=== PATIENT | male | born 1970 | race Native Hawaiian/Other Pacific Islander ===

== ENCOUNTER 2017-03-11 13:20 | Inpatient (IN) | payer OTHER ==
[2017-03-11 13:20] VITALS: BMI 26.6
--- NOTE | 2017-03-11 14:13 | C.PDOC ---
History Of Present Illness 46 y/o male presents to the ED with complaints of productive cough x3 weeks with associated subjective fever and chills. Pt denies dyspnea on exertion, chest pain or any other complaints. Denies antibiotic use. History of crohn's disease and rheumatoid arthritis. PROD COUGH X 3 WEEKS. +SUBJ FEVER, CHILLS. NO STEVENS/CP. NO ABX HO CHRONS, RA EXAM MILD DIST NONTOXIC HEENT NEG LUNGS CTA B/L NO W/R/R Time Seen by Provider: 03/11/17 13:32 Chief Complaint (Nursing): Cough, Cold, Congestion History Per: Patient History/Exam Limitations: no limitations Onset/Duration Of Symptoms: Days Current Symptoms Are (Timing): Still Present Sick Contacts (Context): None Associated Symptoms: Fever, Chills, Cough, Sputum. denies: Vomiting Severity: Mild Recent travel outside of the [place]: No Past Medical History Reviewed: Historical Data, Nursing Documentation, Vital Signs Vital Signs: Last Vital Signs Temp 99.1 F 03/11/17 15:24 Pulse 106 H 03/11/17 15:24 Resp 20 03/11/17 15:24 BP 137/73 03/11/17 15:24 Pulse Ox 97 03/11/17 15:24 - Medical History PMH: Anemia, Arthritis, Crohn's Disease, Diabetes, Fractures (LEFT ELBOW-CASTED ONLY), Gastritis, Pneumonia (NOVEMBER 2015), Rheumatoid Arthritis Surgical History: Cholecystectomy, Endoscopy - [facility] Procedures CLOSED ENDOSCOPIC BIOPSY OF LARGE INTESTINE (03/31/13) DRAINAGE OF AMPULLA OF VATER, ENDO (09/20/15) DRAINAGE OF RIGHT LOWER LOBE BRONCHUS, ENDO, DIAGN (11/12/15) EXCISION OF RIGHT LOWER LUNG LOBE, ENDO, DIAGN (11/12/15) EXTRACTION OF ILIAC BONE MARROW, PERC APPROACH, DIAGN (11/12/15) PACKED CELL TRANSFUSION (03/31/13) Family History: States: Unknown Family Hx - Social History Hx Alcohol Use: Yes Hx Substance Use: (DENIED) - Immunization History Hx Tetanus Toxoid Vaccination: No Hx Influenza Vaccination: No Hx Pneumococcal Vaccination: No Review Of Systems Except As Marked, All Systems Reviewed And Found Negative. Constitutional: Positive for: Fever, Chills Cardiovascular: Negative for: Chest Pain Respiratory: Positive for: Cough. Negative for: Shortness of Breath, SOB with Excertion Gastrointestinal: Negative for: Vomiting Physical Exam - Physical Exam Appears: Non-toxic, In Acute Distress (mild) Skin: Warm, Dry, No Rash Head: Atraumatic, Normacephalic Ear(s): Bilateral: Normal Nose: Normal Oral Mucosa: Moist Throat: Normal, No Erythema Neck: Normal, Normal ROM, Supple Chest: Symmetrical Cardiovascular: Rhythm Regular, No Murmur Respiratory: Normal Breath Sounds (clear to auscultation bilaterally), No Rales , No Rhonchi, No Wheezing Gastrointestinal/Abdominal: Normal Exam, Soft, No Tenderness Extremity: Bilateral: Atraumatic Neurological/Psych: Oriented x3, Normal Speech ED Course And Treatment - Laboratory Results Result Diagrams: 03/11/17 14:34 03/11/17 14:34 ECG: Interpreted By Me, Viewed By Me ECG Rhythm: Sinus Tachycardia Rate From EC (BPM) O2 Sat by Pulse Oximetry: 98 (room air) Pulse Ox Interpretation: Normal - Radiology CXR: Interpreted by Me CXR Interpretation: Yes: Infiltrates (RLL) Progress - Re-Evaluation Re-evaluation Note: 03/11/17 15:07 APPEARS WEAK. D/W DR BANKS WILL ADMIT - Medications Administered Intravenous: NSAID - Data Reviewed Data Reviewed: Lab, Diagnostic imaging, EKG, Old records Medical Decision Making Medical Decision Making: Plan: * EKG * labs * CXR * UA * IV fluids * toradol Disposition Counseled Patient/Family Regarding: Studies Performed, Diagnosis - Disposition Disposition: HOSPITALIZED Disposition Time: 15:10 Condition: STABLE - POA Present On Arrival: Poor Glycemic Control - Clinical Impression Clinical Impression: Pneumonia, Hyponatremia, Acute renal insufficiency - Scribe Statement The provider has reviewed the documentation as recorded by the Tuan Sigala Provider Attestation: All medical record entries made by the Tuan were at my direction and personally dictated by me. I have reviewed the chart and agree that the record accurately reflects my personal performance of the history, physical exam, medical decision making, and the department course for this patient. I have also personally directed, reviewed, and agree with the discharge instructions and disposition. Decision To Admit - Pt Status Changed To: Hospital Disposition Of: Inpatient - Admit Certification Admit to Inpatient:: After my assessment, the patient will require hospitalization for at least two midnights. This is because of the severity of symptoms shown, intensity of services needed, and/or the medical risk in this patient being treated as an outpatient. - InPatient: Physician Admission Certification: I certify that this patient requires 2 or more midnights of care for the following reason:: SEE NOTE - . Bed Request Type: Regular Admitting Physician: Alessandra Banks Patient Diagnosis: Pneumonia, Hyponatremia, Acute renal insufficiency
[2017-03-11 14:38] LABS: BASO # 0.3 K/uL (0.0-0.2); BASO % 0.9 % (0.0-2.0); EOS % 0.2 % (0.0-4.0); LYMPH # 0.7 K/uL (1.0-4.3); LYMPH % 2.6 % (20.0-40.0); MEAN CELL VOLUME 83.1 fL (80.0-94.0); MEAN CORPUSCULAR HEMOGLOBIN 27.8 pg (27.0-31.0); MEAN CORPUSCULAR HGB CONC 33.5 g/dL (33.0-37.0); MEAN PLATELET VOLUME 8.5 fL (7.2-11.7); MONO # 0.7 K/uL (0.0-0.8); MONO % 2.6 % (0.0-10.0); PLATELET COUNT 272 K/uL (130-400); RED CELL DISTRIBUTION WIDTH 13.3 % (11.5-14.5)
[2017-03-11 14:44] LABS: VENOUS BLOOD GAS BASE EXCESS -5.4 mmol/L (0.0-2.0); VENOUS BLOOD GAS PCO2 26 mmHg (40-60); VENOUS BLOOD PH 7.43 (7.32-7.43)
[2017-03-11 14:50] LABS: ALB/GLOB RATIO 0.8 (1.0-2.1); BILIRUBIN,TOTAL 0.7 mg/dL (0.2-1.3); TOTAL PROTEIN 6.8 g/dL (6.3-8.3)
[2017-03-11] MEDS ORDERED: Sodium Chloride 0.9% 1,000 ML ONE (14:50)
[2017-03-11 14:51] LABS: CALCIUM 8.3 mg/dl (8.6-10.4)
[2017-03-11 14:54] LABS: WHITE BLOOD COUNT 27.5 K/uL (4.8-10.8)
[2017-03-11] MEDS ORDERED: Azithromycin 500 MG in Sodium Chloride 0.9% 250 ML IV STA (14:55)
[2017-03-11] MEDS ORDERED: cefTRIAXone IV 1 gm in Dextros 50 ML IV STA (14:55)
[2017-03-11] MEDS ORDERED: Azithromycin 500mg/250ML NS 500 MG/250 ML BAG IVPB ONE (15:02)
[2017-03-11] MEDS ORDERED: cefTRIAXone IV 1 gm in Dextros 50 ML IVPB ONE (15:02)
[2017-03-11 15:35] LABS: RBC URINE 6 /hpf (0-3); URINE BILIRUBIN NEGATIVE (NEGATIVE); URINE BLOOD 1+ (NEGATIVE); URINE COLOR Yellow (YELLOW); URINE GLUCOSE (UA) 3+ mg/dL (Normal); URINE KETONE NEGATIVE (NEGATIVE); URINE LEUKOCYTE ESTERASE NEG Leu/uL (Negative); URINE PROTEIN 3+ mg/dL (NEGATIVE); URINE UROBILINOGEN NORMAL mg/dL (0.2-1.0); WBC URINE 3 /hpf (0-5)
[2017-03-11 15:38] LABS: NEUTROPHIL 88 % (50-75); TOTAL CELLS COUNTED 100
--- NOTE | 2017-03-11 16:10 | RAD ---
HISTORY: cough COMPARISON: 11/17/2015 FINDINGS: LUNGS: Patchy increased markings in both lung bases ; right greater than left concerning for infiltrate and or atelectasis. This is most prominent in the right infrahilar region. Scattered nodularity in the right midlung zone laterally which may represent prominent vessels on end however pulmonary nodules can't be excluded. Upper lobe granulomatous changes. PLEURA: As above. CARDIOVASCULAR: Normal. OSSEOUS STRUCTURES: No significant abnormalities. VISUALIZED UPPER ABDOMEN: Normal. OTHER FINDINGS: None. IMPRESSION: Patchy increased markings at both lung bases; right greater than left concerning for infiltrate and or atelectasis. This is most prominent in the right infrahilar region. Scattered nodularity in the right midlung zone laterally which may represent prominent vessels on end however pulmonary nodules can't be excluded. Upper lobe granulomatous changes.
[2017-03-11] MEDS ORDERED: Sodium Chloride 0.9% 1,000 ML IV SCH (20:45)
--- NOTE | 2017-03-11 20:48 | CP.PCM.HP ---
History of Present Illness - History of Present Illness History of Present Illness: Patient came to the emergency room with increasing symptoms of weakness, cough, and fever. History: 47-year-old male with history of Crohn's disease, rheumatoid arthritis, diabetes , hypertension, GI bleed, urinalysis, status post cataract surgery. Patient was recently almost to 2-3 weeks having increasing symptoms of cough. Shortness of breath. Also recurrent fever. And his blood sugar is increasingly elevated. Is currently not taking any other medications, except his pain medicines. Is not eating well, appetite is very poor, sweating noted, chills present. Review of systems: Headache noted, nausea noted, but no vomiting. Complaining of constipation. Blood sugar is stable. On examination: HEENT PERRLA, neck supple, right upper eyelid drooping noted, pulses present No thyromegaly was noted and no cervical adenopathy noted Bilateral wheezing in the lungs noted CVS regular heart sound, no murmur Abdomen soft and no organomegaly Extremities no pedal edema, no leg swelling, pedal pulses are good. 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 labs noted. Elevated WBC noted. Chest x-ray showing evidence of worsening bilateral pneumonia. Assessment/recommendation: 45-year-old male with history of Crohn's disease, rheumatoid arthritis, diabetes , history of GI bleed, and duodenal ulcer, recently had a status post cataract surgery. Patient is currently admitted with acute pneumonia. To start the patient antibiotic. Glucose control. Gastrointestinal evaluation on the possible infectious disease evaluation. DVT. GI prophylaxis. Will follow the patient Present on Admission - Present on Admission Any Indicators Present on Admission: No History of DVT/PE: No History of Uncontrolled Diabetes: No Urinary Catheter: No Decubitus Ulcer Present: No Past Patient History - Infectious Disease Hx of Infectious Diseases: None - Past Medical History & Family History Past Medical History?: Yes - Past Social History Smoking Status: Light Smoker < 10 Cigarettes Daily - PULMONARY Hx Pneumonia: Yes (NOVEMBER 2015) - HEENT Hx HEENT Problems: Yes Hx Cataracts: Yes (RIGHT EYE) - ENDOCRINE/METABOLIC Hx Endocrine Disorders: Yes Hx Diabetes Mellitus Type 1: Yes - HEMATOLOGICAL/ONCOLOGICAL Hx Anemia: Yes - INTEGUMENTARY Hx Dermatological Problems: Yes Hx Cellulitis: Yes - MUSCULOSKELETAL/RHEUMATOLOGICAL Hx Arthritis: Yes Hx Falls: No Hx Fractures: Yes (LEFT ELBOW-CASTED ONLY) Hx Rheumatoid Arthritis: Yes - GASTROINTESTINAL Hx Crohn's Disease: Yes Hx Gastritis: Yes - PSYCHIATRIC Hx Substance Use: No - SURGICAL HISTORY Hx Cholecystectomy: Yes - ANESTHESIA Hx Anesthesia: Yes Hx Anesthesia Reactions: No Hx Malignant Hyperthermia: No Meds Home Medications: Home Medication List Medication Instructions Recorded Confirmed Type Insulin Glargine, Recombina 50 unit SC HS unit 03/29/17 Rx [Lantus] Insulin Human Regular [Novolin R] 0 unit SC ACHS unit 03/29/17 Rx Metoprolol Tartrate [Lopressor] 25 mg PO Q6 tab 03/29/17 Rx Promethazine [Phenergan Syrup] 6.25 mg PO Q6H 03/29/17 Rx traMADol [Ultram] 50 mg PO TID tab 03/29/17 Rx Allergies/Adverse Reactions: Allergies Allergy/AdvReac Type Severity Reaction Status Date / Time No Known Allergies Allergy Verified 03/29/17 18:13 Results - Vital Signs Recent Vital Signs: Last Vital Signs Temp 99.1 F 03/11/17 16:49 Pulse 90 03/11/17 16:49 Resp 20 03/11/17 16:49 BP 119/67 03/11/17 16:49 Pulse Ox 97 03/11/17 16:49 - Labs Result Diagrams: 03/29/17 11:49 03/29/17 11:49 Labs: Laboratory Results - last 24 hr 03/11/17 03/11/17 15:23 17:05 POC Glucose (mg/dL) 261 H Urine Color Yellow Urine Clarity Hazy Urine pH 5.0 Ur Specific [place] 1.024 Urine Protein 3+ H Urine Glucose (UA) 3+ H Urine Ketones Negative Urine Blood 1+ H Urine Nitrate Negative Urine Bilirubin Negative Urine Urobilinogen Normal Ur Leukocyte Esterase Neg Urine WBC (Auto) 3 Urine RBC (Auto) 6 H Ur Squamous Epith Cells 2
[2017-03-11] MEDS ORDERED: Potassium Chloride 20 mEq ER Tab PO STA (20:55)
[2017-03-11] MEDS ORDERED: Potassium Chloride 20 mEq ER Tab PO ONE (21:00)
[2017-03-11] MEDS ORDERED: Piperacill/Tazo 2.25gm in Dex 2.25 GM/50 ML BAG IVPB SCH (21:00)
[2017-03-11] MEDS: (Novolin R) Insulin Human Regular 100 units/ml vial SC SCH (21:19)
[2017-03-12] MEDS: Piperacill/Tazo 2.25gm in Dex 2.25 GM/50 ML BAG IVPB SCH ×3 (00:19→14:21)
[2017-03-12] MEDS: Oxycodone/Acetaminophen 5/325 mg Tab PO PRN ×2 (00:20→07:54)
[2017-03-12] MEDS: guaiFENesin 100 mg/5 ml Syrup UD PO PRN ×4 (00:42→21:31)
[2017-03-12] MEDS: Albuterol-Ipratrop 3 mg / 0.5 (3 ml) UD INH SCH ×4 (04:04→20:10)
[2017-03-12] MEDS: (Novolin R) Insulin Human Regular 100 units/ml vial SC SCH ×3 (08:09→21:36)
[2017-03-12] MEDS ORDERED: Potassium Chloride 20 mEq ER Tab PO SCH (10:00)
[2017-03-12] MEDS: Multiple Vitamins Tab PO SCH (10:26)
--- NOTE | 2017-03-12 12:05 | CT ---
PROCEDURE: CT Chest without contrast HISTORY: Pneumonia COMPARISON: Chest radiograph from the same day. TECHNIQUE: Contiguous axial images were obtained through the chest without intravenous contrast enhancement. Sagittal and coronal reconstructions were performed. Radiation dose (DLP): 372.30 MGy-cm. This CT exam was performed using one or more of the following dose reduction techniques: Automated exposure control, adjustment of the mA and/or kV according to patient size, and/or use of iterative reconstruction technique. FINDINGS: LUNGS: There are multiple nodules with for the margins in the right upper lobe, middle lobe and lower lobe. There are also several nodules scattered in the left lung. There is confluent airspace disease in the both lower lobes and lingula. MEDIASTINUM: The aorta is normal in caliber. Few subcentimeter mediastinal lymph nodes are likely reactive in etiology. The heart is normal in size. No pericardial effusion. PLEURA: Small pleural effusions. No pneumothorax. BONES: No fracture. No destructive lesion. Mild multilevel degenerative disc disease in the thoracic spine. UPPER ABDOMEN: Grossly unremarkable. OTHER FINDINGS: None. IMPRESSION: Multiple nodules in both lungs, numerous in the right lung with confluent airspace disease in both lower lobes consistent with multifocal pneumonia. Follow-up after medical management is recommended to ensure complete resolution.
[2017-03-12 14:19] LABS: BASO # 0.2 K/uL (0.0-0.2); BASO % 0.6 % (0.0-2.0); HEMATOCRIT 36.6 % (35.0-51.0); LYMPH # 1.1 K/uL (1.0-4.3); LYMPH % 4.1 % (20.0-40.0); MEAN CORPUSCULAR HEMOGLOBIN 28.2 pg (27.0-31.0); MEAN PLATELET VOLUME 8.8 fL (7.2-11.7); MONO # 1.6 K/uL (0.0-0.8); MONO % 5.9 % (0.0-10.0); PLATELET COUNT 244 K/uL (130-400); RED CELL DISTRIBUTION WIDTH 13.9 % (11.5-14.5); WHITE BLOOD COUNT 27.4 K/uL (4.8-10.8)
[2017-03-12 14:22] LABS: MEAN CELL VOLUME 85.5 fL (80.0-94.0)
[2017-03-12 14:34] LABS: POTASSIUM 5.1 mmol/L (3.6-5.2)
[2017-03-12 14:37] LABS: ALB/GLOB RATIO 0.8 (1.0-2.1); BILIRUBIN,TOTAL 0.7 mg/dL (0.2-1.3); TOTAL PROTEIN 6.3 g/dL (6.3-8.3)
[2017-03-12 14:38] LABS: CALCIUM 7.7 mg/dl (8.6-10.4)
[2017-03-12] MEDS: Fluconazole IV 100mg/50 ml NS 50 ML IVPB SCH (21:31)
[2017-03-12] MEDS ORDERED: (Lantus) Insulin Glargine, Recombinant SC SCH (22:00)
[2017-03-12] MEDS: Vancomycin 1 gm/NS 200 ml 1 GM/200 ML BAG IVPB SCH (22:09)
[2017-03-12 23:59] LABS: NEUTROPHIL 91 % (50-75); TOTAL CELLS COUNTED 100
[2017-03-13] MEDS: Piperacill/Tazo 2.25gm in Dex 2.25 GM/50 ML BAG IVPB SCH ×6 (00:05→23:59)
[2017-03-13] MEDS: Albuterol-Ipratrop 3 mg / 0.5 (3 ml) UD INH SCH ×4 (01:35→20:18)
[2017-03-13 07:28] LABS: BASO # 0.1 K/uL (0.0-0.2); BASO % 0.2 % (0.0-2.0); EOS % 0.1 % (0.0-4.0); HEMATOCRIT 34.1 % (35.0-51.0); LYMPH # 1.3 K/uL (1.0-4.3); LYMPH % 4.9 % (20.0-40.0); MEAN CELL VOLUME 85.6 fL (80.0-94.0); MEAN CORPUSCULAR HGB CONC 32.8 g/dL (33.0-37.0); MEAN PLATELET VOLUME 9.6 fL (7.2-11.7); MONO # 1.5 K/uL (0.0-0.8); MONO % 5.6 % (0.0-10.0); PLATELET COUNT 235 K/uL (130-400); RED CELL DISTRIBUTION WIDTH 13.7 % (11.5-14.5)
[2017-03-13 07:45] LABS: ALB/GLOB RATIO 0.8 (1.0-2.1); CALCIUM 7.8 mg/dl (8.6-10.4); TOTAL PROTEIN 6.3 g/dL (6.3-8.3)
[2017-03-13] MEDS: guaiFENesin 100 mg/5 ml Syrup UD PO PRN ×2 (07:55→12:00)
[2017-03-13] MEDS: Oxycodone/Acetaminophen 5/325 mg Tab PO PRN ×4 (07:55→23:27)
[2017-03-13 07:57] LABS: POTASSIUM 4.9 mmol/L (3.6-5.2)
[2017-03-13] MEDS: (Novolin R) Insulin Human Regular 100 units/ml vial SC SCH ×4 (07:57→22:36)
[2017-03-13 09:12] LABS: NEUTROPHIL 87 % (50-75); TOTAL CELLS COUNTED 100
[2017-03-13] MEDS ORDERED: Pneumococcal 23-Valent Vaccine IM ONE (10:00)
[2017-03-13] MEDS: Multiple Vitamins Tab PO SCH (10:43)
[2017-03-13] MEDS: Vancomycin 1 gm/NS 200 ml 1 GM/200 ML BAG IVPB SCH ×2 (10:45→21:11)
--- NOTE | 2017-03-13 12:00 | CP.PCM.CON ---
Past Patient History - Infectious Disease Hx of Infectious Diseases: None - Past Medical History & Family History Past Medical History?: Yes - Past Social History Smoking Status: Light Smoker < 10 Cigarettes Daily - PULMONARY Hx Pneumonia: Yes (NOVEMBER 2015) - HEENT Hx HEENT Problems: Yes Hx Cataracts: Yes (RIGHT EYE) - ENDOCRINE/METABOLIC Hx Endocrine Disorders: Yes Hx Diabetes Mellitus Type 1: Yes - HEMATOLOGICAL/ONCOLOGICAL Hx Anemia: Yes - INTEGUMENTARY Hx Dermatological Problems: Yes Hx Cellulitis: Yes - MUSCULOSKELETAL/RHEUMATOLOGICAL Hx Arthritis: Yes Hx Falls: No Hx Fractures: Yes (LEFT ELBOW-CASTED ONLY) Hx Rheumatoid Arthritis: Yes - GASTROINTESTINAL Hx Crohn's Disease: Yes Hx Gastritis: Yes - PSYCHIATRIC Hx Substance Use: No - SURGICAL HISTORY Hx Cholecystectomy: Yes - ANESTHESIA Hx Anesthesia: Yes Hx Anesthesia Reactions: No Hx Malignant Hyperthermia: No Meds Allergies/Adverse Reactions: Allergies Allergy/AdvReac Type Severity Reaction Status Date / Time No Known Allergies Allergy Verified 06/18/16 18:39 - Medications Medications: Current Medications Acetaminophen (Tylenol 325mg Tab) 650 mg PO Q6 PRN PRN Reason: Fever >100.4 F Albuterol/Ipratropium (Duoneb 3 Mg/0.5 Mg (3 Ml) Ud) 3 ml INH RQ6 [facility] Last Admin: 03/13/17 07:30 Dose: 3 ml Azathioprine (Imuran) 50 mg PO DAILY [facility] Last Admin: 03/13/17 10:43 Dose: 50 mg Guaifenesin (Robitussin) 100 mg PO Q4H PRN PRN Reason: Cough Last Admin: 03/13/17 07:55 Dose: 100 mg Heparin Sodium (Porcine) (Heparin) 5,000 units SC Q12 [facility] Last Admin: 03/13/17 10:43 Dose: 5,000 units Potassium Chloride 40 meq/ (Sodium Chloride) 1,020 mls @ 100 mls/hr IV .[id number] [facility] Last Admin: 03/13/17 06:34 Dose: Not Given Piperacillin Sod/Tazobactam Sod (Zosyn 2.25 Gm Iv Premix) 2.25 gm in 50 mls @ 100 mls/hr IVPB Q6H [facility] Last Admin: 03/13/17 05:16 Dose: 100 mls/hr Vancomycin/Sodium Chloride (Vancocin) 1 gm in 200 mls @ 133.333 mls/hr IVPB Q12H [facility] Last Admin: 03/13/17 10:45 Dose: 133.333 mls/hr Fluconazole (Diflucan Iv 100 Mg/50 Ml Ns) 50 mls @ 50 mls/hr IVPB Q24H [facility] Last Admin: 03/12/17 21:31 Dose: 50 mls/hr Insulin Glargine (Lantus) 30 unit SC HS [facility] Insulin Human Regular (Novolin R) 0 unit SC ACHS [facility] PRN Reason: Protocol Last Admin: 03/13/17 11:56 Dose: 4 unit Multivitamins (Hexavitamin) 1 tab PO DAILY [facility] Last Admin: 03/13/17 10:43 Dose: 1 tab Oxycodone/Acetaminophen (Percocet 5/325 Mg Tab) 2 tab PO Q4H PRN PRN Reason: Pain, moderate (4-7) Stop: 03/14/17 20:45 Last Admin: 03/13/17 07:55 Dose: 2 tab Pregabalin (Lyrica) 75 mg PO BID [facility] Last Admin: 03/13/17 10:43 Dose: 75 mg Results - Vital Signs Recent Vital Signs: Last Vital Signs Temp 100.0 F H 03/13/17 08:41 Pulse 119 H 03/13/17 08:41 Resp 20 03/13/17 08:41 BP 176/91 H 03/13/17 08:41 Pulse Ox 97 03/13/17 08:41 - Labs Result Diagrams: 03/13/17 07:17 03/13/17 07:17 Labs: Laboratory Results - last 24 hr 03/12/17 03/12/17 03/12/17 11:47 14:16 14:16 WBC 27.4 H RBC 4.28 L Hgb 12.1 Hct 36.6 MCV 85.5 D MCH 28.2 MCHC 33.0 RDW 13.9 Plt Count 244 MPV 8.8 Neut % (Auto) 89.4 H Lymph % (Auto) 4.1 L Ritchie % (Auto) 5.9 Eos % (Auto) 0.0 Baso % (Auto) 0.6 Neut # 24.4 H Lymph # 1.1 Ritchie # 1.6 H Eos # 0.0 Baso # 0.2 Neutrophils % (Manual) 91 H Band Neutrophils % 2 Lymphocytes % (Manual) 1 L Monocytes % (Manual) 6 Platelet Estimate Normal RBC Morphology Sodium 127 L Potassium 5.1 Chloride 99 Carbon Dioxide 20 L Anion Gap 13 BUN 24 H Creatinine 1.9 H Est GFR ( Amer) 47 Est GFR (Non-Af Amer) 39 POC Glucose (mg/dL) 475 H* Random Glucose 479 H* D Calcium 7.7 L Total Bilirubin 0.7 AST 33 ALT 46 Alkaline Phosphatase 729 H Lactate Dehydrogenase Total Protein 6.3 Albumin 2.8 L Globulin 3.5 Albumin/Globulin Ratio 0.8 L 03/12/17 03/12/17 03/13/17 17:17 21:02 07:11 WBC RBC Hgb Hct MCV MCH MCHC RDW Plt Count MPV Neut % (Auto) Lymph % (Auto) Ritchie % (Auto) Eos % (Auto) Baso % (Auto) Neut # Lymph # Ritchie # Eos # Baso # Neutrophils % (Manual) Band Neutrophils % Lymphocytes % (Manual) Monocytes % (Manual) Platelet Estimate RBC Morphology Sodium Potassium Chloride Carbon Dioxide Anion Gap BUN Creatinine Est GFR ( Amer) Est GFR (Non-Af Amer) POC Glucose (mg/dL) 290 H 272 H 300 H Random Glucose Calcium Total Bilirubin AST ALT Alkaline Phosphatase Lactate Dehydrogenase Total Protein Albumin Globulin Albumin/Globulin Ratio 03/13/17 03/13/17 03/13/17 07:17 07:17 11:19 WBC 26.0 H RBC 3.99 L Hgb 11.2 L Hct 34.1 L MCV 85.6 MCH 28.0 MCHC 32.8 L RDW 13.7 Plt Count 235 MPV 9.6 Neut % (Auto) 89.2 H Lymph % (Auto) 4.9 L Ritchie % (Auto) 5.6 Eos % (Auto) 0.1 Baso % (Auto) 0.2 Neut # 23.2 H Lymph # 1.3 Ritchie # 1.5 H Eos # 0.0 Baso # 0.1 Neutrophils % (Manual) 87 H Band Neutrophils % Lymphocytes % (Manual) 8 L Monocytes % (Manual) 5 Platelet Estimate Normal RBC Morphology Normal Sodium 130 L Potassium 4.9 Chloride 104 Carbon Dioxide 16 L Anion Gap 15 BUN 21 H Creatinine 1.8 H Est GFR ( Amer) 50 Est GFR (Non-Af Amer) 41 POC Glucose (mg/dL) 232 H Random Glucose 271 H Calcium 7.8 L Total Bilirubin 1.0 AST 35 ALT 35 Alkaline Phosphatase 649 H Lactate Dehydrogenase 553 Total Protein 6.3 Albumin 2.7 L Globulin 3.5 Albumin/Globulin Ratio 0.8 L
[2017-03-13] MEDS: Promethazine/Cod 6.25mg-10mg/5ml Syr UD PO PRN ×2 (13:40→18:42)
[2017-03-13] MEDS: Sucralfate 1 gm/10 ml Oral Susp UD PO SCH ×2 (14:31→20:58)
--- NOTE | 2017-03-13 15:17 | CP.PCM.CON ---
History of Present Illness - History of Present Illness History of Present Illness: 46 y/o male presents to the ED with complaints of productive cough x3 weeks with associated subjective fever and chills. Pt denies dyspnea on exertion, chest pain or any other complaints. Denies antibiotic use. History of crohn's disease and rheumatoid arthritis. 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 +SUBJ FEVER, CHILLS. NO STEVENS/CP. NO ABX HO CHRONS, RA - Medical History PMH: Anemia, Arthritis, Crohn's Disease, Diabetes, Fractures (LEFT ELBOW-CASTED ONLY), Gastritis, Pneumonia (NOVEMBER 2015), Rheumatoid Arthritis Surgical History: Cholecystectomy, Endoscopy - [facility] Procedures CLOSED ENDOSCOPIC BIOPSY OF LARGE INTESTINE (03/31/13) DRAINAGE OF AMPULLA OF VATER, ENDO (09/20/15) DRAINAGE OF RIGHT LOWER LOBE BRONCHUS, ENDO, DIAGN (11/12/15) EXCISION OF RIGHT LOWER LUNG LOBE, ENDO, DIAGN (11/12/15) EXTRACTION OF ILIAC BONE MARROW, PERC APPROACH, DIAGN (11/12/15) PACKED CELL TRANSFUSION (03/31/13) Review of Systems - Constitutional Constitutional: As Per HPI, Anorexia, Fever, Malaise - EENT Eyes: absent: As Per HPI, Blind Spots, Blurred Vision, Change in Vision, Decreased Night Vision, Diplopia, Discharge, Dry Eye, Exophthalmos, Floaters, Irritation, Itchy Eyes, Loss of Peripheral Vision, Pain, Photophobia, Requires Corrective Lenses, Sees Flashes, Spots in Vision, Tunnel Vision, Other Visual Disturbances, Loss of Vision, Other Ears: absent: As Per HPI, Decreased Hearing, Ear Discharge, Ear Pain, Tinnitus, Abnormal Hearing, Disequilibrium, Dizziness, Other Nose/Mouth/Throat: absent: As Per HPI, Epistaxis, Nasal Congestion, Nasal Discharge, Nasal Obstruction, Nasal Trauma, Nose Pain, Post Nasal Drip, Sinus Pain, Sinus Pressure, Bleeding Gums, Change in Voice, Dental Pain, Dry Mouth, Dysphagia, Halitosis, Hoarsness, Lip Swelling, Mouth Lesions, Mouth Pain, Odynophagia, Sore Throat, Throat Swelling, Tongue Swelling, Facial Pain, Neck Pain, Neck Mass, Other - Cardiovascular Cardiovascular: absent: As Per HPI, Acrocyanosis, Chest Pain, Chest Pain at Rest , Chest Pain with Activity, Claudication, Diaphoresis, Dyspnea, Dyspnea on Exertion, Edema, Irregular Heart Rhythm, Pain Radiating to Arm/Neck/Jaw, Leg Edema, Leg Ulcers, Lightheadedness, Orthopnea, Palpitations, Paroxysmal Nocturnal Dyspnea, Pedal Edema, Radiating Pain, Rapid Heart Rate, Slow Heart Rate, Syncope, Other - Respiratory Respiratory: As Per HPI, Cough, Dyspnea, Dyspnea on Exertion. absent: Hemoptysis - Gastrointestinal Gastrointestinal: absent: As Per HPI, Abdominal Pain, Belching, Bloating, Change in Bowel Habits, Change in Stool Character, Coffee Ground Emesis, Constipation, Cramping, Diarrhea, Dyspepsia, Dysphagia, Early Satiety, Excessive Flatus, Fecal Incontinence, Heartburn, Hematemesis, Hematochezia, Loose Stools, Melena, Nausea, Odynophagia, Temesmus, Vomiting, Other - Genitourinary Genitourinary: absent: As Per HPI, Change in Urinary Stream, Difficulty Urinating, Dysuria, Flank Pain, Hematuria, Pyuria, Nocturia, Urinary Incontinence, Urinary Frequency, Urinary Hesitance, Urinary Urgency, Voiding Freq/Small Amts, Freq UTI, Hx Renal/Bladder Calculi, Hx /Renal Surgery, Bladder Distension, Other - Musculoskeletal Musculoskeletal: As Per HPI - Integumentary Integumentary: As Per HPI. absent: Acne, Alopecia, Bleeding Lesions, Change in Hair, Change in Nails, Change in Pigmentation, Changing Lesions, Dry Skin, Erythema, Furuncle, Hirsutism, Lesions, New Lesions, Non-Healing Lesions, Photosensitivity, Pruritus, Rash, Skin Pain, Skin Ulcer, Sores, Striae, Swelling , Unusual Bruising, Wounds, Jaundice, Other - Neurological Neurological: absent: As Per HPI, Abnormal Gait, Abnormal Hearing, Abnormal Movements, Abnormal Speech, Behavioral Changes, Burning Sensations, Confusion, Convulsions, Disequilibrium, Dizziness, Numbness, Focal Weakness, Frequent Falls , Headaches, Lack of Coordination, Loss of Vision, Memory Loss, Paresthesias, Radicular Pain, Restless Legs, Sensory Deficit, Syncope, Tingling, Tremor, Vertigo, Weakness, Other Visual Disturbances, Other - Psychiatric Psychiatric: absent: As Per HPI, Abnormal Sleep Pattern, Anhedonia, Anxiety, Auditory Hallucinations, Behavioral Changes, Change in Appetite, Change in Libido, Confusion, Depression, Difficulty Concentrating, Hallucinations, Homicidal Ideation, Hopelessness, Irritability, Memory Loss, Mood Swings, Panic Attacks, Paranoia, Suicidal Ideation, Visual Hallucinations, Tactile Hallucinations, Other - Endocrine Endocrine: absent: As Per HPI, Change in Body Appearance, Change in Libido, Cold Intolorance, Deepening of Voice, Excessive Sweating, Fatigue, Flushing, Heat Intolorance, Increase in Ring/Shoe/Hat Size, Palpitations, Polydipsia, Polyphagia, Polyuria, Other - Hematologic/Lymphatic Hematologic: absent: As Per HPI, Easy Bleeding, Easy Bruising, Lymphadenopathy, Other Past Patient History - Infectious Disease Hx of Infectious Diseases: None - Past Medical History & Family History Past Medical History?: Yes - Past Social History Smoking Status: Light Smoker < 10 Cigarettes Daily - PULMONARY Hx Pneumonia: Yes (NOVEMBER 2015) - HEENT Hx HEENT Problems: Yes Hx Cataracts: Yes (RIGHT EYE) - ENDOCRINE/METABOLIC Hx Endocrine Disorders: Yes Hx Diabetes Mellitus Type 1: Yes - HEMATOLOGICAL/ONCOLOGICAL Hx Anemia: Yes - INTEGUMENTARY Hx Dermatological Problems: Yes Hx Cellulitis: Yes - MUSCULOSKELETAL/RHEUMATOLOGICAL Hx Arthritis: Yes Hx Falls: No Hx Fractures: Yes (LEFT ELBOW-CASTED ONLY) Hx Rheumatoid Arthritis: Yes - GASTROINTESTINAL Hx Crohn's Disease: Yes Hx Gastritis: Yes - PSYCHIATRIC Hx Substance Use: No - SURGICAL HISTORY Hx Cholecystectomy: Yes - ANESTHESIA Hx Anesthesia: Yes Hx Anesthesia Reactions: No Hx Malignant Hyperthermia: No Meds Allergies/Adverse Reactions: Allergies Allergy/AdvReac Type Severity Reaction Status Date / Time No Known Allergies Allergy Verified 06/18/16 18:39 - Medications Medications: Current Medications Acetaminophen (Tylenol 325mg Tab) 650 mg PO Q6 PRN PRN Reason: Fever >100.4 F Albuterol/Ipratropium (Duoneb 3 Mg/0.5 Mg (3 Ml) Ud) 3 ml INH RQ6 [facility] Last Admin: 03/13/17 13:20 Dose: 3 ml Heparin Sodium (Porcine) (Heparin) 5,000 units SC Q12 [facility] Last Admin: 03/13/17 10:43 Dose: 5,000 units Potassium Chloride 40 meq/ (Sodium Chloride) 1,020 mls @ 100 mls/hr IV .[id number] [facility] Last Admin: 03/13/17 13:46 Dose: 100 mls/hr Piperacillin Sod/Tazobactam Sod (Zosyn 2.25 Gm Iv Premix) 2.25 gm in 50 mls @ 100 mls/hr IVPB Q6H [facility] Last Admin: 03/13/17 12:00 Dose: 100 mls/hr Vancomycin/Sodium Chloride (Vancocin) 1 gm in 200 mls @ 133.333 mls/hr IVPB Q12H [facility] Last Admin: 03/13/17 10:45 Dose: 133.333 mls/hr Fluconazole (Diflucan Iv 100 Mg/50 Ml Ns) 50 mls @ 50 mls/hr IVPB Q24H [facility] Last Admin: 03/12/17 21:31 Dose: 50 mls/hr Insulin Glargine (Lantus) 30 unit SC HS [facility] Insulin Human Regular (Novolin R) 0 unit SC ACHS [facility] PRN Reason: Protocol Last Admin: 03/13/17 11:56 Dose: 4 unit Multivitamins (Hexavitamin) 1 tab PO DAILY [facility] Last Admin: 03/13/17 10:43 Dose: 1 tab Oxycodone/Acetaminophen (Percocet 5/325 Mg Tab) 2 tab PO Q4H PRN PRN Reason: Pain, moderate (4-7) Stop: 03/14/17 20:45 Last Admin: 03/13/17 13:41 Dose: 2 tab Pantoprazole Sodium (Protonix Inj) 40 mg IVP DAILY [facility] Pregabalin (Lyrica) 75 mg PO BID [facility] Last Admin: 03/13/17 10:43 Dose: 75 mg Promethazine HCl/Codeine (Phenergan/Codeine Oral Syrup) 5 ml PO Q4 PRN PRN Reason: Cough Last Admin: 03/13/17 13:40 Dose: 5 ml Sucralfate (Carafate Oral Susp) 1 gm PO BID [facility] Last Admin: 03/13/17 14:31 Dose: 1 gm Physical Exam - Constitutional Appears: Non-toxic, Chronically Ill - Head Exam Head Exam: ATRAUMATIC, NORMAL INSPECTION, NORMOCEPHALIC - Eye Exam Eye Exam: PERRL. absent: Scleral icterus - ENT Exam ENT Exam: Mucous Membranes Dry, Normal External Ear Exam - Neck Exam Neck exam: Negative for: Lymphadenopathy, Thyromegaly - Respiratory Exam Respiratory Exam: Decreased Breath Sounds, Prolonged Expiratory Phase, Rales, Rhonchi - Cardiovascular Exam Cardiovascular Exam: REGULAR RHYTHM, +S1, +S2. absent: Systolic Murmur - GI/Abdominal Exam GI & Abdominal Exam: Diminished Bowel Sounds, Distended, Soft. absent: Guarding , Rebound, Rigid, Tenderness - Rectal Exam Rectal Exam: Deferred - Exam Exam: NORMAL INSPECTION - Extremities Exam Extremities exam: Positive for: pedal pulses present. Negative for: calf tenderness, pedal edema, tenderness - Back Exam Back exam: absent: CVA tenderness (L), CVA tenderness (R), paraspinal tenderness - Neurological Exam Neurological exam: Alert, CN II-XII Intact, Oriented x3, Reflexes Normal - Psychiatric Exam Psychiatric exam: Normal Mood - Skin Skin Exam: Dry, Intact Results - Vital Signs Recent Vital Signs: Last Vital Signs Temp 100.0 F H 03/13/17 08:41 Pulse 119 H 03/13/17 08:41 Resp 20 03/13/17 08:41 BP 176/91 H 03/13/17 08:41 Pulse Ox 97 03/13/17 08:41 - Labs Result Diagrams: 03/13/17 07:17 03/13/17 07:17 Labs: Laboratory Results - last 24 hr 03/12/17 03/12/17 03/12/17 14:16 14:16 17:17 WBC RBC Hgb Hct MCV MCH MCHC RDW Plt Count MPV Neut % (Auto) Lymph % (Auto) Marshall % (Auto) Eos % (Auto) Baso % (Auto) Neut # Lymph # Marshall # Eos # Baso # Neutrophils % (Manual) 91 H Band Neutrophils % 2 Lymphocytes % (Manual) 1 L Monocytes % (Manual) 6 Platelet Estimate Normal RBC Morphology Sodium 127 L Potassium 5.1 Chloride 99 Carbon Dioxide 20 L Anion Gap 13 BUN 24 H Creatinine 1.9 H Est GFR ( Amer) 47 Est GFR (Non-Af Amer) 39 POC Glucose (mg/dL) 290 H Random Glucose 479 H* D Calcium 7.7 L Total Bilirubin 0.7 AST 33 ALT 46 Alkaline Phosphatase 729 H Lactate Dehydrogenase Total Protein 6.3 Albumin 2.8 L Globulin 3.5 Albumin/Globulin Ratio 0.8 L 03/12/17 03/13/17 03/13/17 21:02 07:11 07:17 WBC 26.0 H RBC 3.99 L Hgb 11.2 L Hct 34.1 L MCV 85.6 MCH 28.0 MCHC 32.8 L RDW 13.7 Plt Count 235 MPV 9.6 Neut % (Auto) 89.2 H Lymph % (Auto) 4.9 L Marshall % (Auto) 5.6 Eos % (Auto) 0.1 Baso % (Auto) 0.2 Neut # 23.2 H Lymph # 1.3 Marshall # 1.5 H Eos # 0.0 Baso # 0.1 Neutrophils % (Manual) 87 H Band Neutrophils % Lymphocytes % (Manual) 8 L Monocytes % (Manual) 5 Platelet Estimate Normal RBC Morphology Normal Sodium Potassium Chloride Carbon Dioxide Anion Gap BUN Creatinine Est GFR ( Amer) Est GFR (Non-Af Amer) POC Glucose (mg/dL) 272 H 300 H Random Glucose Calcium Total Bilirubin AST ALT Alkaline Phosphatase Lactate Dehydrogenase Total Protein Albumin Globulin Albumin/Globulin Ratio 03/13/17 03/13/17 07:17 11:19 WBC RBC Hgb Hct MCV MCH MCHC RDW Plt Count MPV Neut % (Auto) Lymph % (Auto) Marshall % (Auto) Eos % (Auto) Baso % (Auto) Neut # Lymph # Marshall # Eos # Baso # Neutrophils % (Manual) Band Neutrophils % Lymphocytes % (Manual) Monocytes % (Manual) Platelet Estimate RBC Morphology Sodium 130 L Potassium 4.9 Chloride 104 Carbon Dioxide 16 L Anion Gap 15 BUN 21 H Creatinine 1.8 H Est GFR ( Amer) 50 Est GFR (Non-Af Amer) 41 POC Glucose (mg/dL) 232 H Random Glucose 271 H Calcium 7.8 L Total Bilirubin 1.0 AST 35 ALT 35 Alkaline Phosphatase 649 H Lactate Dehydrogenase 553 Total Protein 6.3 Albumin 2.7 L Globulin 3.5 Albumin/Globulin Ratio 0.8 L Assessment & Plan (1) Acute renal insufficiency Status: Acute (2) Hyponatremia Status: Acute (3) Pneumonia Status: Acute (4) Diabetes mellitus Status: Acute (5) Fever Status: Acute (6) Pneumonia Status: Acute (7) Crohn's disease of colon Status: Suspected - Assessment and Plan (Free Text) Assessment: r/o rheumatoid lung vs infectious process await cultures, serologies will isolate pt may need FOB/BAL check AFB, fungus, bacterial, nocardia cultures
[2017-03-13] MEDS ORDERED: Azithromycin 500mg/250ML NS 500 MG/250 ML BAG IVPB SCH (16:00)
[2017-03-13] MEDS: Fluconazole IV 100mg/50 ml NS 50 ML IVPB SCH (22:30)
[2017-03-13] MEDS: (Lantus) Insulin Glargine, Recombinant SC SCH (22:32)
[2017-03-13] MEDS ORDERED: Vancomycin 1 gm/NS 200 ml 1 GM/200 ML BAG IVPB SCH (23:00)
--- NOTE | 2017-03-13 23:25 | CP.PCM.PN ---
Subjective - Date & Time of Evaluation Date of Evaluation: 03/13/17 Time of Evaluation: 23:25 - Subjective Subjective: Patient is having increasing symptoms of recurrent fever, chills present noted, also complaining of nausea, vomiting. Chills and shaking present. Labs reviewed. Elevated WBC noted. Will get a GI evaluation, and also infectious disease evaluation. Objective - Vital Signs/Intake and Output Vital Signs (last 24 hours): Temp Pulse Resp BP Pulse Ox 102.2 F H 117 H 20 127/70 95 03/13/17 19:48 03/13/17 15:00 03/13/17 15:00 03/13/17 15:00 03/13/17 15:00 Intake and Output: 03/13/17 03/14/17 18:59 06:59 Intake Total 1200 Balance 1200 - Medications Medications: Current Medications Acetaminophen (Tylenol 325mg Tab) 650 mg PO Q6 PRN PRN Reason: Fever >100.4 F Albuterol/Ipratropium (Duoneb 3 Mg/0.5 Mg (3 Ml) Ud) 3 ml INH RQ6 [facility] Last Admin: 03/13/17 20:18 Dose: 3 ml Heparin Sodium (Porcine) (Heparin) 5,000 units SC Q12 [facility] Last Admin: 03/13/17 22:31 Dose: 5,000 units Potassium Chloride 40 meq/ (Sodium Chloride) 1,020 mls @ 100 mls/hr IV .[id number] [facility] Last Admin: 03/13/17 13:46 Dose: 100 mls/hr Piperacillin Sod/Tazobactam Sod (Zosyn 2.25 Gm Iv Premix) 2.25 gm in 50 mls @ 100 mls/hr IVPB Q6H [facility] Last Admin: 03/13/17 18:45 Dose: 100 mls/hr Fluconazole (Diflucan Iv 100 Mg/50 Ml Ns) 50 mls @ 50 mls/hr IVPB Q24H [facility] Last Admin: 03/13/17 22:30 Dose: 50 mls/hr Azithromycin (Zithromax 500mg In Ns Addvantage) 500 mg in 250 mls @ 167 mls/hr IVPB Q24H [facility] Last Admin: 03/13/17 16:55 Dose: 167 mls/hr Vancomycin/Sodium Chloride (Vancocin) 1 gm in 200 mls @ 166.7 mls/hr IVPB Q12H [facility] Stop: 03/18/17 23:01 Insulin Glargine (Lantus) 30 unit SC HS [facility] Last Admin: 03/13/17 22:32 Dose: 30 units Insulin Human Regular (Novolin R) 0 unit SC ACHS [facility] PRN Reason: Protocol Last Admin: 03/13/17 22:36 Dose: 3 unit Multivitamins (Hexavitamin) 1 tab PO DAILY [facility] Last Admin: 03/13/17 10:43 Dose: 1 tab Oxycodone/Acetaminophen (Percocet 5/325 Mg Tab) 2 tab PO Q4H PRN PRN Reason: Pain, moderate (4-7) Stop: 03/14/17 20:45 Last Admin: 03/13/17 18:43 Dose: 2 tab Pantoprazole Sodium (Protonix Inj) 40 mg IVP DAILY [facility] Pregabalin (Lyrica) 75 mg PO BID [facility] Last Admin: 03/13/17 17:33 Dose: 75 mg Promethazine HCl/Codeine (Phenergan/Codeine Oral Syrup) 5 ml PO Q4 PRN PRN Reason: Cough Last Admin: 03/13/17 18:42 Dose: 5 ml Sucralfate (Carafate Oral Susp) 1 gm PO BID [facility] Last Admin: 03/13/17 20:58 Dose: Not Given - Labs Labs: 03/13/17 07:17 03/13/17 07:17
--- NOTE | 2017-03-13 23:25 | CP.PCM.PN ---
Subjective - Date & Time of Evaluation Date of Evaluation: 03/11/17 Time of Evaluation: 23:24 - Subjective Subjective: Patient is having increasing symptoms of recurrent fever, chills present noted, also complaining of nausea, vomiting. Chills and shaking present. Labs reviewed. Elevated WBC noted. Will get a GI evaluation, and also infectious disease evaluation. Objective - Vital Signs/Intake and Output Vital Signs (last 24 hours): Temp Pulse Resp BP Pulse Ox 102.2 F H 117 H 20 127/70 95 03/13/17 19:48 03/13/17 15:00 03/13/17 15:00 03/13/17 15:00 03/13/17 15:00 Intake and Output: 03/13/17 03/14/17 18:59 06:59 Intake Total 1200 Balance 1200 - Medications Medications: Current Medications Acetaminophen (Tylenol 325mg Tab) 650 mg PO Q6 PRN PRN Reason: Fever >100.4 F Albuterol/Ipratropium (Duoneb 3 Mg/0.5 Mg (3 Ml) Ud) 3 ml INH RQ6 [facility] Last Admin: 03/13/17 20:18 Dose: 3 ml Heparin Sodium (Porcine) (Heparin) 5,000 units SC Q12 [facility] Last Admin: 03/13/17 22:31 Dose: 5,000 units Potassium Chloride 40 meq/ (Sodium Chloride) 1,020 mls @ 100 mls/hr IV .[id number] [facility] Last Admin: 03/13/17 13:46 Dose: 100 mls/hr Piperacillin Sod/Tazobactam Sod (Zosyn 2.25 Gm Iv Premix) 2.25 gm in 50 mls @ 100 mls/hr IVPB Q6H [facility] Last Admin: 03/13/17 18:45 Dose: 100 mls/hr Fluconazole (Diflucan Iv 100 Mg/50 Ml Ns) 50 mls @ 50 mls/hr IVPB Q24H [facility] Last Admin: 03/13/17 22:30 Dose: 50 mls/hr Azithromycin (Zithromax 500mg In Ns Addvantage) 500 mg in 250 mls @ 167 mls/hr IVPB Q24H [facility] Last Admin: 03/13/17 16:55 Dose: 167 mls/hr Vancomycin/Sodium Chloride (Vancocin) 1 gm in 200 mls @ 166.7 mls/hr IVPB Q12H [facility] Stop: 03/18/17 23:01 Insulin Glargine (Lantus) 30 unit SC HS [facility] Last Admin: 03/13/17 22:32 Dose: 30 units Insulin Human Regular (Novolin R) 0 unit SC ACHS [facility] PRN Reason: Protocol Last Admin: 03/13/17 22:36 Dose: 3 unit Multivitamins (Hexavitamin) 1 tab PO DAILY [facility] Last Admin: 03/13/17 10:43 Dose: 1 tab Oxycodone/Acetaminophen (Percocet 5/325 Mg Tab) 2 tab PO Q4H PRN PRN Reason: Pain, moderate (4-7) Stop: 03/14/17 20:45 Last Admin: 03/13/17 18:43 Dose: 2 tab Pantoprazole Sodium (Protonix Inj) 40 mg IVP DAILY [facility] Pregabalin (Lyrica) 75 mg PO BID [facility] Last Admin: 03/13/17 17:33 Dose: 75 mg Promethazine HCl/Codeine (Phenergan/Codeine Oral Syrup) 5 ml PO Q4 PRN PRN Reason: Cough Last Admin: 03/13/17 18:42 Dose: 5 ml Sucralfate (Carafate Oral Susp) 1 gm PO BID [facility] Last Admin: 03/13/17 20:58 Dose: Not Given - Labs Labs: 03/13/17 07:17 03/13/17 07:17
[2017-03-14] MEDS: Albuterol-Ipratrop 3 mg / 0.5 (3 ml) UD INH SCH ×4 (01:29→19:16)
[2017-03-14] MEDS: Piperacill/Tazo 2.25gm in Dex 2.25 GM/50 ML BAG IVPB SCH ×3 (05:35→17:41)
[2017-03-14 07:35] LABS: MEAN CELL VOLUME 85.9 fL (80.0-94.0); MEAN CORPUSCULAR HGB CONC 32.6 g/dL (33.0-37.0); MEAN PLATELET VOLUME 9.3 fL (7.2-11.7); RED CELL DISTRIBUTION WIDTH 13.5 % (11.5-14.5); WHITE BLOOD COUNT 22.7 K/uL (4.8-10.8)
[2017-03-14 07:56] LABS: POTASSIUM 4.7 mmol/L (3.6-5.2)
[2017-03-14 07:59] LABS: ALB/GLOB RATIO 0.7 (1.0-2.1); BILIRUBIN,TOTAL 1.1 mg/dL (0.2-1.3)
[2017-03-14] MEDS: (Novolin R) Insulin Human Regular 100 units/ml vial SC SCH ×5 (08:30→21:43)
[2017-03-14] MEDS: Sucralfate 1 gm/10 ml Oral Susp UD PO SCH ×2 (09:23→17:37)
[2017-03-14] MEDS: Multiple Vitamins Tab PO SCH (09:23)
[2017-03-14] MEDS: Promethazine/Cod 6.25mg-10mg/5ml Syr UD PO PRN ×2 (09:27→17:37)
--- NOTE | 2017-03-14 10:09 | CP.PCM.CON ---
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 Patient was diagnosed with Crohn's disease of the colon in 2008, and was initially treated with prednisone and sulfasalazine. Elevated liver enzymes were noted, and he was evaluated for sclerosing cholangitis with MRCP, which was interpreted as normal. The last colonoscopy was in 2012 and showed active ulceration in the sigmoid colon, descending colon, transverse colon, ascending colon and cecum. The rectum was spared. He has been maintained on azathioprine 50 mg since then. He had ERCP on 09/19/15 which showed papillary stenosis, and a small sphincterotomy was performed. He was hospitalized for pancreatitis after the procedure, and recovered uneventfully. A gastric emptying scan 11/19/2015 showed normal gastric emptying. A CT scan 2015 showed mild intrahepatic biliary ductal dilatation, S/P cholecystectomy, prominent CBD, mild wall thickening involving the left colon and rectum. He presented to the ER 03/11/2017 with a three week history of cough, fever and chills, and Chest CT showed nodules in the RUL, RML and RLL, as well as confluent airspace disease in both lowe lobes and the lingula. He was initially afebrile, but the WBC count was 27,500. GI was consulted for help in management of Crohn's disease and sclerosing cholangitis. Patient has lower abdominal aching pain only on coughing. He reports feeling nauseated and vomiting after taking pain medication twice yesterday. He denies having heartburn or difficulty swallowing. His appetite has been good, and his weight has been stable. The bowel movements have been regular, soft, once or twice a day. He denies having diarrhea, constipation or rectal bleeding. Review of Systems - Review of Systems All systems: reviewed and no additional remarkable complaints except - Constitutional Constitutional: Chills, Fever - Cardiovascular Cardiovascular: absent: Chest Pain - Respiratory Respiratory: Cough. absent: Dyspnea - Gastrointestinal Gastrointestinal: Abdominal Pain, Nausea, Vomiting. absent: Constipation, Diarrhea, Dysphagia, Heartburn, Hematochezia, Melena Past Patient History - Infectious Disease Hx of Infectious Diseases: None - Past Medical History & Family History Past Medical History?: Yes - Past Social History Smoking Status: Light Smoker < 10 Cigarettes Daily - PULMONARY Hx Pneumonia: Yes (NOVEMBER 2015) - HEENT Hx HEENT Problems: Yes Hx Cataracts: Yes (RIGHT EYE) - ENDOCRINE/METABOLIC Hx Endocrine Disorders: Yes Hx Diabetes Mellitus Type 1: Yes - HEMATOLOGICAL/ONCOLOGICAL Hx Anemia: Yes - INTEGUMENTARY Hx Dermatological Problems: Yes Hx Cellulitis: Yes - MUSCULOSKELETAL/RHEUMATOLOGICAL Hx Arthritis: Yes Hx Falls: No Hx Fractures: Yes (LEFT ELBOW-CASTED ONLY) Hx Rheumatoid Arthritis: Yes - GASTROINTESTINAL Hx Crohn's Disease: Yes Hx Gastritis: Yes - PSYCHIATRIC Hx Substance Use: No - SURGICAL HISTORY Hx Cholecystectomy: Yes - ANESTHESIA Hx Anesthesia: Yes Hx Anesthesia Reactions: No Hx Malignant Hyperthermia: No Meds Allergies/Adverse Reactions: Allergies Allergy/AdvReac Type Severity Reaction Status Date / Time No Known Allergies Allergy Verified 06/18/16 18:39 - Medications Medications: Current Medications Acetaminophen (Tylenol 325mg Tab) 650 mg PO Q6 PRN PRN Reason: Fever >100.4 F Last Admin: 03/14/17 09:23 Dose: 650 mg Albuterol/Ipratropium (Duoneb 3 Mg/0.5 Mg (3 Ml) Ud) 3 ml INH RQ6 [facility] Last Admin: 03/14/17 07:30 Dose: 3 ml Heparin Sodium (Porcine) (Heparin) 5,000 units SC Q12 [facility] Last Admin: 03/14/17 09:23 Dose: 5,000 units Piperacillin Sod/Tazobactam Sod (Zosyn 2.25 Gm Iv Premix) 2.25 gm in 50 mls @ 100 mls/hr IVPB Q6H [facility] Last Admin: 03/14/17 05:35 Dose: 100 mls/hr Fluconazole (Diflucan Iv 100 Mg/50 Ml Ns) 50 mls @ 50 mls/hr IVPB Q24H [facility] Last Admin: 03/13/17 22:30 Dose: 50 mls/hr Azithromycin (Zithromax 500mg In Ns Addvantage) 500 mg in 250 mls @ 167 mls/hr IVPB Q24H [facility] Last Admin: 03/13/17 16:55 Dose: 167 mls/hr Potassium Chloride 40 meq/ (Sodium Chloride) 1,020 mls @ 40 mls/hr IV .Q24H [facility] Last Admin: 03/14/17 08:06 Dose: 40 mls/hr Vancomycin/Sodium Chloride (Vancocin) 1 gm in 200 mls @ 166.7 mls/hr IVPB DAILY [facility] Stop: 03/19/17 10:01 Insulin Glargine (Lantus) 30 unit SC HS [facility] Last Admin: 03/13/17 22:32 Dose: 30 units Insulin Human Regular (Novolin R) 0 unit SC ACHS [facility] PRN Reason: Protocol Last Admin: 03/14/17 09:28 Dose: 1 unit Multivitamins (Hexavitamin) 1 tab PO DAILY [facility] Last Admin: 03/14/17 09:23 Dose: 1 tab Pantoprazole Sodium (Protonix Inj) 40 mg IVP DAILY [facility] Pregabalin (Lyrica) 75 mg PO BID [facility] Last Admin: 03/14/17 09:23 Dose: 75 mg Promethazine HCl/Codeine (Phenergan/Codeine Oral Syrup) 5 ml PO Q4 PRN PRN Reason: Cough Last Admin: 03/14/17 09:27 Dose: 5 ml Sucralfate (Carafate Oral Susp) 1 gm PO BID [facility] Last Admin: 03/14/17 09:23 Dose: 1 gm Physical Exam - Constitutional Appears: No Acute Distress - Head Exam Head Exam: ATRAUMATIC, NORMOCEPHALIC - Neck Exam Neck exam: Negative for: Lymphadenopathy, Thyromegaly - Respiratory Exam Respiratory Exam: NORMAL BREATHING PATTERN. absent: Rales, Rhonchi, Wheezes - Cardiovascular Exam Cardiovascular Exam: REGULAR RHYTHM, +S1, +S2. absent: Gallop, Rubs, Systolic Murmur - GI/Abdominal Exam GI & Abdominal Exam: Distended, Normal Bowel Sounds, Soft. absent: Mass, Organomegaly, Tenderness - Rectal Exam Rectal Exam: Deferred - Extremities Exam Extremities exam: Negative for: calf tenderness, pedal edema Results - Vital Signs Recent Vital Signs: Last Vital Signs Temp 100 F H 03/14/17 09:23 Pulse 102 H 03/14/17 07:30 Resp 20 03/14/17 07:30 BP 138/84 03/14/17 07:30 Pulse Ox 96 03/14/17 07:30 - Labs Result Diagrams: 03/14/17 07:22 03/14/17 07:19 Labs: Laboratory Results - last 24 hr 03/13/17 03/13/17 03/13/17 11:19 16:22 17:27 WBC RBC Hgb Hct MCV MCH MCHC RDW Plt Count MPV Sodium Potassium Chloride Carbon Dioxide Anion Gap BUN Creatinine Est GFR ( Amer) Est GFR (Non-Af Amer) POC Glucose (mg/dL) 232 H 327 H Random Glucose Calcium Total Bilirubin AST ALT Alkaline Phosphatase Lactate Dehydrogenase Total Protein Albumin Globulin Albumin/Globulin Ratio Vancomycin Trough 21.0 H 03/13/17 03/13/17 03/14/17 17:27 21:28 00:51 WBC RBC Hgb Hct MCV MCH MCHC RDW Plt Count MPV Sodium Potassium Chloride Carbon Dioxide Anion Gap BUN Creatinine Est GFR ( Amer) Est GFR (Non-Af Amer) POC Glucose (mg/dL) 364 H 293 H Random Glucose Calcium Total Bilirubin AST ALT Alkaline Phosphatase Lactate Dehydrogenase 504 Total Protein Albumin Globulin Albumin/Globulin Ratio Vancomycin Trough 03/14/17 03/14/17 03/14/17 07:06 07:19 07:22 WBC 22.7 H RBC 4.19 L Hgb 11.8 L Hct 36.0 MCV 85.9 MCH 28.0 MCHC 32.6 L RDW 13.5 Plt Count 265 MPV 9.3 Sodium 132 Potassium 4.7 Chloride 106 Carbon Dioxide 18 L Anion Gap 13 BUN 18 Creatinine 2.1 H Est GFR ( Amer) 42 Est GFR (Non-Af Amer) 34 POC Glucose (mg/dL) 238 H Random Glucose 232 H Calcium 8.0 L Total Bilirubin 1.1 AST 37 ALT 32 Alkaline Phosphatase 722 H Lactate Dehydrogenase Total Protein 7.0 Albumin 2.9 L Globulin 4.1 H Albumin/Globulin Ratio 0.7 L Vancomycin Trough Assessment & Plan (1) Crohn's disease of colon Assessment and Plan: Patient has regular bowel movements without bleeding. the last colonoscopy was in 2012, and a repeat colonoscopy can be scheduled as an outpatient. Status: Suspected (2) Sclerosing cholangitis Assessment and Plan: Alkaline phosphatase remains elevated. Imaging of the biliary system should be performed ideally with MRCP, but he is refusing at present. Status: Suspected
--- NOTE | 2017-03-14 10:37 | RAD ---
HISTORY: pneumonia COMPARISON: 03/11/2017 FINDINGS: LUNGS: Opacity medial right lung base suspicious for pneumonia. Minimal left basilar subsegmental atelectasis. Patchy opacity mid right and left lung. Follow-up advised to exclude developing pneumonia. PLEURA: No significant pleural effusion identified, no pneumothorax apparent. CARDIOVASCULAR: Normal. OSSEOUS STRUCTURES: No significant abnormalities. VISUALIZED UPPER ABDOMEN: Normal. OTHER FINDINGS: None. IMPRESSION: Opacity medial right lung base. Patchy opacity mid right and left lung. Followup advised. Possible developing pneumonia.
[2017-03-14] MEDS: Vancomycin 1 gm/NS 200 ml 1 GM/200 ML BAG IVPB SCH ×2 (11:00→11:20)
--- NOTE | 2017-03-14 14:07 | CARD ---
APPROVED REPORT EKG Measurement Heart [id number] <Conclusion> Sinus tachycardia Nonspecific T wave abnormality Abnormal ECG
--- NOTE | 2017-03-14 15:06 | CP.PCM.PN ---
Subjective - Date & Time of Evaluation Date of Evaluation: 03/14/17 Time of Evaluation: 10:00 - Subjective Subjective: still febrile less cough all cultures neg seen by gi has sclerosing cholangitis on immunosuppresivre rx rx in progress prognosis guarded Objective - Vital Signs/Intake and Output Vital Signs (last 24 hours): Temp Pulse Resp BP Pulse Ox 98.8 F 102 H 20 138/84 96 03/14/17 10:23 03/14/17 07:30 03/14/17 07:30 03/14/17 07:30 03/14/17 07:30 Intake and Output: 03/14/17 03/14/17 06:59 18:59 Intake Total 1800 Output Total 0 Balance 1800 - Medications Medications: Current Medications Acetaminophen (Tylenol 325mg Tab) 650 mg PO Q6 PRN PRN Reason: Fever >100.4 F Last Admin: 03/14/17 09:23 Dose: 650 mg Albuterol/Ipratropium (Duoneb 3 Mg/0.5 Mg (3 Ml) Ud) 3 ml INH RQ6 [facility] Last Admin: 03/14/17 13:46 Dose: 3 ml Famotidine (Pepcid) 20 mg PO DAILY [facility] Last Admin: 03/14/17 12:21 Dose: 20 mg Heparin Sodium (Porcine) (Heparin) 5,000 units SC Q12 [facility] Last Admin: 03/14/17 09:23 Dose: 5,000 units Piperacillin Sod/Tazobactam Sod (Zosyn 2.25 Gm Iv Premix) 2.25 gm in 50 mls @ 100 mls/hr IVPB Q6H [facility] Last Admin: 03/14/17 12:20 Dose: 100 mls/hr Fluconazole (Diflucan Iv 100 Mg/50 Ml Ns) 50 mls @ 50 mls/hr IVPB Q24H [facility] Last Admin: 03/13/17 22:30 Dose: 50 mls/hr Potassium Chloride 40 meq/ (Sodium Chloride) 1,020 mls @ 40 mls/hr IV .Q24H [facility] Last Admin: 03/14/17 08:06 Dose: 40 mls/hr Vancomycin/Sodium Chloride (Vancocin) 1 gm in 200 mls @ 166.7 mls/hr IVPB DAILY [facility] Stop: 03/19/17 10:01 Last Admin: 03/14/17 11:00 Dose: 166.7 mls/hr Azithromycin 500 mg/ Sodium (Chloride) 250 mls @ 167 mls/hr IVPB Q24H [facility] Insulin Glargine (Lantus) 30 unit SC HS [facility] Last Admin: 03/13/17 22:32 Dose: 30 units Insulin Human Regular (Novolin R) 0 unit SC ACHS [facility] PRN Reason: Protocol Last Admin: 03/14/17 12:20 Dose: 6 unit Multivitamins (Hexavitamin) 1 tab PO DAILY [facility] Last Admin: 03/14/17 09:23 Dose: 1 tab Pregabalin (Lyrica) 75 mg PO BID [facility] Last Admin: 03/14/17 09:23 Dose: 75 mg Promethazine HCl/Codeine (Phenergan/Codeine Oral Syrup) 5 ml PO Q4 PRN PRN Reason: Cough Last Admin: 03/14/17 09:27 Dose: 5 ml Sucralfate (Carafate Oral Susp) 1 gm PO BID [facility] Last Admin: 03/14/17 09:23 Dose: 1 gm - Labs Labs: 03/14/17 07:22 03/14/17 07:19 - Constitutional Appears: Non-toxic, Chronically Ill - Head Exam Head Exam: NORMOCEPHALIC - Eye Exam Eye Exam: PERRL. absent: Scleral icterus - ENT Exam ENT Exam: Mucous Membranes Dry - Neck Exam Neck Exam: absent: Lymphadenopathy - Respiratory Exam Respiratory Exam: Decreased Breath Sounds, Rhonchi - Cardiovascular Exam Cardiovascular Exam: REGULAR RHYTHM, +S1, +S2 - GI/Abdominal Exam GI & Abdominal Exam: Distended, Soft - Rectal Exam Rectal Exam: Deferred - Exam Exam: NORMAL INSPECTION - Extremities Exam Extremities Exam: absent: Pedal Edema - Back Exam Back Exam: absent: CVA tenderness (L), CVA tenderness (R) - Neurological Exam Neurological Exam: Alert, Awake, Oriented x3 - Psychiatric Exam Psychiatric exam: Normal Mood - Skin Skin Exam: Dry Assessment and Plan (1) Acute renal insufficiency Status: Acute (2) Hyponatremia Status: Acute (3) Pneumonia Status: Acute (4) Diabetes mellitus Status: Acute (5) Fever Status: Acute (6) Pneumonia Status: Acute (7) Crohn's disease of colon Status: Suspected - Assessment and Plan (Free Text) Assessment: diagnosed with Crohn's disease of the colon in 2008, and was initially treated with prednisone and sulfasalazine. Elevated liver enzymes were noted, and he was evaluated for sclerosing cholangitis with MRCP, which was interpreted as normal. The last colonoscopy was in 2012 and showed active ulceration in the sigmoid colon, descending colon, transverse colon, ascending colon and cecum. The rectum was spared. He has been maintained on azathioprine 50 mg since then. He had ERCP on 09/19/15 which showed papillary stenosis, and a small sphincterotomy was performed. He was hospitalized for pancreatitis after the procedure, and recovered uneventfully. A gastric emptying scan 11/19/2015 showed normal gastric emptying. A CT scan 2015 showed mild intrahepatic biliary ductal dilatation, S/P cholecystectomy, prominent CBD, mild wall thickening involving the left colon and rectum. He presented to the ER 03/11/2017 with a three week history of cough, fever and chills, and Chest CT showed nodules in the RUL, RML and RLL, as well as confluent airspace disease in both lowe lobes and the lingula. He was initially afebrile, but the WBC count was 27,500. GI was consulted for help in management of Crohn's disease and sclerosing cholangitis. cont rx pneumonia
--- NOTE | 2017-03-14 15:57 | CT ---
PROCEDURE: CT HEAD WITHOUT CONTRAST. HISTORY: left leg numbness COMPARISON: 06/18/2016 TECHNIQUE: Axial computed tomography images were obtained through the head/brain without intravenous contrast. Radiation dose: Total exam DLP = 850.64 mGy-cm. This CT exam was performed using one or more of the following dose reduction techniques: Automated exposure control, adjustment of the mA and/or kV according to patient size, and/or use of iterative reconstruction technique. FINDINGS: HEMORRHAGE: No intracranial hemorrhage. BRAIN: No mass effect or edema. No atrophy or chronic microvascular ischemic changes. VENTRICLES: Unremarkable. No hydrocephalus. CALVARIUM: Unremarkable. PARANASAL SINUSES: Unremarkable as visualized. No significant inflammatory changes. MASTOID AIR CELLS: Unremarkable as visualized. No inflammatory changes. OTHER FINDINGS: None. IMPRESSION: No intracranial mass, hemorrhage or evidence of acute infarct. No significant change from prior examination of 06/18/2016.
[2017-03-14] MEDS: Azithromycin 500 MG in Sodium Chloride 0.9% 250 ML IVPB SCH (16:00)
--- NOTE | 2017-03-14 18:22 | CP.PCM.CON ---
History of Present Illness - History of Present Illness History of Present Illness: NEW RIGHT LEG HEAVY AND NUMBNESS DENIES ARM WEAKNESS OR SPEECH IMPAIRMENT Hx HEADACHE, DISORIENTATIN AND HALLUCINATION YESTERDAY Past Patient History - Infectious Disease Hx of Infectious Diseases: None - Past Medical History & Family History Past Medical History?: Yes - Past Social History Smoking Status: Light Smoker < 10 Cigarettes Daily - PULMONARY Hx Bronchitis: Yes (PULMONARY LESION ) Hx Chronic Obstructive Pulmonary Disease (COPD): No Hx Pneumonia: Yes (NOVEMBER 2015) - HEENT Hx HEENT Problems: Yes Hx Cataracts: Yes (RIGHT EYE) - ENDOCRINE/METABOLIC Hx Endocrine Disorders: Yes Hx Diabetes Mellitus Type 1: Yes - HEMATOLOGICAL/ONCOLOGICAL Hx Anemia: Yes - INTEGUMENTARY Hx Dermatological Problems: Yes Hx Cellulitis: Yes - MUSCULOSKELETAL/RHEUMATOLOGICAL Hx Arthritis: Yes Hx Falls: No Hx Fractures: Yes (LEFT ELBOW-CASTED ONLY) Hx Rheumatoid Arthritis: Yes - GASTROINTESTINAL Hx Crohn's Disease: Yes Hx Gastritis: Yes - PSYCHIATRIC Hx Substance Use: No - SURGICAL HISTORY Hx Cholecystectomy: Yes - ANESTHESIA Hx Anesthesia: Yes Hx Anesthesia Reactions: No Hx Malignant Hyperthermia: No Meds Allergies/Adverse Reactions: Allergies Allergy/AdvReac Type Severity Reaction Status Date / Time No Known Allergies Allergy Verified 06/18/16 18:39 - Medications Medications: Current Medications Acetaminophen (Tylenol 325mg Tab) 650 mg PO Q6 PRN PRN Reason: Fever >100.4 F Last Admin: 03/14/17 09:23 Dose: 650 mg Albuterol/Ipratropium (Duoneb 3 Mg/0.5 Mg (3 Ml) Ud) 3 ml INH RQ6 [facility] Last Admin: 03/14/17 13:46 Dose: 3 ml Famotidine (Pepcid) 20 mg PO DAILY [facility] Last Admin: 03/14/17 12:21 Dose: 20 mg Heparin Sodium (Porcine) (Heparin) 5,000 units SC Q12 [facility] Last Admin: 03/14/17 09:23 Dose: 5,000 units Piperacillin Sod/Tazobactam Sod (Zosyn 2.25 Gm Iv Premix) 2.25 gm in 50 mls @ 100 mls/hr IVPB Q6H [facility] Last Admin: 03/14/17 17:41 Dose: 100 mls/hr Fluconazole (Diflucan Iv 100 Mg/50 Ml Ns) 50 mls @ 50 mls/hr IVPB Q24H [facility] Last Admin: 03/13/17 22:30 Dose: 50 mls/hr Potassium Chloride 40 meq/ (Sodium Chloride) 1,020 mls @ 40 mls/hr IV .Q24H [facility] Last Admin: 03/14/17 08:06 Dose: 40 mls/hr Vancomycin/Sodium Chloride (Vancocin) 1 gm in 200 mls @ 166.7 mls/hr IVPB DAILY [facility] Stop: 03/19/17 10:01 Last Admin: 03/14/17 11:00 Dose: 166.7 mls/hr Azithromycin 500 mg/ Sodium (Chloride) 250 mls @ 167 mls/hr IVPB Q24H [facility] Last Admin: 03/14/17 16:00 Dose: 167 mls/hr Insulin Glargine (Lantus) 30 unit SC HS [facility] Last Admin: 03/13/17 22:32 Dose: 30 units Insulin Human Regular (Novolin R) 0 unit SC ACHS [facility] PRN Reason: Protocol Last Admin: 03/14/17 17:38 Dose: 8 unit Multivitamins (Hexavitamin) 1 tab PO DAILY [facility] Last Admin: 03/14/17 09:23 Dose: 1 tab Pregabalin (Lyrica) 75 mg PO BID [facility] Last Admin: 03/14/17 17:37 Dose: 75 mg Promethazine HCl/Codeine (Phenergan/Codeine Oral Syrup) 5 ml PO Q4 PRN PRN Reason: Cough Last Admin: 03/14/17 17:37 Dose: 5 ml Sucralfate (Carafate Oral Susp) 1 gm PO BID [facility] Last Admin: 03/14/17 17:37 Dose: 1 gm Physical Exam - Constitutional Appears: Toxic - Head Exam Head Exam: ATRAUMATIC - Neck Exam Neck exam: Positive for: Full Rom - Respiratory Exam Respiratory Exam: Decreased Breath Sounds, Rhonchi, Respiratory Distress - Cardiovascular Exam Cardiovascular Exam: Tachycardia - Neurological Exam Neurological exam: Altered, Motor Sensory Deficit - Expanded Neurological Exam Expanded Patient oriented to: person, place, time Cranial nerves: EOM's Intact: Abnormal Left, Abnormal Right, Facial Palsey w/ Forehead Movement: Abnormal Right, Facial Sensation: Normal, Gag Reflex: Normal , Nystagmus: Normal, Tongue Deviation: Normal Ataxia: Yes (BROAD BASED ) Cerebellar Function: Finger to Nose: Normal, Romberg: Normal Upper motor neuron: Babinski Sign: Abnormal Left, Patricio Neglect: Normal, Pronator Drift: Normal, Sensory Extinction: Normal Sensory exam: Lower Extremity Light Touch: Abnormal Left, Abnormal Right, Lower Extremity Pin Prick: Abnormal Left, Abnormal Right, Lower Extremity Temperature : Abnormal Left (NEUROPATHY ) Neuro motor strength exam: Left Upper Extremity: 4, Right Upper Extremity: 4, Left Lower Extremity: 4, Right Lower Extremity: 4 DTR: Achilles Tendon Left: 0, Achilles Tendon Right: 0, Bicep Left: 0, Bicep Right: 0, Brachioradialis Left: 0, Brachioradialis Right: 0, Patellar Left: 0, Patellar Right: 0, Tricep Left: 0, Tricep Right: 0 - Psychiatric Exam Psychiatric exam: Agitated Results - Vital Signs Recent Vital Signs: Last Vital Signs Temp 98.1 F 03/14/17 15:10 Pulse 97 H 03/14/17 15:10 Resp 20 03/14/17 15:10 BP 148/90 03/14/17 15:10 Pulse Ox 96 03/14/17 15:10 - Labs Result Diagrams: 03/14/17 07:22 03/14/17 07:19 Labs: Laboratory Results - last 24 hr 03/13/17 03/13/17 03/14/17 06:00 21:28 00:51 WBC RBC Hgb Hct MCV MCH MCHC RDW Plt Count MPV Sodium Potassium Chloride Carbon Dioxide Anion Gap BUN Creatinine Est GFR ( Amer) Est GFR (Non-Af Amer) POC Glucose (mg/dL) 364 H 293 H Random Glucose Calcium Total Bilirubin AST ALT Alkaline Phosphatase Total Protein Albumin Globulin Albumin/Globulin Ratio Vancomycin Peak Vancomycin Trough Ur L.pneumophila Ag Negative 03/14/17 03/14/17 03/14/17 07:06 07:19 07:22 WBC 22.7 H RBC 4.19 L Hgb 11.8 L Hct 36.0 MCV 85.9 MCH 28.0 MCHC 32.6 L RDW 13.5 Plt Count 265 MPV 9.3 Sodium 132 Potassium 4.7 Chloride 106 Carbon Dioxide 18 L Anion Gap 13 BUN 18 Creatinine 2.1 H Est GFR ( Amer) 42 Est GFR (Non-Af Amer) 34 POC Glucose (mg/dL) 238 H Random Glucose 232 H Calcium 8.0 L Total Bilirubin 1.1 AST 37 ALT 32 Alkaline Phosphatase 722 H Total Protein 7.0 Albumin 2.9 L Globulin 4.1 H Albumin/Globulin Ratio 0.7 L Vancomycin Peak Vancomycin Trough Ur L.pneumophila Ag 03/14/17 03/14/17 03/14/17 11:14 11:53 14:18 WBC RBC Hgb Hct MCV MCH MCHC RDW Plt Count MPV Sodium Potassium Chloride Carbon Dioxide Anion Gap BUN Creatinine Est GFR ( Amer) Est GFR (Non-Af Amer) POC Glucose (mg/dL) 287 H Random Glucose Calcium Total Bilirubin AST ALT Alkaline Phosphatase Total Protein Albumin Globulin Albumin/Globulin Ratio Vancomycin Peak 43.5 H Vancomycin Trough 14.5 H Ur L.pneumophila Ag 03/14/17 16:39 WBC RBC Hgb Hct MCV MCH MCHC RDW Plt Count MPV Sodium Potassium Chloride Carbon Dioxide Anion Gap BUN Creatinine Est GFR ( Amer) Est GFR (Non-Af Amer) POC Glucose (mg/dL) 310 H Random Glucose Calcium Total Bilirubin AST ALT Alkaline Phosphatase Total Protein Albumin Globulin Albumin/Globulin Ratio Vancomycin Peak Vancomycin Trough Ur L.pneumophila Ag - Imaging and Cardiology CT scan - head Status: Image reviewed by me (NO ACUTE PATHOLOGY) Assessment & Plan (1) Transient cerebral ischemic attack Status: Acute Priority: High - Assessment and Plan (Free Text) Assessment: NEW LEFT TAMANNA TERITARY DYSFUNCTION - ISCHMEIA Vs MASS OLD RIGHT SUB CORTICAL DYSFUNCTION NEUROPATHY ?? PARTIAL COMPLEX SEIZURE Rx PLAVIX TELEMETRY CARDIO CONSULT ECHO/MR/ CAROTID/EEG/ BLOOD WORK UP PER ORDER BED REST - Date & Time Date: 03/14/17 Time: 18:28
[2017-03-14 20:31] LABS: FREE T4 1.89 ng/dL (0.78-2.19)
[2017-03-14 20:44] LABS: THYROID STIMULATING HORMONE 0.41 mIU/L (0.46-4.68)
[2017-03-14] MEDS: Fluconazole IV 100mg/50 ml NS 50 ML IVPB SCH (21:39)
[2017-03-14] MEDS: (Lantus) Insulin Glargine, Recombinant SC SCH (21:44)
[2017-03-14] MEDS: Promethazine 6.25 MG/5 ML CUP PO SCH (22:17)
[2017-03-14] MEDS: Meropenem 500 MG in Sodium Chloride 0.9% 100 ML IVPB SCH (22:23)
--- NOTE | 2017-03-14 22:53 | CP.PCM.PN ---
Subjective - Date & Time of Evaluation Date of Evaluation: 03/14/17 Time of Evaluation: 22:50 - Subjective Subjective: Patient with Crohn's disease. Admitted with acute pneumonia, bilateral, with the nodular opacities. Patient started on IV antibiotic including Zosyn, Zithromax, vancomycin, and a empirical antifungal treatment. Patient was taking Imuran for Crohn's disease. Patient also has a history of skin disease including erythema nodosum. Cholestasis and cholestatic jaundice. Admitted now with acute pneumonia, progressive worsening cough. Also complaining of some shortness of breath. Recurrent fever noted. In spite of the current antibiotic the patient is not showing any improvement yet. Today patient was also complaining of some right leg numbness, tingling. Also his not able to walk properly because of the lack of sensation the right leg. Immediately neurology avulsion was called. CT scan of the head was done, showing evidence of no acute pathology. Today patient again had a fever. Patient was transferred to telemetry. Currently on IV antibiotic. Bronchodilators advised. Patient has no nausea vomiting. Appetite is good. No diarrhea noted. Most likely the cause for the lung lesions, atypical pneumonia, if patient does not respond to the current treatment, patient will need a bronchoscopy. Possibility of the Crohn's disease causing the nodular lung lesions, in that case patient may need a high-dose immunosuppressive treatment, will discuss with a GI. Continue the current treatment and will follow the patient. The limited monitoring, labs ordered today and tomorrow. Objective - Vital Signs/Intake and Output Vital Signs (last 24 hours): Temp Pulse Resp BP Pulse Ox 102.4 F H 97 H 20 148/90 96 03/14/17 19:45 03/14/17 15:10 03/14/17 15:10 03/14/17 15:10 03/14/17 15:10 - Medications Medications: Current Medications Acetaminophen (Tylenol 325mg Tab) 650 mg PO Q6 PRN PRN Reason: Fever >100.4 F Last Admin: 03/14/17 19:45 Dose: 650 mg Albuterol/Ipratropium (Duoneb 3 Mg/0.5 Mg (3 Ml) Ud) 3 ml INH RQ6 [facility] Last Admin: 03/14/17 19:16 Dose: 3 ml Clopidogrel Bisulfate (Plavix) 75 mg PO DAILY [facility] Famotidine (Pepcid) 20 mg PO DAILY [facility] Last Admin: 03/14/17 12:21 Dose: 20 mg Heparin Sodium (Porcine) (Heparin) 5,000 units SC Q12 [facility] Last Admin: 03/14/17 21:47 Dose: 5,000 units Fluconazole (Diflucan Iv 100 Mg/50 Ml Ns) 50 mls @ 50 mls/hr IVPB Q24H [facility] Last Admin: 03/14/17 21:39 Dose: 50 mls/hr Potassium Chloride 40 meq/ (Sodium Chloride) 1,020 mls @ 40 mls/hr IV .Q24H [facility] Last Admin: 03/14/17 20:57 Dose: 40 mls/hr Vancomycin/Sodium Chloride (Vancocin) 1 gm in 200 mls @ 166.7 mls/hr IVPB DAILY [facility] Stop: 03/19/17 10:01 Last Admin: 03/14/17 11:00 Dose: 166.7 mls/hr Azithromycin 500 mg/ Sodium (Chloride) 250 mls @ 167 mls/hr IVPB Q24H [facility] Last Admin: 03/14/17 16:00 Dose: 167 mls/hr Meropenem 500 mg/ Sodium (Chloride) 100 mls @ 100 mls/hr IVPB Q12 [facility] Last Admin: 03/14/17 22:23 Dose: 100 mls/hr Insulin Glargine (Lantus) 30 unit SC HS [facility] Last Admin: 03/14/17 21:44 Dose: 30 units Insulin Human Regular (Novolin R) 0 unit SC ACHS [facility] PRN Reason: Protocol Last Admin: 03/14/17 21:43 Dose: Not Given Morphine Sulfate (Morphine) 2 mg IVP Q6 PRN PRN Reason: pain Last Admin: 03/14/17 22:18 Dose: 2 mg Multivitamins (Hexavitamin) 1 tab PO DAILY [facility] Last Admin: 03/14/17 09:23 Dose: 1 tab Pregabalin (Lyrica) 75 mg PO BID [facility] Last Admin: 03/14/17 18:00 Dose: 75 mg Promethazine HCl (Phenergan Syrup) 6.25 mg PO Q6H [facility] Last Admin: 03/14/17 22:17 Dose: 6.25 mg Sucralfate (Carafate Oral Susp) 1 gm PO BID [facility] Last Admin: 03/14/17 17:37 Dose: 1 gm - Labs Labs: 07/03/17 07:22 03/14/17 07:19
[2017-03-14 23:34] LABS: FOLATE > 20.0 ng/mL
[2017-03-15] MEDS: Promethazine 6.25 MG/5 ML CUP PO SCH ×5 (04:44→22:55)
[2017-03-15] MEDS: Albuterol-Ipratrop 3 mg / 0.5 (3 ml) UD INH SCH ×4 (06:18→20:46)
[2017-03-15 08:24] LABS: BASO # 0.1 K/uL (0.0-0.2); BASO % 0.6 % (0.0-2.0); EOS # 0.1 K/uL (0.0-0.7); EOS % 0.4 % (0.0-4.0); HEMATOCRIT 35.5 % (35.0-51.0); LYMPH # 1.1 K/uL (1.0-4.3); LYMPH % 5.6 % (20.0-40.0); MEAN CELL VOLUME 85.5 fL (80.0-94.0); MEAN CORPUSCULAR HEMOGLOBIN 28.1 pg (27.0-31.0); MEAN CORPUSCULAR HGB CONC 32.9 g/dL (33.0-37.0); MEAN PLATELET VOLUME 9.3 fL (7.2-11.7); MONO # 1.2 K/uL (0.0-0.8); MONO % 6.2 % (0.0-10.0); PLATELET COUNT 289 K/uL (130-400); RED CELL DISTRIBUTION WIDTH 13.8 % (11.5-14.5)
[2017-03-15 08:39] LABS: ALB/GLOB RATIO 0.7 (1.0-2.1); BILIRUBIN,TOTAL 0.7 mg/dL (0.2-1.3); TOTAL PROTEIN 6.8 g/dL (6.3-8.3)
[2017-03-15 08:40] LABS: CALCIUM 8.5 mg/dl (8.6-10.4)
[2017-03-15] MEDS: Sucralfate 1 gm/10 ml Oral Susp UD PO SCH ×2 (09:27→17:44)
[2017-03-15] MEDS: Multiple Vitamins Tab PO SCH (09:27)
[2017-03-15] MEDS: (Novolin R) Insulin Human Regular 100 units/ml vial SC SCH ×4 (09:35→21:43)
[2017-03-15] MEDS: Meropenem 500 MG in Sodium Chloride 0.9% 100 ML IVPB SCH ×2 (09:41→21:42)
[2017-03-15] MEDS: Micafungin 100 MG in Sodium Chloride 0.9% 100 ML IV SCH (09:41)
[2017-03-15] MEDS: Vancomycin 1 gm/NS 200 ml 1 GM/200 ML BAG IVPB SCH (09:42)
[2017-03-15 10:11] LABS: NEUTROPHIL 85 % (50-75); TOTAL CELLS COUNTED 100
--- NOTE | 2017-03-15 10:32 | CP.PCM.PN ---
Subjective - Date & Time of Evaluation Date of Evaluation: 03/15/17 Time of Evaluation: 10:29 - Subjective Subjective: COVERING DR VILLASEÑOR No pain or bleeding, no diarrhea Objective - Vital Signs/Intake and Output Vital Signs (last 24 hours): Temp Pulse Resp BP Pulse Ox 98.2 F 98 H 20 162/81 H 97 03/15/17 07:00 03/15/17 07:00 03/15/17 07:00 03/15/17 07:00 03/15/17 07:00 Intake and Output: 03/15/17 03/15/17 06:59 18:59 Intake Total 320 Balance 320 - Medications Medications: Current Medications Acetaminophen (Tylenol 325mg Tab) 650 mg PO Q6 PRN PRN Reason: Fever >100.4 F Last Admin: 03/15/17 09:31 Dose: 650 mg Albuterol/Ipratropium (Duoneb 3 Mg/0.5 Mg (3 Ml) Ud) 3 ml INH RQ6 [facility] Last Admin: 03/15/17 06:18 Dose: 3 ml Clopidogrel Bisulfate (Plavix) 75 mg PO DAILY [facility] Last Admin: 03/15/17 09:27 Dose: 75 mg Famotidine (Pepcid) 20 mg PO DAILY [facility] Last Admin: 03/15/17 09:27 Dose: 20 mg Heparin Sodium (Porcine) (Heparin) 5,000 units SC Q12 [facility] Last Admin: 03/15/17 09:27 Dose: 5,000 units Potassium Chloride 40 meq/ (Sodium Chloride) 1,020 mls @ 40 mls/hr IV .Q24H [facility] Last Admin: 03/15/17 09:06 Dose: Not Given Vancomycin/Sodium Chloride (Vancocin) 1 gm in 200 mls @ 166.7 mls/hr IVPB DAILY [facility] Stop: 03/19/17 10:01 Last Admin: 03/15/17 09:42 Dose: 166.7 mls/hr Azithromycin 500 mg/ Sodium (Chloride) 250 mls @ 167 mls/hr IVPB Q24H [facility] Last Admin: 03/14/17 16:00 Dose: 167 mls/hr Meropenem 500 mg/ Sodium (Chloride) 100 mls @ 100 mls/hr IVPB Q12 [facility] Last Admin: 03/15/17 09:41 Dose: 100 mls/hr Micafungin Sodium 100 mg/ (Sodium Chloride) 100 mls @ 100 mls/hr IV Q24H [facility] Last Admin: 03/15/17 09:41 Dose: 100 mls/hr Insulin Glargine (Lantus) 30 unit SC HS [facility] Last Admin: 03/14/17 21:44 Dose: 30 units Insulin Human Regular (Novolin R) 0 unit SC ACHS [facility] PRN Reason: Protocol Last Admin: 03/15/17 09:35 Dose: 2 unit Morphine Sulfate (Morphine) 2 mg IVP Q6 PRN PRN Reason: pain Last Admin: 03/15/17 04:47 Dose: 2 mg Multivitamins (Hexavitamin) 1 tab PO DAILY [facility] Last Admin: 03/15/17 09:27 Dose: 1 tab Pregabalin (Lyrica) 75 mg PO BID [facility] Last Admin: 03/15/17 09:27 Dose: 75 mg Promethazine HCl (Phenergan Syrup) 6.25 mg PO Q6H [facility] Last Admin: 03/15/17 09:26 Dose: 6.25 mg Sucralfate (Carafate Oral Susp) 1 gm PO BID [facility] Last Admin: 03/15/17 09:27 Dose: 1 gm - Labs Labs: 03/15/17 08:10 03/15/17 08:10 - Constitutional Appears: No Acute Distress - Head Exam Head Exam: ATRAUMATIC, NORMOCEPHALIC - Respiratory Exam Respiratory Exam: NORMAL BREATHING PATTERN - Cardiovascular Exam Cardiovascular Exam: REGULAR RHYTHM, +S1 - GI/Abdominal Exam GI & Abdominal Exam: Soft, Normal Bowel Sounds. absent: Guarding, Tenderness, Mass, Rebound - Extremities Exam Extremities Exam: Normal Inspection Assessment and Plan (1) Abnormal serum level of alkaline phosphatase Assessment & Plan: Agree with need for MRCP +/- ERCP to exclude PSC Monitor Alk Phos Patient still refusing MRI Status: Chronic (2) Crohn's disease of colon Assessment & Plan: Clinically stable Plan for colonoscopy as outpatient with Dr Villaseñor for follow up. Status: Chronic
[2017-03-15] MEDS: Azithromycin 500 MG in Sodium Chloride 0.9% 250 ML IVPB SCH (17:17)
[2017-03-15] MEDS: HYDROmorphone 1 mg/ml ISec IVP PRN (20:19)
[2017-03-15] MEDS: (Lantus) Insulin Glargine, Recombinant SC SCH ×2 (21:40→22:52)
--- NOTE | 2017-03-15 23:53 | CP.PCM.PN ---
Subjective - Date & Time of Evaluation Date of Evaluation: 03/15/17 Time of Evaluation: 23:53 - Subjective Subjective: Patient with the cross disease, admitted with acute pneumonia bilateral lung nodular lesions. Patient is currently on multiple antibiotic including anti-fungal, anti- bacterial. But persistently high fever still noted. Tachycardia noted. Patient still having cough. Cough is mostly dry in nature. He is also complaining of right upper quadrant pain with cough. Today he is not eating well. His blood sugar is elevated. Tachycardia noted Vital signs reviewed, elevated temperature, tachycardia. 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 CT of the head showing no evidence of any acute pathology. Carotid Doppler pending. Today's labs reviewed Minimal improvement in the WBC noted, elevated creatinine level noted. Elevated Vanco levels noted Assessment and recommendation: Patient is a 44-year-old male with the history of Crohn's disease. Very poorly controlled diabetes. Possible diabetic neuropathy. And diabetic nephropathy. Admitted with acute pneumonia, cough. Dry in nature. Patient is an immunocompromised state. Very poorly controlled diabetes, was also on Imuran currently off. At this time atypical pneumonia possible. We will repeat the whole body scan again, and also possible bronchoscopy if there is no improvement at this time. Patient may need a biopsy evaluation. It may be a noninfectious etiology also with the elevated ESR level, will follow the patient. Objective - Vital Signs/Intake and Output Vital Signs (last 24 hours): Temp Pulse Resp BP Pulse Ox 102.5 F H 127 H 22 156/82 H 95 03/15/17 16:00 03/15/17 16:00 03/15/17 16:00 03/15/17 16:00 03/15/17 16:00 Intake and Output: 03/15/17 03/16/17 18:59 06:59 Intake Total 1020 Balance 1020 - Medications Medications: Current Medications Acetaminophen (Tylenol 325mg Tab) 650 mg PO Q6 PRN PRN Reason: Fever >100.4 F Last Admin: 03/15/17 15:24 Dose: 650 mg Albuterol/Ipratropium (Duoneb 3 Mg/0.5 Mg (3 Ml) Ud) 3 ml INH RQ6 [facility] Last Admin: 03/15/17 20:46 Dose: Not Given Clopidogrel Bisulfate (Plavix) 75 mg PO DAILY [facility] Last Admin: 03/15/17 09:27 Dose: 75 mg Famotidine (Pepcid) 20 mg PO DAILY [facility] Last Admin: 03/15/17 09:27 Dose: 20 mg Heparin Sodium (Porcine) (Heparin) 5,000 units SC Q8 [facility] Last Admin: 03/15/17 21:38 Dose: 5,000 units Hydromorphone HCl (Dilaudid) 1 mg IVP Q4H PRN PRN Reason: Pain, moderate (4-7) Last Admin: 03/15/17 20:19 Dose: 1 mg Potassium Chloride 40 meq/ (Sodium Chloride) 1,020 mls @ 40 mls/hr IV .Q24H [facility] Last Admin: 03/15/17 09:06 Dose: Not Given Azithromycin 500 mg/ Sodium (Chloride) 250 mls @ 167 mls/hr IVPB Q24H [facility] Last Admin: 03/15/17 17:17 Dose: 167 mls/hr Meropenem 500 mg/ Sodium (Chloride) 100 mls @ 100 mls/hr IVPB Q12 [facility] Last Admin: 03/15/17 21:42 Dose: 100 mls/hr Micafungin Sodium 100 mg/ (Sodium Chloride) 100 mls @ 100 mls/hr IV Q24H [facility] Last Admin: 03/15/17 09:41 Dose: 100 mls/hr Insulin Glargine (Lantus) 40 unit SC HS [facility] Last Admin: 03/15/17 22:52 Dose: Not Given Insulin Human Regular (Novolin R) 0 unit SC ACHS [facility] PRN Reason: Protocol Last Admin: 03/15/17 21:43 Dose: Not Given Metoprolol Tartrate (Lopressor) 25 mg PO Q6 [facility] Last Admin: 03/15/17 18:00 Dose: Not Given Multivitamins (Hexavitamin) 1 tab PO DAILY [facility] Last Admin: 03/15/17 09:27 Dose: 1 tab Pregabalin (Lyrica) 75 mg PO BID [facility] Last Admin: 03/15/17 17:45 Dose: 75 mg Promethazine HCl (Phenergan Syrup) 6.25 mg PO Q6H [facility] Last Admin: 03/15/17 22:55 Dose: 6.25 mg Sucralfate (Carafate Oral Susp) 1 gm PO BID [facility] Last Admin: 03/15/17 17:44 Dose: 1 gm - Labs Labs: 03/15/17 08:10 03/15/17 08:10
[2017-03-16] MEDS: HYDROmorphone 1 mg/ml ISec IVP PRN ×5 (00:37→23:54)
[2017-03-16] MEDS: Albuterol-Ipratrop 3 mg / 0.5 (3 ml) UD INH SCH ×5 (02:02→19:49)
[2017-03-16] MEDS: Promethazine 6.25 MG/5 ML CUP PO SCH ×5 (04:13→22:00)
[2017-03-16] MEDS: (Novolin R) Insulin Human Regular 100 units/ml vial SC SCH ×4 (07:00→22:45)
--- NOTE | 2017-03-16 07:20 | RAD ---
HISTORY: pneumonia COMPARISON: 03/11/2017 FINDINGS: LUNGS: Patchy confluent increased lung markings in both lung lei which may represent underlying infiltrate versus edema versus additional etiology. Clinical correlation. PLEURA: No significant pleural effusion identified, no pneumothorax apparent. CARDIOVASCULAR: Mild cardiomegaly. OSSEOUS STRUCTURES: No significant abnormalities. VISUALIZED UPPER ABDOMEN: Normal. OTHER FINDINGS: None. IMPRESSION: Patchy confluent increased lung markings in both lung lei which may represent underlying infiltrate versus edema versus additional etiology. Clinical correlation.
[2017-03-16 07:46] LABS: BASO # 0.2 K/uL (0.0-0.2); BASO % 0.8 % (0.0-2.0); EOS # 0.1 K/uL (0.0-0.7); EOS % 0.5 % (0.0-4.0); HEMATOCRIT 34.4 % (35.0-51.0); LYMPH # 1.5 K/uL (1.0-4.3); LYMPH % 7.2 % (20.0-40.0); MEAN CELL VOLUME 85.5 fL (80.0-94.0); MEAN CORPUSCULAR HEMOGLOBIN 28.3 pg (27.0-31.0); MEAN CORPUSCULAR HGB CONC 33.1 g/dL (33.0-37.0); MEAN PLATELET VOLUME 9.2 fL (7.2-11.7); MONO # 1.6 K/uL (0.0-0.8); MONO % 7.6 % (0.0-10.0); PLATELET COUNT 300 K/uL (130-400); RED CELL DISTRIBUTION WIDTH 13.4 % (11.5-14.5); WHITE BLOOD COUNT 21.2 K/uL (4.8-10.8)
[2017-03-16 08:11] LABS: ALB/GLOB RATIO 0.7 (1.0-2.1); BILIRUBIN,TOTAL 0.8 mg/dL (0.2-1.3); PHOSPHOROUS 3.9 mg/dL (2.5-4.5); TOTAL PROTEIN 6.6 g/dL (6.3-8.3)
[2017-03-16 08:12] LABS: CALCIUM 8.7 mg/dl (8.6-10.4); MAGNESIUM 1.6 mg/dL (1.6-2.3)
[2017-03-16 08:38] LABS: NEUTROPHIL 88 % (50-75); TOTAL CELLS COUNTED 100
[2017-03-16 08:57] LABS: ERYTHROCYTE SEDIMENTATION RATE 125 mm/hr (0-15)
--- NOTE | 2017-03-16 10:26 | US ---
HISTORY: cholangitis COMPARISON: CT abdomen and pelvis with contrast performed 11/15/15 TECHNIQUE: Sonographic evaluation of the abdomen. FINDINGS: LIVER: Measures 14.6 cm in sagittal dimension. Echogenic liver may be seen in setting of hepatic parenchymal disease or fatty infiltration. No focal hepatic mass identified. The main portal vein appears patent with normal directional flow. No intrahepatic bile duct dilatation. GALLBLADDER: Cholecystectomy. COMMON BILE DUCT: Measures approximately 5 mm. PANCREAS: Not well visualized. RIGHT KIDNEY: Horseshoe configuration. Visualized portion measures approximately 11.6 x 4.0 x 5.4 cm. No obstructing calculus or hydronephrosis identified. LEFT KIDNEY: Horseshoe configuration. Visualized portion measures approximately 11.4 x 3.8 x 4.4 cm. No obstructing calculus or hydronephrosis identified. SPLEEN: Measures approximately 9.6 cm. AORTA: Limited views appear unremarkable. IVC: Limited views appear unremarkable. OTHER FINDINGS: None. IMPRESSION: Cholecystectomy. Echogenic liver may be seen in setting of hepatic parenchymal disease or fatty infiltration. Limited visualization of the kidneys with horseshoe configuration. Otherwise grossly unremarkable.
[2017-03-16] MEDS: Multiple Vitamins Tab PO SCH (10:58)
[2017-03-16] MEDS: Micafungin 100 MG in Sodium Chloride 0.9% 100 ML IV SCH (10:59)
[2017-03-16] MEDS: Meropenem 500 MG in Sodium Chloride 0.9% 100 ML IVPB SCH ×2 (10:59→22:44)
[2017-03-16] MEDS: Sucralfate 1 gm/10 ml Oral Susp UD PO SCH ×2 (11:00→18:24)
--- NOTE | 2017-03-16 11:14 | MRI ---
PROCEDURE: MRI of the brain dated 03/16/2017 HISTORY: Stroke versus infection. COMPARISON: Comparison made with prior CT scan of the brain 03/14/2017. . TECHNIQUE: Multiplanar, multisequence MR images of the brain were obtained without intravenous contrast enhancement. FINDINGS: HEMORRHAGE: No no acute parenchymal, subarachnoid nor extra-axial hemorrhage. No hemosiderin deposition identified on gradient echo weighted sequence. DWI: No evidence of an acute or early subacute infarction seen on diffusion imaging. BRAIN PARENCHYMA: No focal areas of abnormal signal seen within the substance of the brain. No parenchymal nor extra-axial masses or collections. As indicated below, there is apparent absence of the septum pellucidum. ; rule out septo-optic dysplasia. Follow-up ophthalmologic/fundoscopic examination recommended. There is also diminutive appearing corpus callosum however no evidence of complete agenesis of the corpus callosum identified on this study. VENTRICLES: The septum pellucidum is not seen on this exam. Septal optic dysplasia must be excluded. Correlation with ophthalmologic/fundoscopic examination recommended. CRANIUM: Calvarium appears grossly unremarkable. ORBITS: Changes of right-sided cataract surgery are noted PARANASAL SINUSES/MASTOIDS: Small focal area mucosal thickening seen within the frontal sinus with minimal mucosal thickening left chamber sphenoid sinus VASCULAR SYSTEM: Skull base flow voids intact. OTHER FINDINGS: None. IMPRESSION: Apparent absence of the septum pellucidum. Rule out septic or optic dysplasia. Follow-up fundoscopic/ ophthalmologic/fundoscopic examination is recommended. Diminutive appearing corpus callosum however no evidence of complete agenesis of the corpus callosum No evidence of acute intracranial hemorrhage or infarct. No other of abnormalities are identified.
--- NOTE | 2017-03-16 15:27 | CT ---
PROCEDURE: CT Chest, Abdomen and Pelvis without intravenous contrast HISTORY: diffuse granulomatous disease COMPARISON: None. TECHNIQUE: Radiation dose: Total exam DLP = 730.26 mGy-cm. This CT exam was performed using one or more of the following dose reduction techniques: Automated exposure control, adjustment of the mA and/or kV according to patient size, and/or use of iterative reconstruction technique. FINDINGS: CT CHEST WITHOUT CONTRAST: LUNGS: Multifocal nodular opacities are seen bilaterally with areas of confluent opacity in both lower lobes and in the right upper lobe. This is essentially unchanged from examination of 03/12/2017. Significance of this finding is uncertain but an infectious etiology is most likely. Cannot rule out neoplastic or inflammatory etiology. Again, followup to clearing is advised. There is no cavitation seen within any of these nodular opacities. There is no bronchiectasis. There are no endobronchial masses. MEDIASTINUM: Normal heart size. Trace pericardial effusion. Normal caliber of thoracic aorta and main pulmonary artery. LYMPH NODES: Minimal mediastinal lymphadenopathy. Enlarged right paratracheal node unchanged from prior examination. Questionable sub carinal lymphadenopathy. Shotty prevascular lymphadenopathy. Probable mild bilateral hilar lymphadenopathy although evaluation of the hilar structures is limited by the absence of intravenous contrast. PLEURA: Unremarkable. No pneumothorax. No pleural fluid. BONES: No acute fracture. Osteopenia of the thoracic spine is noted to a greater extent than expected for this patient's age. OTHER FINDINGS: None. CT ABDOMEN AND PELVIS: LIVER: Unremarkable. No gross lesion or ductal dilatation. GALLBLADDER AND BILE DUCTS: Status post cholecystectomy PANCREAS: Unremarkable. No gross lesion or ductal dilatation. SPLEEN: Unremarkable. ADRENALS: Unremarkable. No mass. KIDNEYS AND URETERS: Horseshoe kidney noted. No renal mass, calculus or hydronephrosis. VASCULATURE: Unremarkable. No aortic aneurysm. BOWEL: No bowel obstruction. Sigmoid diverticulosis with mural thickening likely secondary to chronic muscular hypertrophy. No other abnormal bowel loops. APPENDIX: Normal appendix. PERITONEUM: Unremarkable. No free fluid. No free air. LYMPH NODES: Shotty retroperitoneal lymph nodes. No significant retroperitoneal or pelvic lymphadenopathy identified. BLADDER: Suboptimally distended. Grossly normal. REPRODUCTIVE: Normal prostate BONES: No acute fracture. OTHER FINDINGS: None. IMPRESSION: Multifocal nodular opacities bilaterally of varying size, with areas of confluence, essentially unchanged from prior CT examination of 03/12/2017. Likely infectious etiology but nonspecific. Followup to clearing is advised. Horseshoe kidney. Status post cholecystectomy. Sigmoid diverticulosis with mural thickening likely secondary to chronic muscular hypertrophy. No other significant abnormality.
--- NOTE | 2017-03-16 16:05 | CP.PCM.PN ---
Subjective - Date & Time of Evaluation Date of Evaluation: 03/16/17 Time of Evaluation: 10:00 - Subjective Subjective: fever on and off c/o ruq pain GI on board still coughing started mycamine for aspergillus may need FOB Objective - Vital Signs/Intake and Output Vital Signs (last 24 hours): Temp Pulse Resp BP Pulse Ox 97.5 F L 79 20 143/72 97 03/16/17 08:00 03/16/17 08:00 03/16/17 08:00 03/16/17 13:00 03/16/17 08:00 Intake and Output: 03/16/17 03/16/17 06:59 18:59 Intake Total 834 Balance 834 - Medications Medications: Current Medications Acetaminophen (Tylenol 325mg Tab) 650 mg PO Q6 PRN PRN Reason: Fever >100.4 F Last Admin: 03/16/17 04:12 Dose: 650 mg Albuterol/Ipratropium (Duoneb 3 Mg/0.5 Mg (3 Ml) Ud) 3 ml INH RQ6 [facility] Last Admin: 03/16/17 14:10 Dose: Not Given Clopidogrel Bisulfate (Plavix) 75 mg PO DAILY [facility] Last Admin: 03/16/17 11:00 Dose: 75 mg Famotidine (Pepcid) 20 mg PO DAILY [facility] Last Admin: 03/16/17 10:57 Dose: 20 mg Heparin Sodium (Porcine) (Heparin) 5,000 units SC Q8 [facility] Last Admin: 03/16/17 13:15 Dose: 5,000 units Hydromorphone HCl (Dilaudid) 1 mg IVP Q4H PRN PRN Reason: Pain, moderate (4-7) Last Admin: 03/16/17 15:13 Dose: 1 mg Potassium Chloride 40 meq/ (Sodium Chloride) 1,020 mls @ 40 mls/hr IV .Q24H [facility] Last Admin: 03/16/17 09:06 Dose: Not Given Azithromycin 500 mg/ Sodium (Chloride) 250 mls @ 167 mls/hr IVPB Q24H [facility] Last Admin: 03/15/17 17:17 Dose: 167 mls/hr Meropenem 500 mg/ Sodium (Chloride) 100 mls @ 100 mls/hr IVPB Q12 [facility] Last Admin: 03/16/17 10:59 Dose: 100 mls/hr Micafungin Sodium 100 mg/ (Sodium Chloride) 100 mls @ 100 mls/hr IV Q24H [facility] Last Admin: 03/16/17 10:59 Dose: 100 mls/hr Insulin Glargine (Lantus) 40 unit SC HS [facility] Last Admin: 03/15/17 22:52 Dose: Not Given Insulin Human Regular (Novolin R) 0 unit SC ACHS [facility] PRN Reason: Protocol Last Admin: 03/16/17 12:45 Dose: 4 unit Metoprolol Tartrate (Lopressor) 25 mg PO Q6 [facility] Last Admin: 03/16/17 13:00 Dose: 25 mg Multivitamins (Hexavitamin) 1 tab PO DAILY [facility] Last Admin: 03/16/17 10:58 Dose: 1 tab Pregabalin (Lyrica) 75 mg PO BID [facility] Last Admin: 03/16/17 10:57 Dose: 75 mg Promethazine HCl (Phenergan Syrup) 6.25 mg PO Q6H [facility] Last Admin: 03/16/17 09:26 Dose: 6.25 mg Sucralfate (Carafate Oral Susp) 1 gm PO BID [facility] Last Admin: 03/16/17 11:00 Dose: 1 gm - Labs Labs: 03/16/17 07:17 03/16/17 07:15 PT 11.8 SECONDS (9.7-12.2) 03/16/17 07:17 INR 1.0 03/16/17 07:17 APTT 37 SECONDS (21-34) H 03/16/17 07:17 - Constitutional Appears: Chronically Ill - Head Exam Head Exam: NORMOCEPHALIC - Eye Exam Eye Exam: PERRL. absent: Nystagmus, Scleral icterus - ENT Exam ENT Exam: Mucous Membranes Dry, Normal External Ear Exam - Neck Exam Neck Exam: absent: Lymphadenopathy - Respiratory Exam Respiratory Exam: Decreased Breath Sounds, Rales - Cardiovascular Exam Cardiovascular Exam: REGULAR RHYTHM, +S1, +S2 - GI/Abdominal Exam GI & Abdominal Exam: Distended, Soft, Tenderness - Rectal Exam Rectal Exam: Deferred - Exam Exam: NORMAL INSPECTION Assessment and Plan (1) Acute renal insufficiency Status: Acute (2) Hyponatremia Status: Acute (3) Pneumonia Status: Acute (4) Diabetes mellitus Status: Acute (5) Fever Status: Acute (6) Pneumonia Status: Acute (7) Crohn's disease of colon Status: Chronic
--- NOTE | 2017-03-16 16:27 | CP.PCM.PN ---
Subjective - Date & Time of Evaluation Date of Evaluation: 03/16/17 Time of Evaluation: 16:24 - Subjective Subjective: Patient still complains of cough and abdominal pain exacerbated by coughing, unchanged. He denies having nausea and vomiting. He had two watery bowel movements today. Objective - Vital Signs/Intake and Output Vital Signs (last 24 hours): Temp Pulse Resp BP Pulse Ox 97.5 F L 109 H 20 143/72 97 03/16/17 08:00 03/16/17 13:32 03/16/17 08:00 03/16/17 13:00 03/16/17 08:00 Intake and Output: 03/16/17 03/16/17 06:59 18:59 Intake Total 834 800 Balance 834 800 - Medications Medications: Current Medications Acetaminophen (Tylenol 325mg Tab) 650 mg PO Q6 PRN PRN Reason: Fever >100.4 F Last Admin: 03/16/17 04:12 Dose: 650 mg Albuterol/Ipratropium (Duoneb 3 Mg/0.5 Mg (3 Ml) Ud) 3 ml INH RQ6 [facility] Last Admin: 03/16/17 14:10 Dose: Not Given Clopidogrel Bisulfate (Plavix) 75 mg PO DAILY [facility] Last Admin: 03/16/17 11:00 Dose: 75 mg Famotidine (Pepcid) 20 mg PO DAILY [facility] Last Admin: 03/16/17 10:57 Dose: 20 mg Heparin Sodium (Porcine) (Heparin) 5,000 units SC Q8 [facility] Last Admin: 03/16/17 13:15 Dose: 5,000 units Hydromorphone HCl (Dilaudid) 1 mg IVP Q4H PRN PRN Reason: Pain, moderate (4-7) Last Admin: 03/16/17 15:13 Dose: 1 mg Potassium Chloride 40 meq/ (Sodium Chloride) 1,020 mls @ 40 mls/hr IV .Q24H [facility] Last Admin: 03/16/17 09:06 Dose: Not Given Azithromycin 500 mg/ Sodium (Chloride) 250 mls @ 167 mls/hr IVPB Q24H [facility] Last Admin: 03/15/17 17:17 Dose: 167 mls/hr Meropenem 500 mg/ Sodium (Chloride) 100 mls @ 100 mls/hr IVPB Q12 [facility] Last Admin: 03/16/17 10:59 Dose: 100 mls/hr Micafungin Sodium 100 mg/ (Sodium Chloride) 100 mls @ 100 mls/hr IV Q24H [facility] Last Admin: 03/16/17 10:59 Dose: 100 mls/hr Insulin Glargine (Lantus) 40 unit SC HS [facility] Last Admin: 03/15/17 22:52 Dose: Not Given Insulin Human Regular (Novolin R) 0 unit SC ACHS [facility] PRN Reason: Protocol Last Admin: 03/16/17 12:45 Dose: 4 unit Metoprolol Tartrate (Lopressor) 25 mg PO Q6 [facility] Last Admin: 03/16/17 13:00 Dose: 25 mg Multivitamins (Hexavitamin) 1 tab PO DAILY [facility] Last Admin: 03/16/17 10:58 Dose: 1 tab Pregabalin (Lyrica) 75 mg PO BID [facility] Last Admin: 03/16/17 10:57 Dose: 75 mg Promethazine HCl (Phenergan Syrup) 6.25 mg PO Q6H [facility] Last Admin: 03/16/17 09:26 Dose: 6.25 mg Sucralfate (Carafate Oral Susp) 1 gm PO BID [facility] Last Admin: 03/16/17 11:00 Dose: 1 gm - Labs Labs: 03/16/17 07:17 03/16/17 07:15 PT 11.8 SECONDS (9.7-12.2) 03/16/17 07:17 INR 1.0 03/16/17 07:17 APTT 37 SECONDS (21-34) H 03/16/17 07:17 - Constitutional Appears: No Acute Distress - Head Exam Head Exam: ATRAUMATIC, NORMOCEPHALIC - Eye Exam Eye Exam: EOMI, PERRL - Neck Exam Neck Exam: absent: Lymphadenopathy, Thyromegaly - Respiratory Exam Respiratory Exam: NORMAL BREATHING PATTERN. absent: Rales, Rhonchi, Wheezes - Cardiovascular Exam Cardiovascular Exam: REGULAR RHYTHM, +S1, +S2. absent: Gallop, Rubs, Murmur - GI/Abdominal Exam GI & Abdominal Exam: Distended, Firm, Normal Bowel Sounds. absent: Tenderness, Mass, Organomegaly - Rectal Exam Rectal Exam: Deferred - Extremities Exam Extremities Exam: absent: Calf Tenderness, Pedal Edema Assessment and Plan (1) Sclerosing cholangitis Assessment & Plan: The alkaline phosphatase is again elevated at 800. Patient now agrees to have MRCP, which will be ordered for tomorrow. Status: Suspected
--- NOTE | 2017-03-16 18:41 | CP.PCM.PN ---
Subjective - Date & Time of Evaluation Date of Evaluation: 03/16/17 Time of Evaluation: 07:20 - Subjective Subjective: NO NEW SYMPTOMS RIGHT LEG WEAKNESS IS GONE HEIS COMFORTBLE NOW WE WILL REVIEW MRI CONTINUE ANTI PLATELETS Objective - Vital Signs/Intake and Output Vital Signs (last 24 hours): Temp Pulse Resp BP Pulse Ox 97.5 F L 109 H 20 163/85 H 97 03/16/17 08:00 03/16/17 13:32 03/16/17 08:00 03/16/17 18:25 03/16/17 08:00 Intake and Output: 03/16/17 03/16/17 06:59 18:59 Intake Total 834 800 Balance 834 800 - Medications Medications: Current Medications Acetaminophen (Tylenol 325mg Tab) 650 mg PO Q6 PRN PRN Reason: Fever >100.4 F Last Admin: 03/16/17 04:12 Dose: 650 mg Albuterol/Ipratropium (Duoneb 3 Mg/0.5 Mg (3 Ml) Ud) 3 ml INH RQ6 [facility] Last Admin: 03/16/17 14:10 Dose: Not Given Clopidogrel Bisulfate (Plavix) 75 mg PO DAILY [facility] Last Admin: 03/16/17 11:00 Dose: 75 mg Famotidine (Pepcid) 20 mg PO DAILY [facility] Last Admin: 03/16/17 10:57 Dose: 20 mg Heparin Sodium (Porcine) (Heparin) 5,000 units SC Q8 [facility] Last Admin: 03/16/17 13:15 Dose: 5,000 units Hydromorphone HCl (Dilaudid) 1 mg IVP Q4H PRN PRN Reason: Pain, moderate (4-7) Last Admin: 03/16/17 15:13 Dose: 1 mg Potassium Chloride 40 meq/ (Sodium Chloride) 1,020 mls @ 40 mls/hr IV .Q24H [facility] Last Admin: 03/16/17 09:06 Dose: Not Given Azithromycin 500 mg/ Sodium (Chloride) 250 mls @ 167 mls/hr IVPB Q24H [facility] Last Admin: 03/15/17 17:17 Dose: 167 mls/hr Meropenem 500 mg/ Sodium (Chloride) 100 mls @ 100 mls/hr IVPB Q12 [facility] Last Admin: 03/16/17 10:59 Dose: 100 mls/hr Micafungin Sodium 100 mg/ (Sodium Chloride) 100 mls @ 100 mls/hr IV Q24H [facility] Last Admin: 03/16/17 10:59 Dose: 100 mls/hr Insulin Glargine (Lantus) 40 unit SC HS [facility] Last Admin: 03/15/17 22:52 Dose: Not Given Insulin Human Regular (Novolin R) 0 unit SC ACHS [facility] PRN Reason: Protocol Last Admin: 03/16/17 18:29 Dose: 6 unit Metoprolol Tartrate (Lopressor) 25 mg PO Q6 [facility] Last Admin: 03/16/17 18:25 Dose: 25 mg Multivitamins (Hexavitamin) 1 tab PO DAILY [facility] Last Admin: 03/16/17 10:58 Dose: 1 tab Pregabalin (Lyrica) 75 mg PO BID [facility] Last Admin: 03/16/17 18:26 Dose: 75 mg Promethazine HCl (Phenergan Syrup) 6.25 mg PO Q6H [facility] Last Admin: 03/16/17 09:26 Dose: 6.25 mg Sucralfate (Carafate Oral Susp) 1 gm PO BID [facility] Last Admin: 03/16/17 18:24 Dose: 1 gm - Labs Labs: 03/16/17 07:17 03/16/17 07:15 PT 11.8 SECONDS (9.7-12.2) 03/16/17 07:17 INR 1.0 03/16/17 07:17 APTT 37 SECONDS (21-34) H 03/16/17 07:17 Assessment and Plan (1) Transient cerebral ischemic attack Status: Acute
--- NOTE | 2017-03-16 20:52 | CP.PCM.PN ---
Subjective - Date & Time of Evaluation Date of Evaluation: 03/16/17 Time of Evaluation: 20:52 - Subjective Subjective: Patient is still having cough. No mucus production noted. Today patient underwent extensive workup including MRI of the brain, which is negative. He underwent echocardiogram, results pending Tachycardia noted. He had an episode of fever this morning today. 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 Patient is also having lung lesions unchanged from prior CAT scan. Diffuse alveolar densities infiltrative changes, occupying mostly in the lower lung areas and also in the peripheral part of the lungs. Labs today showing stability. This is still elevated. Creatinine is stable. Blood sugar is still elevated. Patient will need a bronchoscopic evaluation likely. We will possibly arrange a tomorrow. If there is no evidence of any infectious process patient will benefit with the high dose corticosteroids. But we will first wait for the bronchoscopy, and also glucose control is important. Lung lesions could be a granulomatous disease unlikely and infectious processes the bacteriology and microbiology is negative by the bronchoscopy. Sarcoidosis, necrotizing granulomas, granulomatous disease from cross disease cannot be ruled out. Currently on multiple antibiotic, and fungal treatment. We'll follow the patient. Objective - Vital Signs/Intake and Output Vital Signs (last 24 hours): Temp Pulse Resp BP Pulse Ox 98.7 F 99 H 20 163/85 H 96 03/16/17 16:00 03/16/17 16:00 03/16/17 16:00 03/16/17 18:25 03/16/17 16:00 Intake and Output: 03/16/17 03/17/17 18:59 06:59 Intake Total 800 Balance 800 - Medications Medications: Current Medications Acetaminophen (Tylenol 325mg Tab) 650 mg PO Q6 PRN PRN Reason: Fever >100.4 F Last Admin: 03/16/17 04:12 Dose: 650 mg Albuterol/Ipratropium (Duoneb 3 Mg/0.5 Mg (3 Ml) Ud) 3 ml INH RQ6 [facility] Last Admin: 03/16/17 19:49 Dose: 3 ml Clopidogrel Bisulfate (Plavix) 75 mg PO DAILY [facility] Last Admin: 03/16/17 11:00 Dose: 75 mg Famotidine (Pepcid) 20 mg PO DAILY [facility] Last Admin: 03/16/17 10:57 Dose: 20 mg Heparin Sodium (Porcine) (Heparin) 5,000 units SC Q8 [facility] Last Admin: 03/16/17 13:15 Dose: 5,000 units Hydromorphone HCl (Dilaudid) 1 mg IVP Q4H PRN PRN Reason: Pain, moderate (4-7) Last Admin: 03/16/17 19:29 Dose: 1 mg Potassium Chloride 40 meq/ (Sodium Chloride) 1,020 mls @ 40 mls/hr IV .Q24H [facility] Last Admin: 03/16/17 09:06 Dose: Not Given Azithromycin 500 mg/ Sodium (Chloride) 250 mls @ 167 mls/hr IVPB Q24H [facility] Last Admin: 03/15/17 17:17 Dose: 167 mls/hr Meropenem 500 mg/ Sodium (Chloride) 100 mls @ 100 mls/hr IVPB Q12 [facility] Last Admin: 03/16/17 10:59 Dose: 100 mls/hr Micafungin Sodium 100 mg/ (Sodium Chloride) 100 mls @ 100 mls/hr IV Q24H [facility] Last Admin: 03/16/17 10:59 Dose: 100 mls/hr Insulin Glargine (Lantus) 40 unit SC HS [facility] Last Admin: 03/15/17 22:52 Dose: Not Given Insulin Human Regular (Novolin R) 0 unit SC ACHS [facility] PRN Reason: Protocol Last Admin: 03/16/17 18:29 Dose: 6 unit Metoprolol Tartrate (Lopressor) 25 mg PO Q6 [facility] Last Admin: 03/16/17 18:25 Dose: 25 mg Multivitamins (Hexavitamin) 1 tab PO DAILY [facility] Last Admin: 03/16/17 10:58 Dose: 1 tab Pregabalin (Lyrica) 75 mg PO BID [facility] Last Admin: 03/16/17 18:26 Dose: 75 mg Promethazine HCl (Phenergan Syrup) 6.25 mg PO Q6H [facility] Last Admin: 03/16/17 09:26 Dose: 6.25 mg Sucralfate (Carafate Oral Susp) 1 gm PO BID [facility] Last Admin: 03/16/17 18:24 Dose: 1 gm - Labs Labs: 03/16/17 07:17 03/16/17 07:15 PT 11.8 SECONDS (9.7-12.2) 07/05/17 07:17 INR 1.0 03/16/17 07:17 APTT 37 SECONDS (21-34) H 03/16/17 07:17
[2017-03-16] MEDS: Azithromycin 500 MG in Sodium Chloride 0.9% 250 ML IVPB SCH (21:12)
--- NOTE | 2017-03-16 21:46 | CARD ---
APPROVED REPORT EXAM: Two-dimensional and M-mode echocardiogram with Doppler and color Doppler. Other Information Quality : GoodRhythm : NSR INDICATION Fever RISK FACTORS Diabetes M-Mode DIMENSIONS Left Atrium (MM)4.16 (2.5-4.0cm)IVSd1.03 (0.7-1.1cm) Aortic Root2.98 (2.2-3.7cm)LVDd4.86 (4.0-5.6cm) Aortic Cusp Exc.1.94 (1.5-2.0cm)PWd1.06 (0.7-1.1cm) FS (%) 27 %LVDs3.55 (2.0-3.8cm) LVEF (%)52 (>50%) Mitral Valve MV E Bvxkxblr70.2cm/sMV A Lhnysbgz54.5cm/sE/A ratio1.1 TDI E/Lateral E'0.0E/Medial E'0.0 LEFT VENTRICLE The left ventricle is normal size. There is normal left ventricular wall thickness. Left ventricle systolic function is normal with Ejection Fraction of 50-55%. There is normal LV segmental wall motion. The left ventricular diastolic function is normal. No left ventricle thrombus noted on this study. RIGHT VENTRICLE The right ventricle is normal size. The right ventricular systolic function is normal. ATRIA The left atrium is borderline dilated. The right atrium size is normal. AORTIC VALVE The aortic valve is mildly sclerotic. The aortic valve is trileaflet. No aortic regurgitation is present. There is no aortic valvular stenosis. There is no aortic valvular vegetation. MITRAL VALVE The mitral valve is normal in structure. There is no evidence of mitral valve prolapse. There is no mitral valve stenosis. Mitral regurgitation is trace. TRICUSPID VALVE The tricuspid valve is normal in structure. There is no tricuspid valve regurgitation noted. There is no tricuspid valve prolapse or vegetation. There is no tricuspid valve stenosis. PULMONIC VALVE The pulmonic valve is not well visualized. There is no pulmonic valvular regurgitation. GREAT VESSELS The aortic root is normal in size. The IVC is normal in size and collapses >50% with inspiration. PERICARDIAL EFFUSION There is no pericardial effusion. There is no pleural effusion. <Conclusion> The left ventricle is normal size. Left ventricle systolic function is normal with Ejection Fraction of 50-55%. The left ventricular diastolic function is normal. The right ventricle is normal size. The right ventricular systolic function is normal. The left atrium is borderline dilated. The right atrium size is normal. Mitral regurgitation is trace.
[2017-03-16] MEDS: (Lantus) Insulin Glargine, Recombinant SC SCH (22:45)
--- NOTE | 2017-03-16 23:31 | CP.PCM.CON ---
History of Present Illness - History of Present Illness History of Present Illness: Patient seen and evaluated Tachycardia Past Patient History - Infectious Disease Hx of Infectious Diseases: None - Past Medical History & Family History Past Medical History?: Yes - Past Social History Smoking Status: Light Smoker < 10 Cigarettes Daily - PULMONARY Hx Bronchitis: Yes (PULMONARY LESION ) Hx Chronic Obstructive Pulmonary Disease (COPD): No Hx Pneumonia: Yes (NOVEMBER 2015) - HEENT Hx HEENT Problems: Yes Hx Cataracts: Yes (RIGHT EYE) - ENDOCRINE/METABOLIC Hx Endocrine Disorders: Yes Hx Diabetes Mellitus Type 1: Yes - HEMATOLOGICAL/ONCOLOGICAL Hx Anemia: Yes - INTEGUMENTARY Hx Dermatological Problems: Yes Hx Cellulitis: Yes - MUSCULOSKELETAL/RHEUMATOLOGICAL Hx Arthritis: Yes Hx Falls: No Hx Fractures: Yes (LEFT ELBOW-CASTED ONLY) Hx Rheumatoid Arthritis: Yes - GASTROINTESTINAL Hx Crohn's Disease: Yes Hx Gastritis: Yes - PSYCHIATRIC Hx Substance Use: No - SURGICAL HISTORY Hx Cholecystectomy: Yes - ANESTHESIA Hx Anesthesia: Yes Hx Anesthesia Reactions: No Hx Malignant Hyperthermia: No Meds Allergies/Adverse Reactions: Allergies Allergy/AdvReac Type Severity Reaction Status Date / Time No Known Allergies Allergy Verified 06/18/16 18:39 - Medications Medications: Current Medications Acetaminophen (Tylenol 325mg Tab) 650 mg PO Q6 PRN PRN Reason: Fever >100.4 F Last Admin: 03/16/17 04:12 Dose: 650 mg Albuterol/Ipratropium (Duoneb 3 Mg/0.5 Mg (3 Ml) Ud) 3 ml INH RQ6 [facility] Last Admin: 03/16/17 19:49 Dose: 3 ml Clopidogrel Bisulfate (Plavix) 75 mg PO DAILY [facility] Last Admin: 03/16/17 11:00 Dose: 75 mg Famotidine (Pepcid) 20 mg PO DAILY [facility] Last Admin: 03/16/17 10:57 Dose: 20 mg Heparin Sodium (Porcine) (Heparin) 5,000 units SC Q8 [facility] Last Admin: 03/16/17 22:46 Dose: 5,000 units Hydromorphone HCl (Dilaudid) 1 mg IVP Q4H PRN PRN Reason: Pain, moderate (4-7) Last Admin: 03/16/17 19:29 Dose: 1 mg Potassium Chloride 40 meq/ (Sodium Chloride) 1,020 mls @ 40 mls/hr IV .Q24H [facility] Last Admin: 03/16/17 21:13 Dose: 40 mls/hr Azithromycin 500 mg/ Sodium (Chloride) 250 mls @ 167 mls/hr IVPB Q24H [facility] Last Admin: 03/16/17 21:12 Dose: 167 mls/hr Meropenem 500 mg/ Sodium (Chloride) 100 mls @ 100 mls/hr IVPB Q12 [facility] Last Admin: 03/16/17 22:44 Dose: 100 mls/hr Micafungin Sodium 100 mg/ (Sodium Chloride) 100 mls @ 100 mls/hr IV Q24H [facility] Last Admin: 03/16/17 10:59 Dose: 100 mls/hr Insulin Glargine (Lantus) 40 unit SC HS [facility] Last Admin: 03/16/17 22:45 Dose: Not Given Insulin Human Regular (Novolin R) 0 unit SC ACHS [facility] PRN Reason: Protocol Last Admin: 03/16/17 22:45 Dose: Not Given Metoprolol Tartrate (Lopressor) 25 mg PO Q6 [facility] Last Admin: 03/16/17 18:25 Dose: 25 mg Multivitamins (Hexavitamin) 1 tab PO DAILY [facility] Last Admin: 03/16/17 10:58 Dose: 1 tab Pregabalin (Lyrica) 75 mg PO BID [facility] Last Admin: 03/16/17 18:26 Dose: 75 mg Promethazine HCl (Phenergan Syrup) 6.25 mg PO Q6H [facility] Last Admin: 03/16/17 21:09 Dose: 6.25 mg Sucralfate (Carafate Oral Susp) 1 gm PO BID [facility] Last Admin: 03/16/17 18:24 Dose: 1 gm Results - Vital Signs Recent Vital Signs: Last Vital Signs Temp 98.7 F 03/16/17 16:00 Pulse 99 H 03/16/17 16:00 Resp 20 03/16/17 16:00 BP 163/85 H 03/16/17 18:25 Pulse Ox 96 03/16/17 16:00 - Labs Result Diagrams: 03/16/17 07:17 03/16/17 07:15 Labs: Laboratory Results - last 24 hr 03/12/17 03/13/17 03/14/17 17:17 17:27 07:22 WBC RBC Hgb Hct MCV MCH MCHC RDW Plt Count MPV Neut % (Auto) Lymph % (Auto) Norton % (Auto) Eos % (Auto) Baso % (Auto) Neut # Lymph # Norton # Eos # Baso # Neutrophils % (Manual) Band Neutrophils % Lymphocytes % (Manual) Monocytes % (Manual) Platelet Estimate RBC Morphology ESR LAP Score PT INR APTT Sodium Potassium Chloride Carbon Dioxide Anion Gap BUN Creatinine Est GFR ( Amer) Est GFR (Non-Af Amer) POC Glucose (mg/dL) 290 H Random Glucose Calcium Phosphorus Magnesium Total Bilirubin AST ALT Alkaline Phosphatase Ammonia Lactate Dehydrogenase Total Creatine Kinase Total Protein Albumin Globulin Albumin/Globulin Ratio Absolute Lymphs (Flow) 975 % CD4 Cells 54 Absolute CD4 Count 528 T-Help/Suppress Ratio 1.91 % CD8 Cells 28 Absolute CD8 Count 277 Cryptococcus Ag Screen Not detected 03/14/17 03/16/17 03/16/17 19:55 06:46 07:15 WBC RBC Hgb Hct MCV MCH MCHC RDW Plt Count MPV Neut % (Auto) Lymph % (Auto) Norton % (Auto) Eos % (Auto) Baso % (Auto) Neut # Lymph # Norton # Eos # Baso # Neutrophils % (Manual) Band Neutrophils % Lymphocytes % (Manual) Monocytes % (Manual) Platelet Estimate RBC Morphology ESR LAP Score PT INR APTT Sodium 134 Potassium 4.0 Chloride 106 Carbon Dioxide 20 L Anion Gap 12 BUN 12 Creatinine 1.8 H Est GFR ( Amer) 50 Est GFR (Non-Af Amer) 41 POC Glucose (mg/dL) 164 H Random Glucose 167 H Calcium 8.7 Phosphorus 3.9 Magnesium 1.6 Total Bilirubin 0.8 AST 35 ALT 30 Alkaline Phosphatase 800 H Ammonia Lactate Dehydrogenase 533 Total Creatine Kinase 294 H Total Protein 6.6 Albumin 2.7 L Globulin 3.9 Albumin/Globulin Ratio 0.7 L Absolute Lymphs (Flow) 1033 % CD4 Cells 59 Absolute CD4 Count 613 T-Help/Suppress Ratio 2.27 % CD8 Cells 26 Absolute CD8 Count 270 Cryptococcus Ag Screen 03/16/17 03/16/17 03/16/17 07:15 07:17 07:17 WBC 21.2 H RBC 4.03 L Hgb 11.4 L Hct 34.4 L MCV 85.5 MCH 28.3 MCHC 33.1 RDW 13.4 Plt Count 300 MPV 9.2 Neut % (Auto) 83.9 H Lymph % (Auto) 7.2 L Norton % (Auto) 7.6 Eos % (Auto) 0.5 Baso % (Auto) 0.8 Neut # 17.7 H Lymph # 1.5 Norton # 1.6 H Eos # 0.1 Baso # 0.2 Neutrophils % (Manual) 88 H Band Neutrophils % 2 Lymphocytes % (Manual) 5 L Monocytes % (Manual) 5 Platelet Estimate Normal RBC Morphology Normal ESR 125 H LAP Score 209 H PT 11.8 INR 1.0 APTT 37 H Sodium Potassium Chloride Carbon Dioxide Anion Gap BUN Creatinine Est GFR ( Amer) Est GFR (Non-Af Amer) POC Glucose (mg/dL) Random Glucose Calcium Phosphorus Magnesium Total Bilirubin AST ALT Alkaline Phosphatase Ammonia < 9 L Lactate Dehydrogenase Total Creatine Kinase Total Protein Albumin Globulin Albumin/Globulin Ratio Absolute Lymphs (Flow) % CD4 Cells Absolute CD4 Count T-Help/Suppress Ratio % CD8 Cells Absolute CD8 Count Cryptococcus Ag Screen 03/16/17 03/16/17 03/16/17 11:34 16:50 21:38 WBC RBC Hgb Hct MCV MCH MCHC RDW Plt Count MPV Neut % (Auto) Lymph % (Auto) Norton % (Auto) Eos % (Auto) Baso % (Auto) Neut # Lymph # Norton # Eos # Baso # Neutrophils % (Manual) Band Neutrophils % Lymphocytes % (Manual) Monocytes % (Manual) Platelet Estimate RBC Morphology ESR LAP Score PT INR APTT Sodium Potassium Chloride Carbon Dioxide Anion Gap BUN Creatinine Est GFR ( Amer) Est GFR (Non-Af Amer) POC Glucose (mg/dL) 226 H 293 H 165 H Random Glucose Calcium Phosphorus Magnesium Total Bilirubin AST ALT Alkaline Phosphatase Ammonia Lactate Dehydrogenase Total Creatine Kinase Total Protein Albumin Globulin Albumin/Globulin Ratio Absolute Lymphs (Flow) % CD4 Cells Absolute CD4 Count T-Help/Suppress Ratio % CD8 Cells Absolute CD8 Count Cryptococcus Ag Screen
[2017-03-17] MEDS: Albuterol-Ipratrop 3 mg / 0.5 (3 ml) UD INH SCH ×4 (01:12→19:35)
[2017-03-17] MEDS: Promethazine 6.25 MG/5 ML CUP PO SCH ×5 (04:27→23:12)
[2017-03-17] MEDS: HYDROmorphone 1 mg/ml ISec IVP PRN ×3 (06:17→18:23)
--- NOTE | 2017-03-17 07:17 | CP.PCM.PN ---
Subjective - Date & Time of Evaluation Date of Evaluation: 03/17/17 Time of Evaluation: 07:10 - Subjective Subjective: SLEEPY EASILY AROUSABLE NO WEAKNESS OF RIGHT LEG MRI BRAIN REVIEWED - NO ACUTE PROCESS INCIDENTAL OPTIC DYSPLASIA EXAM UNCHANGED F/U IF NEEDED PT Objective - Vital Signs/Intake and Output Vital Signs (last 24 hours): Temp Pulse Resp BP Pulse Ox 98.7 F 101 H 20 153/82 H 98 03/17/17 05:53 03/17/17 05:53 03/17/17 05:53 03/17/17 06:12 03/17/17 05:53 Intake and Output: 03/17/17 03/17/17 06:59 18:59 Intake Total 510 Balance 510 - Medications Medications: Current Medications Acetaminophen (Tylenol 325mg Tab) 650 mg PO Q6 PRN PRN Reason: Fever >100.4 F Last Admin: 03/16/17 04:12 Dose: 650 mg Albuterol/Ipratropium (Duoneb 3 Mg/0.5 Mg (3 Ml) Ud) 3 ml INH RQ6 [facility] Last Admin: 03/17/17 01:12 Dose: 3 ml Clopidogrel Bisulfate (Plavix) 75 mg PO DAILY [facility] Last Admin: 03/16/17 11:00 Dose: 75 mg Famotidine (Pepcid) 20 mg PO DAILY [facility] Last Admin: 03/16/17 10:57 Dose: 20 mg Heparin Sodium (Porcine) (Heparin) 5,000 units SC Q8 [facility] Last Admin: 03/17/17 06:12 Dose: 5,000 units Hydromorphone HCl (Dilaudid) 1 mg IVP Q4H PRN PRN Reason: Pain, moderate (4-7) Last Admin: 03/17/17 06:17 Dose: 1 mg Potassium Chloride 40 meq/ (Sodium Chloride) 1,020 mls @ 40 mls/hr IV .Q24H [facility] Last Admin: 03/16/17 21:13 Dose: 40 mls/hr Azithromycin 500 mg/ Sodium (Chloride) 250 mls @ 167 mls/hr IVPB Q24H [facility] Last Admin: 03/16/17 21:12 Dose: 167 mls/hr Meropenem 500 mg/ Sodium (Chloride) 100 mls @ 100 mls/hr IVPB Q12 [facility] Last Admin: 03/16/17 22:44 Dose: 100 mls/hr Micafungin Sodium 100 mg/ (Sodium Chloride) 100 mls @ 100 mls/hr IV Q24H [facility] Last Admin: 03/16/17 10:59 Dose: 100 mls/hr Insulin Glargine (Lantus) 40 unit SC HS [facility] Last Admin: 03/16/17 22:45 Dose: Not Given Insulin Human Regular (Novolin R) 0 unit SC ACHS [facility] PRN Reason: Protocol Last Admin: 03/16/17 22:45 Dose: Not Given Metoprolol Tartrate (Lopressor) 25 mg PO Q6 [facility] Last Admin: 03/17/17 06:12 Dose: 25 mg Multivitamins (Hexavitamin) 1 tab PO DAILY [facility] Last Admin: 03/16/17 10:58 Dose: 1 tab Pregabalin (Lyrica) 75 mg PO BID [facility] Last Admin: 03/16/17 18:26 Dose: 75 mg Promethazine HCl (Phenergan Syrup) 6.25 mg PO Q6H [facility] Last Admin: 03/17/17 04:27 Dose: 6.25 mg Sucralfate (Carafate Oral Susp) 1 gm PO BID [facility] Last Admin: 03/16/17 18:24 Dose: 1 gm - Labs Labs: 03/16/17 07:17 03/16/17 07:15 PT 11.8 SECONDS (9.7-12.2) 03/16/17 07:17 INR 1.0 03/16/17 07:17 APTT 37 SECONDS (21-34) H 03/16/17 07:17 Assessment and Plan (1) Transient cerebral ischemic attack Status: Acute
[2017-03-17] MEDS: (Novolin R) Insulin Human Regular 100 units/ml vial SC SCH ×4 (07:50→23:04)
[2017-03-17] MEDS: Multiple Vitamins Tab PO SCH (09:37)
[2017-03-17] MEDS: Sucralfate 1 gm/10 ml Oral Susp UD PO SCH ×2 (09:38→18:23)
[2017-03-17] MEDS ORDERED: Lidocaine 1% Inj (20ml) ONE (10:33)
--- NOTE | 2017-03-17 10:51 | PCM.SURG1 ---
Surgeon's Initial Post Op Note - Surgeon's Notes Surgeon: Yosvany Warner MD Agricultural Technician: NONE Type of Anesthesia: Local Pre-Operative Diagnosis: Infection Operative Findings: Patent right basilic vein Post-Operative Diagnosis: Infection Operation Performed: Right basilic vein single lumen picc placement, 37 cm. Tip in SVC. Specimen/Specimens Removed: NONE Estimated Blood Loss: EBL {In ML}: 2 Blood Products Given: N/A Drains Used: No Drains Post-Op Condition: Fair Date of Surgery/Procedure: 03/17/17 Time of Surgery/Procedure: 10:50
[2017-03-17] MEDS: Meropenem 500 MG in Sodium Chloride 0.9% 100 ML IVPB SCH ×3 (11:07→23:03)
[2017-03-17] MEDS: Micafungin 100 MG in Sodium Chloride 0.9% 100 ML IV SCH ×2 (11:08→12:51)
--- NOTE | 2017-03-17 12:32 | MRI ---
MRCP Indication: Crohn's disease, dilated bile duct, abdominal pain Technique: Multiplanar, multisequence MR images of the abdomen were obtained, including heavily T2 weighted MRCP images of the biliary system. Rotating maximum intensity projection images of the biliary system were generated. A total of 557 images were submitted for review. Comparison: CT of the chest, abdomen, and pelvis without contrast performed 03/16/17, abdominal ultrasound performed 03/16/17 Findings: Examination limited by patient motion and difficulty with breath hold. 2 calcifications noted along the posterior right hepatic lobe ; best seen on CT performed 03/16/17. Mild hepatic steatosis. The liver otherwise appears grossly unremarkable on this noncontrast examination. The patient is status postcholecystectomy. There is no intrahepatic biliary ductal dilatation. The common bile duct appears within normal limits in caliber and tapers distally. The pancreatic duct does not appear dilated. No filling defects are seen in the common bile duct or pancreatic duct. The included portions of the noncontrast adrenal glands, spleen, and pancreas appear grossly unremarkable. Partially imaged horseshoe kidney No bulky abdominal lymphadenopathy is seen. No ascites. Limited visualization of the lung bases demonstrate nodularity and dependent consolidation; please refer to CT of the chest performed 03/16/17 as MRI is suboptimal in visualization and detection of pulmonary pathology. Degenerative changes. No acute osseous abnormality is detected. Impression: Limited study. No filling defects seen within the common bile duct which appears within normal limits of caliber. Cholecystectomy. Partially imaged horseshoe kidney. Limited visualization of the lung bases demonstrate nodularity and dependent consolidation; please refer to CT of the chest performed 03/16/17 as MRI is suboptimal in visualization and detection of pulmonary pathology. Recommend follow-up to complete resolution as malignant neoplasm cannot be excluded. Additional findings as above.
--- NOTE | 2017-03-17 13:20 | VASCLAB ---
PROCEDURE: Lower Extremity Venous Duplex Exam. HISTORY: dvt PRIORS: None. TECHNIQUE: Bilateral common femoral, femoral, popliteal and posterior tibial, peroneal and great saphenous veins were evaluated. Flow was assessed with color Doppler, compressibility, assessment of phasic flow and augmentation response. Report prepared by VIOLET Menendez, RVT FINDINGS: RIGHT: 1. Common Femoral Vein: 1.1. Compressibility - Fully compressible: Thrombus - None : Flow - Phasic: Augmentation -Normal: Reflux - None. 2. Femoral Vein: 2.1. Compressibility - Fully compressible: Thrombus - None : Flow - Phasic: Augmentation -Normal: Reflux - None. 3. Popliteal Vein: 3.1. Compressibility - Fully compressible: Thrombus - None : Flow - Phasic: Augmentation -Normal: Reflux - None. 4. Posterior Tibial Vein: 4.1. Compressibility - Fully compressible: Thrombus - None: Flow - Phasic: Augmentation -Normal: Reflux - None. 5. Peroneal Vein: 5.1. Compressibility - Fully compressible: Thrombus - None: Flow - Phasic: Augmentation -Normal: Reflux - None. 6. Great Saphenous Vein: 6.1. Compressibility - Fully compressible: Thrombus - None: Flow - Phasic: Augmentation - Normal: Reflux - None. LEFT: 1. Common Femoral Vein: 1.1. Compressibility - Fully compressible: Thrombus - None: Flow - Phasic: Augmentation -Normal: Reflux - None. 2. Femoral Vein: 2.1. Compressibility - Fully compressible: Thrombus - None: Flow - Phasic: Augmentation -Normal: Reflux - None. 3. Popliteal Vein: 3.1. Compressibility - Fully compressible: Thrombus - None : Flow - Phasic: Augmentation -Normal: Reflux - None. 4. Posterior Tibial Vein: 4.1. Compressibility - Fully compressible: Thrombus - None: Flow - Phasic: Augmentation -Normal: Reflux - None. 5. Peroneal Vein: 5.1. Compressibility - Fully compressible: Thrombus - None: Flow - Phasic: Augmentation -Normal: Reflux - None. 6. Great Saphenous Vein: 6.1. Compressibility - Fully compressible: Thrombus - None: Flow - Phasic: Augmentation - Normal: Reflux - None. OTHER FINDINGS: Right: None significant. Left: None significant. IMPRESSION: Right: No evidence of deep or superficial vein thrombosis of the right lower extremity. Normal valve function noted of the right side. Left: No evidence of deep or superficial vein thrombosis of the left lower extremity. Normal valve function noted of the left side.
--- NOTE | 2017-03-17 13:25 | VASCLAB ---
PROCEDURE: HISTORY: CARDIOEMBOLIC COMPARISON: None available. TECHNIQUE: Grayscale and duplex Doppler evaluation of the cervical carotid and vertebral arteries were performed. The common carotid, carotid bifurcations and cervical Internal Carotid Artery (ICA) and proximal External Carotid Artery (ECA) were evaluated. The vertebral arteries were evaluated for gross patency and flow direction. Report prepared by Anton Walker, BS, RVT FINDINGS: RIGHT CAROTID ARTERIES: 1. Common Carotid Artery: No significant focal plaque formation of the right common carotid artery. Maximum Peak Systolic velocity: 113 cm/sec: End-diastolic velocity 21 cm/sec. 2. Carotid Bifurcation: plaque formation. Maximum Peak Systolic velocity: 106 cm/sec: End-diastolic velocity 19 cm/sec. 3. Internal Carotid Artery: Plaque description: 3.1. Proximal Segment: Peak systolic velocity 125 cm/sec: End-diastolic velocity 32 cm/sec - % stenosis 0-15% 3.2. Middle Segment: Peak systolic velocity 90 cm/sec: End-diastolic velocity 29 cm/sec - % stenosis 0-15% 3.3. Distal Segment: Peak systolic velocity 79 cm/sec: End-diastolic velocity 27 cm/sec - % stenosis 0-15% 4. External Carotid Artery: No significant focal plaque formation. Peak systolic velocity 101 cm/sec 5. ICA/CCA Ratio: 1.1 LEFT CAROTID ARTERIES: 1. Common Carotid Artery: No significant focal plaque formation of the left common carotid artery. Maximum Peak Systolic velocity: 137 cm/sec: End-diastolic velocity 23 cm/sec. 2. Carotid Bifurcation: plaque formation. Maximum Peak Systolic velocity: 154 cm/sec: End-diastolic velocity 27 cm/sec. 3. Internal Carotid Artery: Plaque description: 3.1. Proximal Segment: Peak systolic velocity 113 cm/sec: End-diastolic velocity 33 cm/sec - % stenosis 0-15% 3.2. Middle Segment: Peak systolic velocity 72 cm/sec: End-diastolic velocity 25 cm/sec - % stenosis 0-15% 3.3. Distal Segment: Peak systolic velocity 51 cm/sec: End-diastolic velocity 18 cm/sec - % stenosis 0-15% 4. External Carotid Artery: No significant focal plaque formation. Peak systolic velocity 111 cm/sec 5. ICA/CCA Ratio: 1.1 VERTEBRAL ARTERIES: 1. Right Vertebral Artery: The right vertebral artery flow direction is antegrade. 2. Left Vertebral Artery: The left vertebral artery flow direction is antegrade. OTHER FINDINGS: 1. Right Brachial Blood pressure: 160 mmHg. 2. Left Brachial Blood pressure: 152 mmHg. IMPRESSION: RIGHT: Duplex scan does not suggest hemodynamically significant stenosis of the right extracranial carotid arteries. LEFT: Duplex scan does not suggest hemodynamically significant stenosis of the left extracranial carotid arteries.
--- NOTE | 2017-03-17 13:52 | US ---
Date of procedure: 03/17/2017 Procedure: Ultrasound guidance for vascular access HISTORY: Infection requiring long-term IV antibiotics TECHNIQUE: Following informed consent and procedure time-out, the patient placed supine on the interventional table and the right arm prepped and draped in the usual sterile fashion. Ultrasound showed a patent and compressible basilic vein. After the skin was anesthetized with lidocaine, the basilic vein was accessed with micro micropuncture technique using ultrasound guidance. An image documenting ultrasound guidance for vascular access was permanently saved. IMPRESSION: Ultrasound guidance for vascular access for placement of PICC.
--- NOTE | 2017-03-17 13:53 | RAD ---
PROCEDURE: Date of procedure: 03/17/2017 Procedure: 1. Placement of a right arm PICC with ultrasound and fluoroscopic guidance, CPT 12300 2. PICC tip confirmation with spot radiograph and is in the superior vena cava Medications: 1 percent lidocaine Total Fluoro time: 4.1 seconds Radiation: 0.91 mGy EBL: 2 cc HISTORY: Infection requiring long-term IV antibiotics TECHNIQUE: Following informed consent and procedure time-out, the patient was placed supine on the interventional table and the right arm prepped and draped in the usual sterile fashion. Ultrasound showed a patent and compressible right basilic vein. After the skin was anesthetized with lidocaine, the basilic vein was accessed with micro micropuncture technique using ultrasound guidance. A guidewire was then advanced under fluoroscopic guidance into the superior vena cava. An image documenting ultrasound guidance for vascular access was permanently saved. The length of the single-lumen 5 Armenian PICC was trimmed to 37 centimeters and advanced through a peel-away sheath. The PICC was position with tip of PICC confirm a spot radiograph the superior vena cava. The PICC was secured to the patient's skin. The PICC was flushed. A biopatch and sterile dressing was applied. IMPRESSION: Placement of a single-lumen 5 Armenian PICC trimmed to 37 centimeters via right basilic vein. The tip of the PICC is confirmed with spot radiograph and is in the superior vena cava.
--- NOTE | 2017-03-17 14:08 | CP.PCM.PN ---
Subjective - Date & Time of Evaluation Date of Evaluation: 03/17/17 Time of Evaluation: 14:05 - Subjective Subjective: Patient states that his cough is slightly better, although he still experiences abdominal pain when he coughs. He denies having nausea, vomiting. He had one bowel movement today, slightly more formed than yesterday. Results of the stool for C difficile toxin have not yet returned to the chart. Objective - Vital Signs/Intake and Output Vital Signs (last 24 hours): Temp Pulse Resp BP Pulse Ox 97.8 F 91 H 20 114/69 96 03/17/17 09:49 03/17/17 09:19 03/17/17 09:19 03/17/17 12:49 03/17/17 09:19 Intake and Output: 03/17/17 03/17/17 06:59 18:59 Intake Total 510 Balance 510 - Medications Medications: Current Medications Acetaminophen (Tylenol 325mg Tab) 650 mg PO Q6 PRN PRN Reason: Fever >100.4 F Last Admin: 03/16/17 04:12 Dose: 650 mg Albuterol/Ipratropium (Duoneb 3 Mg/0.5 Mg (3 Ml) Ud) 3 ml INH RQ6 [facility] Last Admin: 03/17/17 13:40 Dose: 3 ml Clopidogrel Bisulfate (Plavix) 75 mg PO DAILY [facility] Last Admin: 03/17/17 09:42 Dose: 75 mg Famotidine (Pepcid) 20 mg PO DAILY [facility] Last Admin: 03/17/17 09:38 Dose: 20 mg Heparin Sodium (Porcine) (Heparin) 5,000 units SC Q8 [facility] Last Admin: 03/17/17 13:11 Dose: 5,000 units Hydromorphone HCl (Dilaudid) 1 mg IVP Q4H PRN PRN Reason: Pain, moderate (4-7) Last Admin: 03/17/17 11:40 Dose: 1 mg Potassium Chloride 40 meq/ (Sodium Chloride) 1,020 mls @ 40 mls/hr IV .Q24H [facility] Last Admin: 03/16/17 21:13 Dose: 40 mls/hr Azithromycin 500 mg/ Sodium (Chloride) 250 mls @ 167 mls/hr IVPB Q24H [facility] Last Admin: 03/16/17 21:12 Dose: 167 mls/hr Meropenem 500 mg/ Sodium (Chloride) 100 mls @ 100 mls/hr IVPB Q12 [facility] Last Admin: 03/17/17 11:43 Dose: 100 mls/hr Micafungin Sodium 100 mg/ (Sodium Chloride) 100 mls @ 100 mls/hr IV Q24H [facility] Last Admin: 03/17/17 12:51 Dose: 100 mls/hr Insulin Glargine (Lantus) 40 unit SC HS [facility] Last Admin: 03/16/17 22:45 Dose: Not Given Insulin Human Regular (Novolin R) 0 unit SC ACHS [facility] PRN Reason: Protocol Last Admin: 03/17/17 12:50 Dose: 6 unit Metoprolol Tartrate (Lopressor) 25 mg PO Q6 [facility] Last Admin: 03/17/17 12:49 Dose: 25 mg Multivitamins (Hexavitamin) 1 tab PO DAILY [facility] Last Admin: 03/17/17 09:37 Dose: 1 tab Pregabalin (Lyrica) 75 mg PO BID [facility] Last Admin: 03/17/17 09:37 Dose: 75 mg Promethazine HCl (Phenergan Syrup) 6.25 mg PO Q6H [facility] Last Admin: 03/17/17 11:08 Dose: Not Given Sucralfate (Carafate Oral Susp) 1 gm PO BID [facility] Last Admin: 03/17/17 09:38 Dose: 1 gm - Labs Labs: 03/16/17 07:17 03/16/17 07:15 PT 11.8 SECONDS (9.7-12.2) 03/16/17 07:17 INR 1.0 03/16/17 07:17 APTT 37 SECONDS (21-34) H 03/16/17 07:17 - Constitutional Appears: No Acute Distress - Head Exam Head Exam: ATRAUMATIC, NORMOCEPHALIC - Eye Exam Eye Exam: EOMI, PERRL - Neck Exam Neck Exam: absent: Lymphadenopathy, Thyromegaly - Respiratory Exam Respiratory Exam: NORMAL BREATHING PATTERN. absent: Rales, Rhonchi, Wheezes - Cardiovascular Exam Cardiovascular Exam: REGULAR RHYTHM, +S1, +S2. absent: Gallop, Rubs, Murmur - GI/Abdominal Exam GI & Abdominal Exam: Soft, Normal Bowel Sounds. absent: Tenderness, Mass, Organomegaly - Rectal Exam Rectal Exam: Deferred - Extremities Exam Extremities Exam: absent: Calf Tenderness Assessment and Plan (1) Sclerosing cholangitis Assessment & Plan: MRCP showed no biliary dilatation, so no ERCP is planned. Will consider starting a therapeutic trial of Actigall as an outpatient. Status: Suspected
[2017-03-17 14:43] LABS: A TERREUS NOT DETECTED
[2017-03-17] MEDS: Azithromycin 500 MG in Sodium Chloride 0.9% 250 ML IVPB SCH (18:27)
--- NOTE | 2017-03-17 18:34 | CP.PCM.PN ---
Subjective - Date & Time of Evaluation Date of Evaluation: 03/17/17 Time of Evaluation: 09:00 - Subjective Subjective: still coughing rx in progress discussed on rounds may need fob Objective - Vital Signs/Intake and Output Vital Signs (last 24 hours): Temp Pulse Resp BP Pulse Ox 98.2 F 94 H 18 121/73 99 03/17/17 15:18 03/17/17 15:18 03/17/17 15:18 03/17/17 18:26 03/17/17 15:18 Intake and Output: 03/17/17 03/17/17 06:59 18:59 Intake Total 510 640 Balance 510 640 - Medications Medications: Current Medications Acetaminophen (Tylenol 325mg Tab) 650 mg PO Q6 PRN PRN Reason: Fever >100.4 F Last Admin: 03/16/17 04:12 Dose: 650 mg Albuterol/Ipratropium (Duoneb 3 Mg/0.5 Mg (3 Ml) Ud) 3 ml INH RQ6 [facility] Last Admin: 03/17/17 13:40 Dose: 3 ml Clopidogrel Bisulfate (Plavix) 75 mg PO DAILY [facility] Last Admin: 03/17/17 09:42 Dose: 75 mg Famotidine (Pepcid) 20 mg PO DAILY [facility] Last Admin: 03/17/17 09:38 Dose: 20 mg Heparin Sodium (Porcine) (Heparin) 5,000 units SC Q8 [facility] Last Admin: 03/17/17 13:11 Dose: 5,000 units Hydromorphone HCl (Dilaudid) 1 mg IVP Q4H PRN PRN Reason: Pain, moderate (4-7) Last Admin: 03/17/17 18:23 Dose: 1 mg Potassium Chloride 40 meq/ (Sodium Chloride) 1,020 mls @ 40 mls/hr IV .Q24H [facility] Last Admin: 03/16/17 21:13 Dose: 40 mls/hr Azithromycin 500 mg/ Sodium (Chloride) 250 mls @ 167 mls/hr IVPB Q24H [facility] Last Admin: 03/17/17 18:27 Dose: 167 mls/hr Meropenem 500 mg/ Sodium (Chloride) 100 mls @ 100 mls/hr IVPB Q12 [facility] Last Admin: 03/17/17 11:43 Dose: 100 mls/hr Micafungin Sodium 100 mg/ (Sodium Chloride) 100 mls @ 100 mls/hr IV Q24H [facility] Last Admin: 03/17/17 12:51 Dose: 100 mls/hr Insulin Glargine (Lantus) 40 unit SC HS [facility] Last Admin: 03/16/17 22:45 Dose: Not Given Insulin Human Regular (Novolin R) 0 unit SC ACHS [facility] PRN Reason: Protocol Last Admin: 03/17/17 18:22 Dose: 8 unit Metoprolol Tartrate (Lopressor) 25 mg PO Q6 [facility] Last Admin: 03/17/17 18:26 Dose: 25 mg Multivitamins (Hexavitamin) 1 tab PO DAILY [facility] Last Admin: 03/17/17 09:37 Dose: 1 tab Pregabalin (Lyrica) 75 mg PO BID [facility] Last Admin: 03/17/17 18:25 Dose: 75 mg Promethazine HCl (Phenergan Syrup) 6.25 mg PO Q6H [facility] Last Admin: 03/17/17 18:26 Dose: 6.25 mg Sucralfate (Carafate Oral Susp) 1 gm PO BID [facility] Last Admin: 03/17/17 18:23 Dose: 1 gm - Labs Labs: 03/16/17 07:17 03/16/17 07:15 PT 11.8 SECONDS (9.7-12.2) 03/16/17 07:17 INR 1.0 03/16/17 07:17 APTT 37 SECONDS (21-34) H 03/16/17 07:17 - Constitutional Appears: Chronically Ill - Head Exam Head Exam: NORMOCEPHALIC - Eye Exam Eye Exam: PERRL. absent: Scleral icterus - ENT Exam ENT Exam: Mucous Membranes Dry - Neck Exam Neck Exam: absent: Lymphadenopathy - Respiratory Exam Respiratory Exam: Decreased Breath Sounds, Rhonchi - Cardiovascular Exam Cardiovascular Exam: REGULAR RHYTHM, +S1, +S2 - GI/Abdominal Exam GI & Abdominal Exam: Distended, Soft Assessment and Plan (1) Acute renal insufficiency Status: Acute (2) Hyponatremia Status: Acute (3) Pneumonia Status: Acute (4) Diabetes mellitus Status: Acute (5) Fever Status: Acute (6) Pneumonia Status: Acute (7) Crohn's disease of colon Status: Chronic
--- NOTE | 2017-03-17 20:35 | CP.PCM.PN ---
Subjective - Date & Time of Evaluation Date of Evaluation: 03/17/17 Time of Evaluation: 20:35 - Subjective Subjective: Patient is still having episodes of cough. Associate with the some abdominal pain. Mucus production is negative. Blood sugar is somewhat better. Is feeling much better, but the low-grade fever in the last 24 hours. On examination: HEENT PERRLA, neck supple No thyromegaly was noted and no cervical adenopathy noted Chest bilateral good air entry, no wheezing or rales noted CVS regular heart sound, no murmur Abdomen soft and no organomegaly Extremities no pedal edema, no leg swelling, pedal pulses are good. RELIEF PILOT alert awake oriented x3 no functional neurological deficit. Labs reviewed. CAT scan of the chest is reviewed. Assessment and recommendation: 46-year-old male with history of Crohn's disease, colitis. History of erythema nodosum. Skin disease. Diabetes, poorly controlled. Now admitted with the multiple lung nodules, possible gram-negative disease. Will plan for bronchoscopy tomorrow. After the bronchoscopy no evidence of infection will start the patient now intravenous corticosteroid. Objective - Vital Signs/Intake and Output Vital Signs (last 24 hours): Temp Pulse Resp BP Pulse Ox 98.2 F 94 H 18 121/73 99 03/17/17 15:18 03/17/17 15:18 03/17/17 15:18 03/17/17 18:26 03/17/17 15:18 Intake and Output: 03/17/17 03/18/17 18:59 06:59 Intake Total 640 Balance 640 - Medications Medications: Current Medications Acetaminophen (Tylenol 325mg Tab) 650 mg PO Q6 PRN PRN Reason: Fever >100.4 F Last Admin: 03/16/17 04:12 Dose: 650 mg Albuterol/Ipratropium (Duoneb 3 Mg/0.5 Mg (3 Ml) Ud) 3 ml INH RQ6 [facility] Last Admin: 03/17/17 19:35 Dose: 3 ml Clopidogrel Bisulfate (Plavix) 75 mg PO DAILY [facility] Last Admin: 03/17/17 09:42 Dose: 75 mg Famotidine (Pepcid) 20 mg PO DAILY [facility] Last Admin: 03/17/17 09:38 Dose: 20 mg Heparin Sodium (Porcine) (Heparin) 5,000 units SC Q8 [facility] Last Admin: 03/17/17 13:11 Dose: 5,000 units Hydromorphone HCl (Dilaudid) 1 mg IVP Q4H PRN PRN Reason: Pain, moderate (4-7) Last Admin: 03/17/17 18:23 Dose: 1 mg Potassium Chloride 40 meq/ (Sodium Chloride) 1,020 mls @ 40 mls/hr IV .Q24H [facility] Last Admin: 03/16/17 21:13 Dose: 40 mls/hr Azithromycin 500 mg/ Sodium (Chloride) 250 mls @ 167 mls/hr IVPB Q24H [facility] Last Admin: 03/17/17 18:27 Dose: 167 mls/hr Meropenem 500 mg/ Sodium (Chloride) 100 mls @ 100 mls/hr IVPB Q12 [facility] Last Admin: 03/17/17 11:43 Dose: 100 mls/hr Micafungin Sodium 100 mg/ (Sodium Chloride) 100 mls @ 100 mls/hr IV Q24H [facility] Last Admin: 03/17/17 12:51 Dose: 100 mls/hr Insulin Glargine (Lantus) 40 unit SC HS [facility] Last Admin: 03/16/17 22:45 Dose: Not Given Insulin Human Regular (Novolin R) 0 unit SC ACHS [facility] PRN Reason: Protocol Last Admin: 03/17/17 18:22 Dose: 8 unit Metoprolol Tartrate (Lopressor) 25 mg PO Q6 [facility] Last Admin: 03/17/17 18:26 Dose: 25 mg Multivitamins (Hexavitamin) 1 tab PO DAILY [facility] Last Admin: 03/17/17 09:37 Dose: 1 tab Pregabalin (Lyrica) 75 mg PO BID [facility] Last Admin: 03/17/17 18:25 Dose: 75 mg Promethazine HCl (Phenergan Syrup) 6.25 mg PO Q6H [facility] Last Admin: 03/17/17 18:26 Dose: 6.25 mg Sucralfate (Carafate Oral Susp) 1 gm PO BID [facility] Last Admin: 03/17/17 18:23 Dose: 1 gm - Labs Labs: 03/16/17 07:17 03/16/17 07:15 PT 11.8 SECONDS (9.7-12.2) 03/16/17 07:17 INR 1.0 03/16/17 07:17 APTT 37 SECONDS (21-34) H 03/16/17 07:17
--- NOTE | 2017-03-17 21:42 | CP.PCM.PN ---
Subjective - Date & Time of Evaluation Date of Evaluation: 03/17/17 Time of Evaluation: 21:41 - Subjective Subjective: EEG REPORT: B/L SLOW ACTIVITIES WITH LOW THETA TO HIGH THETA WAVES NO PAROXYSMAL ACTIVITIES OR FOCAL SLOWING PHOTIC DID NOT EVOKED RESPONSE Objective - Vital Signs/Intake and Output Vital Signs (last 24 hours): Temp Pulse Resp BP Pulse Ox 98.2 F 94 H 18 121/73 99 03/17/17 15:18 03/17/17 15:18 03/17/17 15:18 03/17/17 18:26 03/17/17 15:18 Intake and Output: 03/17/17 03/18/17 18:59 06:59 Intake Total 640 Balance 640 - Medications Medications: Current Medications Acetaminophen (Tylenol 325mg Tab) 650 mg PO Q6 PRN PRN Reason: Fever >100.4 F Last Admin: 03/16/17 04:12 Dose: 650 mg Albuterol/Ipratropium (Duoneb 3 Mg/0.5 Mg (3 Ml) Ud) 3 ml INH RQ6 [facility] Last Admin: 03/17/17 19:35 Dose: 3 ml Clopidogrel Bisulfate (Plavix) 75 mg PO DAILY [facility] Last Admin: 03/17/17 09:42 Dose: 75 mg Famotidine (Pepcid) 20 mg PO DAILY [facility] Last Admin: 03/17/17 09:38 Dose: 20 mg Heparin Sodium (Porcine) (Heparin) 5,000 units SC Q8 [facility] Last Admin: 03/17/17 13:11 Dose: 5,000 units Hydromorphone HCl (Dilaudid) 1 mg IVP Q4H PRN PRN Reason: Pain, moderate (4-7) Last Admin: 03/17/17 18:23 Dose: 1 mg Potassium Chloride 40 meq/ (Sodium Chloride) 1,020 mls @ 40 mls/hr IV .Q24H [facility] Last Admin: 03/16/17 21:13 Dose: 40 mls/hr Azithromycin 500 mg/ Sodium (Chloride) 250 mls @ 167 mls/hr IVPB Q24H [facility] Last Admin: 03/17/17 18:27 Dose: 167 mls/hr Meropenem 500 mg/ Sodium (Chloride) 100 mls @ 100 mls/hr IVPB Q12 [facility] Last Admin: 03/17/17 11:43 Dose: 100 mls/hr Micafungin Sodium 100 mg/ (Sodium Chloride) 100 mls @ 100 mls/hr IV Q24H [facility] Last Admin: 03/17/17 12:51 Dose: 100 mls/hr Insulin Glargine (Lantus) 40 unit SC HS [facility] Last Admin: 03/16/17 22:45 Dose: Not Given Insulin Human Regular (Novolin R) 0 unit SC ACHS [facility] PRN Reason: Protocol Last Admin: 03/17/17 18:22 Dose: 8 unit Metoprolol Tartrate (Lopressor) 25 mg PO Q6 [facility] Last Admin: 03/17/17 18:26 Dose: 25 mg Multivitamins (Hexavitamin) 1 tab PO DAILY [facility] Last Admin: 03/17/17 09:37 Dose: 1 tab Pregabalin (Lyrica) 75 mg PO BID [facility] Last Admin: 03/17/17 18:25 Dose: 75 mg Promethazine HCl (Phenergan Syrup) 6.25 mg PO Q6H [facility] Last Admin: 03/17/17 18:26 Dose: 6.25 mg Sucralfate (Carafate Oral Susp) 1 gm PO BID [facility] Last Admin: 03/17/17 18:23 Dose: 1 gm - Labs Labs: 03/16/17 07:17 03/16/17 07:15 PT 11.8 SECONDS (9.7-12.2) 03/16/17 07:17 INR 1.0 03/16/17 07:17 APTT 37 SECONDS (21-34) H 03/16/17 07:17 Assessment and Plan (1) Transient cerebral ischemic attack Status: Acute
[2017-03-17] MEDS: (Lantus) Insulin Glargine, Recombinant SC SCH (23:02)
[2017-03-18] MEDS: HYDROmorphone 1 mg/ml ISec IVP PRN ×4 (00:36→21:29)
[2017-03-18] MEDS: Albuterol-Ipratrop 3 mg / 0.5 (3 ml) UD INH SCH ×4 (01:14→20:01)
[2017-03-18] MEDS: Promethazine 6.25 MG/5 ML CUP PO SCH ×5 (04:09→22:00)
[2017-03-18 07:32] LABS: BASO % 0.2 % (0.0-2.0); EOS # 0.1 K/uL (0.0-0.7); EOS % 0.2 % (0.0-4.0); HEMATOCRIT 31.2 % (35.0-51.0); LYMPH % 4.2 % (20.0-40.0); MEAN CELL VOLUME 84.9 fL (80.0-94.0); MEAN CORPUSCULAR HEMOGLOBIN 28.2 pg (27.0-31.0); MEAN CORPUSCULAR HGB CONC 33.2 g/dL (33.0-37.0); MEAN PLATELET VOLUME 9.2 fL (7.2-11.7); MONO # 1.3 K/uL (0.0-0.8); MONO % 5.5 % (0.0-10.0); PLATELET COUNT 310 K/uL (130-400); RED CELL DISTRIBUTION WIDTH 13.5 % (11.5-14.5); WHITE BLOOD COUNT 23.4 K/uL (4.8-10.8)
[2017-03-18 07:43] LABS: POTASSIUM 3.5 mmol/L (3.6-5.2)
[2017-03-18 07:45] LABS: BILIRUBIN,TOTAL 0.6 mg/dL (0.2-1.3)
[2017-03-18 07:46] LABS: ALB/GLOB RATIO 0.7 (1.0-2.1)
[2017-03-18] MEDS: (Novolin R) Insulin Human Regular 100 units/ml vial SC SCH ×4 (07:46→22:00)
--- NOTE | 2017-03-18 07:52 | CP.PCM.PN ---
Subjective - Date & Time of Evaluation Date of Evaluation: 03/18/17 Time of Evaluation: 07:49 - Subjective Subjective: Patient denies having nausea, vomiting, abdominal pain. He has not had a bowel movement overnight. Objective - Vital Signs/Intake and Output Vital Signs (last 24 hours): Temp Pulse Resp BP Pulse Ox 103 F H 130 H 20 147/83 95 03/18/17 04:11 03/18/17 04:11 03/18/17 04:11 03/18/17 05:34 03/18/17 04:11 Intake and Output: 03/18/17 03/18/17 06:59 18:59 Intake Total 1190 Balance 1190 - Medications Medications: Current Medications Acetaminophen (Tylenol 325mg Tab) 650 mg PO Q6 PRN PRN Reason: Fever >100.4 F Last Admin: 03/18/17 04:08 Dose: 650 mg Albuterol/Ipratropium (Duoneb 3 Mg/0.5 Mg (3 Ml) Ud) 3 ml INH RQ6 [facility] Last Admin: 03/18/17 01:14 Dose: 3 ml Clopidogrel Bisulfate (Plavix) 75 mg PO DAILY [facility] Last Admin: 03/17/17 09:42 Dose: 75 mg Famotidine (Pepcid) 20 mg PO DAILY [facility] Last Admin: 03/17/17 09:38 Dose: 20 mg Heparin Sodium (Porcine) (Heparin) 5,000 units SC Q8 [facility] Last Admin: 03/18/17 06:31 Dose: Not Given Hydromorphone HCl (Dilaudid) 1 mg IVP Q4H PRN PRN Reason: Pain, moderate (4-7) Last Admin: 03/18/17 00:36 Dose: 1 mg Potassium Chloride 40 meq/ (Sodium Chloride) 1,020 mls @ 40 mls/hr IV .Q24H [facility] Last Admin: 03/16/17 21:13 Dose: 40 mls/hr Azithromycin 500 mg/ Sodium (Chloride) 250 mls @ 167 mls/hr IVPB Q24H [facility] Last Admin: 03/17/17 18:27 Dose: 167 mls/hr Meropenem 500 mg/ Sodium (Chloride) 100 mls @ 100 mls/hr IVPB Q12 [facility] Last Admin: 03/17/17 23:03 Dose: 100 mls/hr Micafungin Sodium 100 mg/ (Sodium Chloride) 100 mls @ 100 mls/hr IV Q24H [facility] Last Admin: 03/17/17 12:51 Dose: 100 mls/hr Insulin Glargine (Lantus) 40 unit SC HS [facility] Last Admin: 03/17/17 23:02 Dose: Not Given Insulin Human Regular (Novolin R) 0 unit SC ACHS [facility] PRN Reason: Protocol Last Admin: 03/18/17 07:46 Dose: Not Given Metoprolol Tartrate (Lopressor) 25 mg PO Q6 [facility] Last Admin: 03/18/17 05:34 Dose: 25 mg Multivitamins (Hexavitamin) 1 tab PO DAILY [facility] Last Admin: 03/17/17 09:37 Dose: 1 tab Pregabalin (Lyrica) 75 mg PO BID [facility] Last Admin: 03/17/17 18:25 Dose: 75 mg Promethazine HCl (Phenergan Syrup) 6.25 mg PO Q6H [facility] Last Admin: 03/18/17 04:09 Dose: 6.25 mg Sucralfate (Carafate Oral Susp) 1 gm PO BID [facility] Last Admin: 03/17/17 18:23 Dose: 1 gm - Labs Labs: 03/18/17 07:05 03/18/17 07:05 PT 11.3 SECONDS (9.7-12.2) 03/18/17 07:05 INR 1.0 03/18/17 07:05 APTT 34 SECONDS (21-34) 03/18/17 07:05 - Constitutional Appears: No Acute Distress - Head Exam Head Exam: ATRAUMATIC, NORMOCEPHALIC - Eye Exam Eye Exam: EOMI, PERRL - Neck Exam Neck Exam: absent: Lymphadenopathy, Thyromegaly - Respiratory Exam Respiratory Exam: NORMAL BREATHING PATTERN. absent: Rales, Rhonchi, Wheezes - Cardiovascular Exam Cardiovascular Exam: REGULAR RHYTHM, +S1, +S2. absent: Gallop, Rubs, Murmur - GI/Abdominal Exam GI & Abdominal Exam: Soft, Normal Bowel Sounds. absent: Tenderness, Mass, Organomegaly - Rectal Exam Rectal Exam: Deferred - Extremities Exam Extremities Exam: absent: Calf Tenderness, Pedal Edema Assessment and Plan (1) Sclerosing cholangitis Assessment & Plan: Alkaline phosphatase remains elevated at 679. MRCP did not show any significant biliary dilatation. Will sign off. Patient should follow up in the office as an outpatient. Status: Suspected
[2017-03-18 08:43] LABS: EOSINOPHIL 1 % (0-4); NEUTROPHIL 90 % (50-75); TOTAL CELLS COUNTED 100
[2017-03-18] MEDS: Micafungin 100 MG in Sodium Chloride 0.9% 100 ML IV SCH (09:53)
[2017-03-18] MEDS: Meropenem 500 MG in Sodium Chloride 0.9% 100 ML IVPB SCH (09:53)
[2017-03-18] MEDS: Multiple Vitamins Tab PO SCH (09:56)
[2017-03-18] MEDS: Sucralfate 1 gm/10 ml Oral Susp UD PO SCH ×2 (09:57→18:35)
[2017-03-18] MEDS ORDERED: Propofol 10 mg/ml Inj (20 ML) ONE (13:51)
[2017-03-18] MEDS ORDERED: EPINEPHrine 1 mg/ml (1:1000) Inj ONE (13:51)
[2017-03-18] MEDS ORDERED: Midazolam 2 MG/2 ML VIAL ONE (13:51)
[2017-03-18] MEDS ORDERED: Lidocaine 2% Inj (20ml) ONE (13:52)
--- NOTE | 2017-03-18 14:55 | RAD ---
HISTORY: R/O PTX S/P BRONCH COMPARISON: Comparison made with prior study 03/16/2017 FINDINGS: LUNGS: Interval placement right-sided PICC line with SVC. Mild bilateral infiltrates could represent pulmonary edema/ CHF and/or pneumonia. Clinic correlation recommended. There also appears to some of the linear both lung bases left greater than PLEURA: No effusion. No apparent pneumothorax CARDIOVASCULAR: Heart size is upper limits of normal OSSEOUS STRUCTURES: No significant abnormalities. VISUALIZED UPPER ABDOMEN: Metallic clips right upper quadrant the abdomen consistent prior cholecystectomy. OTHER FINDINGS: None. IMPRESSION: Impression: Interval placement right-sided PICC line with tip in the. Mild infiltrates could represent pulmonary edema/ CHF and or pneumonia.
--- NOTE | 2017-03-18 15:21 | CP.PCM.PN ---
Subjective - Date & Time of Evaluation Date of Evaluation: 03/18/17 Time of Evaluation: 06:00 - Subjective Subjective: temp 103 no new cultures prognosis guarded Objective - Vital Signs/Intake and Output Vital Signs (last 24 hours): Temp Pulse Resp BP Pulse Ox 97 F L 91 H 21 100/62 100 03/18/17 14:11 03/18/17 14:55 03/18/17 14:55 03/18/17 14:55 03/18/17 14:55 Intake and Output: 03/18/17 03/18/17 06:59 18:59 Intake Total 1190 300 Balance 1190 300 - Medications Medications: Current Medications Acetaminophen (Tylenol 325mg Tab) 650 mg PO Q6 PRN PRN Reason: Fever >100.4 F Last Admin: 03/18/17 04:08 Dose: 650 mg Albuterol/Ipratropium (Duoneb 3 Mg/0.5 Mg (3 Ml) Ud) 3 ml INH RQ6 [facility] Last Admin: 03/18/17 13:25 Dose: 3 ml Clopidogrel Bisulfate (Plavix) 75 mg PO DAILY [facility] Last Admin: 03/18/17 10:00 Dose: Not Given Famotidine (Pepcid) 20 mg PO DAILY [facility] Last Admin: 03/18/17 09:56 Dose: Not Given Heparin Sodium (Porcine) (Heparin) 5,000 units SC Q8 [facility] Last Admin: 03/18/17 13:55 Dose: Not Given Hydromorphone HCl (Dilaudid) 1 mg IVP Q4H PRN PRN Reason: Pain, moderate (4-7) Last Admin: 03/18/17 09:48 Dose: 1 mg Potassium Chloride 40 meq/ (Sodium Chloride) 1,020 mls @ 40 mls/hr IV .Q24H [facility] Last Admin: 03/18/17 09:57 Dose: 40 mls/hr Azithromycin 500 mg/ Sodium (Chloride) 250 mls @ 167 mls/hr IVPB Q24H [facility] Last Admin: 03/17/17 18:27 Dose: 167 mls/hr Meropenem 500 mg/ Sodium (Chloride) 100 mls @ 100 mls/hr IVPB Q12 [facility] Last Admin: 03/18/17 09:53 Dose: 100 mls/hr Micafungin Sodium 100 mg/ (Sodium Chloride) 100 mls @ 100 mls/hr IV Q24H [facility] Last Admin: 03/18/17 09:53 Dose: 100 mls/hr Insulin Glargine (Lantus) 40 unit SC HS [facility] Last Admin: 03/17/17 23:02 Dose: Not Given Insulin Human Regular (Novolin R) 0 unit SC ACHS [facility] PRN Reason: Protocol Last Admin: 03/18/17 12:18 Dose: Not Given Metoprolol Tartrate (Lopressor) 25 mg PO Q6 [facility] Last Admin: 03/18/17 12:27 Dose: 25 mg Multivitamins (Hexavitamin) 1 tab PO DAILY [facility] Last Admin: 03/18/17 09:56 Dose: Not Given Pregabalin (Lyrica) 75 mg PO BID [facility] Last Admin: 03/18/17 09:56 Dose: Not Given Promethazine HCl (Phenergan Syrup) 6.25 mg PO Q6H [facility] Last Admin: 03/18/17 10:00 Dose: Not Given Sucralfate (Carafate Oral Susp) 1 gm PO BID [facility] Last Admin: 03/18/17 09:57 Dose: Not Given - Labs Labs: 03/18/17 07:05 03/18/17 07:05 PT 11.3 SECONDS (9.7-12.2) 03/18/17 07:05 INR 1.0 03/18/17 07:05 APTT 34 SECONDS (21-34) 03/18/17 07:05 - Constitutional Appears: Non-toxic - Head Exam Head Exam: NORMOCEPHALIC - Eye Exam Eye Exam: absent: Scleral icterus - ENT Exam ENT Exam: Mucous Membranes Dry - Neck Exam Neck Exam: absent: Lymphadenopathy - Respiratory Exam Respiratory Exam: Decreased Breath Sounds - Cardiovascular Exam Cardiovascular Exam: REGULAR RHYTHM - GI/Abdominal Exam GI & Abdominal Exam: Distended, Soft Assessment and Plan (1) Acute renal insufficiency Status: Acute (2) Hyponatremia Status: Acute (3) Pneumonia Status: Acute (4) Diabetes mellitus Status: Acute (5) Fever Status: Acute (6) Pneumonia Status: Acute (7) Crohn's disease of colon Status: Chronic
--- NOTE | 2017-03-18 17:35 | PCM.SURG1 ---
Surgeon's Initial Post Op Note - Surgeon's Notes Surgeon: CRISPIN Mems Engineer: NONE Type of Anesthesia: IV Sedation Pre-Operative Diagnosis: Bilateral lung infiltrate Operative Findings: Normal vocal cords, normal trachea, main yudelka sharp, no endobronchial lesion seen, no purulent secretions noted Post-Operative Diagnosis: As above Operation Performed: Bronchoalveolar lavage done from left upper lobe and right lower lobe, biopsy and brushing could not be performed as patient on Plavix Specimen/Specimens Removed: BAL from left upper lobe and right lower lobe Estimated Blood Loss: EBL {In ML}: 0 Drains Used: No Drains Date of Surgery/Procedure: 03/18/17 Time of Surgery/Procedure: 02:00
[2017-03-18] MEDS: Azithromycin 500 MG in Sodium Chloride 0.9% 250 ML IVPB SCH (18:37)
[2017-03-18] MEDS: (Lantus) Insulin Glargine, Recombinant SC SCH (21:31)
[2017-03-18] MEDS ORDERED: Meropenem 500 MG in Sodium Chloride 0.9% 100 ML IVPB SCH (22:00)
--- NOTE | 2017-03-18 22:29 | CP.PCM.PN ---
Subjective - Date & Time of Evaluation Date of Evaluation: 03/18/17 Time of Evaluation: 09:10 - Subjective Subjective: Patient seen and evaluated Heart rate under control Objective - Vital Signs/Intake and Output Vital Signs (last 24 hours): Temp Pulse Resp BP Pulse Ox 97 F L 90 20 110/69 98 03/18/17 17:52 03/18/17 17:52 03/18/17 17:52 03/18/17 17:52 03/18/17 17:52 Intake and Output: 03/18/17 03/19/17 18:59 06:59 Intake Total 920 Balance 920 - Medications Medications: Current Medications Acetaminophen (Tylenol 325mg Tab) 650 mg PO Q6 PRN PRN Reason: Fever >100.4 F Last Admin: 03/18/17 04:08 Dose: 650 mg Albuterol/Ipratropium (Duoneb 3 Mg/0.5 Mg (3 Ml) Ud) 3 ml INH RQ6 [facility] Last Admin: 03/18/17 20:01 Dose: Not Given Clopidogrel Bisulfate (Plavix) 75 mg PO DAILY [facility] Last Admin: 03/18/17 10:00 Dose: Not Given Famotidine (Pepcid) 20 mg PO DAILY [facility] Last Admin: 03/18/17 09:56 Dose: Not Given Heparin Sodium (Porcine) (Heparin) 5,000 units SC Q8 [facility] Last Admin: 03/18/17 21:30 Dose: 5,000 units Hydromorphone HCl (Dilaudid) 1 mg IVP Q4H PRN PRN Reason: Pain, moderate (4-7) Last Admin: 03/18/17 21:29 Dose: 1 mg Potassium Chloride 40 meq/ (Sodium Chloride) 1,020 mls @ 40 mls/hr IV .Q24H [facility] Last Admin: 03/18/17 18:41 Dose: 40 mls/hr Azithromycin 500 mg/ Sodium (Chloride) 250 mls @ 167 mls/hr IVPB Q24H [facility] Last Admin: 03/18/17 18:37 Dose: 167 mls/hr Micafungin Sodium 100 mg/ (Sodium Chloride) 100 mls @ 100 mls/hr IV Q24H [facility] Last Admin: 03/18/17 09:53 Dose: 100 mls/hr Meropenem 500 mg/ Sodium (Chloride) 100 mls @ 200 mls/hr IVPB Q8 [facility] Last Admin: 03/18/17 21:31 Dose: 200 mls/hr Insulin Glargine (Lantus) 50 unit SC HS [facility] Last Admin: 03/18/17 21:31 Dose: Not Given Insulin Human Regular (Novolin R) 0 unit SC ACHS [facility] PRN Reason: Protocol Last Admin: 03/18/17 18:36 Dose: 10 unit Metoprolol Tartrate (Lopressor) 25 mg PO Q6 [facility] Last Admin: 03/18/17 18:00 Dose: Not Given Multivitamins (Hexavitamin) 1 tab PO DAILY [facility] Last Admin: 03/18/17 09:56 Dose: Not Given Pregabalin (Lyrica) 75 mg PO BID [facility] Last Admin: 03/18/17 18:36 Dose: 75 mg Promethazine HCl (Phenergan Syrup) 6.25 mg PO Q6H [facility] Last Admin: 03/18/17 20:40 Dose: 6.25 mg Sucralfate (Carafate Oral Susp) 1 gm PO BID [facility] Last Admin: 03/18/17 18:35 Dose: 1 gm - Labs Labs: 03/18/17 07:05 03/18/17 07:05 PT 11.3 SECONDS (9.7-12.2) 03/18/17 07:05 INR 1.0 03/18/17 07:05 APTT 34 SECONDS (21-34) 03/18/17 07:05
[2017-03-19] MEDS: Albuterol-Ipratrop 3 mg / 0.5 (3 ml) UD INH SCH ×5 (01:22→20:16)
[2017-03-19] MEDS: HYDROmorphone 1 mg/ml ISec IVP PRN ×4 (02:24→17:35)
[2017-03-19] MEDS: Promethazine 6.25 MG/5 ML CUP PO SCH ×4 (04:37→21:31)
[2017-03-19] MEDS: (Novolin R) Insulin Human Regular 100 units/ml vial SC SCH ×4 (08:56→21:54)
[2017-03-19] MEDS: Sucralfate 1 gm/10 ml Oral Susp UD PO SCH ×2 (09:14→17:31)
[2017-03-19] MEDS: Multiple Vitamins Tab PO SCH (09:14)
[2017-03-19] MEDS: Tmp-Smz 800 mg-160 mg DS Tab PO SCH ×2 (09:27→17:30)
[2017-03-19] MEDS: Aztreonam 2 GM in Sodium Chloride 0.9% 100 ML IVPB SCH ×2 (10:46→17:30)
[2017-03-19] MEDS: Micafungin 100 MG in Sodium Chloride 0.9% 100 ML IV SCH (10:47)
[2017-03-19] MEDS: Linezolid 600 mg in D5W 300 ml 600 MG/300 ML BAG IVPB SCH ×2 (10:48→21:33)
[2017-03-19 11:21] LABS: HEMATOCRIT 35.5 % (35.0-51.0); MEAN CELL VOLUME 85.7 fL (80.0-94.0); MEAN CORPUSCULAR HEMOGLOBIN 27.8 pg (27.0-31.0); MEAN CORPUSCULAR HGB CONC 32.4 g/dL (33.0-37.0); MEAN PLATELET VOLUME 9.5 fL (7.2-11.7); RED CELL DISTRIBUTION WIDTH 13.3 % (11.5-14.5); WHITE BLOOD COUNT 27.9 K/uL (4.8-10.8)
--- NOTE | 2017-03-19 20:00 | CP.PCM.PN ---
Subjective - Date & Time of Evaluation Date of Evaluation: 03/19/17 Time of Evaluation: 20:00 - Subjective Subjective: see other note Objective - Vital Signs/Intake and Output Vital Signs (last 24 hours): Temp Pulse Resp BP Pulse Ox 102 F H 106 H 18 131/80 99 03/19/17 19:28 03/19/17 16:00 03/19/17 16:00 03/19/17 17:30 03/19/17 16:00 Intake and Output: 03/19/17 03/20/17 18:59 06:59 Intake Total 1200 Output Total 1400 Balance -200 - Medications Medications: Current Medications Acetaminophen (Tylenol 325mg Tab) 650 mg PO Q6 PRN PRN Reason: Fever >100.4 F Last Admin: 03/19/17 19:28 Dose: 650 mg Albuterol/Ipratropium (Duoneb 3 Mg/0.5 Mg (3 Ml) Ud) 3 ml INH RQ6 [facility] Last Admin: 03/19/17 15:00 Dose: 3 ml Famotidine (Pepcid) 20 mg PO DAILY [facility] Last Admin: 03/19/17 09:14 Dose: 20 mg Heparin Sodium (Porcine) (Heparin) 5,000 units SC Q8 [facility] Last Admin: 03/19/17 13:11 Dose: 5,000 units Hydromorphone HCl (Dilaudid) 1 mg IVP Q4H PRN PRN Reason: Pain, moderate (4-7) Last Admin: 03/19/17 13:10 Dose: 1 mg Potassium Chloride 40 meq/ (Sodium Chloride) 1,020 mls @ 40 mls/hr IV .Q24H [facility] Last Admin: 03/19/17 09:06 Dose: Not Given Micafungin Sodium 100 mg/ (Sodium Chloride) 100 mls @ 100 mls/hr IV Q24H [facility] Last Admin: 03/19/17 10:47 Dose: 100 mls/hr Linezolid (Zyvox 600mg/300ml D5w) 600 mg in 300 mls @ 200 mls/hr IVPB Q12 [facility] Last Admin: 03/19/17 10:48 Dose: 200 mls/hr Aztreonam 2 gm/ Sodium (Chloride) 100 mls @ 100 mls/hr IVPB Q8H [facility] Last Admin: 03/19/17 17:30 Dose: 100 mls/hr Insulin Glargine (Lantus) 50 unit SC HS [facility] Last Admin: 03/18/17 21:31 Dose: Not Given Insulin Human Regular (Novolin R) 0 unit SC ACHS [facility] PRN Reason: Protocol Last Admin: 03/19/17 17:29 Dose: 10 unit Metoprolol Tartrate (Lopressor) 25 mg PO Q6 [facility] Last Admin: 03/19/17 17:30 Dose: 25 mg Multivitamins (Hexavitamin) 1 tab PO DAILY [facility] Last Admin: 03/19/17 09:14 Dose: 1 tab Pregabalin (Lyrica) 75 mg PO BID [facility] Last Admin: 03/19/17 17:31 Dose: 75 mg Promethazine HCl (Phenergan Syrup) 6.25 mg PO Q6H [facility] Last Admin: 03/19/17 16:59 Dose: 6.25 mg Trimethoprim/Sulfamethoxazole (Bactrim Ds Tab) 1 tab PO BID [facility] Last Admin: 03/19/17 17:30 Dose: 1 tab - Labs Labs: 03/19/17 11:14 03/18/17 07:05 PT 11.3 SECONDS (9.7-12.2) 03/18/17 07:05 INR 1.0 03/18/17 07:05 APTT 34 SECONDS (21-34) 03/18/17 07:05
--- NOTE | 2017-03-19 20:00 | CP.PCM.PN ---
Subjective - Date & Time of Evaluation Date of Evaluation: 03/18/17 Time of Evaluation: 20:00 - Subjective Subjective: Today had a bronchoscopy. Unable to do the biopsy, but the biliary was collected. 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 He still having episodes of chills and shaking. But otherwise vital signs are stable. Vital signs reviewed No neck vein distention noted Chest minimal rales noted CVS regular heart sound, no murmur noted Abdominal tenderness noted Extremities no pedal edema [employer] alert awake oriented 3, no functional neurological deficit No recent cultures were positive. WBC is still elevated. Fever on and off again noted Patient is on multiple antibiotic and fungal treatment Assessment and recommendation: 45-year-old male with history of Crohn's disease, Crohn's colitis, cholestasis, uncontrolled diabetes hypertension, renal insufficiency now having diffuse lung disease. So for the cultures were negative. Nonspecific in origin. Awaiting BAL cultures. Patient may benefit having biopsy again. We'll continue the current treatment and will follow the patient Objective - Vital Signs/Intake and Output Vital Signs (last 24 hours): Temp Pulse Resp BP Pulse Ox 102 F H 106 H 18 131/80 99 03/19/17 19:28 03/19/17 16:00 03/19/17 16:00 03/19/17 17:30 03/19/17 16:00 Intake and Output: 03/19/17 03/20/17 18:59 06:59 Intake Total 1200 Output Total 1400 Balance -200 - Medications Medications: Current Medications Acetaminophen (Tylenol 325mg Tab) 650 mg PO Q6 PRN PRN Reason: Fever >100.4 F Last Admin: 03/19/17 19:28 Dose: 650 mg Albuterol/Ipratropium (Duoneb 3 Mg/0.5 Mg (3 Ml) Ud) 3 ml INH RQ6 [facility] Last Admin: 03/19/17 15:00 Dose: 3 ml Famotidine (Pepcid) 20 mg PO DAILY [facility] Last Admin: 03/19/17 09:14 Dose: 20 mg Heparin Sodium (Porcine) (Heparin) 5,000 units SC Q8 [facility] Last Admin: 03/19/17 13:11 Dose: 5,000 units Hydromorphone HCl (Dilaudid) 1 mg IVP Q4H PRN PRN Reason: Pain, moderate (4-7) Last Admin: 03/19/17 13:10 Dose: 1 mg Potassium Chloride 40 meq/ (Sodium Chloride) 1,020 mls @ 40 mls/hr IV .Q24H [facility] Last Admin: 03/19/17 09:06 Dose: Not Given Micafungin Sodium 100 mg/ (Sodium Chloride) 100 mls @ 100 mls/hr IV Q24H [facility] Last Admin: 03/19/17 10:47 Dose: 100 mls/hr Linezolid (Zyvox 600mg/300ml D5w) 600 mg in 300 mls @ 200 mls/hr IVPB Q12 [facility] Last Admin: 03/19/17 10:48 Dose: 200 mls/hr Aztreonam 2 gm/ Sodium (Chloride) 100 mls @ 100 mls/hr IVPB Q8H [facility] Last Admin: 03/19/17 17:30 Dose: 100 mls/hr Insulin Glargine (Lantus) 50 unit SC HS [facility] Last Admin: 03/18/17 21:31 Dose: Not Given Insulin Human Regular (Novolin R) 0 unit SC ACHS [facility] PRN Reason: Protocol Last Admin: 03/19/17 17:29 Dose: 10 unit Metoprolol Tartrate (Lopressor) 25 mg PO Q6 [facility] Last Admin: 03/19/17 17:30 Dose: 25 mg Multivitamins (Hexavitamin) 1 tab PO DAILY [facility] Last Admin: 03/19/17 09:14 Dose: 1 tab Pregabalin (Lyrica) 75 mg PO BID [facility] Last Admin: 03/19/17 17:31 Dose: 75 mg Promethazine HCl (Phenergan Syrup) 6.25 mg PO Q6H [facility] Last Admin: 03/19/17 16:59 Dose: 6.25 mg Trimethoprim/Sulfamethoxazole (Bactrim Ds Tab) 1 tab PO BID [facility] Last Admin: 03/19/17 17:30 Dose: 1 tab - Labs Labs: 03/19/17 11:14 03/18/17 07:05 PT 11.3 SECONDS (9.7-12.2) 03/18/17 07:05 INR 1.0 03/18/17 07:05 APTT 34 SECONDS (21-34) 03/18/17 07:05
--- NOTE | 2017-03-19 21:04 | CP.PCM.PN ---
Subjective - Date & Time of Evaluation Date of Evaluation: 03/19/17 Time of Evaluation: 21:03 - Subjective Subjective: Today again had a fever. Currently having 103. Cultures were taken today. Antibiotic for change again today. But the patient's vital signs blood pressure stable otherwise Vital signs reviewed No neck vein distention noted Chest minimal rales noted CVS regular heart sound, no murmur noted Abdominal tenderness noted Extremities no pedal edema [employer] alert awake oriented 3, no functional neurological deficit No recent cultures were positive. WBC is still elevated. Fever on and off again noted Patient is on multiple antibiotic and fungal treatment Assessment and recommendation: 45-year-old male with history of Crohn's disease, Crohn's colitis, cholestasis, uncontrolled diabetes hypertension, renal insufficiency now having diffuse lung disease. So for the cultures were negative. Nonspecific in origin. Awaiting BAL cultures. Patient may benefit having biopsy again. We'll continue the current treatment and will follow the patient We'll get a transthoracic needle biopsy of the left lower lung lung mass. We'll continue antibiotic meanwhile. And will follow the patient Objective - Vital Signs/Intake and Output Vital Signs (last 24 hours): Temp Pulse Resp BP Pulse Ox 102 F H 111 H 18 131/80 99 03/19/17 19:28 03/19/17 16:00 03/19/17 16:00 03/19/17 17:30 03/19/17 16:00 Intake and Output: 03/19/17 03/20/17 18:59 06:59 Intake Total 1200 Output Total 1400 Balance -200 - Medications Medications: Current Medications Acetaminophen (Tylenol 325mg Tab) 650 mg PO Q6 PRN PRN Reason: Fever >100.4 F Last Admin: 03/19/17 19:28 Dose: 650 mg Albuterol/Ipratropium (Duoneb 3 Mg/0.5 Mg (3 Ml) Ud) 3 ml INH RQ6 [facility] Last Admin: 03/19/17 20:16 Dose: Not Given Famotidine (Pepcid) 20 mg PO DAILY [facility] Last Admin: 03/19/17 09:14 Dose: 20 mg Heparin Sodium (Porcine) (Heparin) 5,000 units SC Q8 [facility] Last Admin: 03/19/17 13:11 Dose: 5,000 units Hydromorphone HCl (Dilaudid) 1 mg IVP Q4H PRN PRN Reason: Pain, moderate (4-7) Last Admin: 03/19/17 13:10 Dose: 1 mg Potassium Chloride 40 meq/ (Sodium Chloride) 1,020 mls @ 40 mls/hr IV .Q24H [facility] Last Admin: 03/19/17 09:06 Dose: Not Given Micafungin Sodium 100 mg/ (Sodium Chloride) 100 mls @ 100 mls/hr IV Q24H [facility] Last Admin: 03/19/17 10:47 Dose: 100 mls/hr Linezolid (Zyvox 600mg/300ml D5w) 600 mg in 300 mls @ 200 mls/hr IVPB Q12 [facility] Last Admin: 03/19/17 10:48 Dose: 200 mls/hr Aztreonam 2 gm/ Sodium (Chloride) 100 mls @ 100 mls/hr IVPB Q8H [facility] Last Admin: 03/19/17 17:30 Dose: 100 mls/hr Insulin Glargine (Lantus) 50 unit SC HS [facility] Last Admin: 03/18/17 21:31 Dose: Not Given Insulin Human Regular (Novolin R) 0 unit SC ACHS [facility] PRN Reason: Protocol Last Admin: 03/19/17 17:29 Dose: 10 unit Metoprolol Tartrate (Lopressor) 25 mg PO Q6 [facility] Last Admin: 03/19/17 17:30 Dose: 25 mg Multivitamins (Hexavitamin) 1 tab PO DAILY [facility] Last Admin: 03/19/17 09:14 Dose: 1 tab Pregabalin (Lyrica) 75 mg PO BID [facility] Last Admin: 03/19/17 17:31 Dose: 75 mg Promethazine HCl (Phenergan Syrup) 6.25 mg PO Q6H [facility] Last Admin: 03/19/17 16:59 Dose: 6.25 mg Trimethoprim/Sulfamethoxazole (Bactrim Ds Tab) 1 tab PO BID [facility] Last Admin: 03/19/17 17:30 Dose: 1 tab - Labs Labs: 03/19/17 11:14 03/18/17 07:05 PT 11.3 SECONDS (9.7-12.2) 03/18/17 07:05 INR 1.0 03/18/17 07:05 APTT 34 SECONDS (21-34) 03/18/17 07:05
[2017-03-19] MEDS: (Lantus) Insulin Glargine, Recombinant SC SCH (21:32)
[2017-03-20] MEDS: Albuterol-Ipratrop 3 mg / 0.5 (3 ml) UD INH SCH ×4 (01:47→20:11)
[2017-03-20] MEDS: Aztreonam 2 GM in Sodium Chloride 0.9% 100 ML IVPB SCH ×3 (02:16→17:17)
[2017-03-20] MEDS: HYDROmorphone 1 mg/ml ISec IVP PRN ×4 (04:11→19:50)
[2017-03-20] MEDS: Promethazine 6.25 MG/5 ML CUP PO SCH ×4 (04:29→21:44)
[2017-03-20 06:52] LABS: RBC URINE < 1 /hpf (0-3); URINE BILIRUBIN NEGATIVE (NEGATIVE); URINE BLOOD 1+ (NEGATIVE); URINE COLOR Straw (YELLOW); URINE GLUCOSE (UA) 2+ mg/dL (Normal); URINE KETONE NEGATIVE (NEGATIVE); URINE LEUKOCYTE ESTERASE NEG Leu/uL (Negative); URINE PROTEIN 2+ mg/dL (NEGATIVE); URINE UROBILINOGEN NORMAL mg/dL (0.2-1.0); WBC URINE < 1 /hpf (0-5)
[2017-03-20] MEDS: (Novolin R) Insulin Human Regular 100 units/ml vial SC SCH ×4 (08:37→21:57)
[2017-03-20] MEDS: Multiple Vitamins Tab PO SCH (10:09)
[2017-03-20] MEDS: Tmp-Smz 800 mg-160 mg DS Tab PO SCH ×2 (10:09→17:17)
[2017-03-20] MEDS: Micafungin 100 MG in Sodium Chloride 0.9% 100 ML IV SCH (10:10)
[2017-03-20] MEDS: Linezolid 600 mg in D5W 300 ml 600 MG/300 ML BAG IVPB SCH ×2 (10:11→21:44)
--- NOTE | 2017-03-20 12:51 | CP.PCM.PN ---
Subjective - Date & Time of Evaluation Date of Evaluation: 03/19/17 Time of Evaluation: 15:40 - Subjective Subjective: Patient seen and evaluated Tachycardia improved No chest pain or dyspnea Continue Metoprolol Objective - Vital Signs/Intake and Output Vital Signs (last 24 hours): Temp Pulse Resp BP Pulse Ox 98 F 75 20 119/72 97 03/20/17 08:42 03/20/17 08:42 03/20/17 08:42 03/20/17 12:47 03/20/17 08:42 Intake and Output: 03/20/17 03/20/17 06:59 18:59 Intake Total 1250 Output Total 0 Balance 1250 - Medications Medications: Current Medications Acetaminophen (Tylenol 325mg Tab) 650 mg PO Q6 PRN PRN Reason: Fever >100.4 F Last Admin: 03/19/17 19:28 Dose: 650 mg Albuterol/Ipratropium (Duoneb 3 Mg/0.5 Mg (3 Ml) Ud) 3 ml INH RQ6 [facility] Last Admin: 03/20/17 08:54 Dose: 3 ml Famotidine (Pepcid) 20 mg PO DAILY [facility] Last Admin: 03/20/17 10:10 Dose: 20 mg Heparin Sodium (Porcine) (Heparin) 5,000 units SC Q8 [facility] Last Admin: 03/20/17 06:02 Dose: 5,000 units Hydromorphone HCl (Dilaudid) 1 mg IVP Q4H PRN PRN Reason: Pain, moderate (4-7) Last Admin: 03/20/17 10:31 Dose: 1 mg Potassium Chloride 40 meq/ (Sodium Chloride) 1,020 mls @ 40 mls/hr IV .Q24H [facility] Last Admin: 03/20/17 09:59 Dose: 40 mls/hr Micafungin Sodium 100 mg/ (Sodium Chloride) 100 mls @ 100 mls/hr IV Q24H [facility] Last Admin: 03/20/17 10:10 Dose: 100 mls/hr Linezolid (Zyvox 600mg/300ml D5w) 600 mg in 300 mls @ 200 mls/hr IVPB Q12 [facility] Last Admin: 03/20/17 10:11 Dose: 200 mls/hr Aztreonam 2 gm/ Sodium (Chloride) 100 mls @ 100 mls/hr IVPB Q8H [facility] Last Admin: 03/20/17 10:10 Dose: 100 mls/hr Insulin Glargine (Lantus) 50 unit SC HS [facility] Last Admin: 03/19/17 21:32 Dose: 50 unit Insulin Human Regular (Novolin R) 0 unit SC ACHS [facility] PRN Reason: Protocol Last Admin: 03/20/17 12:29 Dose: 4 unit Metoprolol Tartrate (Lopressor) 25 mg PO Q6 [facility] Last Admin: 03/20/17 12:47 Dose: 25 mg Multivitamins (Hexavitamin) 1 tab PO DAILY [facility] Last Admin: 03/20/17 10:09 Dose: 1 tab Pregabalin (Lyrica) 75 mg PO BID [facility] Last Admin: 03/20/17 10:10 Dose: 75 mg Promethazine HCl (Phenergan Syrup) 6.25 mg PO Q6H [facility] Last Admin: 03/20/17 10:31 Dose: 6.25 mg Trimethoprim/Sulfamethoxazole (Bactrim Ds Tab) 1 tab PO BID [facility] Last Admin: 03/20/17 10:09 Dose: 1 tab - Labs Labs: 03/19/17 11:14 03/18/17 07:05 PT 11.3 SECONDS (9.7-12.2) 03/18/17 07:05 INR 1.0 03/18/17 07:05 APTT 34 SECONDS (21-34) 03/18/17 07:05
--- NOTE | 2017-03-20 16:03 | CP.PCM.PN ---
Subjective - Date & Time of Evaluation Date of Evaluation: 03/20/17 Time of Evaluation: 07:00 - Subjective Subjective: t max lower alert nad on bactrim/ mycamine/ aztreonam/ zyvox no positive cultures may need FOB Objective - Vital Signs/Intake and Output Vital Signs (last 24 hours): Temp Pulse Resp BP Pulse Ox 98 F 92 H 20 119/72 97 03/20/17 08:42 03/20/17 12:16 03/20/17 08:42 03/20/17 12:47 03/20/17 08:42 Intake and Output: 03/20/17 03/20/17 06:59 18:59 Intake Total 1250 1350 Output Total 0 Balance 1250 1350 - Medications Medications: Current Medications Acetaminophen (Tylenol 325mg Tab) 650 mg PO Q6 PRN PRN Reason: Fever >100.4 F Last Admin: 03/19/17 19:28 Dose: 650 mg Albuterol/Ipratropium (Duoneb 3 Mg/0.5 Mg (3 Ml) Ud) 3 ml INH RQ6 [facility] Last Admin: 03/20/17 13:26 Dose: 3 ml Famotidine (Pepcid) 20 mg PO DAILY [facility] Last Admin: 03/20/17 10:10 Dose: 20 mg Heparin Sodium (Porcine) (Heparin) 5,000 units SC Q8 [facility] Last Admin: 03/20/17 13:20 Dose: 5,000 units Hydromorphone HCl (Dilaudid) 1 mg IVP Q4H PRN PRN Reason: Pain, moderate (4-7) Last Admin: 03/20/17 14:50 Dose: 1 mg Potassium Chloride 40 meq/ (Sodium Chloride) 1,020 mls @ 40 mls/hr IV .Q24H [facility] Last Admin: 03/20/17 09:59 Dose: 40 mls/hr Micafungin Sodium 100 mg/ (Sodium Chloride) 100 mls @ 100 mls/hr IV Q24H [facility] Last Admin: 03/20/17 10:10 Dose: 100 mls/hr Linezolid (Zyvox 600mg/300ml D5w) 600 mg in 300 mls @ 200 mls/hr IVPB Q12 [facility] Last Admin: 03/20/17 10:11 Dose: 200 mls/hr Aztreonam 2 gm/ Sodium (Chloride) 100 mls @ 100 mls/hr IVPB Q8H [facility] Last Admin: 03/20/17 10:10 Dose: 100 mls/hr Insulin Glargine (Lantus) 50 unit SC HS [facility] Last Admin: 03/19/17 21:32 Dose: 50 unit Insulin Human Regular (Novolin R) 0 unit SC ACHS [facility] PRN Reason: Protocol Last Admin: 03/20/17 12:29 Dose: 4 unit Metoprolol Tartrate (Lopressor) 25 mg PO Q6 [facility] Last Admin: 03/20/17 12:47 Dose: 25 mg Multivitamins (Hexavitamin) 1 tab PO DAILY [facility] Last Admin: 03/20/17 10:09 Dose: 1 tab Pregabalin (Lyrica) 75 mg PO BID [facility] Last Admin: 03/20/17 10:10 Dose: 75 mg Promethazine HCl (Phenergan Syrup) 6.25 mg PO Q6H [facility] Last Admin: 03/20/17 10:31 Dose: 6.25 mg Trimethoprim/Sulfamethoxazole (Bactrim Ds Tab) 1 tab PO BID [facility] Last Admin: 03/20/17 10:09 Dose: 1 tab - Labs Labs: 03/19/17 11:14 03/18/17 07:05 PT 11.3 SECONDS (9.7-12.2) 03/18/17 07:05 INR 1.0 03/18/17 07:05 APTT 34 SECONDS (21-34) 03/18/17 07:05 - Constitutional Appears: Non-toxic, Chronically Ill - Head Exam Head Exam: NORMOCEPHALIC - Eye Exam Eye Exam: Normal appearance. absent: Scleral icterus - ENT Exam ENT Exam: Mucous Membranes Dry, Normal External Ear Exam - Neck Exam Neck Exam: absent: Lymphadenopathy - Respiratory Exam Respiratory Exam: Decreased Breath Sounds - Cardiovascular Exam Cardiovascular Exam: Tachycardia, REGULAR RHYTHM - GI/Abdominal Exam GI & Abdominal Exam: Distended, Soft Assessment and Plan (1) Acute renal insufficiency Status: Acute (2) Hyponatremia Status: Acute (3) Pneumonia Status: Acute (4) Diabetes mellitus Status: Acute (5) Fever Status: Acute (6) Pneumonia Status: Acute (7) Crohn's disease of colon Status: Chronic
--- NOTE | 2017-03-20 17:07 | CP.PCM.PN ---
Subjective - Date & Time of Evaluation Date of Evaluation: 03/20/17 Time of Evaluation: 17:07 - Subjective Subjective: Patient again had a fever this morning. But feeling better now. Chills noted. No nausea vomiting. Eating okay elevated blood sugar. Vital signs stable. Clinically otherwise unchanged. Spoke to the patient in detail. We will need tissue diagnosis, patient advised her to have transthoracic needle biopsy. Objective - Vital Signs/Intake and Output Vital Signs (last 24 hours): Temp Pulse Resp BP Pulse Ox 99 F 90 20 117/77 96 03/20/17 16:00 03/20/17 16:00 03/20/17 16:00 03/20/17 16:00 03/20/17 16:00 Intake and Output: 03/20/17 03/20/17 06:59 18:59 Intake Total 1250 1350 Output Total 0 Balance 1250 1350 - Medications Medications: Current Medications Acetaminophen (Tylenol 325mg Tab) 650 mg PO Q6 PRN PRN Reason: Fever >100.4 F Last Admin: 03/19/17 19:28 Dose: 650 mg Albuterol/Ipratropium (Duoneb 3 Mg/0.5 Mg (3 Ml) Ud) 3 ml INH RQ6 [facility] Last Admin: 03/20/17 13:26 Dose: 3 ml Famotidine (Pepcid) 20 mg PO DAILY [facility] Last Admin: 03/20/17 10:10 Dose: 20 mg Heparin Sodium (Porcine) (Heparin) 5,000 units SC Q8 [facility] Last Admin: 03/20/17 13:20 Dose: 5,000 units Hydromorphone HCl (Dilaudid) 1 mg IVP Q4H PRN PRN Reason: Pain, moderate (4-7) Last Admin: 03/20/17 14:50 Dose: 1 mg Potassium Chloride 40 meq/ (Sodium Chloride) 1,020 mls @ 40 mls/hr IV .Q24H [facility] Last Admin: 03/20/17 09:59 Dose: 40 mls/hr Micafungin Sodium 100 mg/ (Sodium Chloride) 100 mls @ 100 mls/hr IV Q24H [facility] Last Admin: 03/20/17 10:10 Dose: 100 mls/hr Linezolid (Zyvox 600mg/300ml D5w) 600 mg in 300 mls @ 200 mls/hr IVPB Q12 [facility] Last Admin: 03/20/17 10:11 Dose: 200 mls/hr Aztreonam 2 gm/ Sodium (Chloride) 100 mls @ 100 mls/hr IVPB Q8H [facility] Last Admin: 03/20/17 10:10 Dose: 100 mls/hr Insulin Glargine (Lantus) 50 unit SC HS [facility] Last Admin: 03/19/17 21:32 Dose: 50 unit Insulin Human Regular (Novolin R) 0 unit SC ACHS [facility] PRN Reason: Protocol Last Admin: 03/20/17 12:29 Dose: 4 unit Metoprolol Tartrate (Lopressor) 25 mg PO Q6 [facility] Last Admin: 03/20/17 12:47 Dose: 25 mg Multivitamins (Hexavitamin) 1 tab PO DAILY [facility] Last Admin: 03/20/17 10:09 Dose: 1 tab Pregabalin (Lyrica) 75 mg PO BID [facility] Last Admin: 03/20/17 10:10 Dose: 75 mg Promethazine HCl (Phenergan Syrup) 6.25 mg PO Q6H [facility] Last Admin: 03/20/17 10:31 Dose: 6.25 mg Trimethoprim/Sulfamethoxazole (Bactrim Ds Tab) 1 tab PO BID [facility] Last Admin: 03/20/17 10:09 Dose: 1 tab - Labs Labs: 03/19/17 11:14 03/18/17 07:05 PT 11.3 SECONDS (9.7-12.2) 03/18/17 07:05 INR 1.0 03/18/17 07:05 APTT 34 SECONDS (21-34) 03/18/17 07:05
[2017-03-20] MEDS: (Lantus) Insulin Glargine, Recombinant SC SCH (21:45)
--- NOTE | 2017-03-20 22:27 | CP.PCM.PN ---
Subjective - Date & Time of Evaluation Date of Evaluation: 03/20/17 Time of Evaluation: 18:10 - Subjective Subjective: Patient comfortable No cardiac events HR under control Objective - Vital Signs/Intake and Output Vital Signs (last 24 hours): Temp Pulse Resp BP Pulse Ox 99 F 90 20 117/77 96 03/20/17 16:00 03/20/17 16:00 03/20/17 16:00 03/20/17 17:19 03/20/17 16:00 Intake and Output: 03/20/17 03/21/17 18:59 06:59 Intake Total 1350 Balance 1350 - Medications Medications: Current Medications Acetaminophen (Tylenol 325mg Tab) 650 mg PO Q6 PRN PRN Reason: Fever >100.4 F Last Admin: 03/20/17 17:20 Dose: 650 mg Albuterol/Ipratropium (Duoneb 3 Mg/0.5 Mg (3 Ml) Ud) 3 ml INH RQ6 [facility] Last Admin: 03/20/17 20:11 Dose: 3 ml Famotidine (Pepcid) 20 mg PO DAILY [facility] Last Admin: 03/20/17 10:10 Dose: 20 mg Heparin Sodium (Porcine) (Heparin) 5,000 units SC Q8 [facility] Last Admin: 03/20/17 21:43 Dose: 5,000 units Hydromorphone HCl (Dilaudid) 1 mg IVP Q4H PRN PRN Reason: Pain, moderate (4-7) Last Admin: 03/20/17 19:50 Dose: 1 mg Potassium Chloride 40 meq/ (Sodium Chloride) 1,020 mls @ 40 mls/hr IV .Q24H [facility] Last Admin: 03/20/17 09:59 Dose: 40 mls/hr Micafungin Sodium 100 mg/ (Sodium Chloride) 100 mls @ 100 mls/hr IV Q24H [facility] Last Admin: 03/20/17 10:10 Dose: 100 mls/hr Linezolid (Zyvox 600mg/300ml D5w) 600 mg in 300 mls @ 200 mls/hr IVPB Q12 [facility] Last Admin: 03/20/17 21:44 Dose: 200 mls/hr Aztreonam 2 gm/ Sodium (Chloride) 100 mls @ 100 mls/hr IVPB Q8H [facility] Last Admin: 03/20/17 17:17 Dose: 100 mls/hr Insulin Glargine (Lantus) 50 unit SC HS [facility] Last Admin: 03/20/17 21:45 Dose: 50 unit Insulin Human Regular (Novolin R) 0 unit SC [facility] PRN Reason: Protocol Last Admin: 03/20/17 21:57 Dose: 4 unit Metoprolol Tartrate (Lopressor) 25 mg PO Q6 [facility] Last Admin: 03/20/17 17:19 Dose: 25 mg Multivitamins (Hexavitamin) 1 tab PO DAILY [facility] Last Admin: 03/20/17 10:09 Dose: 1 tab Pregabalin (Lyrica) 75 mg PO BID [facility] Last Admin: 03/20/17 17:17 Dose: 75 mg Promethazine HCl (Phenergan Syrup) 6.25 mg PO Q6H [facility] Last Admin: 03/20/17 21:44 Dose: 6.25 mg Trimethoprim/Sulfamethoxazole (Bactrim Ds Tab) 1 tab PO BID [facility] Last Admin: 03/20/17 17:17 Dose: 1 tab - Labs Labs: 03/19/17 11:14 03/18/17 07:05 PT 11.3 SECONDS (9.7-12.2) 03/18/17 07:05 INR 1.0 03/18/17 07:05 APTT 34 SECONDS (21-34) 03/18/17 07:05
[2017-03-21] MEDS: Albuterol-Ipratrop 3 mg / 0.5 (3 ml) UD INH SCH ×2 (01:54→07:45)
[2017-03-21] MEDS: Aztreonam 2 GM in Sodium Chloride 0.9% 100 ML IVPB SCH ×3 (02:02→18:20)
[2017-03-21] MEDS: Promethazine 6.25 MG/5 ML CUP PO SCH ×4 (04:04→21:34)
[2017-03-21] MEDS: HYDROmorphone 1 mg/ml ISec IVP PRN ×3 (04:05→23:12)
[2017-03-21] MEDS: (Novolin R) Insulin Human Regular 100 units/ml vial SC SCH ×4 (07:35→21:30)
[2017-03-21 08:12] LABS: POTASSIUM 4.2 mmol/L (3.6-5.2)
[2017-03-21 08:13] LABS: CARCINOEMBRYONIC ANTIGEN 1.7 ng/mL (0-3.0)
[2017-03-21 08:14] LABS: BILIRUBIN,TOTAL 0.5 mg/dL (0.2-1.3); PHOSPHOROUS 3.2 mg/dL (2.5-4.5); TOTAL PROTEIN 6.5 g/dL (6.3-8.3)
[2017-03-21 08:15] LABS: ALB/GLOB RATIO 0.7 (1.0-2.1); CALCIUM 8.4 mg/dl (8.6-10.4); MAGNESIUM 1.6 mg/dL (1.6-2.3)
[2017-03-21 08:16] LABS: BASO # 0.1 K/uL (0.0-0.2); BASO % 0.4 % (0.0-2.0); EOS # 0.1 K/uL (0.0-0.7); EOS % 0.4 % (0.0-4.0); HEMATOCRIT 34.8 % (35.0-51.0); LYMPH # 1.5 K/uL (1.0-4.3); LYMPH % 6.4 % (20.0-40.0); MEAN CELL VOLUME 85.5 fL (80.0-94.0); MEAN CORPUSCULAR HEMOGLOBIN 28.5 pg (27.0-31.0); MEAN CORPUSCULAR HGB CONC 33.3 g/dL (33.0-37.0); MEAN PLATELET VOLUME 8.9 fL (7.2-11.7); MONO # 0.8 K/uL (0.0-0.8); MONO % 3.5 % (0.0-10.0); PLATELET COUNT 433 K/uL (130-400); RED CELL DISTRIBUTION WIDTH 13.2 % (11.5-14.5); WHITE BLOOD COUNT 23.9 K/uL (4.8-10.8)
[2017-03-21 08:17] LABS: CA 19-9 10.4 U/mL (0-37)
[2017-03-21 09:16] LABS: NEUTROPHIL 87 % (50-75); TOTAL CELLS COUNTED 100
[2017-03-21] MEDS: Micafungin 100 MG in Sodium Chloride 0.9% 100 ML IV SCH (10:47)
[2017-03-21] MEDS: Linezolid 600 mg in D5W 300 ml 600 MG/300 ML BAG IVPB SCH ×2 (10:48→21:35)
[2017-03-21] MEDS: Tmp-Smz 800 mg-160 mg DS Tab PO SCH ×2 (10:49→18:20)
[2017-03-21] MEDS: Multiple Vitamins Tab PO SCH (10:50)
--- NOTE | 2017-03-21 12:46 | CP.PCM.PN ---
Subjective - Date & Time of Evaluation Date of Evaluation: 03/21/17 Time of Evaluation: 09:00 - Subjective Subjective: still spiking may need fob/bal tb quant neg Objective - Vital Signs/Intake and Output Vital Signs (last 24 hours): Temp Pulse Resp BP Pulse Ox 98.1 F 112 H 20 96/57 L 95 03/21/17 08:53 03/21/17 08:53 03/21/17 08:53 03/21/17 12:29 03/21/17 08:53 Intake and Output: 03/21/17 03/21/17 06:59 18:59 Output Total 1000 Balance -1000 - Medications Medications: Current Medications Acetaminophen (Tylenol 325mg Tab) 650 mg PO Q6 PRN PRN Reason: Fever >100.4 F Last Admin: 03/21/17 06:40 Dose: 650 mg Albuterol/Ipratropium (Duoneb 3 Mg/0.5 Mg (3 Ml) Ud) 3 ml INH RQ6 [facility] Last Admin: 03/21/17 07:45 Dose: 3 ml Famotidine (Pepcid) 20 mg PO DAILY [facility] Last Admin: 03/21/17 10:50 Dose: 20 mg Heparin Sodium (Porcine) (Heparin) 5,000 units SC Q8 [facility] Last Admin: 03/21/17 06:03 Dose: Not Given Hydromorphone HCl (Dilaudid) 1 mg IVP Q4H PRN PRN Reason: Pain, moderate (4-7) Last Admin: 03/21/17 11:27 Dose: 1 mg Potassium Chloride 40 meq/ (Sodium Chloride) 1,020 mls @ 40 mls/hr IV .Q24H [facility] Last Admin: 03/21/17 08:06 Dose: Not Given Micafungin Sodium 100 mg/ (Sodium Chloride) 100 mls @ 100 mls/hr IV Q24H [facility] Last Admin: 03/21/17 10:47 Dose: 100 mls/hr Linezolid (Zyvox 600mg/300ml D5w) 600 mg in 300 mls @ 200 mls/hr IVPB Q12 [facility] Last Admin: 03/21/17 10:48 Dose: 200 mls/hr Aztreonam 2 gm/ Sodium (Chloride) 100 mls @ 100 mls/hr IVPB Q8H [facility] Last Admin: 03/21/17 10:47 Dose: 100 mls/hr Insulin Glargine (Lantus) 50 unit SC HS [facility] Last Admin: 03/20/17 21:45 Dose: 50 unit Insulin Human Regular (Novolin R) 0 unit SC ACHS [facility] PRN Reason: Protocol Last Admin: 03/21/17 12:28 Dose: 2 unit Metoprolol Tartrate (Lopressor) 25 mg PO Q6 [facility] Last Admin: 03/21/17 12:29 Dose: Not Given Multivitamins (Hexavitamin) 1 tab PO DAILY [facility] Last Admin: 03/21/17 10:50 Dose: 1 tab Pregabalin (Lyrica) 75 mg PO BID [facility] Last Admin: 03/21/17 10:49 Dose: 75 mg Promethazine HCl (Phenergan Syrup) 6.25 mg PO Q6H [facility] Last Admin: 03/21/17 10:49 Dose: 6.25 mg Trimethoprim/Sulfamethoxazole (Bactrim Ds Tab) 1 tab PO BID [facility] Last Admin: 03/21/17 10:49 Dose: 1 tab - Labs Labs: 03/21/17 07:07 03/21/17 07:07 PT 11.3 SECONDS (9.7-12.2) 03/18/17 07:05 INR 1.0 03/18/17 07:05 APTT 34 SECONDS (21-34) 03/18/17 07:05 Assessment and Plan (1) Acute renal insufficiency Status: Acute (2) Hyponatremia Status: Acute (3) Pneumonia Status: Acute (4) Diabetes mellitus Status: Acute (5) Fever Status: Acute (6) Pneumonia Status: Acute (7) Crohn's disease of colon Status: Chronic
[2017-03-21] MEDS: (Lantus) Insulin Glargine, Recombinant SC SCH (21:29)
--- NOTE | 2017-03-21 22:04 | CP.PCM.PN ---
Subjective - Date & Time of Evaluation Date of Evaluation: 03/21/17 Time of Evaluation: 22:04 - Subjective Subjective: Patient is doing well. Today have no fever. Less cough. Otherwise nonspecific. Spoke with interventional radiologist. Possible biopsy in the morning. Keep patient n.p.o. Objective - Vital Signs/Intake and Output Vital Signs (last 24 hours): Temp Pulse Resp BP Pulse Ox 97.6 F 81 20 96/56 L 97 03/21/17 15:59 03/21/17 15:59 03/21/17 15:59 03/21/17 18:00 03/21/17 15:59 Intake and Output: 03/21/17 03/22/17 18:59 06:59 Intake Total 1500 Balance 1500 - Medications Medications: Current Medications Acetaminophen (Tylenol 325mg Tab) 650 mg PO Q6 PRN PRN Reason: Fever >100.4 F Last Admin: 03/21/17 06:40 Dose: 650 mg Famotidine (Pepcid) 20 mg PO DAILY [facility] Last Admin: 03/21/17 10:50 Dose: 20 mg Hydromorphone HCl (Dilaudid) 1 mg IVP Q4H PRN PRN Reason: Pain, moderate (4-7) Last Admin: 03/21/17 11:27 Dose: 1 mg Potassium Chloride 40 meq/ (Sodium Chloride) 1,020 mls @ 40 mls/hr IV .Q24H [facility] Last Admin: 03/21/17 08:06 Dose: Not Given Micafungin Sodium 100 mg/ (Sodium Chloride) 100 mls @ 100 mls/hr IV Q24H [facility] Last Admin: 03/21/17 10:47 Dose: 100 mls/hr Linezolid (Zyvox 600mg/300ml D5w) 600 mg in 300 mls @ 200 mls/hr IVPB Q12 [facility] Last Admin: 03/21/17 21:35 Dose: 200 mls/hr Aztreonam 2 gm/ Sodium (Chloride) 100 mls @ 100 mls/hr IVPB Q8H [facility] Last Admin: 03/21/17 18:20 Dose: 100 mls/hr Insulin Glargine (Lantus) 50 unit SC HS [facility] Last Admin: 03/21/17 21:29 Dose: Not Given Insulin Human Regular (Novolin R) 0 unit SC ACHS [facility] PRN Reason: Protocol Last Admin: 03/21/17 21:30 Dose: Not Given Metoprolol Tartrate (Lopressor) 25 mg PO Q6 [facility] Last Admin: 03/21/17 18:00 Dose: Not Given Multivitamins (Hexavitamin) 1 tab PO DAILY [facility] Last Admin: 03/21/17 10:50 Dose: 1 tab Pregabalin (Lyrica) 75 mg PO BID [facility] Last Admin: 03/21/17 18:21 Dose: 75 mg Promethazine HCl (Phenergan Syrup) 6.25 mg PO Q6H [facility] Last Admin: 03/21/17 21:34 Dose: 6.25 mg Trimethoprim/Sulfamethoxazole (Bactrim Ds Tab) 1 tab PO BID [facility] Last Admin: 03/21/17 18:20 Dose: 1 tab - Labs Labs: 03/21/17 07:07 03/21/17 07:07 PT 11.3 SECONDS (9.7-12.2) 03/18/17 07:05 INR 1.0 03/18/17 07:05 APTT 34 SECONDS (21-34) 03/18/17 07:05
[2017-03-22] MEDS: Aztreonam 2 GM in Sodium Chloride 0.9% 100 ML IVPB SCH ×3 (02:49→18:24)
[2017-03-22] MEDS: Promethazine 6.25 MG/5 ML CUP PO SCH ×5 (05:32→22:13)
[2017-03-22] MEDS: HYDROmorphone 1 mg/ml ISec IVP PRN ×2 (07:12→12:41)
[2017-03-22] MEDS: (Novolin R) Insulin Human Regular 100 units/ml vial SC SCH ×4 (08:30→22:10)
[2017-03-22] MEDS: Micafungin 100 MG in Sodium Chloride 0.9% 100 ML IV SCH (09:17)
[2017-03-22] MEDS: Multiple Vitamins Tab PO SCH (10:03)
[2017-03-22] MEDS: Tmp-Smz 800 mg-160 mg DS Tab PO SCH ×2 (10:03→18:26)
[2017-03-22] MEDS ORDERED: Midazolam 2 MG/2 ML VIAL ONE ×2 (11:33→11:56)
--- NOTE | 2017-03-22 11:46 | CP.PCM.PN ---
Subjective - Date & Time of Evaluation Date of Evaluation: 03/22/17 Time of Evaluation: 09:00 - Subjective Subjective: afeb for possible bx Objective - Vital Signs/Intake and Output Vital Signs (last 24 hours): Temp Pulse Resp BP Pulse Ox 99.7 F H 106 H 18 122/78 97 03/22/17 07:20 03/22/17 07:20 03/22/17 07:20 03/22/17 07:20 03/22/17 07:20 Intake and Output: 03/22/17 03/22/17 06:59 18:59 Intake Total 760 Balance 760 - Medications Medications: Current Medications Acetaminophen (Tylenol 325mg Tab) 650 mg PO Q6 PRN PRN Reason: Fever >100.4 F Last Admin: 03/21/17 06:40 Dose: 650 mg Famotidine (Pepcid) 20 mg PO DAILY [facility] Last Admin: 03/22/17 10:03 Dose: Not Given Hydromorphone HCl (Dilaudid) 1 mg IVP Q4H PRN PRN Reason: Pain, moderate (4-7) Last Admin: 03/22/17 07:12 Dose: 1 mg Micafungin Sodium 100 mg/ (Sodium Chloride) 100 mls @ 100 mls/hr IV Q24H [facility] Last Admin: 03/22/17 09:17 Dose: 100 mls/hr Linezolid (Zyvox 600mg/300ml D5w) 600 mg in 300 mls @ 200 mls/hr IVPB Q12 [facility] Last Admin: 03/21/17 21:35 Dose: 200 mls/hr Aztreonam 2 gm/ Sodium (Chloride) 100 mls @ 100 mls/hr IVPB Q8H [facility] Last Admin: 03/22/17 09:17 Dose: 100 mls/hr Insulin Glargine (Lantus) 50 unit SC HS [facility] Last Admin: 03/21/17 21:29 Dose: Not Given Insulin Human Regular (Novolin R) 0 unit SC ACHS [facility] PRN Reason: Protocol Last Admin: 03/22/17 08:30 Dose: Not Given Metoprolol Tartrate (Lopressor) 25 mg PO Q6 [facility] Last Admin: 03/22/17 05:17 Dose: Not Given Multivitamins (Hexavitamin) 1 tab PO DAILY [facility] Last Admin: 03/22/17 10:03 Dose: Not Given Pregabalin (Lyrica) 75 mg PO BID [facility] Last Admin: 03/22/17 10:03 Dose: Not Given Promethazine HCl (Phenergan Syrup) 6.25 mg PO Q6H [facility] Last Admin: 03/22/17 10:03 Dose: Not Given Trimethoprim/Sulfamethoxazole (Bactrim Ds Tab) 1 tab PO BID [facility] Last Admin: 03/22/17 10:03 Dose: Not Given - Labs Labs: 03/21/17 07:07 03/21/17 07:07 PT 11.3 SECONDS (9.7-12.2) 03/18/17 07:05 INR 1.0 03/18/17 07:05 APTT 34 SECONDS (21-34) 03/18/17 07:05 - Constitutional Appears: Non-toxic, Chronically Ill - Head Exam Head Exam: NORMOCEPHALIC - Eye Exam Eye Exam: absent: Scleral icterus - ENT Exam ENT Exam: Mucous Membranes Dry, Normal External Ear Exam - Neck Exam Neck Exam: absent: Lymphadenopathy - Respiratory Exam Respiratory Exam: Decreased Breath Sounds, Clear to Ausculation Bilateral Assessment and Plan (1) Acute renal insufficiency Status: Acute (2) Hyponatremia Status: Acute (3) Pneumonia Status: Acute (4) Diabetes mellitus Status: Acute (5) Fever Status: Acute (6) Pneumonia Status: Acute (7) Crohn's disease of colon Status: Chronic
--- NOTE | 2017-03-22 12:09 | PCM.SURG1 ---
Surgeon's Initial Post Op Note - Surgeon's Notes Surgeon: Yosvany Warner MD Preventive Medicine Physician: NONE Type of Anesthesia: IV Sedation Pre-Operative Diagnosis: Lung nodules Operative Findings: Multiple nodules in the right and left lung. Post-Operative Diagnosis: Lung nodules Operation Performed: CT guided right lung nodule biopsy. Specimen/Specimens Removed: 20 gauge core right lung x 3 Estimated Blood Loss: EBL {In ML}: 0 Blood Products Given: N/A Drains Used: No Drains Post-Op Condition: Fair Date of Surgery/Procedure: 03/22/17 Time of Surgery/Procedure: 12:05
--- NOTE | 2017-03-22 12:27 | CT ---
PROCEDURE: Date of procedure: 03/22/2017 Procedure: 1. CT-guided lung nodule biopsy, CPT [address] Guidance for biopsy, [address] Medications: The patient was sedated by anesthesiologist along with physiologic monitoring. HISTORY: Multiple right and left lung nodules, fever TECHNIQUE: Following informed consent, the Pt's chest was marked. The Pt was placed prone on the CT table and procedure time out was performed. A noncontrast CT scan was performed. Noncontrast CT scan confirmed the presence of a multiple right and left lung nodules. . A skin localizer was placed on the patient's right back and a repeat CT scan was performed. The skin was marked, prepped, and draped in the usual sterile fashion. After the skin was anesthetized with lidocaine and the patient sedated by the anesthesiologist, a 20 gauge core needle was advanced percutaneously under direct CT guidance into the mass. Upon confirmation of needle position, 3 20-gauge core specimens were obtained and sent for routine pathology and tissue culture. The needle was removed and a xeroform dressing was applied. A post biopsy CT scan showed no pneumothorax. IMPRESSION: CT guided core biopsy right lung nodule.
[2017-03-22] MEDS: Linezolid 600 mg in D5W 300 ml 600 MG/300 ML BAG IVPB SCH ×2 (12:46→22:12)
--- NOTE | 2017-03-22 17:19 | RAD ---
PROCEDURE: CHEST RADIOGRAPH, 1 VIEW HISTORY: Status post right lung nodule biopsy. COMPARISON: Comparison made with chest radiograph 03/18/[address] scan chest 03/16/2017. FINDINGS: LUNGS: Patchy opacities are again seen in the right upper, right lower and to a lesser degree left lower lobes however the changes appear to have improved slightly when compared with prior chest radiograph. No definitive evidence of pneumothorax seen. . No change right-sided PICC line with tip in the SVC. PLEURA: As above CARDIOVASCULAR: Borderline cardiomegaly OSSEOUS STRUCTURES: No significant abnormalities. VISUALIZED UPPER ABDOMEN: Normal. OTHER FINDINGS: None. IMPRESSION: Patchy opacities are again seen in the right upper, right lower and to a lesser degree left lower lobes however the changes appear to have improved slightly when compared with prior chest radiograph. No definitive evidence of pneumothorax seen. . No change right-sided PICC line with tip in the SVC.
[2017-03-22] MEDS: HYDROmorphone 0.5 mg/0.5 ml ISec IVP PRN (20:18)
[2017-03-22] MEDS: (Lantus) Insulin Glargine, Recombinant SC SCH (22:10)
--- NOTE | 2017-03-22 22:38 | CP.PCM.PN ---
Subjective - Date & Time of Evaluation Date of Evaluation: 03/22/17 Time of Evaluation: 22:37 - Subjective Subjective: Patient today underwent transthoracic needle biopsy. Postoperatively patient doing well. Minimal cough. Otherwise doing well History: 45-year-old male with history of Crohn's disease, uncontrolled diabetes, chronic colitis, cholelithiasis. Patient has a chronic erythema noted some. Episodes of cellulitis in the past. Vital signs reviewed No neck vein distention noted Chest good air entry bilaterally, no wheezing or rales noted CVS regular heart sound, no murmur noted Abdomen soft, nontender. Bilateral pedal edema [employer] alert awake oriented 3, no functional neurological deficit Patient's labs reviewed No fever in the last 24 hours Assessment and recommendation: 45-year-old male with a history of Crohn's disease uncontrolled diabetes and chronic colitis cholelithiasis chronic erythema nodosum. Patient admitted with fever, unknown origin. Bilateral diffuse infiltrative changes in the lungs. Atypical pneumonia likely. Responding to treatment. We'll continue the current treatment. We will follow the biopsy Objective - Vital Signs/Intake and Output Vital Signs (last 24 hours): Temp Pulse Resp BP Pulse Ox 98.5 F 101 H 20 99/64 L 98 03/22/17 15:40 03/22/17 15:40 03/22/17 15:40 03/22/17 15:40 03/22/17 15:40 Intake and Output: 03/22/17 03/23/17 18:59 06:59 Intake Total 900 Balance 900 - Medications Medications: Current Medications Acetaminophen (Tylenol 325mg Tab) 650 mg PO Q6 PRN PRN Reason: Fever >100.4 F Last Admin: 03/21/17 06:40 Dose: 650 mg Famotidine (Pepcid) 20 mg PO DAILY [facility] Last Admin: 03/22/17 10:03 Dose: Not Given Hydromorphone HCl (Dilaudid) 0.5 mg IVP Q4H PRN PRN Reason: Pain, moderate (4-7) Last Admin: 03/22/17 20:18 Dose: 0.5 mg Micafungin Sodium 100 mg/ (Sodium Chloride) 100 mls @ 100 mls/hr IV Q24H [facility] Last Admin: 03/22/17 09:17 Dose: 100 mls/hr Linezolid (Zyvox 600mg/300ml D5w) 600 mg in 300 mls @ 200 mls/hr IVPB Q12 [facility] Last Admin: 03/22/17 22:12 Dose: 200 mls/hr Aztreonam 2 gm/ Sodium (Chloride) 100 mls @ 100 mls/hr IVPB Q8H [facility] Last Admin: 03/22/17 18:24 Dose: 100 mls/hr Insulin Glargine (Lantus) 50 unit SC HS [facility] Last Admin: 03/22/17 22:10 Dose: Not Given Insulin Human Regular (Novolin R) 0 unit SC ACHS [facility] PRN Reason: Protocol Last Admin: 03/22/17 22:10 Dose: Not Given Metoprolol Tartrate (Lopressor) 25 mg PO Q6 [facility] Last Admin: 03/22/17 18:06 Dose: Not Given Multivitamins (Hexavitamin) 1 tab PO DAILY [facility] Last Admin: 03/22/17 10:03 Dose: Not Given Pregabalin (Lyrica) 75 mg PO BID [facility] Last Admin: 03/22/17 18:26 Dose: 75 mg Promethazine HCl (Phenergan Syrup) 6.25 mg PO Q6H [facility] Last Admin: 03/22/17 22:13 Dose: 6.25 mg Trimethoprim/Sulfamethoxazole (Bactrim Ds Tab) 1 tab PO BID [facility] Last Admin: 03/22/17 18:26 Dose: 1 tab - Labs Labs: 03/21/17 07:07 03/21/17 07:07 PT 11.3 SECONDS (9.7-12.2) 03/18/17 07:05 INR 1.0 03/18/17 07:05 APTT 34 SECONDS (21-34) 03/18/17 07:05
[2017-03-23] MEDS: Aztreonam 2 GM in Sodium Chloride 0.9% 100 ML IVPB SCH ×3 (02:44→17:51)
[2017-03-23] MEDS: HYDROmorphone 0.5 mg/0.5 ml ISec IVP PRN ×4 (03:54→20:51)
[2017-03-23] MEDS: Promethazine 6.25 MG/5 ML CUP PO SCH ×4 (03:54→21:25)
[2017-03-23 07:54] LABS: POTASSIUM 4.2 mmol/L (3.6-5.2)
[2017-03-23 07:56] LABS: BILIRUBIN,TOTAL 0.5 mg/dL (0.2-1.3)
[2017-03-23 07:57] LABS: ALB/GLOB RATIO 0.6 (1.0-2.1); CALCIUM 8.4 mg/dl (8.6-10.4); TOTAL PROTEIN 6.3 g/dL (6.3-8.3)
[2017-03-23 08:00] LABS: BASO # 0.1 K/uL (0.0-0.2); BASO % 0.7 % (0.0-2.0); EOS # 0.2 K/uL (0.0-0.7); EOS % 2.2 % (0.0-4.0); HEMATOCRIT 34.3 % (35.0-51.0); LYMPH # 1.8 K/uL (1.0-4.3); LYMPH % 15.7 % (20.0-40.0); MEAN CELL VOLUME 85.2 fL (80.0-94.0); MEAN CORPUSCULAR HEMOGLOBIN 27.9 pg (27.0-31.0); MEAN CORPUSCULAR HGB CONC 32.7 g/dL (33.0-37.0); MEAN PLATELET VOLUME 8.3 fL (7.2-11.7); MONO % 8.7 % (0.0-10.0); NRBC % 0.1 % (0.0-2.0); RED CELL DISTRIBUTION WIDTH 13.4 % (11.5-14.5)
[2017-03-23 08:03] LABS: WHITE BLOOD COUNT 11.4 K/uL (4.8-10.8)
[2017-03-23] MEDS: (Novolin R) Insulin Human Regular 100 units/ml vial SC SCH ×4 (08:18→21:26)
[2017-03-23] MEDS: Tmp-Smz 800 mg-160 mg DS Tab PO SCH ×2 (09:14→17:47)
[2017-03-23] MEDS: Multiple Vitamins Tab PO SCH (09:14)
[2017-03-23] MEDS: Linezolid 600 mg in D5W 300 ml 600 MG/300 ML BAG IVPB SCH ×2 (09:16→21:29)
[2017-03-23] MEDS: Micafungin 100 MG in Sodium Chloride 0.9% 100 ML IV SCH (09:16)
--- NOTE | 2017-03-23 15:25 | CP.PCM.PN ---
Subjective - Date & Time of Evaluation Date of Evaluation: 03/23/17 Time of Evaluation: 09:00 - Subjective Subjective: no fever on zyvox, bactrim, mycamine wbc is down cont iv rx Objective - Vital Signs/Intake and Output Vital Signs (last 24 hours): Temp Pulse Resp BP Pulse Ox 97.5 F L 65 18 121/73 97 03/23/17 07:00 03/23/17 07:00 03/23/17 07:00 03/23/17 07:00 03/23/17 07:00 Intake and Output: 03/23/17 03/23/17 06:59 18:59 Intake Total 600 Output Total 900 Balance -300 - Medications Medications: Current Medications Acetaminophen (Tylenol 325mg Tab) 650 mg PO Q6 PRN PRN Reason: Fever >100.4 F Last Admin: 03/21/17 06:40 Dose: 650 mg Famotidine (Pepcid) 20 mg PO DAILY [facility] Last Admin: 03/23/17 09:14 Dose: 20 mg Hydromorphone HCl (Dilaudid) 0.5 mg IVP Q4H PRN PRN Reason: Pain, moderate (4-7) Last Admin: 03/23/17 09:14 Dose: 0.5 mg Micafungin Sodium 100 mg/ (Sodium Chloride) 100 mls @ 100 mls/hr IV Q24H [facility] Last Admin: 03/23/17 09:16 Dose: 100 mls/hr Linezolid (Zyvox 600mg/300ml D5w) 600 mg in 300 mls @ 200 mls/hr IVPB Q12 [facility] Last Admin: 03/23/17 09:16 Dose: 200 mls/hr Aztreonam 2 gm/ Sodium (Chloride) 100 mls @ 100 mls/hr IVPB Q8H [facility] Last Admin: 03/23/17 09:15 Dose: 100 mls/hr Insulin Glargine (Lantus) 50 unit SC HS [facility] Last Admin: 03/22/17 22:10 Dose: Not Given Insulin Human Regular (Novolin R) 0 unit SC ACHS [facility] PRN Reason: Protocol Last Admin: 03/23/17 12:30 Dose: Not Given Metoprolol Tartrate (Lopressor) 25 mg PO Q6 [facility] Last Admin: 03/23/17 11:28 Dose: Not Given Multivitamins (Hexavitamin) 1 tab PO DAILY [facility] Last Admin: 03/23/17 09:14 Dose: 1 tab Pregabalin (Lyrica) 75 mg PO BID [facility] Last Admin: 03/23/17 09:14 Dose: 75 mg Promethazine HCl (Phenergan Syrup) 6.25 mg PO Q6H [facility] Last Admin: 03/23/17 09:14 Dose: 6.25 mg Trimethoprim/Sulfamethoxazole (Bactrim Ds Tab) 1 tab PO BID [facility] Last Admin: 03/23/17 09:14 Dose: 1 tab - Labs Labs: 03/23/17 07:04 03/23/17 07:04 PT 11.3 SECONDS (9.7-12.2) 03/18/17 07:05 INR 1.0 03/18/17 07:05 APTT 34 SECONDS (21-34) 03/18/17 07:05 - Constitutional Appears: Non-toxic - Head Exam Head Exam: NORMOCEPHALIC - Eye Exam Eye Exam: absent: Scleral icterus - ENT Exam ENT Exam: Mucous Membranes Dry, Normal External Ear Exam - Neck Exam Neck Exam: absent: Lymphadenopathy - Respiratory Exam Respiratory Exam: Decreased Breath Sounds, Rhonchi - Cardiovascular Exam Cardiovascular Exam: REGULAR RHYTHM Assessment and Plan (1) Acute renal insufficiency Status: Acute (2) Hyponatremia Status: Acute (3) Pneumonia Status: Acute (4) Diabetes mellitus Status: Acute (5) Fever Status: Acute (6) Pneumonia Status: Acute (7) Crohn's disease of colon Status: Chronic
[2017-03-23] MEDS ORDERED: Oxycodone/Acetaminophen 5/325 mg Tab PO PRN (21:04)
--- NOTE | 2017-03-23 21:06 | CP.PCM.PN ---
Subjective - Date & Time of Evaluation Date of Evaluation: 03/23/17 Time of Evaluation: 21:05 - Subjective Subjective: Patient today underwent transthoracic needle biopsy. Postoperatively patient doing well. Minimal cough. Otherwise doing well History: 45-year-old male with history of Crohn's disease, uncontrolled diabetes, chronic colitis, cholelithiasis. Patient has a chronic erythema noted some. Episodes of cellulitis in the past. Vital signs reviewed No neck vein distention noted Chest good air entry bilaterally, no wheezing or rales noted CVS regular heart sound, no murmur noted Abdomen soft, nontender. Bilateral pedal edema [employer] alert awake oriented 3, no functional neurological deficit Patient's labs reviewed No fever in the last 24 hours lung biopsy showing evidence of pneumonia, pneumonia process. No evidence of organisms, or cancer noted Assessment and recommendation: 45-year-old male with a history of Crohn's disease uncontrolled diabetes and chronic colitis cholelithiasis chronic erythema nodosum. Patient admitted with fever, unknown origin. Bilateral diffuse infiltrative changes in the lungs. Atypical pneumonia likely. Responding to treatment. We'll continue the current treatment. infectious disease follow-up about the antibiotic Objective - Vital Signs/Intake and Output Vital Signs (last 24 hours): Temp Pulse Resp BP Pulse Ox 98.3 F 88 18 120/72 97 03/23/17 15:30 03/23/17 17:30 03/23/17 15:30 03/23/17 17:47 03/23/17 15:30 Intake and Output: 03/23/17 03/24/17 18:59 06:59 Intake Total 950 Balance 950 - Medications Medications: Current Medications Acetaminophen (Tylenol 325mg Tab) 650 mg PO Q6 PRN PRN Reason: Fever >100.4 F Last Admin: 03/21/17 06:40 Dose: 650 mg Famotidine (Pepcid) 20 mg PO DAILY [facility] Last Admin: 03/23/17 09:14 Dose: 20 mg Micafungin Sodium 100 mg/ (Sodium Chloride) 100 mls @ 100 mls/hr IV Q24H [facility] Last Admin: 03/23/17 09:16 Dose: 100 mls/hr Linezolid (Zyvox 600mg/300ml D5w) 600 mg in 300 mls @ 200 mls/hr IVPB Q12 [facility] Last Admin: 03/23/17 09:16 Dose: 200 mls/hr Aztreonam 2 gm/ Sodium (Chloride) 100 mls @ 100 mls/hr IVPB Q8H [facility] Last Admin: 03/23/17 17:51 Dose: 100 mls/hr Insulin Glargine (Lantus) 50 unit SC HS [facility] Last Admin: 03/22/17 22:10 Dose: Not Given Insulin Human Regular (Novolin R) 0 unit SC ACHS [facility] PRN Reason: Protocol Last Admin: 03/23/17 17:45 Dose: 8 unit Metoprolol Tartrate (Lopressor) 25 mg PO Q6 [facility] Last Admin: 03/23/17 17:47 Dose: 25 mg Multivitamins (Hexavitamin) 1 tab PO DAILY [facility] Last Admin: 03/23/17 09:14 Dose: 1 tab Oxycodone/Acetaminophen (Percocet 5/325 Mg Tab) 1 tab PO Q4H PRN PRN Reason: Pain, moderate (4-7) Stop: 03/26/17 21:05 Pregabalin (Lyrica) 75 mg PO BID [facility] Last Admin: 03/23/17 17:46 Dose: 75 mg Promethazine HCl (Phenergan Syrup) 6.25 mg PO Q6H [facility] Last Admin: 03/23/17 17:01 Dose: 6.25 mg Trimethoprim/Sulfamethoxazole (Bactrim Ds Tab) 1 tab PO BID [facility] Last Admin: 03/23/17 17:47 Dose: 1 tab - Labs Labs: 03/23/17 07:04 03/23/17 07:04 PT 11.3 SECONDS (9.7-12.2) 03/18/17 07:05 INR 1.0 03/18/17 07:05 APTT 34 SECONDS (21-34) 03/18/17 07:05
[2017-03-23] MEDS: (Lantus) Insulin Glargine, Recombinant SC SCH (21:26)
[2017-03-24] MEDS: Aztreonam 2 GM in Sodium Chloride 0.9% 100 ML IVPB SCH ×3 (01:42→17:45)
[2017-03-24] MEDS: Promethazine 6.25 MG/5 ML CUP PO SCH ×4 (03:55→21:52)
[2017-03-24 06:55] LABS: BASO # 0.1 K/uL (0.0-0.2); BASO % 0.4 % (0.0-2.0); EOS # 0.2 K/uL (0.0-0.7); EOS % 1.2 % (0.0-4.0); HEMATOCRIT 34.6 % (35.0-51.0); LYMPH # 1.4 K/uL (1.0-4.3); LYMPH % 7.4 % (20.0-40.0); MEAN CELL VOLUME 85.4 fL (80.0-94.0); MEAN CORPUSCULAR HEMOGLOBIN 27.4 pg (27.0-31.0); MEAN CORPUSCULAR HGB CONC 32.1 g/dL (33.0-37.0); MEAN PLATELET VOLUME 8.3 fL (7.2-11.7); MONO # 1.2 K/uL (0.0-0.8); MONO % 6.2 % (0.0-10.0); PLATELET COUNT 520 K/uL (130-400); RED CELL DISTRIBUTION WIDTH 13.4 % (11.5-14.5); WHITE BLOOD COUNT 18.8 K/uL (4.8-10.8)
[2017-03-24 07:01] LABS: POTASSIUM 4.3 mmol/L (3.6-5.2)
[2017-03-24 07:03] LABS: BILIRUBIN,TOTAL 0.5 mg/dL (0.2-1.3)
[2017-03-24 07:04] LABS: ALB/GLOB RATIO 0.6 (1.0-2.1); TOTAL PROTEIN 6.3 g/dL (6.3-8.3)
[2017-03-24] MEDS: (Novolin R) Insulin Human Regular 100 units/ml vial SC SCH ×4 (08:29→21:52)
[2017-03-24] MEDS ORDERED: Sodium Chloride 0.9% 1,000 ML IV SCH (08:30)
[2017-03-24 08:38] LABS: EOSINOPHIL 1 % (0-4); NEUTROPHIL 85 % (50-75); TOTAL CELLS COUNTED 100
[2017-03-24] MEDS: Micafungin 100 MG in Sodium Chloride 0.9% 100 ML IV SCH (10:00)
[2017-03-24] MEDS: Linezolid 600 mg in D5W 300 ml 600 MG/300 ML BAG IVPB SCH ×2 (10:00→21:51)
[2017-03-24] MEDS: Multiple Vitamins Tab PO SCH (10:51)
[2017-03-24] MEDS: Tmp-Smz 800 mg-160 mg DS Tab PO SCH ×2 (10:52→17:43)
--- NOTE | 2017-03-24 17:46 | CP.PCM.PN ---
Subjective - Date & Time of Evaluation Date of Evaluation: 03/24/17 Time of Evaluation: 07:00 - Subjective Subjective: afebrile on day 4 IV zyvox/azactam/ mycamine and bactrim all cultures neg thus far transthoracic bx pending 45-year-old male with a history of Crohn's disease uncontrolled diabetes and chronic colitis cholelithiasis chronic erythema nodosum. Patient admitted with fever, unknown origin. Bilateral diffuse infiltrative changes in the lungs.. Responding to treatment. Objective - Vital Signs/Intake and Output Vital Signs (last 24 hours): Temp Pulse Resp BP Pulse Ox 97.8 F 74 18 118/74 99 03/24/17 15:30 03/24/17 15:30 03/24/17 15:30 03/24/17 15:30 03/24/17 15:30 Intake and Output: 03/24/17 03/24/17 06:59 18:59 Intake Total 600 1250 Output Total 900 Balance -300 1250 - Medications Medications: Current Medications Acetaminophen (Tylenol 325mg Tab) 650 mg PO Q6 PRN PRN Reason: Fever >100.4 F Last Admin: 03/24/17 04:16 Dose: 650 mg Famotidine (Pepcid) 20 mg PO DAILY [facility] Last Admin: 03/24/17 10:51 Dose: 20 mg Micafungin Sodium 100 mg/ (Sodium Chloride) 100 mls @ 100 mls/hr IV Q24H [facility] Last Admin: 03/24/17 10:00 Dose: 100 mls/hr Linezolid (Zyvox 600mg/300ml D5w) 600 mg in 300 mls @ 200 mls/hr IVPB Q12 [facility] Last Admin: 03/24/17 10:00 Dose: 200 mls/hr Aztreonam 2 gm/ Sodium (Chloride) 100 mls @ 100 mls/hr IVPB Q8H [facility] Last Admin: 03/24/17 10:00 Dose: 100 mls/hr Sodium Chloride (Sodium Chloride 0.9%) 1,000 mls @ 100 mls/hr IV .Q10H [facility] Stop: 03/24/17 18:29 Last Admin: 03/24/17 13:27 Dose: 100 mls/hr Insulin Glargine (Lantus) 50 unit SC HS [facility] Last Admin: 03/23/17 21:26 Dose: Not Given Insulin Human Regular (Novolin R) 0 unit SC ACHS [facility] PRN Reason: Protocol Last Admin: 03/24/17 12:30 Dose: 2 unit Metoprolol Tartrate (Lopressor) 25 mg PO Q6 [facility] Last Admin: 03/24/17 13:00 Dose: 25 mg Multivitamins (Hexavitamin) 1 tab PO DAILY [facility] Last Admin: 03/24/17 10:51 Dose: 1 tab Pregabalin (Lyrica) 75 mg PO BID [facility] Last Admin: 03/24/17 10:50 Dose: 75 mg Promethazine HCl (Phenergan Syrup) 6.25 mg PO Q6H [facility] Last Admin: 03/24/17 10:50 Dose: 6.25 mg Tramadol HCl (Ultram) 50 mg PO TID [facility] Last Admin: 03/24/17 13:28 Dose: 50 mg Trimethoprim/Sulfamethoxazole (Bactrim Ds Tab) 1 tab PO BID [facility] Last Admin: 03/24/17 10:52 Dose: 1 tab - Labs Labs: 03/24/17 06:37 03/24/17 06:37 PT 11.3 SECONDS (9.7-12.2) 03/18/17 07:05 INR 1.0 03/18/17 07:05 APTT 34 SECONDS (21-34) 03/18/17 07:05 - Constitutional Appears: Non-toxic, Chronically Ill - Head Exam Head Exam: NORMOCEPHALIC - Eye Exam Eye Exam: PERRL. absent: Scleral icterus - ENT Exam ENT Exam: Mucous Membranes Dry - Neck Exam Neck Exam: absent: Lymphadenopathy - Respiratory Exam Respiratory Exam: Decreased Breath Sounds, Clear to Ausculation Bilateral - Cardiovascular Exam Cardiovascular Exam: REGULAR RHYTHM - GI/Abdominal Exam GI & Abdominal Exam: Distended Assessment and Plan (1) Acute renal insufficiency Status: Acute (2) Hyponatremia Status: Acute (3) Pneumonia Status: Acute (4) Diabetes mellitus Status: Acute (5) Fever Status: Acute (6) Pneumonia Status: Acute (7) Crohn's disease of colon Status: Chronic
[2017-03-24] MEDS: (Lantus) Insulin Glargine, Recombinant SC SCH (21:51)
--- NOTE | 2017-03-24 22:45 | CP.PCM.PN ---
Subjective - Date & Time of Evaluation Date of Evaluation: 03/24/17 Time of Evaluation: 22:45 - Subjective Subjective: some improvement in the symptoms noted. Clinically improving. Eating better. No diarrhea. Will continue the current treatment Objective - Vital Signs/Intake and Output Vital Signs (last 24 hours): Temp Pulse Resp BP Pulse Ox 97.8 F 74 18 118/74 99 03/24/17 15:30 03/24/17 15:30 03/24/17 15:30 03/24/17 17:44 03/24/17 15:30 Intake and Output: 03/24/17 03/25/17 18:59 06:59 Intake Total 1250 Output Total 900 Balance 1250 -900 - Medications Medications: Current Medications Acetaminophen (Tylenol 325mg Tab) 650 mg PO Q6 PRN PRN Reason: Fever >100.4 F Last Admin: 03/24/17 04:16 Dose: 650 mg Famotidine (Pepcid) 20 mg PO DAILY [facility] Last Admin: 03/24/17 10:51 Dose: 20 mg Micafungin Sodium 100 mg/ (Sodium Chloride) 100 mls @ 100 mls/hr IV Q24H [facility] Last Admin: 03/24/17 10:00 Dose: 100 mls/hr Linezolid (Zyvox 600mg/300ml D5w) 600 mg in 300 mls @ 200 mls/hr IVPB Q12 [facility] Last Admin: 03/24/17 21:51 Dose: 200 mls/hr Aztreonam 2 gm/ Sodium (Chloride) 100 mls @ 100 mls/hr IVPB Q8H [facility] Last Admin: 03/24/17 17:45 Dose: 100 mls/hr Insulin Glargine (Lantus) 50 unit SC HS [facility] Last Admin: 03/24/17 21:51 Dose: 50 unit Insulin Human Regular (Novolin R) 0 unit SC ACHS [facility] PRN Reason: Protocol Last Admin: 03/24/17 21:52 Dose: Not Given Metoprolol Tartrate (Lopressor) 25 mg PO Q6 [facility] Last Admin: 03/24/17 17:44 Dose: 25 mg Multivitamins (Hexavitamin) 1 tab PO DAILY [facility] Last Admin: 03/24/17 10:51 Dose: 1 tab Pregabalin (Lyrica) 75 mg PO BID [facility] Last Admin: 03/24/17 17:44 Dose: 75 mg Promethazine HCl (Phenergan Syrup) 6.25 mg PO Q6H [facility] Last Admin: 03/24/17 21:52 Dose: 6.25 mg Tramadol HCl (Ultram) 50 mg PO TID [facility] Last Admin: 03/24/17 17:43 Dose: 50 mg - Labs Labs: 03/24/17 06:37 03/24/17 06:37 PT 11.3 SECONDS (9.7-12.2) 03/18/17 07:05 INR 1.0 03/18/17 07:05 APTT 34 SECONDS (21-34) 03/18/17 07:05
[2017-03-25] MEDS: Aztreonam 2 GM in Sodium Chloride 0.9% 100 ML IVPB SCH ×3 (01:32→18:17)
[2017-03-25] MEDS: Promethazine 6.25 MG/5 ML CUP PO SCH ×4 (04:13→22:05)
[2017-03-25] MEDS: (Novolin R) Insulin Human Regular 100 units/ml vial SC SCH ×4 (07:57→21:57)
[2017-03-25] MEDS: Micafungin 100 MG in Sodium Chloride 0.9% 100 ML IV SCH (10:57)
[2017-03-25] MEDS: Linezolid 600 mg in D5W 300 ml 600 MG/300 ML BAG IVPB SCH ×2 (10:57→22:04)
[2017-03-25] MEDS: Multiple Vitamins Tab PO SCH (10:59)
[2017-03-25 14:20] LABS: HEMATOCRIT 36.7 % (35.0-51.0); MEAN CELL VOLUME 85.2 fL (80.0-94.0); MEAN CORPUSCULAR HEMOGLOBIN 27.7 pg (27.0-31.0); MEAN CORPUSCULAR HGB CONC 32.5 g/dL (33.0-37.0); MEAN PLATELET VOLUME 7.8 fL (7.2-11.7); WHITE BLOOD COUNT 17.8 K/uL (4.8-10.8)
[2017-03-25 14:31] LABS: POTASSIUM 4.8 mmol/L (3.6-5.2)
[2017-03-25 14:35] LABS: CALCIUM 8.2 mg/dl (8.6-10.4)
--- NOTE | 2017-03-25 15:07 | CP.PCM.PN ---
Subjective - Date & Time of Evaluation Date of Evaluation: 03/25/17 Time of Evaluation: 08:00 - Subjective Subjective: DISCUSSED ON RUNDS IV RX TO CONT FOIR 7 DAYS MORE ALL BX/ CULTURES NEG THUS FAR Objective - Vital Signs/Intake and Output Vital Signs (last 24 hours): Temp Pulse Resp BP Pulse Ox 98.0 F 82 20 131/84 99 03/25/17 07:58 03/25/17 07:58 03/25/17 07:58 03/25/17 11:13 03/25/17 07:58 Intake and Output: 03/25/17 03/25/17 06:59 18:59 Output Total 1900 Balance -1900 - Medications Medications: Current Medications Acetaminophen (Tylenol 325mg Tab) 650 mg PO Q6 PRN PRN Reason: Fever >100.4 F Last Admin: 03/24/17 04:16 Dose: 650 mg Famotidine (Pepcid) 20 mg PO DAILY [facility] Last Admin: 03/25/17 10:59 Dose: 20 mg Micafungin Sodium 100 mg/ (Sodium Chloride) 100 mls @ 100 mls/hr IV Q24H [facility] Last Admin: 03/25/17 10:57 Dose: 100 mls/hr Linezolid (Zyvox 600mg/300ml D5w) 600 mg in 300 mls @ 200 mls/hr IVPB Q12 [facility] Last Admin: 03/25/17 10:57 Dose: 200 mls/hr Aztreonam 2 gm/ Sodium (Chloride) 100 mls @ 100 mls/hr IVPB Q8H [facility] Last Admin: 03/25/17 10:53 Dose: 100 mls/hr Insulin Glargine (Lantus) 50 unit SC HS [facility] Last Admin: 03/24/17 21:51 Dose: 50 unit Insulin Human Regular (Novolin R) 0 unit SC ACHS [facility] PRN Reason: Protocol Last Admin: 03/25/17 12:14 Dose: 6 unit Metoprolol Tartrate (Lopressor) 25 mg PO Q6 [facility] Last Admin: 03/25/17 11:13 Dose: 25 mg Multivitamins (Hexavitamin) 1 tab PO DAILY [facility] Last Admin: 03/25/17 10:59 Dose: 1 tab Pregabalin (Lyrica) 75 mg PO BID [facility] Last Admin: 03/25/17 10:59 Dose: 75 mg Promethazine HCl (Phenergan Syrup) 6.25 mg PO Q6H [facility] Last Admin: 03/25/17 11:00 Dose: 6.25 mg Tramadol HCl (Ultram) 50 mg PO TID [facility] Last Admin: 03/25/17 13:08 Dose: 50 mg - Labs Labs: 03/25/17 14:17 03/25/17 14:17 PT 11.3 SECONDS (9.7-12.2) 03/18/17 07:05 INR 1.0 03/18/17 07:05 APTT 34 SECONDS (21-34) 03/18/17 07:05 - Constitutional Appears: Non-toxic, Chronically Ill - Head Exam Head Exam: NORMOCEPHALIC - Eye Exam Eye Exam: absent: Scleral icterus - ENT Exam ENT Exam: Mucous Membranes Dry, Normal External Ear Exam - Neck Exam Neck Exam: absent: Lymphadenopathy - Respiratory Exam Respiratory Exam: Decreased Breath Sounds - Cardiovascular Exam Cardiovascular Exam: REGULAR RHYTHM - GI/Abdominal Exam GI & Abdominal Exam: Distended, Soft Assessment and Plan (1) Acute renal insufficiency Status: Acute (2) Hyponatremia Status: Acute (3) Pneumonia Status: Acute (4) Diabetes mellitus Status: Acute (5) Fever Status: Acute (6) Pneumonia Status: Acute (7) Crohn's disease of colon Status: Chronic
[2017-03-25] MEDS: (Lantus) Insulin Glargine, Recombinant SC SCH (22:05)
[2017-03-26] MEDS: Aztreonam 2 GM in Sodium Chloride 0.9% 100 ML IVPB SCH ×3 (01:22→17:33)
[2017-03-26] MEDS: Promethazine 6.25 MG/5 ML CUP PO SCH ×4 (04:31→22:06)
[2017-03-26] MEDS: (Novolin R) Insulin Human Regular 100 units/ml vial SC SCH ×4 (08:00→21:38)
[2017-03-26] MEDS: Multiple Vitamins Tab PO SCH (09:18)
[2017-03-26] MEDS: Micafungin 100 MG in Sodium Chloride 0.9% 100 ML IV SCH (09:19)
[2017-03-26] MEDS: Linezolid 600 mg in D5W 300 ml 600 MG/300 ML BAG IVPB SCH ×2 (09:23→22:07)
--- NOTE | 2017-03-26 18:31 | CP.PCM.PN ---
Subjective - Date & Time of Evaluation Date of Evaluation: 03/26/17 Time of Evaluation: 18:31 - Subjective Subjective: clinically stable. Patient will need antibiotic. Continue the current treatment Objective - Vital Signs/Intake and Output Vital Signs (last 24 hours): Temp Pulse Resp BP Pulse Ox 98.1 F 79 20 106/70 98 03/26/17 15:36 03/26/17 15:36 03/26/17 15:36 03/26/17 17:34 03/26/17 15:36 - Medications Medications: Current Medications Famotidine (Pepcid) 20 mg PO DAILY [facility] Last Admin: 03/26/17 09:18 Dose: 20 mg Micafungin Sodium 100 mg/ (Sodium Chloride) 100 mls @ 100 mls/hr IV Q24H [facility] Last Admin: 03/26/17 09:19 Dose: 100 mls/hr Linezolid (Zyvox 600mg/300ml D5w) 600 mg in 300 mls @ 200 mls/hr IVPB Q12 [facility] Last Admin: 03/26/17 09:23 Dose: 200 mls/hr Aztreonam 2 gm/ Sodium (Chloride) 100 mls @ 100 mls/hr IVPB Q8H [facility] Last Admin: 03/26/17 17:33 Dose: 100 mls/hr Insulin Glargine (Lantus) 50 unit SC HS [facility] Last Admin: 03/25/17 22:05 Dose: 50 unit Insulin Human Regular (Novolin R) 0 unit SC ACHS [facility] PRN Reason: Protocol Last Admin: 03/26/17 17:10 Dose: Not Given Metoprolol Tartrate (Lopressor) 25 mg PO Q6 [facility] Last Admin: 03/26/17 17:34 Dose: 25 mg Multivitamins (Hexavitamin) 1 tab PO DAILY [facility] Last Admin: 03/26/17 09:18 Dose: 1 tab Pregabalin (Lyrica) 75 mg PO BID [facility] Last Admin: 03/26/17 17:35 Dose: 75 mg Promethazine HCl (Phenergan Syrup) 6.25 mg PO Q6H [facility] Last Admin: 03/26/17 16:42 Dose: 6.25 mg Tramadol HCl (Ultram) 50 mg PO TID [facility] Last Admin: 03/26/17 17:35 Dose: 50 mg - Labs Labs: 03/25/17 14:17 03/25/17 14:17 PT 11.3 SECONDS (9.7-12.2) 03/18/17 07:05 INR 1.0 03/18/17 07:05 APTT 34 SECONDS (21-34) 03/18/17 07:05
[2017-03-26] MEDS: (Lantus) Insulin Glargine, Recombinant SC SCH (22:05)
[2017-03-27] MEDS: Aztreonam 2 GM in Sodium Chloride 0.9% 100 ML IVPB SCH ×3 (02:14→17:47)
[2017-03-27] MEDS: Promethazine 6.25 MG/5 ML CUP PO SCH ×4 (04:06→21:31)
[2017-03-27] MEDS: (Novolin R) Insulin Human Regular 100 units/ml vial SC SCH ×4 (07:50→22:00)
[2017-03-27] MEDS: Micafungin 100 MG in Sodium Chloride 0.9% 100 ML IV SCH (09:15)
[2017-03-27] MEDS: Multiple Vitamins Tab PO SCH (09:17)
[2017-03-27] MEDS: Linezolid 600 mg in D5W 300 ml 600 MG/300 ML BAG IVPB SCH ×2 (10:39→21:30)
--- NOTE | 2017-03-27 16:21 | CP.PCM.PN ---
Subjective - Date & Time of Evaluation Date of Evaluation: 03/27/17 Time of Evaluation: 07:00 - Subjective Subjective: afeb on zyvox/azactam all cultures so far negative Objective - Vital Signs/Intake and Output Vital Signs (last 24 hours): Temp Pulse Resp BP Pulse Ox 97.6 F 83 19 116/73 99 03/27/17 15:08 03/27/17 15:08 03/27/17 15:08 03/27/17 15:08 03/27/17 15:08 Intake and Output: 03/27/17 03/27/17 06:59 18:59 Output Total 650 Balance -650 - Medications Medications: Current Medications Famotidine (Pepcid) 20 mg PO DAILY [facility] Last Admin: 03/27/17 09:17 Dose: 20 mg Linezolid (Zyvox 600mg/300ml D5w) 600 mg in 300 mls @ 200 mls/hr IVPB Q12 [facility] Last Admin: 03/27/17 10:39 Dose: 200 mls/hr Aztreonam 2 gm/ Sodium (Chloride) 100 mls @ 100 mls/hr IVPB Q8H [facility] Last Admin: 03/27/17 09:16 Dose: 100 mls/hr Insulin Glargine (Lantus) 50 unit SC HS [facility] Last Admin: 03/26/17 22:05 Dose: Not Given Insulin Human Regular (Novolin R) 0 unit SC ACHS [facility] PRN Reason: Protocol Last Admin: 03/27/17 12:11 Dose: 2 unit Metoprolol Tartrate (Lopressor) 25 mg PO Q6 [facility] Last Admin: 03/27/17 12:11 Dose: 25 mg Multivitamins (Hexavitamin) 1 tab PO DAILY [facility] Last Admin: 03/27/17 09:17 Dose: 1 tab Pregabalin (Lyrica) 75 mg PO BID [facility] Last Admin: 03/27/17 09:17 Dose: 75 mg Promethazine HCl (Phenergan Syrup) 6.25 mg PO Q6H [facility] Last Admin: 03/27/17 10:43 Dose: 6.25 mg Tramadol HCl (Ultram) 50 mg PO TID [facility] Last Admin: 03/27/17 14:10 Dose: 50 mg - Labs Labs: 03/25/17 14:17 03/25/17 14:17 PT 11.3 SECONDS (9.7-12.2) 03/18/17 07:05 INR 1.0 03/18/17 07:05 APTT 34 SECONDS (21-34) 03/18/17 07:05 - Constitutional Appears: Non-toxic, Chronically Ill - Head Exam Head Exam: NORMOCEPHALIC - Eye Exam Eye Exam: absent: Scleral icterus - ENT Exam ENT Exam: Mucous Membranes Dry, Normal External Ear Exam - Neck Exam Neck Exam: absent: Lymphadenopathy - Respiratory Exam Respiratory Exam: Decreased Breath Sounds - Cardiovascular Exam Cardiovascular Exam: REGULAR RHYTHM - GI/Abdominal Exam GI & Abdominal Exam: Distended, Soft - Rectal Exam Rectal Exam: Deferred - Exam Exam: NORMAL INSPECTION - Extremities Exam Extremities Exam: absent: Calf Tenderness, Pedal Edema - Back Exam Back Exam: absent: CVA tenderness (L), CVA tenderness (R) - Neurological Exam Neurological Exam: Alert, Awake, Oriented x3 - Psychiatric Exam Psychiatric exam: Normal Mood - Skin Skin Exam: Dry Assessment and Plan (1) Acute renal insufficiency Status: Acute (2) Hyponatremia Status: Acute (3) Pneumonia Status: Acute (4) Diabetes mellitus Status: Acute (5) Fever Status: Acute (6) Pneumonia Status: Acute (7) Crohn's disease of colon Status: Chronic - Assessment and Plan (Free Text) Assessment: follow up cxr cont iv antibiotics
[2017-03-27] MEDS: (Lantus) Insulin Glargine, Recombinant SC SCH (22:00)
[2017-03-28] MEDS: Aztreonam 2 GM in Sodium Chloride 0.9% 100 ML IVPB SCH ×3 (01:51→17:40)
[2017-03-28] MEDS: Promethazine 6.25 MG/5 ML CUP PO SCH ×4 (04:47→22:15)
[2017-03-28] MEDS: (Novolin R) Insulin Human Regular 100 units/ml vial SC SCH ×4 (08:28→21:49)
[2017-03-28] MEDS: Multiple Vitamins Tab PO SCH (10:20)
[2017-03-28] MEDS: Linezolid 600 mg in D5W 300 ml 600 MG/300 ML BAG IVPB SCH ×2 (10:29→22:15)
--- NOTE | 2017-03-28 12:30 | CP.PCM.PN ---
Subjective - Date & Time of Evaluation Date of Evaluation: 03/28/17 Time of Evaluation: 08:00 - Subjective Subjective: afeb on zyvox/azactam all cultures so far negative follow up cxr pending Objective - Vital Signs/Intake and Output Vital Signs (last 24 hours): Temp Pulse Resp BP Pulse Ox 98.1 F 76 17 121/72 100 03/28/17 07:05 03/28/17 07:05 03/28/17 07:05 03/28/17 12:28 03/28/17 07:05 - Medications Medications: Current Medications Linezolid (Zyvox 600mg/300ml D5w) 600 mg in 300 mls @ 200 mls/hr IVPB Q12 [facility] Last Admin: 03/28/17 10:29 Dose: 200 mls/hr Aztreonam 2 gm/ Sodium (Chloride) 100 mls @ 100 mls/hr IVPB Q8H [facility] Last Admin: 03/28/17 10:20 Dose: 100 mls/hr Insulin Glargine (Lantus) 50 unit SC HS [facility] Last Admin: 03/27/17 22:00 Dose: Not Given Insulin Human Regular (Novolin R) 0 unit SC ACHS [facility] PRN Reason: Protocol Last Admin: 03/28/17 12:27 Dose: 2 unit Metoprolol Tartrate (Lopressor) 25 mg PO Q6 [facility] Last Admin: 03/28/17 12:28 Dose: 25 mg Multivitamins (Hexavitamin) 1 tab PO DAILY [facility] Last Admin: 03/28/17 10:20 Dose: 1 tab Pregabalin (Lyrica) 75 mg PO BID [facility] Last Admin: 03/28/17 10:20 Dose: 75 mg Promethazine HCl (Phenergan Syrup) 6.25 mg PO Q6H [facility] Last Admin: 03/28/17 10:20 Dose: 6.25 mg Tramadol HCl (Ultram) 50 mg PO TID [facility] Last Admin: 03/28/17 10:20 Dose: 50 mg - Labs Labs: 03/25/17 14:17 03/25/17 14:17 PT 11.3 SECONDS (9.7-12.2) 03/18/17 07:05 INR 1.0 03/18/17 07:05 APTT 34 SECONDS (21-34) 03/18/17 07:05 - Constitutional Appears: Non-toxic, Chronically Ill - Head Exam Head Exam: NORMOCEPHALIC - Eye Exam Eye Exam: PERRL. absent: Scleral icterus - ENT Exam ENT Exam: Mucous Membranes Dry - Neck Exam Neck Exam: absent: Lymphadenopathy - Cardiovascular Exam Cardiovascular Exam: REGULAR RHYTHM, +S1, +S2 - GI/Abdominal Exam GI & Abdominal Exam: Distended, Soft Assessment and Plan (1) Acute renal insufficiency Status: Acute (2) Hyponatremia Status: Acute (3) Pneumonia Status: Acute (4) Diabetes mellitus Status: Acute (5) Fever Status: Acute (6) Pneumonia Status: Acute (7) Crohn's disease of colon Status: Chronic
--- NOTE | 2017-03-28 17:46 | CP.PCM.PN ---
Subjective - Date & Time of Evaluation Date of Evaluation: 03/28/17 Time of Evaluation: 17:46 - Subjective Subjective: on antibiotic as per infectious disease. Patient will need more antibiotic intravenIntravenously. Patient possibly will be discharged to rehabitation Objective - Vital Signs/Intake and Output Vital Signs (last 24 hours): Temp Pulse Resp BP Pulse Ox 98.1 F 85 17 133/77 100 03/28/17 07:05 03/28/17 12:03 03/28/17 07:05 03/28/17 17:39 03/28/17 07:05 Intake and Output: 03/28/17 03/28/17 06:59 18:59 Intake Total 750 Balance 750 - Medications Medications: Current Medications Linezolid (Zyvox 600mg/300ml D5w) 600 mg in 300 mls @ 200 mls/hr IVPB Q12 [facility] Last Admin: 03/28/17 10:29 Dose: 200 mls/hr Aztreonam 2 gm/ Sodium (Chloride) 100 mls @ 100 mls/hr IVPB Q8H [facility] Last Admin: 03/28/17 17:40 Dose: 100 mls/hr Insulin Glargine (Lantus) 50 unit SC HS [facility] Last Admin: 03/27/17 22:00 Dose: Not Given Insulin Human Regular (Novolin R) 0 unit SC ACHS [facility] PRN Reason: Protocol Last Admin: 03/28/17 17:40 Dose: 8 unit Metoprolol Tartrate (Lopressor) 25 mg PO Q6 [facility] Last Admin: 03/28/17 17:39 Dose: 25 mg Multivitamins (Hexavitamin) 1 tab PO DAILY [facility] Last Admin: 03/28/17 10:20 Dose: 1 tab Pregabalin (Lyrica) 75 mg PO BID [facility] Last Admin: 03/28/17 17:39 Dose: 75 mg Promethazine HCl (Phenergan Syrup) 6.25 mg PO Q6H [facility] Last Admin: 03/28/17 17:39 Dose: 6.25 mg Tramadol HCl (Ultram) 50 mg PO TID [facility] Last Admin: 03/28/17 17:39 Dose: 50 mg - Labs Labs: 03/25/17 14:17 03/25/17 14:17 PT 11.3 SECONDS (9.7-12.2) 03/18/17 07:05 INR 1.0 03/18/17 07:05 APTT 34 SECONDS (21-34) 03/18/17 07:05
[2017-03-28] MEDS: (Lantus) Insulin Glargine, Recombinant SC SCH (22:15)
[2017-03-29] MEDS: Aztreonam 2 GM in Sodium Chloride 0.9% 100 ML IVPB SCH ×2 (01:27→10:00)
[2017-03-29] MEDS: Promethazine 6.25 MG/5 ML CUP PO SCH ×2 (04:15→10:30)
[2017-03-29] MEDS: (Novolin R) Insulin Human Regular 100 units/ml vial SC SCH ×2 (07:30→12:19)
[2017-03-29] MEDS: Linezolid 600 mg in D5W 300 ml 600 MG/300 ML BAG IVPB SCH (10:00)
[2017-03-29] MEDS: Multiple Vitamins Tab PO SCH (10:30)
[2017-03-29 11:53] LABS: BASO # 0.2 K/uL (0.0-0.2); BASO % 1.5 % (0.0-2.0); EOS # 0.2 K/uL (0.0-0.7); EOS % 1.1 % (0.0-4.0); HEMATOCRIT 38.5 % (35.0-51.0); LYMPH # 1.2 K/uL (1.0-4.3); LYMPH % 8.5 % (20.0-40.0); MEAN CELL VOLUME 85.3 fL (80.0-94.0); MEAN CORPUSCULAR HEMOGLOBIN 28.1 pg (27.0-31.0); MEAN CORPUSCULAR HGB CONC 32.9 g/dL (33.0-37.0); MEAN PLATELET VOLUME 7.3 fL (7.2-11.7); MONO # 0.4 K/uL (0.0-0.8); RED CELL DISTRIBUTION WIDTH 13.3 % (11.5-14.5)
[2017-03-29 11:54] LABS: PLATELET COUNT 396 K/uL (130-400)
[2017-03-29 12:02] LABS: CHLORIDE 102 mmol/L (98-107); POTASSIUM 3.8 mmol/L (3.6-5.2); SODIUM 135 mmol/L (132-148)
[2017-03-29 12:04] LABS: BILIRUBIN,TOTAL 0.5 mg/dL (0.2-1.3); CARBON DIOXIDE 22 mmol/L (22-30); GFR AFRICAN-AMERICAN > 60
[2017-03-29 12:05] LABS: ALB/GLOB RATIO 0.7 (1.0-2.1); ALKALINE PHOSPHATASE 706 U/L (38-126); ALT/SGPT 36 U/L (21-72); AST/SGOT 34 U/L (17-59); BLOOD UREA NITROGEN 14 mg/dL (9-20); CALCIUM 8.6 mg/dl (8.6-10.4); GLUCOSE,RANDOM 167 mg/dL (75-110); TOTAL PROTEIN 6.8 g/dL (6.3-8.3)
[2017-03-29 12:11] LABS: EOSINOPHIL 2 % (0-4); NEUTROPHIL 86 % (50-75); TOTAL CELLS COUNTED 100
--- NOTE | 2017-03-29 13:24 | CP.PCM.PN ---
Subjective - Date & Time of Evaluation Date of Evaluation: 03/29/17 Time of Evaluation: 13:24 - Subjective Subjective: PT TO BE D/C TODAY TO [facility] AND PLAN OK PER DR. MOYER. CLIENT DEVELOPMENT DIRECTOR DISCUSSED ABX DURATION W DR. YUNG, AND PT TO CONTINUE: AZACTAM 2 GM IV Q8 HOURS X4 MORE DAYS (START 03/30/17 AND LAST DOSE TO BE GIVEN ON 04/02/17) AND ZYVOX 600 MG IV Q12 HOURS X4 MORE DAYS (START 03/30/17 AND LAST DOSE TO BE GIVEN ON 04/02/17). DR. YUNG WILL F/U WITH PT AT [facility]. TO BE D/C WITH PICC LINE. WILL F/U WITH DR. MOYER IN THE OFFICE ONCE D/C FORM [facility] (NEXT WEEK). NO FURTHER ORDERS. SW TO ARRANGE TRANSPORT. Objective - Vital Signs/Intake and Output Vital Signs (last 24 hours): Temp Pulse Resp BP Pulse Ox 97.9 F 72 18 121/83 99 03/29/17 08:03 03/29/17 08:03 03/29/17 08:03 03/29/17 11:17 03/28/17 23:40 Intake and Output: 03/29/17 03/29/17 06:59 18:59 Output Total 1000 Balance -1000 - Medications Medications: Current Medications Linezolid (Zyvox 600mg/300ml D5w) 600 mg in 300 mls @ 200 mls/hr IVPB Q12 [facility] Last Admin: 03/29/17 10:00 Dose: 200 mls/hr Aztreonam 2 gm/ Sodium (Chloride) 100 mls @ 100 mls/hr IVPB Q8H [facility] Last Admin: 03/29/17 10:00 Dose: 100 mls/hr Insulin Glargine (Lantus) 50 unit SC HS [facility] Last Admin: 03/28/17 22:15 Dose: 50 unit Insulin Human Regular (Novolin R) 0 unit SC ACHS [facility] PRN Reason: Protocol Last Admin: 03/29/17 12:19 Dose: 2 unit Metoprolol Tartrate (Lopressor) 25 mg PO Q6 [facility] Last Admin: 03/29/17 11:17 Dose: 25 mg Multivitamins (Hexavitamin) 1 tab PO DAILY [facility] Last Admin: 03/29/17 10:30 Dose: 1 tab Pregabalin (Lyrica) 75 mg PO BID [facility] Last Admin: 03/29/17 10:30 Dose: 75 mg Promethazine HCl (Phenergan Syrup) 6.25 mg PO Q6H [facility] Last Admin: 03/29/17 10:30 Dose: 6.25 mg Tramadol HCl (Ultram) 50 mg PO TID [facility] Last Admin: 03/29/17 13:14 Dose: 50 mg - Labs Labs: 03/29/17 11:49 03/29/17 11:49 PT 11.3 SECONDS (9.7-12.2) 03/18/17 07:05 INR 1.0 03/18/17 07:05 APTT 34 SECONDS (21-34) 03/18/17 07:05
[2017-03-29 16:48] VITALS: BP 137/78; PULSE 81; RESP 20; TEMP 97.4; O2SAT 98
--- NOTE | 2017-04-06 20:55 | OP ---
PROCEDURE DATE: 03/18/2017 PROCEDURE: Fiberoptic bronchoscopy with bronchoalveolar lavage. Biopsy was not done because the patient is on Plavix. SURGEON: Pepe Bui MD DESCRIPTION OF PROCEDURE: After obtaining consent from the patient explaining risks and benefits, the bronchoscopic procedure was done. After the bronchoscope was passed from the left nostril into the throat, the main yudelka was bronchoscope was passed into the trachea after instilling lidocaine. There was endobronchial lesions seen on the right and left side. Bronchoalveolar lavage done from the left upper lobe and right lower lobe. No complications noted. The patient tolerated the procedure well. Pepe Bui MD
--- NOTE | 2017-04-08 15:46 | CP.PCM.DIS ---
Provider - Provider Date of Admission: 03/11/17 15:12 Attending physician: Alessandra Moyer MD Time Spent in preparation of Discharge (in minutes): 45 Hospital Course - Lab Results Lab Results: Micro Results 03/18/17 15:00 Lung Fungal Culture - Preliminary NO FUNGUS GROWTH IN 2 WEEKS. 03/22/17 12:10 Lung Gram Stain - Final 03/22/17 12:10 Lung Tissue Culture - Final No growth. 03/19/17 11:30 Blood Blood Culture - Final NO GROWTH AFTER 5 DAYS 03/19/17 11:30 Blood Gram Stain - Final TEST NOT PERFORMED 03/19/17 11:14 Blood Blood Culture - Final NO GROWTH AFTER 5 DAYS 03/19/17 11:14 Blood Gram Stain - Final TEST NOT PERFORMED 03/22/17 12:05 Stool Ova and Parasite Concentrate Exam - Final 03/20/17 Unknown Urine,Clean Catch Urine Culture - Final No Growth (<1,000 CFU/ML) 03/18/17 15:00 Bronchial Washings Bronchial Culture - Final No growth. 03/13/17 06:00 Sputum Gram Stain - Final 03/13/17 06:00 Sputum Sputum Culture - Final NORMAL ORAL MARIO 03/12/17 13:51 Sputum Gram Stain - Final 03/12/17 13:51 Sputum Sputum Culture - Final Yeast Species 03/11/17 15:40 Urine,Clean Catch Urine Culture - Final No Growth (<1,000 CFU/ML) Most Recent Lab Values WBC 14.0 K/uL (4.8-10.8) H 03/29/17 11:49 RBC 4.52 Mil/uL (4.40-5.90) 03/29/17 11:49 Hgb 12.7 g/dL (12.0-18.0) 03/29/17 11:49 Hct 38.5 % (35.0-51.0) 03/29/17 11:49 MCV 85.3 fL (80.0-94.0) 03/29/17 11:49 MCH 28.1 pg (27.0-31.0) 03/29/17 11:49 MCHC 32.9 g/dL (33.0-37.0) L 03/29/17 11:49 RDW 13.3 % (11.5-14.5) 03/29/17 11:49 Plt Count 396 K/uL (130-400) D 03/29/17 11:49 MPV 7.3 fL (7.2-11.7) 03/29/17 11:49 Neut % (Auto) 85.9 % (50.0-75.0) H 03/29/17 11:49 Lymph % (Auto) 8.5 % (20.0-40.0) L 03/29/17 11:49 [place] % (Auto) 3.0 % (0.0-10.0) 03/29/17 11:49 Eos % (Auto) 1.1 % (0.0-4.0) 03/29/17 11:49 Baso % (Auto) 1.5 % (0.0-2.0) 03/29/17 11:49 Neut # 12.0 K/uL (1.8-7.0) H 03/29/17 11:49 Lymph # 1.2 K/uL (1.0-4.3) 03/29/17 11:49 [place] # 0.4 K/uL (0.0-0.8) 03/29/17 11:49 Eos # 0.2 K/uL (0.0-0.7) 03/29/17 11:49 Baso # 0.2 K/uL (0.0-0.2) 03/29/17 11:49 Neutrophils % (Manual) 86 % (50-75) H 03/29/17 11:49 Band Neutrophils % 2 % (0-2) 03/16/17 07:17 Lymphocytes % (Manual) 9 % (20-40) L 03/29/17 11:49 Monocytes % (Manual) 3 % (0-10) 03/29/17 11:49 Eosinophils % (Manual) 2 % (0-4) 03/29/17 11:49 Platelet Estimate Normal (NORMAL) 03/29/17 11:49 RBC Morphology Normal 03/29/17 11:49 Hypochromasia (manual) Slight 03/21/17 07:07 Poikilocytosis (manual Slight 03/21/17 07:07 Anisocytosis (manual) Slight 03/21/17 07:07 ESR 123 mm/hr (0-15) H 03/20/17 19:28 LAP Score 209 (20-180) H 03/16/17 07:17 PT 11.3 SECONDS (9.7-12.2) 03/18/17 07:05 INR 1.0 03/18/17 07:05 APTT 34 SECONDS (21-34) 03/18/17 07:05 pO2 59 mm/Hg (30-55) H 03/11/17 14:39 VBG pH 7.43 (7.32-7.43) 03/11/17 14:39 VBG pCO2 26 mmHg (40-60) L 03/11/17 14:39 VBG HCO3 20.5 mmol/L 03/11/17 14:39 VBG Total CO2 18.1 mmol/L (22-28) L 03/11/17 14:39 VBG O2 Sat (Calc) 94.2 % (40-65) H 03/11/17 14:39 VBG Base Excess -5.4 mmol/L (0.0-2.0) L 03/11/17 14:39 VBG Potassium 2.0 mmol/L (3.6-5.2) L* 03/11/17 14:39 Sodium 140.0 mmol/l (132-148) 03/11/17 14:39 Chloride 111.0 mmol/L (98-107) H 03/11/17 14:39 Glucose 191 mg/dl (75-110) H 03/11/17 14:39 Lactate 1.0 mmol/L (0.7-2.1) 03/11/17 14:39 Crit Value Called To Sachi mathews rn 03/11/17 14:39 Crit Value Called By Frances 03/11/17 14:39 Crit Value Read Back Y 03/11/17 14:39 Blood Gas Notified Time 1444 03/11/17 14:39 Sodium 135 mmol/L (132-148) 03/29/17 11:49 Potassium 3.8 mmol/L (3.6-5.2) 03/29/17 11:49 Chloride 102 mmol/L (98-107) 03/29/17 11:49 Carbon Dioxide 22 mmol/L (22-30) 03/29/17 11:49 Anion Gap 14 (10-20) 03/29/17 11:49 BUN 14 mg/dL (9-20) 03/29/17 11:49 Creatinine 1.4 MG/DL (0.8-1.5) 03/29/17 11:49 Est GFR ( Amer) > 60 03/29/17 11:49 Est GFR (Non-Af Amer) 55 03/29/17 11:49 POC Glucose (mg/dL) 168 mg/dL (65-110) H 03/29/17 11:22 Random Glucose 167 mg/dL (75-110) H 03/29/17 11:49 Hemoglobin A1c 12.0 % (4.2-6.5) H D 03/14/17 19:55 Calcium 8.6 mg/dl (8.6-10.4) 03/29/17 11:49 Phosphorus 3.2 mg/dL (2.5-4.5) 03/21/17 07:07 Magnesium 1.6 mg/dL (1.6-2.3) 03/21/17 07:07 Total Bilirubin 0.5 mg/dL (0.2-1.3) 03/29/17 11:49 GGT 1093 U/L (8-78) H 03/19/17 06:33 AST 34 U/L (17-59) 03/29/17 11:49 ALT 36 U/L (21-72) 03/29/17 11:49 Alkaline Phosphatase 706 U/L (38-126) H 03/29/17 11:49 Ammonia < 9 umol/L (9-33) L 03/16/17 07:15 Lactate Dehydrogenase 488 U/L (313-618) 03/19/17 11:14 Total Creatine Kinase 294 U/L (55-170) H 03/16/17 07:15 C-React Prot High Sens > 15.00 mg/L (1.00-3.00) H 03/21/17 07:07 Total Protein 6.8 g/dL (6.3-8.3) 03/29/17 11:49 Albumin 2.8 g/dL (3.5-5.0) L 03/29/17 11:49 Globulin 4.0 gm/dL (2.2-3.9) H 03/29/17 11:49 Albumin/Globulin Ratio 0.7 (1.0-2.1) L 03/29/17 11:49 Carcinoembryonic Ag 1.7 ng/mL (0-3.0) 03/21/17 07:07 CA 19-9 Antigen 10.4 U/mL (0-37) 03/21/17 07:07 CA 125 Antigen 271 U/mL (0-35) H 03/21/17 07:07 Vitamin B12 991 pg/mL (239-931) H 03/14/17 19:55 Folate > 20.0 ng/mL 03/14/17 19:55 Free T4 1.89 ng/dL (0.78-2.19) 03/14/17 19:55 TSH 3rd Generation 0.41 mIU/L (0.46-4.68) L 03/14/17 19:55 Prolactin 5.1 ng/mL (3.7-17.9) 03/14/17 19:55 Venous Blood Potassium 2.0 mmol/L (3.6-5.2) L* 03/11/17 14:39 Urine Color Straw (YELLOW) 03/20/17 06:15 Urine Clarity Clear (Clear) 03/20/17 06:15 Urine pH 6.0 (5.0-8.0) 03/20/17 06:15 Ur Specific [place] 1.006 (1.003-1.030) 03/20/17 06:15 Urine Protein 2+ mg/dL (NEGATIVE) H 03/20/17 06:15 Urine Glucose (UA) 2+ mg/dL (Normal) H 03/20/17 06:15 Urine Ketones Negative mg/dL (NEGATIVE) 03/20/17 06:15 Urine Blood 1+ (NEGATIVE) H 03/20/17 06:15 Urine Nitrate Negative (NEGATIVE) 03/20/17 06:15 Urine Bilirubin Negative (NEGATIVE) 03/20/17 06:15 Urine Urobilinogen Normal mg/dL (0.2-1.0) 03/20/17 06:15 Ur Leukocyte Esterase Neg Sarbjit/uL (Negative) 03/20/17 06:15 Urine WBC (Auto) < 1 /hpf (0-5) 03/20/17 06:15 Urine RBC (Auto) < 1 /hpf (0-3) 03/20/17 06:15 Ur Squamous Epith Cells 2 /hpf (0-5) 03/11/17 15:23 Vancomycin Peak 43.5 ug/mL (30.0-40.0) H 03/14/17 14:18 Vancomycin Trough 15.0 ug/mL (5.0-10.0) H 03/15/17 08:10 Absolute Lymphs (Flow) 1033 Cells/mcL (850-3900) 03/14/17 19:55 % CD4 Cells 59 Percent (30-61) 03/14/17 19:55 Absolute CD4 Count 613 Cells/mcL (490-1740) 03/14/17 19:55 T-Help/Suppress Ratio 2.27 Ratio (0.86-5.00) 03/14/17 19:55 % CD8 Cells 26 Percent (12-42) 03/14/17 19:55 Absolute CD8 Count 270 Cells/mcL (180-1170) 03/14/17 19:55 RPR Nonreactive (NONREACTIVE) 03/14/17 19:55 C. difficile Ag & Toxin Negative (NEGATIVE) 03/16/17 Unknown Cryptococcus Ag Screen Not detected (Not Detected) 03/13/17 17:27 Ur L.pneumophila Ag Negative (NEGATIVE) 03/13/17 06:00 Mycoplasma pneumon IgM Negative (NEGATIVE) 03/18/17 06:33 Aspergillus Source Whole blood 03/13/17 17:27 Aspergillus Antigen Not detected (Not Detected) 03/13/17 17:27 Aspergillus sp (PCR) Not detected 03/13/17 17:27 Aspergillus flavus Ab Negative (Negative) 03/13/17 17:27 Aspergill fumigatus Ab Negative (Negative) 03/13/17 17:27 Aspergillus fum #6 Ab Not detected 03/13/17 17:27 Aspergillus niger Ab Negative (Negative) 03/13/17 17:27 A. terreus (PCR) Not detected 03/13/17 17:27 Aspergillus Index Value 0.09 (<0.50) 03/13/17 17:27 TB Test (QFT) Nil 0.05 IU/mL 03/15/17 07:30 TB Test Mitogen - Nil 1.02 IU/mL 03/15/17 07:30 TB Test TB - Nil <0.00 IU/mL 03/15/17 07:30 TB Test (QFT) Negative (Negative) 03/15/17 07:30 - Hospital Course Hospital Course: Patient came to the emergency room with increasing symptoms of weakness, cough, and fever. History: 47-year-old male with history of Crohn's disease, rheumatoid arthritis, diabetes , hypertension, GI bleed, urinalysis, status post cataract surgery. Patient was recently almost to 2-3 weeks having increasing symptoms of cough. Shortness of breath. Also recurrent fever. And his blood sugar is increasingly elevated. Is currently not taking any other medications, except his pain medicines. Is not eating well, appetite is very poor, sweating noted, chills present. Review of systems: Headache noted, nausea noted, but no vomiting. Complaining of constipation. Blood sugar is stable. On examination: HEENT PERRLA, neck supple, right upper eyelid drooping noted, pulses present No thyromegaly was noted and no cervical adenopathy noted Bilateral wheezing in the lungs noted CVS regular heart sound, no murmur Abdomen soft and no organomegaly Extremities no pedal edema, no leg swelling, pedal pulses are good. BAGGING SALVAGER alert awake oriented x3 no functional neurological deficit. labs noted. Elevated WBC noted. Chest x-ray showing evidence of worsening bilateral pneumonia. Assessment/recommendation: 45-year-old male with history of Crohn's disease, rheumatoid arthritis, diabetes , history of GI bleed, and duodenal ulcer, recently had a status post cataract surgery. Patient is currently admitted with acute pneumonia. To start the patient antibiotic. Glucose control. Gastrointestinal evaluation on the possible infectious disease evaluation. DVT. GI prophylaxis. Will follow the patient During the stay in the hospital patient's a fever continues to be related. Was also having increasing symptoms of cough. Multiple antibiotic started, also less antifungal treatment. Repeated x-ray showing persistent pneumonia. Patient underwent a bronchoscopic evaluation. And also transthoracic needle biopsy. There is evidence of possible bronchopneumonia, mostly organizing. Cultures were pending at the time. But there was no bacteriology identified. Patient started on empirical IV antibiotic. Currently he is on antibiotic doing well at this time. Fever broke, clinically improving. He will be discharged to rehabitation. He will follow up as an outpatient. Discharge Exam - Head Exam Head Exam: NORMOCEPHALIC Discharge Plan - Follow Up Plan Condition: STABLE Disposition: HOME/ ROUTINE Instructions: Acute Kidney Injury (DC), Hyponatremia (DC), Pneumonia (DC) Additional Instructions: MAY PLACE UNDER THE HOSPITALIST SERVICE, DR. MOYER DOES NOT GO TO [facility]. DR. DEJESUS (ID) WILL CONTINUE TO FOLLOW MR. WONG FOR ANTIBIOTICS WHILE AT [facility]. CONTINUE MEDICATIONS PER THE MED REC. PER DR. DEJESUS, CONTINUE ANTIBIOTICS FOLLOWS: AZACTAM 2 GM IV Q8 HOURS X4 MORE DAYS (START 03/30/17 AND LAST DOSE TO BE GIVEN ON 04/02/17) AND ZYVOX 600 MG IV Q12 HOURS X4 MORE DAYS (START 03/30/17 AND LAST DOSE TO BE GIVEN ON 04/02/17). PICC LINE CARE PER FACILITY PROTOCOL. REMOVE AFTER ANTIBIOTIC DURATION HAS BEEN COMPLETED. MR. WONG IS TO FOLLOW UP WITH DR. MOYER IN THE OFFICE 1 WEEK AFTER DISCHARGE FROM TCU. Referrals: Lane Giordano MD [Staff Provider] - Andrew Rose MD [Staff Provider] - Anton Dejesus MD [Staff Provider] - Alessandra Moyer MD [Staff Provider] - Keshav Rosenthal MD [Staff Provider] -
== END 2017-03-29 17:30 | disposition home or self-care (01) | DRG 167 ==
LOC: C.ER 13:20 → C.9E 15:12 → C.3T 15:44 → C.6T 03-14 20:25
PROVIDERS: ADMIT Internal Medicine; ATTEND Internal Medicine
PROC: 02HV33Z Insertion of Infusion Device into Superior Vena Cava, Percutaneous Approach (ICD-10-PCS; principal; 2017-03-17 10:30)
PROC: 0B9G8ZX Drainage of Left Upper Lung Lobe, Via Natural or Artificial Opening Endoscopic, Diagnostic (ICD-10-PCS; 2017-03-18)
PROC: 0B9F8ZX Drainage of Right Lower Lung Lobe, Via Natural or Artificial Opening Endoscopic, Diagnostic (ICD-10-PCS; 2017-03-18)
PROC: 0BBK3ZX Excision of Right Lung, Percutaneous Approach, Diagnostic (ICD-10-PCS; 2017-03-22)
DX: J18.9 Pneumonia, unspecified organism (principal); K50.90 Crohn's disease, unspecified, without complications; B44.9 Aspergillosis, unspecified; K83.0 Cholangitis; E10.21 Type 1 diabetes mellitus with diabetic nephropathy; E87.1 Hypo-osmolality and hyponatremia; E10.65 Type 1 diabetes mellitus with hyperglycemia; G45.9 Transient cerebral ischemic attack, unspecified; D64.9 Anemia, unspecified; F17.210 Nicotine dependence, cigarettes, uncomplicated; M06.9 Rheumatoid arthritis, unspecified; Z90.49 Acquired absence of other specified parts of digestive tract; N28.9 Disorder of kidney and ureter, unspecified; L52 Erythema nodosum; Q63.1 Lobulated, fused and horseshoe kidney

== ENCOUNTER 2017-11-22 13:33 | Observation (INO) | payer OTHER ==
[2017-11-22 13:34] VITALS: BMI 26.9
--- NOTE | 2017-11-22 14:08 | C.PDOC ---
History Of Present Illness 47-year-old male with history of diabetes, hypertension, Crohn's disease presents to the emergency department with complaints of nausea and non-bloody/ non-bilious vomiting, diarrhea since Tuesday, after he ate Halal food. He notes mild associated weakness. Patient reports vomiting and diarrhea now resolved but pt notes he feels increasingly dehydrated and dizzy. Also c/o mild right sided back pain which started when he was vomiting. Pain is worse with movement. No trauma. Denies fevers, bladder/bowel incontinence, headache, chest pain, sob, or abdominal pain. Of note, patient taking Prednisone x9 days for "hearing loss" . Time Seen by Provider: 11/22/17 14:00 Chief Complaint (Nursing): GI Problem History Per: Patient History/Exam Limitations: no limitations Past Medical History Reviewed: Historical Data, Nursing Documentation, Vital Signs Vital Signs: Last Vital Signs Temp 98.2 F 11/24/17 00:00 Pulse 85 11/24/17 00:00 Resp 20 11/24/17 00:00 BP 153/84 H 11/24/17 00:00 Pulse Ox 100 11/24/17 03:03 - Medical History PMH: Anemia, Arthritis, Bronchitis (PULMONARY LESION ), Crohn's Disease, Diabetes, Fractures (LEFT ELBOW-CASTED ONLY), Gastritis, HTN, Pneumonia (NOVEMBER 2015), Rheumatoid Arthritis Denies: COPD, HIV, Chronic Kidney Disease Surgical History: Cholecystectomy, Endoscopy - [facility] Procedures CLOSED ENDOSCOPIC BIOPSY OF LARGE INTESTINE (03/31/13) DRAINAGE OF AMPULLA OF VATER, ENDO (09/20/15) DRAINAGE OF LEFT UPPER LUNG LOBE, ENDO, DIAGN (03/11/17) DRAINAGE OF RIGHT LOWER LOBE BRONCHUS, ENDO, DIAGN (11/12/15) DRAINAGE OF RIGHT LOWER LUNG LOBE, ENDO, DIAGN (03/11/17) EXCISION OF RIGHT LOWER LUNG LOBE, ENDO, DIAGN (11/12/15) EXCISION OF RIGHT LUNG, PERCUTANEOUS APPROACH, DIAGNOSTIC (03/11/17) EXERCISE TREATMENT OF MUSCULOSK WHOLE USING ASSIST EQUIPMENT (03/29/17) EXTRACTION OF ILIAC BONE MARROW, PERC APPROACH, DIAGN (11/12/15) INSERTION OF INFUSION DEV INTO SUP VENA CAVA, PERC APPROACH (03/11/17) INTRODUCE OF OTH ANTI-INFECT INTO PERIPH VEIN, PERC APPROACH (07/18/17) PACKED CELL TRANSFUSION (03/31/13) Family History: States: No Known Family Hx - Social History Hx Alcohol Use: No Hx Substance Use: No - Immunization History Hx Tetanus Toxoid Vaccination: No Hx Influenza Vaccination: No Hx Pneumococcal Vaccination: No Review Of Systems Constitutional: Negative for: Fever, Chills Cardiovascular: Negative for: Chest Pain Respiratory: Negative for: Cough, Shortness of Breath Gastrointestinal: Positive for: Nausea, Vomiting, Abdominal Pain Musculoskeletal: Positive for: Back Pain Skin: Negative for: Rash Neurological: Positive for: Weakness. Negative for: Headache, Dizziness Physical Exam - Physical Exam Appears: Non-toxic, No Acute Distress Skin: Warm, Dry, No Rash Head: Atraumatic, Normacephalic Eye(s): bilateral: Normal Inspection, EOMI Nose: Normal Oral Mucosa: Dry Lips: Normal Appearing Throat: Normal, No Erythema, No Exudate Neck: Normal, Normal ROM, Supple Chest: Symmetrical Cardiovascular: Rhythm Regular Respiratory: Normal Breath Sounds, No Accessory Muscle Use Gastrointestinal/Abdominal: Soft, No Tenderness, No Guarding, No Rebound Back: No CVA Tenderness, No Vertebral Tenderness, Paraspinal Tenderness (Mild, right-lower) Extremity: Normal ROM, No Deformity, No Swelling Neurological/Psych: Oriented x3, Normal Speech ED Course And Treatment - Laboratory Results Result Diagrams: 11/23/17 08:39 11/23/17 08:39 O2 Sat by Pulse Oximetry: 100 (RA) Pulse Ox Interpretation: Normal Progress Note: Bloodwork and UA ordered and reviewed. Case discussed with Dr Mao, agreed upon plan and treatment. CAse discussed with Dr Banks, agreed upon plan and admission. Disposition - Disposition Disposition: HOSPITALIZED Disposition Time: 16:00 Condition: STABLE - Clinical Impression Clinical Impression: Hyponatremia, Abnormal serum level of alkaline phosphatase, Diarrhea, Uncontrolled diabetes mellitus - Scribe Statement The provider has reviewed the documentation as recorded by the Scribe (Alonso Kwok) All medical record entries made by the Scribe were at my direction and personally dictated by me. I have reviewed the chart and agree that the record accurately reflects my personal performance of the history, physical exam, medical decision making, and the department course for this patient. I have also personally directed, reviewed, and agree with the discharge instructions and disposition.
[2017-11-22] MEDS ORDERED: Sodium Chloride 0.9% 1,000 ML IV ONE ×2 (14:19→15:20)
[2017-11-22] MEDS ORDERED: Sodium Chloride 0.9% 1,000 ML ONE ×2 (14:26→16:57)
[2017-11-22 14:29] LABS: BASO # 0.1 K/uL (0.0-0.2); BASO % 0.4 % (0.0-2.0); LYMPH % 5.8 % (20.0-40.0); MEAN CELL VOLUME 83.8 fL (80.0-94.0); MEAN CORPUSCULAR HEMOGLOBIN 28.8 pg (27.0-31.0); MEAN CORPUSCULAR HGB CONC 34.4 g/dL (33.0-37.0); MEAN PLATELET VOLUME 9.8 fL (7.2-11.7); MONO # 0.5 K/uL (0.0-0.8); NEUT # 14.8 K/uL (1.8-7.0); NEUT % 90.8 % (50.0-75.0); NRBC % 0.1 % (0.0-2.0); PLATELET COUNT 391 K/uL (130-400); RBC 5.55 Mil/uL (4.40-5.90); RED CELL DISTRIBUTION WIDTH 14.1 % (11.5-14.5); WHITE BLOOD COUNT 16.3 K/uL (4.8-10.8)
[2017-11-22 14:54] LABS: ALB/GLOB RATIO 0.9 (1.0-2.1)
[2017-11-22 15:17] LABS: LYMPHOCYTE 6 % (20-40); MONOCYTE 3 % (0-10); NEUTROPHIL 91 % (50-75); PLATELET ESTIMATE NORMAL (NORMAL); TOTAL CELLS COUNTED 100
[2017-11-22 15:37] LABS: SQUAMOUS EPITHIAL < 1 /hpf (0-5); URINE BILIRUBIN NEGATIVE (NEGATIVE); URINE BLOOD 1+ (NEGATIVE); URINE CLARITY Clear (Clear); URINE COLOR Yellow (YELLOW); URINE GLUCOSE (UA) 3+ mg/dL (Normal); URINE LEUKOCYTE ESTERASE NEG Leu/uL (Negative); URINE PROTEIN 3+ mg/dL (NEGATIVE); URINE UROBILINOGEN NORMAL mg/dL (0.2-1.0)
[2017-11-22] MEDS: (Novolin R) Insulin Human Regular 100 units/ml vial SC SCH ×2 (16:53→22:15)
[2017-11-22] MEDS: Sodium Chloride 0.9% 1,000 ML IV SCH (16:55)
[2017-11-22] MEDS ORDERED: (Novolin R) Insulin Human Regular 100 units/ml vial ONE (16:57)
--- NOTE | 2017-11-22 18:57 | US ---
HISTORY: Cholangitis COMPARISON: Abdominal ultrasound performed 03/16/17 TECHNIQUE: Sonographic evaluation of the abdomen. FINDINGS: LIVER: Measures 15.6 cm in sagittal dimension. Echogenic liver may be seen in setting of hepatic parenchymal disease or fatty infiltration. No focal hepatic mass identified. The main portal vein appears patent with normal directional flow. No intrahepatic bile duct dilatation. GALLBLADDER: Cholecystectomy. COMMON BILE DUCT: Measures 5 mm. PANCREAS: Not well visualized. RIGHT KIDNEY: Horseshoe configuration previously demonstrated cannot be adequately appreciated on the stomach. Measures approximately 9.9 x 4.6 x 4.6 cm. No obstructing calculus or hydronephrosis identified. LEFT KIDNEY: Horseshoe configuration previously demonstrated cannot be adequately appreciated on the stomach. Measures approximately 9.8 x 5.3 x 4.0 cm. No obstructing calculus or hydronephrosis identified. SPLEEN: Measures approximately 8.8 cm. AORTA: Limited views appear unremarkable. IVC: Limited views appear unremarkable. OTHER FINDINGS: None. IMPRESSION: Echogenic liver may be seen in setting of hepatic parenchymal disease or fatty infiltration. Cholecystectomy. Patient with history of horseshoe kidney which is not adequately visualized on this examination.
[2017-11-22] MEDS ORDERED: Iohexol 240 (50 ml) ONE (19:12)
--- NOTE | 2017-11-22 21:14 | CP.PCM.HP ---
History of Present Illness - History of Present Illness History of Present Illness: Patient came to the office today, complaining of abdominal pain and diarrhea. Patient stopped taking his immunosuppressive treatment. He was noted to have very highly elevated blood sugar. Dizziness and hypertension, suggested to go to the emergency room. History: 47-year-old male with history of Crohn's disease, rheumatoid arthritis, diabetes , hypertension, GI bleed, urinalysis, status post cataract surgery. Patient was recently hospitalized with acute pneumonia. Patient came to the office today, following a diarrheal episodes. Patient had hallal food 3 days ago, That night he started having multiple episodes of diarrheal episodes, watery stools, and associate with abdominal cramps and pain. He also had a nausea. One episode of vomiting yesterday noted. He continues to have a diarrheal episode yesterday. He is currently Feeling increasingly dehydrated, dizzy episodes. Patient , supposed to be taking immunosuppressive treatment for Crohn's colitis , patient stopped taking the medication for almost a month now. Patient also noted to have a very highly elevated blood sugar, more than 500. Because of these things I advised the patient to go to the emergency room. In the emergency room patient was noted to have a very highly elevated blood sugar, uncontrolled diabetes was noted. Past medical history: Crohn's colitis, rheumatoid arthritis, diabetes, hypertension, gastrointestinal bleeding, urinary tract infection, recurrent. Recently had a cataract surgery. Also, chronic pneumonia. Erythema nodosum. Surgical history: Cataract surgery. Allergy: No known drug allergy. Personal history: Nonsmoker. He denies any alcohol but occasionally drinks. Currently working full-time. Patient is somewhat noncompliance with medications. Family history noncontributory Review of systems: Headache noted, no visual symptoms. Abdominal pain noted. Multiple episodes of liquid diarrhea noted. Nausea present. Vomiting one time. Complaining of urinary discomfort On examination: HEENT PERRLA, neck supple, right upper eyelid drooping noted, pulses present No thyromegaly was noted and no cervical adenopathy noted Bilateral clear lungs CVS regular heart sound, no murmur Abdomen soft and no organomegaly Extremities no pedal edema, no leg swelling, pedal pulses are good. G[employer] alert awake oriented x3 no functional neurological deficit. Labs reviewed. Elevated WBC noted. Proteinuria noted. Elevated liver enzymes noted. The blood sugar is highly elevated. Low sodium level noted Mild, bicarbonate level on the low side. Assessment/recommendation: 45-year-old male with history of Crohn's disease, rheumatoid arthritis, diabetes , history of GI bleed, and duodenal ulcer, recently had a status post cataract surgery. Recently admitted with acute non- resolving pneumonia. Patient now admitted to the hospital with acute diarrheal episodes. Possible Crohn's colitis exacerbation. Patient also has very uncontrolled diabetes now associate it with the mild acidosis. Patient also has hyponatremia. Will get a GI evaluation. IV fluid. Gi DVT prophylaxis. Will resume immunosuppressive treatment. Liver enzymes is elevated, possibly secondary to Crohn's disease, and associated immune hepatitis. Present on Admission - Present on Admission Any Indicators Present on Admission: No History of DVT/PE: No History of Uncontrolled Diabetes: No Urinary Catheter: No Decubitus Ulcer Present: No Past Patient History - Infectious Disease Hx of Infectious Diseases: None - Tetanus Immunizations Tetanus Immunization: Unknown - Past Medical History & Family History Past Medical History?: Yes - Past Social History Smoking Status: Light Smoker < 10 Cigarettes Daily - CARDIAC Hx Hypertension: Yes - PULMONARY Hx Bronchitis: Yes (PULMONARY LESION ) Hx Chronic Obstructive Pulmonary Disease (COPD): No Hx Pneumonia: Yes (NOVEMBER 2015) - NEUROLOGICAL Hx Neurological Disorder: No - HEENT Hx HEENT Problems: Yes Hx Cataracts: Yes (RIGHT EYE) - RENAL Hx Chronic Kidney Disease: No - ENDOCRINE/METABOLIC Hx Endocrine Disorders: Yes Hx Diabetes Mellitus Type 1: Yes - HEMATOLOGICAL/ONCOLOGICAL Hx Anemia: Yes Hx Human Immunodeficiency Virus (HIV): No - INTEGUMENTARY Hx Dermatological Problems: Yes Hx Cellulitis: Yes - MUSCULOSKELETAL/RHEUMATOLOGICAL Hx Arthritis: Yes Hx Fractures: Yes (LEFT ELBOW-CASTED ONLY) Hx Rheumatoid Arthritis: Yes - GASTROINTESTINAL Hx Crohn's Disease: Yes Hx Gastritis: Yes - GENITOURINARY/GYNECOLOGICAL Hx Genitourinary Disorders: No - PSYCHIATRIC Hx Substance Use: No - SURGICAL HISTORY Hx Cholecystectomy: Yes - ANESTHESIA Hx Anesthesia: Yes Hx Anesthesia Reactions: No Hx Malignant Hyperthermia: No Meds Allergies/Adverse Reactions: Allergies Allergy/AdvReac Type Severity Reaction Status Date / Time No Known Allergies Allergy Verified 11/22/17 13:40 Results - Vital Signs Recent Vital Signs: Last Vital Signs Temp 98.6 F 11/22/17 21:06 Pulse 79 11/22/17 21:06 Resp 18 11/22/17 21:06 BP 155/83 H 11/22/17 21:06 Pulse Ox 97 11/22/17 21:06 - Labs Result Diagrams: 11/22/17 14:26 11/22/17 14:26 Labs: Laboratory Results - last 24 hr 11/22/17 11/22/17 11/22/17 14:26 14:26 15:24 WBC 16.3 H D RBC 5.55 Hgb 16.0 D Hct 46.5 MCV 83.8 MCH 28.8 MCHC 34.4 RDW 14.1 Plt Count 391 D MPV 9.8 Neut % (Auto) 90.8 H Lymph % (Auto) 5.8 L [place] % (Auto) 3.0 Eos % (Auto) 0.0 Baso % (Auto) 0.4 Neut # (Auto) 14.8 H Lymph # (Auto) 1.0 [place] # (Auto) 0.5 Eos # (Auto) 0.0 Baso # (Auto) 0.1 Neutrophils % (Manual) 91 H Lymphocytes % (Manual) 6 L Monocytes % (Manual) 3 Platelet Estimate Normal Sodium 124 L Potassium 4.4 Chloride 94 L Carbon Dioxide 19 L Anion Gap 15 BUN 57 H Creatinine 1.9 H Est GFR ( Amer) 46 Est GFR (Non-Af Amer) 38 POC Glucose (mg/dL) Random Glucose 544 H* D Calcium 8.0 L Total Bilirubin 0.6 AST 73 H D ALT 155 H D Alkaline Phosphatase 1014 H Total Protein 6.4 Albumin 3.0 L Globulin 3.3 Albumin/Globulin Ratio 0.9 L Lipase 202 Urine Color Yellow Urine Clarity Clear Urine pH 5.0 Ur Specific [place] 1.018 Urine Protein 3+ H Urine Glucose (UA) 3+ H Urine Ketones Negative Urine Blood 1+ H Urine Nitrate Negative Urine Bilirubin Negative Urine Urobilinogen Normal Ur Leukocyte Esterase Neg Urine WBC (Auto) 1 Urine RBC (Auto) 6 H Ur Squamous Epith Cells < 1 11/22/17 16:51 WBC RBC Hgb Hct MCV MCH MCHC RDW Plt Count MPV Neut % (Auto) Lymph % (Auto) [place] % (Auto) Eos % (Auto) Baso % (Auto) Neut # (Auto) Lymph # (Auto) [place] # (Auto) Eos # (Auto) Baso # (Auto) Neutrophils % (Manual) Lymphocytes % (Manual) Monocytes % (Manual) Platelet Estimate Sodium Potassium Chloride Carbon Dioxide Anion Gap BUN Creatinine Est GFR ( Amer) Est GFR (Non-Af Amer) POC Glucose (mg/dL) 459 H* Random Glucose Calcium Total Bilirubin AST ALT Alkaline Phosphatase Total Protein Albumin Globulin Albumin/Globulin Ratio Lipase Urine Color Urine Clarity Urine pH Ur Specific [place] Urine Protein Urine Glucose (UA) Urine Ketones Urine Blood Urine Nitrate Urine Bilirubin Urine Urobilinogen Ur Leukocyte Esterase Urine WBC (Auto) Urine RBC (Auto) Ur Squamous Epith Cells
--- NOTE | 2017-11-22 21:28 | CT ---
EXAM: CT Abdomen and Pelvis Without Intravenous Contrast CLINICAL HISTORY: 47 years old, male; Pain; Abdominal pain; Flank; Right lower quadrant (rlq); Additional info: Cholengitis TECHNIQUE: Axial computed tomography images of the abdomen and pelvis without intravenous contrast. All CT scans at this facility use one or more dose reduction techniques, viz.: automated exposure control; ma/kV adjustment per patient size (including targeted exams where dose is matched to indication; i.e. head); or iterative reconstruction technique. Coronal and sagittal reformatted images were created and reviewed. COMPARISON: CT - CHEST,ABDOMEN,PELVIS W/O CONT 2017-03-16 14:15 FINDINGS: Limitations: Lack of intravenous contrast. Lower thorax: Minimal atelectasis/scarring. ABDOMEN: Liver: Unremarkable. Gallbladder and bile ducts: Cholecystectomy. No significant ductal dilation. Pancreas: Unremarkable. No ductal dilation. Spleen: No splenomegaly. Adrenals: No mass. Kidneys and ureters: Horseshoe kidney. No renal calculi. No hydronephrosis. Stomach and bowel: No definite mural thickening. No obstruction. Appendix: Normal caliber. No inflammation. PELVIS: Bladder: Distended bladder. No stones. Reproductive: Mildly enlarged prostate. ABDOMEN and PELVIS: Intraperitoneal space: No significant fluid collection. No free air. Bones/joints: No acute fracture. Soft tissues: Tiny umbilical hernia containing fat. Vasculature: Atherosclerotic disease of internal iliac and branches, superficial femoral, profunda femoral arteries. No aneurysm. Lymph nodes: No pathologically enlarged lymph nodes. IMPRESSION: 1. No definite CT evidence of urolithiasis. 2. Incidental/non-acute findings are described above.
[2017-11-22] MEDS: (Lantus) Insulin Glargine, Recombinant SC SCH (22:14)
[2017-11-22] MEDS: metroNIDAZOLE IV 250mg/50 ml 250 MG/50 ML BAG IVPB SCH (22:18)
[2017-11-23] MEDS: Sodium Chloride 0.9% 1,000 ML IV SCH ×3 (04:30→21:29)
[2017-11-23] MEDS: metroNIDAZOLE IV 250mg/50 ml 250 MG/50 ML BAG IVPB SCH ×3 (05:31→21:07)
[2017-11-23] MEDS: (Novolin R) Insulin Human Regular 100 units/ml vial SC SCH ×7 (08:00→21:25)
[2017-11-23 08:53] LABS: BASO # 0.1 K/uL (0.0-0.2); BASO % 0.5 % (0.0-2.0); EOS # 0.1 K/uL (0.0-0.7); EOS % 0.6 % (0.0-4.0); LYMPH # 2.5 K/uL (1.0-4.3); LYMPH % 21.4 % (20.0-40.0); MEAN CELL VOLUME 84.3 fL (80.0-94.0); MEAN CORPUSCULAR HGB CONC 34.4 g/dL (33.0-37.0); MONO # 0.7 K/uL (0.0-0.8); MONO % 6.4 % (0.0-10.0); NEUT # 8.1 K/uL (1.8-7.0); NEUT % 71.1 % (50.0-75.0); RBC 4.81 Mil/uL (4.40-5.90); RED CELL DISTRIBUTION WIDTH 14.2 % (11.5-14.5); WHITE BLOOD COUNT 11.5 K/uL (4.8-10.8)
[2017-11-23 09:02] LABS: HEMOGLOBIN 13.9 g/dL (12.0-18.0)
[2017-11-23 09:07] LABS: ALB/GLOB RATIO 0.8 (1.0-2.1); ALBUMIN 2.3 g/dL (3.5-5.0); CALCIUM 7.3 mg/dl (8.6-10.4)
[2017-11-23] MEDS: (Lantus) Insulin Glargine, Recombinant SC SCH ×2 (09:42→21:16)
[2017-11-23] MEDS: Vitamin B Complex/Vitamin C Tab PO SCH (09:45)
[2017-11-23] MEDS ORDERED: Pneumococcal 23-Valent Vaccine IM ONE (10:00)
[2017-11-23] MEDS ORDERED: Influenza Vaccine 60 mcg/0.5 mL SYR (4YR UP) IM ONE (10:00)
--- NOTE | 2017-11-23 17:35 | CP.PCM.CON ---
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 Patient was diagnosed with Crohn's disease of the colon in 2008, and was initially treated with prednisone and sulfasalazine. Elevated liver enzymes were noted, and he was evaluated for sclerosing cholangitis with MRCP, which was interpreted as normal. The last colonoscopy was in 2012 and showed active ulceration in the sigmoid colon, descending colon, transverse colon, ascending colon and cecum. The rectum was spared. He has been maintained on azathioprine 50 mg since then. He had ERCP on 09/19/15 which showed papillary stenosis, and a small sphincterotomy was performed. He was hospitalized for pancreatitis after the procedure, and recovered uneventfully. A gastric emptying scan 11/19/2015 showed normal gastric emptying. A CT scan 2015 showed mild intrahepatic biliary ductal dilatation, S/P cholecystectomy, prominent CBD, mild wall thickening involving the left colon and rectum. He presented to the ER 03/11/2017 with a three week history of cough, fever and chills, and Chest CT showed nodules in the RUL, RML and RLL, as well as confluent airspace disease in both lower lobes and the lingula. MRCP did not show any significant biliary dilatation. He recently ran out of azathioprine and did not renew it. Patient presented to the ER with nausea and vomiting after eating rice and quach which he thought had spoiled. He denies having heartburn or difficulty swallowing. ER notes also mention diarrhea, though the bowel movements have been regular since admission. He denies having diarrhea or rectal bleeding. Review of Systems - Constitutional Constitutional: Headache. absent: Chills, Fever - Cardiovascular Cardiovascular: absent: Chest Pain - Gastrointestinal Gastrointestinal: Diarrhea, Nausea, Vomiting - Genitourinary Genitourinary: Dysuria Past Patient History - Infectious Disease Hx of Infectious Diseases: None - Tetanus Immunizations Tetanus Immunization: Unknown - Past Medical History & Family History Past Medical History?: Yes - Past Social History Smoking Status: Light Smoker < 10 Cigarettes Daily - CARDIAC Hx Hypertension: Yes - PULMONARY Hx Bronchitis: Yes (PULMONARY LESION ) Hx Chronic Obstructive Pulmonary Disease (COPD): No Hx Pneumonia: Yes (NOVEMBER 2015) - NEUROLOGICAL Hx Neurological Disorder: No - HEENT Hx HEENT Problems: Yes Hx Cataracts: Yes (RIGHT EYE) - RENAL Hx Chronic Kidney Disease: No - ENDOCRINE/METABOLIC Hx Endocrine Disorders: Yes Hx Diabetes Mellitus Type 1: Yes - HEMATOLOGICAL/ONCOLOGICAL Hx Anemia: Yes Hx Human Immunodeficiency Virus (HIV): No - INTEGUMENTARY Hx Dermatological Problems: Yes Hx Cellulitis: Yes - MUSCULOSKELETAL/RHEUMATOLOGICAL Hx Arthritis: Yes Hx Fractures: Yes (LEFT ELBOW-CASTED ONLY) Hx Rheumatoid Arthritis: Yes - GASTROINTESTINAL Hx Crohn's Disease: Yes Hx Gastritis: Yes - GENITOURINARY/GYNECOLOGICAL Hx Genitourinary Disorders: No - PSYCHIATRIC Hx Substance Use: No - SURGICAL HISTORY Hx Cholecystectomy: Yes - ANESTHESIA Hx Anesthesia: Yes Hx Anesthesia Reactions: No Hx Malignant Hyperthermia: No Meds Allergies/Adverse Reactions: Allergies Allergy/AdvReac Type Severity Reaction Status Date / Time No Known Allergies Allergy Verified 11/22/17 13:40 - Medications Medications: Current Medications Azathioprine (Imuran) 50 mg PO DAILY [facility] Last Admin: 11/23/17 09:46 Dose: 50 mg Heparin Sodium (Porcine) (Heparin) 5,000 units SC Q12 [facility] Last Admin: 11/23/17 09:45 Dose: 5,000 units Sodium Chloride (Sodium Chloride 0.9%) 1,000 mls @ 100 mls/hr IV .Q10H [facility] Last Admin: 11/23/17 12:03 Dose: Not Given Metronidazole (Flagyl) 250 mg in 50 mls @ 100 mls/hr IVPB Q8 [facility] PRN Reason: Protocol Stop: 11/27/17 22:01 Last Admin: 11/23/17 13:28 Dose: 100 mls/hr Insulin Glargine (Lantus) 25 unit SC Q12 [facility] Last Admin: 11/23/17 09:42 Dose: 25 units Insulin Human Regular (Novolin R) 0 unit SC ACHS [facility] PRN Reason: Protocol Last Admin: 11/23/17 16:50 Dose: 2 unit Insulin Human Regular (Novolin R) 5 unit SC AC [facility] Last Admin: 11/23/17 16:51 Dose: 5 unit Potassium Chloride (K-Dur 20 Meq Er Tab) 40 meq PO ONCE ONE Stop: 11/23/17 18:01 Pregabalin (Lyrica) 75 mg PO BID [facility] Last Admin: 11/23/17 09:45 Dose: 75 mg Vitamin B Complex/Vitamin C (Berocca) 1 tab PO DAILY [facility] Last Admin: 11/23/17 09:45 Dose: 1 tab Physical Exam - Constitutional Appears: No Acute Distress - Head Exam Head Exam: ATRAUMATIC, NORMOCEPHALIC - Eye Exam Eye Exam: EOMI, PERRL - Neck Exam Neck exam: Negative for: Lymphadenopathy, Thyromegaly - Respiratory Exam Respiratory Exam: NORMAL BREATHING PATTERN. absent: Rales, Rhonchi, Wheezes - GI/Abdominal Exam GI & Abdominal Exam: Normal Bowel Sounds, Soft. absent: Mass, Organomegaly, Tenderness - Rectal Exam Rectal Exam: Deferred - Extremities Exam Extremities exam: Negative for: calf tenderness, pedal edema Results - Vital Signs Recent Vital Signs: Last Vital Signs Temp 98.0 F 11/23/17 16:12 Pulse 90 11/23/17 16:12 Resp 18 11/23/17 16:12 BP 125/75 11/23/17 16:12 Pulse Ox 99 11/23/17 16:12 - Labs Result Diagrams: 11/24/17 07:10 11/24/17 07:10 Labs: Laboratory Results - last 24 hr 11/22/17 11/22/17 11/23/17 19:11 21:55 02:26 WBC RBC Hgb Hct MCV MCH MCHC RDW Plt Count MPV Neut % (Auto) Lymph % (Auto) [place] % (Auto) Eos % (Auto) Baso % (Auto) Neut # (Auto) Lymph # (Auto) [place] # (Auto) Eos # (Auto) Baso # (Auto) Sodium Potassium Chloride Carbon Dioxide Anion Gap BUN Creatinine Est GFR ( Amer) Est GFR (Non-Af Amer) POC Glucose (mg/dL) 367 H 382 H 243 H Random Glucose Calcium Total Bilirubin GGT AST ALT Alkaline Phosphatase Total Protein Albumin Globulin Albumin/Globulin Ratio 11/23/17 11/23/17 11/23/17 07:22 08:39 08:39 WBC 11.5 H RBC 4.81 Hgb 13.9 D Hct 40.5 MCV 84.3 MCH 29.0 MCHC 34.4 RDW 14.2 Plt Count 254 D MPV 9.0 Neut % (Auto) 71.1 Lymph % (Auto) 21.4 [place] % (Auto) 6.4 Eos % (Auto) 0.6 Baso % (Auto) 0.5 Neut # (Auto) 8.1 H Lymph # (Auto) 2.5 [place] # (Auto) 0.7 Eos # (Auto) 0.1 Baso # (Auto) 0.1 Sodium 133 Potassium 3.4 L Chloride 106 Carbon Dioxide 19 L Anion Gap 12 BUN 40 H Creatinine 1.6 H Est GFR ( Amer) 57 Est GFR (Non-Af Amer) 47 POC Glucose (mg/dL) 204 H Random Glucose 239 H Calcium 7.3 L Total Bilirubin 0.4 GGT 2613 H AST 157 H D ALT 155 H Alkaline Phosphatase 727 H D Total Protein 5.1 L Albumin 2.3 L D Globulin 2.8 Albumin/Globulin Ratio 0.8 L 11/23/17 11/23/17 11:19 16:15 WBC RBC Hgb Hct MCV MCH MCHC RDW Plt Count MPV Neut % (Auto) Lymph % (Auto) [place] % (Auto) Eos % (Auto) Baso % (Auto) Neut # (Auto) Lymph # (Auto) [place] # (Auto) Eos # (Auto) Baso # (Auto) Sodium Potassium Chloride Carbon Dioxide Anion Gap BUN Creatinine Est GFR ( Amer) Est GFR (Non-Af Amer) POC Glucose (mg/dL) 281 H 168 H Random Glucose Calcium Total Bilirubin GGT AST ALT Alkaline Phosphatase Total Protein Albumin Globulin Albumin/Globulin Ratio Assessment & Plan (1) Crohn's disease of colon Assessment and Plan: Patient's Crohn's disease has been quiescent, but the last colonosoopy was in 2012. He also has chronic elevation of the ALKP, suspected to be due to sclerosing cholangitis, though MRCP and ERCP have not documented this. 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 Will follow up in the office. Status: Chronic
[2017-11-23] MEDS ORDERED: Potassium Chloride 20 mEq ER Tab PO ONE (18:00)
[2017-11-23] MEDS ORDERED: (Lantus) Insulin Glargine, Recombinant SC ONE (21:17)
--- NOTE | 2017-11-23 21:40 | CP.PCM.PN ---
Subjective - Date & Time of Evaluation Date of Evaluation: 11/23/17 Time of Evaluation: 21:38 - Subjective Subjective: Patient today feeling better. The blood glucose level is better. Eating well. 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 Extremities no pedal edema [employer]IC[employer] alert awake oriented -3, no functional neurological deficit Today's labs. Liver enzymes improving Assessment/plan: 47-year-old male with history of diabetes, hypertension, proteinuria, cross colitis, sclerosing cholangitis. Patient started back on Imuran The blood glucose is improving. We'll discontinue the IV fluid. Possible discharge plan tomorrow. Objective - Vital Signs/Intake and Output Vital Signs (last 24 hours): Temp Pulse Resp BP Pulse Ox 98.0 F 90 18 125/75 99 11/23/17 16:12 11/23/17 16:12 11/23/17 16:12 11/23/17 16:12 11/23/17 16:12 Intake and Output: 11/23/17 11/24/17 18:59 06:59 Intake Total 1350 Balance 1350 - Medications Medications: Current Medications Azathioprine (Imuran) 50 mg PO DAILY [facility] Last Admin: 11/23/17 09:46 Dose: 50 mg Heparin Sodium (Porcine) (Heparin) 5,000 units SC Q12 [facility] Last Admin: 11/23/17 21:23 Dose: 5,000 units Sodium Chloride (Sodium Chloride 0.9%) 1,000 mls @ 100 mls/hr IV .Q10H [facility] Last Admin: 11/23/17 21:29 Dose: 100 mls/hr Metronidazole (Flagyl) 250 mg in 50 mls @ 100 mls/hr IVPB Q8 [facility] PRN Reason: Protocol Stop: 11/27/17 22:01 Last Admin: 11/23/17 21:07 Dose: 100 mls/hr Insulin Glargine (Lantus) 25 unit SC Q12 [facility] Last Admin: 11/23/17 21:16 Dose: Not Given Insulin Human Regular (Novolin R) 0 unit SC ACHS [facility] PRN Reason: Protocol Last Admin: 11/23/17 21:25 Dose: Not Given Insulin Human Regular (Novolin R) 5 unit SC AC [facility] Last Admin: 11/23/17 16:51 Dose: 5 unit Pregabalin (Lyrica) 75 mg PO BID [facility] Last Admin: 11/23/17 19:00 Dose: Not Given Vitamin B Complex/Vitamin C (Berocca) 1 tab PO DAILY [facility] Last Admin: 11/23/17 09:45 Dose: 1 tab - Labs Labs: 11/23/17 08:39 11/23/17 08:39
[2017-11-24 00:46] VITALS: RESP 20
[2017-11-24] MEDS: metroNIDAZOLE IV 250mg/50 ml 250 MG/50 ML BAG IVPB SCH ×2 (05:45→13:50)
[2017-11-24 07:21] LABS: BASO # 0.1 K/uL (0.0-0.2); BASO % 1.3 % (0.0-2.0); EOS # 0.1 K/uL (0.0-0.7); HEMOGLOBIN 13.2 g/dL (12.0-18.0); LYMPH # 2.5 K/uL (1.0-4.3); LYMPH % 24.7 % (20.0-40.0); MEAN CELL VOLUME 85.1 fL (80.0-94.0); MEAN CORPUSCULAR HEMOGLOBIN 29.7 pg (27.0-31.0); MEAN CORPUSCULAR HGB CONC 34.8 g/dL (33.0-37.0); MEAN PLATELET VOLUME 9.3 fL (7.2-11.7); MONO # 0.6 K/uL (0.0-0.8); MONO % 5.8 % (0.0-10.0); NEUT # 6.9 K/uL (1.8-7.0); NEUT % 67.2 % (50.0-75.0); NRBC % 0.2 % (0.0-2.0); RBC 4.46 Mil/uL (4.40-5.90); RED CELL DISTRIBUTION WIDTH 14.1 % (11.5-14.5); WHITE BLOOD COUNT 10.3 K/uL (4.8-10.8)
[2017-11-24 07:42] LABS: ALB/GLOB RATIO 0.7 (1.0-2.1); ALBUMIN 1.8 g/dL (3.5-5.0); ALT/SGPT 157 U/L (21-72); AST/SGOT 129 U/L (17-59); BLOOD UREA NITROGEN 32 mg/dL (9-20); CALCIUM 7.2 mg/dl (8.6-10.4); GFR AFRICAN-AMERICAN > 60; GFR NON-AFRICAN AMERICAN 55
[2017-11-24] MEDS: (Novolin R) Insulin Human Regular 100 units/ml vial SC SCH ×4 (08:15→12:46)
[2017-11-24] MEDS: Vitamin B Complex/Vitamin C Tab PO SCH (10:15)
[2017-11-24] MEDS: (Lantus) Insulin Glargine, Recombinant SC SCH (10:20)
--- NOTE | 2017-11-24 13:31 | CP.PCM.DIS ---
Provider - Provider Date of Admission: 11/22/17 16:32 Attending physician: Alessandra Banks MD Time Spent in preparation of Discharge (in minutes): 45 Hospital Course - Lab Results Lab Results: Micro Results 11/22/17 Unknown Urine Urine Culture - Final No Growth (<1,000 CFU/ML) Most Recent Lab Values WBC 10.3 K/uL (4.8-10.8) 11/24/17 07:10 RBC 4.46 Mil/uL (4.40-5.90) 11/24/17 07:10 Hgb 13.2 g/dL (12.0-18.0) 11/24/17 07:10 Hct 38.0 % (35.0-51.0) 11/24/17 07:10 MCV 85.1 fL (80.0-94.0) 11/24/17 07:10 MCH 29.7 pg (27.0-31.0) 11/24/17 07:10 MCHC 34.8 g/dL (33.0-37.0) 11/24/17 07:10 RDW 14.1 % (11.5-14.5) 11/24/17 07:10 Plt Count 194 K/uL (130-400) 11/24/17 07:10 MPV 9.3 fL (7.2-11.7) 11/24/17 07:10 Neut % (Auto) 67.2 % (50.0-75.0) 11/24/17 07:10 Lymph % (Auto) 24.7 % (20.0-40.0) 11/24/17 07:10 [place] % (Auto) 5.8 % (0.0-10.0) 11/24/17 07:10 Eos % (Auto) 1.0 % (0.0-4.0) 11/24/17 07:10 Baso % (Auto) 1.3 % (0.0-2.0) 11/24/17 07:10 Neut # (Auto) 6.9 K/uL (1.8-7.0) 11/24/17 07:10 Lymph # (Auto) 2.5 K/uL (1.0-4.3) 11/24/17 07:10 [place] # (Auto) 0.6 K/uL (0.0-0.8) 11/24/17 07:10 Eos # (Auto) 0.1 K/uL (0.0-0.7) 11/24/17 07:10 Baso # (Auto) 0.1 K/uL (0.0-0.2) 11/24/17 07:10 Neutrophils % (Manual) 91 % (50-75) H 11/22/17 14:26 Lymphocytes % (Manual) 6 % (20-40) L 11/22/17 14:26 Monocytes % (Manual) 3 % (0-10) 11/22/17 14:26 Platelet Estimate Normal (NORMAL) 11/22/17 14:26 Sodium 136 mmol/L (132-148) 11/24/17 07:10 Potassium 3.9 mmol/L (3.6-5.2) 11/24/17 07:10 Chloride 112 mmol/L (98-107) H 11/24/17 07:10 Carbon Dioxide 19 mmol/L (22-30) L 11/24/17 07:10 Anion Gap 9 (10-20) L 11/24/17 07:10 BUN 32 mg/dL (9-20) H 11/24/17 07:10 Creatinine 1.4 mg/dL (0.8-1.5) 11/24/17 07:10 Est GFR ( Amer) > 60 11/24/17 07:10 Est GFR (Non-Af Amer) 55 11/24/17 07:10 POC Glucose (mg/dL) 194 mg/dL (65-110) H 11/24/17 11:14 Random Glucose 185 mg/dL (75-110) H 11/24/17 07:10 Calcium 7.2 mg/dl (8.6-10.4) L 11/24/17 07:10 Total Bilirubin 0.2 mg/dL (0.2-1.3) 11/24/17 07:10 GGT 2613 U/L (8-78) H 11/23/17 08:39 AST 129 U/L (17-59) H 11/24/17 07:10 ALT 157 U/L (21-72) H 11/24/17 07:10 Alkaline Phosphatase 615 U/L (38-126) H 11/24/17 07:10 Total Protein 4.4 g/dL (6.3-8.3) L 11/24/17 07:10 Albumin 1.8 g/dL (3.5-5.0) L D 11/24/17 07:10 Globulin 2.6 gm/dL (2.2-3.9) 11/24/17 07:10 Albumin/Globulin Ratio 0.7 (1.0-2.1) L 11/24/17 07:10 Lipase 202 U/L (23-300) 11/22/17 14:26 Urine Color Yellow (YELLOW) 11/22/17 15:24 Urine Clarity Clear (Clear) 11/22/17 15:24 Urine pH 5.0 (5.0-8.0) 11/22/17 15:24 Ur Specific [place] 1.018 (1.003-1.030) 11/22/17 15:24 Urine Protein 3+ mg/dL (NEGATIVE) H 11/22/17 15:24 Urine Glucose (UA) 3+ mg/dL (Normal) H 11/22/17 15:24 Urine Ketones Negative mg/dL (NEGATIVE) 11/22/17 15:24 Urine Blood 1+ (NEGATIVE) H 11/22/17 15:24 Urine Nitrate Negative (NEGATIVE) 11/22/17 15:24 Urine Bilirubin Negative (NEGATIVE) 11/22/17 15:24 Urine Urobilinogen Normal mg/dL (0.2-1.0) 11/22/17 15:24 Ur Leukocyte Esterase Neg [place]/uL (Negative) 11/22/17 15:24 Urine WBC (Auto) 1 /hpf (0-5) 11/22/17 15:24 Urine RBC (Auto) 6 /hpf (0-3) H 11/22/17 15:24 Ur Squamous Epith Cells < 1 /hpf (0-5) 11/22/17 15:24 - Hospital Course Hospital Course: Patient came to the office today, complaining of abdominal pain and diarrhea. Patient stopped taking his immunosuppressive treatment. He was noted to have very highly elevated blood sugar. Dizziness and hypertension, suggested to go to the emergency room. History: 47-year-old male with history of Crohn's disease, rheumatoid arthritis, diabetes , hypertension, GI bleed, urinalysis, status post cataract surgery. Patient was recently hospitalized with acute pneumonia. Patient came to the office today, following a diarrheal episodes. Patient had hallal food 3 days ago, That night he started having multiple episodes of diarrheal episodes, watery stools, and associate with abdominal cramps and pain. He also had a nausea. One episode of vomiting yesterday noted. He continues to have a diarrheal episode yesterday. He is currently Feeling increasingly dehydrated, dizzy episodes. Patient , supposed to be taking immunosuppressive treatment for Crohn's colitis , patient stopped taking the medication for almost a month now. Patient also noted to have a very highly elevated blood sugar, more than 500. Because of these things I advised the patient to go to the emergency room. In the emergency room patient was noted to have a very highly elevated blood sugar, uncontrolled diabetes was noted. Past medical history: Crohn's colitis, rheumatoid arthritis, diabetes, hypertension, gastrointestinal bleeding, urinary tract infection, recurrent. Recently had a cataract surgery. Also, chronic pneumonia. Erythema nodosum. Surgical history: Cataract surgery. Allergy: No known drug allergy. Personal history: Nonsmoker. He denies any alcohol but occasionally drinks. Currently working full-time. Patient is somewhat noncompliance with medications. Family history noncontributory Review of systems: Headache noted, no visual symptoms. Abdominal pain noted. Multiple episodes of liquid diarrhea noted. Nausea present. Vomiting one time. Complaining of urinary discomfort On examination: HEENT PERRLA, neck supple, right upper eyelid drooping noted, pulses present No thyromegaly was noted and no cervical adenopathy noted Bilateral clear lungs CVS regular heart sound, no murmur Abdomen soft and no organomegaly Extremities no pedal edema, no leg swelling, pedal pulses are good. SUBJECT SCIENTIFIC RESEARCH alert awake oriented x3 no functional neurological deficit. Labs reviewed. Elevated WBC noted. Proteinuria noted. Elevated liver enzymes noted. The blood sugar is highly elevated. Low sodium level noted Mild, bicarbonate level on the low side. Assessment/recommendation: 45-year-old male with history of Crohn's disease, rheumatoid arthritis, diabetes , history of GI bleed, and duodenal ulcer, recently had a status post cataract surgery. Recently admitted with acute non- resolving pneumonia. Patient now admitted to the hospital with acute diarrheal episodes. Possible Crohn's colitis exacerbation. Patient also has very uncontrolled diabetes now associate it with the mild acidosis. Patient also has hyponatremia. Will get a GI evaluation. IV fluid. Gi DVT prophylaxis. Will resume immunosuppressive treatment. Liver enzymes is elevated, possibly secondary to Crohn's disease, and associated immune hepatitis. Course in the hospital: Patient hospitalized. Intravenous IV fluid, intravenous IV Flagyl started. GI evaluation called. Patient started on his medications. Improved markedly. Clinical stable. Patient's alkaline phosphatase also improving. The sugar is controlled well. I educated the patient is in the complaint with medications, diet controlled. Patient is a mild pedal edema, now. Patient stable, he can be discharged home today. I will follow the patient in one week. Diagnosis noncompensable medication. Acute sclerosing cholangitis exacerbation. Constant colitis. Uncontrolled diabetes. Food poisoning. Diabetic neuropathy. Cataract. Medications reviewed Discharge Plan - Follow Up Plan Condition: STABLE Disposition: HOME/ ROUTINE
--- NOTE | 2017-11-24 14:31 | CP.PCM.PN ---
Subjective - Date & Time of Evaluation Date of Evaluation: 11/24/17 Time of Evaluation: 13:40 - Subjective Subjective: Patient denies having nausea, vomiting, abdominal pain. He had two bowel movements since yesterday, one formed and one loose. Objective - Vital Signs/Intake and Output Vital Signs (last 24 hours): Temp Pulse Resp BP Pulse Ox 97.6 F 85 20 152/82 H 99 11/24/17 08:35 11/24/17 08:35 11/24/17 08:35 11/24/17 08:35 11/24/17 08:53 Intake and Output: 11/24/17 11/24/17 06:59 18:59 Intake Total 1450 Output Total 700 Balance 750 - Medications Medications: Current Medications Azathioprine (Imuran) 50 mg PO DAILY [facility] Last Admin: 11/24/17 10:14 Dose: 50 mg Heparin Sodium (Porcine) (Heparin) 5,000 units SC Q12 [facility] Last Admin: 11/24/17 10:15 Dose: 5,000 units Metronidazole (Flagyl) 250 mg in 50 mls @ 100 mls/hr IVPB Q8 [facility] PRN Reason: Protocol Stop: 11/27/17 22:01 Last Admin: 11/24/17 13:50 Dose: 100 mls/hr Insulin Glargine (Lantus) 25 unit SC Q12 [facility] Last Admin: 11/24/17 10:20 Dose: 25 units Insulin Human Regular (Novolin R) 0 unit SC ACHS [facility] PRN Reason: Protocol Last Admin: 11/24/17 12:45 Dose: 2 unit Insulin Human Regular (Novolin R) 5 unit SC AC [facility] Last Admin: 11/24/17 12:46 Dose: 5 unit Pregabalin (Lyrica) 75 mg PO BID [facility] Last Admin: 11/24/17 10:15 Dose: 75 mg Vitamin B Complex/Vitamin C (Berocca) 1 tab PO DAILY [facility] Last Admin: 11/24/17 10:15 Dose: 1 tab - Labs Labs: 11/24/17 07:10 11/24/17 07:10 - Constitutional Appears: No Acute Distress - Head Exam Head Exam: ATRAUMATIC, NORMOCEPHALIC - Eye Exam Eye Exam: EOMI, PERRL - Neck Exam Neck Exam: absent: Lymphadenopathy, Thyromegaly - Respiratory Exam Respiratory Exam: NORMAL BREATHING PATTERN. absent: Rales, Rhonchi, Wheezes - Cardiovascular Exam Cardiovascular Exam: REGULAR RHYTHM, +S1, +S2. absent: Gallop, Rubs, Murmur - GI/Abdominal Exam GI & Abdominal Exam: Soft, Normal Bowel Sounds. absent: Tenderness, Mass, Organomegaly - Rectal Exam Rectal Exam: Deferred - Extremities Exam Extremities Exam: absent: Calf Tenderness, Pedal Edema Assessment and Plan (1) Crohn's disease of colon Assessment & Plan: Patient had one loose stool today, without bleeding. Plan is to resume azathioprine and repeat MRCP as an out-patient. Patient should follow up in the office in one to two weeks. Status: Chronic
[2017-11-24 16:54] VITALS: BP 155/88; PULSE 86; TEMP 98.4; O2SAT 98
== END 2017-11-24 17:20 | disposition home or self-care (01) ==
LOC: C.ER 13:33 → C.3T 16:32 → C.9E 16:32
PROVIDERS: ADMIT Internal Medicine; ATTEND Internal Medicine
DX: E86.0 Dehydration (principal); E87.1 Hypo-osmolality and hyponatremia; E87.2 Acidosis; H91.90 Unspecified hearing loss, unspecified ear; I10 Essential (primary) hypertension; K50.10 Crohn's disease of large intestine without complications; E10.65 Type 1 diabetes mellitus with hyperglycemia
CPT/HCPCS: 36415; 74176; 76700; 80053; 81001; 82948; 82977; 83690; 85025; 87086; 96360; 96372; 99285; G0378; J1644; J7040; J7500

== ENCOUNTER 2018-02-18 00:01 | Inpatient (IN) | payer OTHER ==
[2018-02-18 00:01] VITALS: BMI 26.9
[2018-02-18] MEDS ORDERED: (Novolin R) Insulin Human Regular 100 units/ml vial IV ONE (00:22)
[2018-02-18] MEDS ORDERED: Sodium Chloride 0.9% 1,000 ML IV ONE ×2 (00:22→01:45)
[2018-02-18] MEDS ORDERED: (Novolin R) Insulin Human Regular 100 units/ml vial ONE ×3 (00:24→00:36)
[2018-02-18 00:51] LABS: BASO # 0.2 K/uL (0.0-0.2); BASO % 1.1 % (0.0-2.0); EOS # 0.2 K/uL (0.0-0.7); EOS % 0.9 % (0.0-4.0); HEMOGLOBIN 11.6 g/dL (12.0-18.0); LYMPH # 4.1 K/uL (1.0-4.3); LYMPH % 22.7 % (20.0-40.0); MEAN CELL VOLUME 80.9 fL (80.0-94.0); MEAN CORPUSCULAR HGB CONC 35.9 g/dL (33.0-37.0); MEAN PLATELET VOLUME 9.3 fL (7.2-11.7); MONO % 5.3 % (0.0-10.0); NEUT # 12.6 K/uL (1.8-7.0); RBC 4.01 Mil/uL (4.40-5.90); RED CELL DISTRIBUTION WIDTH 12.7 % (11.5-14.5); WHITE BLOOD COUNT 18.1 K/uL (4.8-10.8)
[2018-02-18 01:00] LABS: ALB/GLOB RATIO 0.9 (1.0-2.1); ALT/SGPT 62 U/L (21-72); AST/SGOT 65 U/L (17-59); BLOOD UREA NITROGEN 45 mg/dL (9-20); CALCIUM 8.4 mg/dl (8.6-10.4); GFR AFRICAN-AMERICAN 31; GFR NON-AFRICAN AMERICAN 26
[2018-02-18 01:08] LABS: ABG ALLEN TEST POS; ARTERIAL BLOOD GAS HCO3 25.2 mmol/L (21-28); ARTERIAL BLOOD GAS HEMOGLOBIN 10.5 g/dL (11.7-17.4); ARTERIAL BLOOD GAS O2 SAT 97.8 % (95-98); ARTERIAL BLOOD GAS PCO2 41 mm/Hg (35-45); ARTERIAL BLOOD GAS PO2 96 mm/Hg (80-100); ARTERIAL BLOOD GAS TCO2 26.7 mmol/L (22-28)
[2018-02-18 01:14] LABS: VENOUS BLOOD GAS BASE EXCESS -2.3 mmol/L (0.0-2.0); VENOUS BLOOD GAS PCO2 38 mmHg (40-60); VENOUS BLOOD GAS PO2 43 mm/Hg (30-55); VENOUS BLOOD PH 7.38 (7.32-7.43)
[2018-02-18] MEDS ORDERED: Potassium Chloride 10 mEq ER Tab PO STA (01:18)
--- NOTE | 2018-02-18 01:21 | C.PDOC ---
Time Seen by Provider: 02/18/18 00:19 Chief Complaint (Nursing): Substance Abuse Past Medical History Vital Signs: Last Vital Signs Temp 97.7 F 02/18/18 00:07 Pulse 76 02/18/18 00:07 Resp 16 02/18/18 00:07 BP 92/59 L 02/18/18 00:07 Pulse Ox 96 02/18/18 00:07 - Medical History PMH: Anemia, Arthritis, Bronchitis (PULMONARY LESION ), Crohn's Disease, Diabetes, Fractures (LEFT ELBOW-CASTED ONLY), Gastritis, HTN, Pneumonia (NOVEMBER 2015), Rheumatoid Arthritis Denies: COPD, HIV, Chronic Kidney Disease Surgical History: Cholecystectomy, Endoscopy - [facility] Procedures CLOSED ENDOSCOPIC BIOPSY OF LARGE INTESTINE (03/31/13) DRAINAGE OF AMPULLA OF VATER, ENDO (09/20/15) DRAINAGE OF LEFT UPPER LUNG LOBE, ENDO, DIAGN (03/11/17) DRAINAGE OF RIGHT LOWER LOBE BRONCHUS, ENDO, DIAGN (11/12/15) DRAINAGE OF RIGHT LOWER LUNG LOBE, ENDO, DIAGN (03/11/17) EXCISION OF RIGHT LOWER LUNG LOBE, ENDO, DIAGN (11/12/15) EXCISION OF RIGHT LUNG, PERCUTANEOUS APPROACH, DIAGNOSTIC (03/11/17) EXERCISE TREATMENT OF MUSCULOSK WHOLE USING ASSIST EQUIPMENT (03/29/17) EXTRACTION OF ILIAC BONE MARROW, PERC APPROACH, DIAGN (11/12/15) INSERTION OF INFUSION DEV INTO SUP VENA CAVA, PERC APPROACH (03/11/17) INTRODUCE OF OTH ANTI-INFECT INTO PERIPH VEIN, PERC APPROACH (03/29/17) PACKED CELL TRANSFUSION (03/31/13) Family History: States: Unknown Family Hx - Social History Hx Alcohol Use: No Hx Substance Use: No - Immunization History Hx Tetanus Toxoid Vaccination: No Hx Influenza Vaccination: No Hx Pneumococcal Vaccination: No ED Course And Treatment - Laboratory Results Result Diagrams: 02/18/18 00:44 02/18/18 00:44 O2 Sat by Pulse Oximetry: 96 Disposition - Disposition
[2018-02-18] MEDS ORDERED: Potassium Chloride 20 mEq ER Tab PO ONE (01:45)
--- NOTE | 2018-02-18 02:20 | C.PDOC ---
History Of Present Illness 47 year old male, whose PMHx includes hyperglycermia and hyponatremia, presents to the ED for evaluation of lethargy. Patient admits to poorly controlled Diabetes. Patient states he gave himself Insulin for the first time this week. Patient has not checked his finger stick level at home. He denies fever, chills. Time Seen by Provider: 02/18/18 00:19 Chief Complaint (Nursing): Substance Abuse History Per: Patient History/Exam Limitations: no limitations Onset/Duration Of Symptoms: Hrs, Waxing/Waning Current Diabetic Medications: Insulin Additional History Per: Patient Past Medical History Reviewed: Historical Data, Nursing Documentation, Vital Signs Vital Signs: Last Vital Signs Temp 97.7 F 02/18/18 00:07 Pulse 80 02/18/18 03:05 Resp 17 02/18/18 03:05 BP 127/61 02/18/18 03:05 Pulse Ox 96 02/18/18 03:31 - Medical History PMH: Anemia, Arthritis, Bronchitis (PULMONARY LESION ), Crohn's Disease, Diabetes, Fractures (LEFT ELBOW-CASTED ONLY), Gastritis, HTN, Pneumonia (NOVEMBER 2015), Rheumatoid Arthritis Denies: COPD, HIV, Chronic Kidney Disease Surgical History: Cholecystectomy, Endoscopy - [facility] Procedures CLOSED ENDOSCOPIC BIOPSY OF LARGE INTESTINE (03/31/13) DRAINAGE OF AMPULLA OF VATER, ENDO (09/20/15) DRAINAGE OF LEFT UPPER LUNG LOBE, ENDO, DIAGN (03/11/17) DRAINAGE OF RIGHT LOWER LOBE BRONCHUS, ENDO, DIAGN (11/12/15) DRAINAGE OF RIGHT LOWER LUNG LOBE, ENDO, DIAGN (03/11/17) EXCISION OF RIGHT LOWER LUNG LOBE, ENDO, DIAGN (11/12/15) EXCISION OF RIGHT LUNG, PERCUTANEOUS APPROACH, DIAGNOSTIC (03/11/17) EXERCISE TREATMENT OF MUSCULOSK WHOLE USING ASSIST EQUIPMENT (03/29/17) EXTRACTION OF ILIAC BONE MARROW, PERC APPROACH, DIAGN (11/12/15) INSERTION OF INFUSION DEV INTO SUP VENA CAVA, PERC APPROACH (03/11/17) INTRODUCE OF OTH ANTI-INFECT INTO PERIPH VEIN, PERC APPROACH (03/29/17) PACKED CELL TRANSFUSION (03/31/13) Family History: States: Unknown Family Hx - Social History Hx Alcohol Use: No Hx Substance Use: No - Immunization History Hx Tetanus Toxoid Vaccination: No Hx Influenza Vaccination: No Hx Pneumococcal Vaccination: No Review Of Systems Constitutional: Positive for: Other (poorly controlled diabetes, lethargy ). Negative for: Fever, Chills Physical Exam - Physical Exam Appears: Non-toxic, No Acute Distress, Other (lethargic ) Skin: Normal Color, Warm, Dry, Other (skin tenting note ) Head: Atraumatic, Normacephalic Eye(s): bilateral: Normal Inspection Oral Mucosa: Dry Neck: Supple Chest: Symmetrical, No Deformity, No Tenderness Cardiovascular: Rhythm Regular, No Murmur Respiratory: Normal Breath Sounds, No Rales, No Rhonchi, No Wheezing Extremity: Normal ROM, Capillary Refill (less than 2 seconds ) Neurological/Psych: Oriented x3, Normal Speech, Normal Cognition ED Course And Treatment - Laboratory Results Result Diagrams: 02/18/18 00:44 02/18/18 00:44 Lab Interpretation: Abnormal (+ hyponatremia, hypokalemia, elev glu, BHB neg.) ECG: Interpreted By Me ECG Rhythm: Sinus Rhythm ECG Interpretation: Normal Rate From EC O2 Sat by Pulse Oximetry: 96 Pulse Ox Interpretation: Normal - Radiology CXR: Interpreted by Me CXR Interpretation: Yes: No Acute Disease Progress Note: Bloodwork, urinalysis, CXR, EKG ordered and reviewed. Potassium Chloride PO, Novolin IV, Zofran IVP, and IV Fluids administered. Reevaluation Time: : Reassessment Condition: Improved (though remains symptomatic.) - Physician Consult Information Outcome Of Conversation: 0215: d/w Dr. Dyer, PMD, ok to admit. Medical Decision Making Medical Decision Making: poorly controlled DM, dehydration, and hyponatremia, h/o same. Leukocytosis is NOT L-shifted and prob more related to stress and demargination and NOT infection (no source noted) defer abx and recheck CBC when hydrated and glu controlled. Disposition Doctor Will See Patient In The: Hospital Counseled Patient/Family Regarding: Studies Performed, Diagnosis - Disposition Disposition: HOSPITALIZED Disposition Time: :19 Condition: FAIR - Clinical Impression Clinical Impression: Hyponatremia, Hyperglycemia, Dehydration - Scribe Statement The provider has reviewed the documentation as recorded by the Scribe (Radha Quintero) Provider Attestation: All medical record entries made by the Scribe were at my direction and personally dictated by me. I have reviewed the chart and agree that the record accurately reflects my personal performance of the history, physical exam, medical decision making, and the department course for this patient. I have also personally directed, reviewed, and agree with the discharge instructions and disposition.
[2018-02-18 05:10] VITALS: RESP 20
[2018-02-18 06:55] LABS: SQUAMOUS EPITHIAL < 1 /hpf (0-5); URINE BILIRUBIN NEGATIVE (NEGATIVE); URINE BLOOD 1+ (NEGATIVE); URINE CLARITY Clear (Clear); URINE COLOR Straw (YELLOW); URINE GLUCOSE (UA) 3+ mg/dL (Normal); URINE LEUKOCYTE ESTERASE NEG Leu/uL (Negative); URINE PROTEIN 2+ mg/dL (NEGATIVE); URINE UROBILINOGEN NORMAL mg/dL (0.2-1.0)
[2018-02-18 07:06] LABS: BARBITURATES, UR NEGATIVE (NEGATIVE); BENZODIAZEPINES, UR NEGATIVE (NEGATIVE); PHENCYCLIDINE, UR NEGATIVE (NEGATIVE)
[2018-02-18 07:07] LABS: OPIATES, UR POSITIVE (NEGATIVE)
[2018-02-18] MEDS: Sodium Chloride 0.9% 1,000 ML IV SCH ×2 (12:08→21:49)
[2018-02-18] MEDS: (Novolin R) Insulin Human Regular 100 units/ml vial SC SCH ×5 (12:35→21:48)
--- NOTE | 2018-02-18 13:48 | CP.PCM.HP ---
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 Patient was doing well. He was recently not taking his blood sugar medication, insulin especially for last 1 week. He claims that after taking insulin his legs getting cramping. Yesterday he had a few drinks, and also at the time he was smoking. He felt that the blood sugar was elevated. He took insulin. He was sitting on the chair. Suddenly the family members noticed that he was started shaking, eyes rolling upwards, and become unresponsive for at least 15-20 seconds. At the time he was also having profound vomiting. When he woke up after a few minutes he was not knowing that he was, and he was confused. He was brought into the emergency room by the family members immediately. In the emergency room she was talking to the emergency room doctor, complaining of not feeling well, and also is lethargic at that time. Past medical history: Hypertension, Crohn's disease, diabetes, gastritis, hypertension, history of anemia and recent pneumonia, rheumatoid arthritis. Allergies no known drug allergy Patient smoking on and off. He also using alcohol. Family history noncontributory Review of systems noted on the chart, 10 point evaluation noted On examination. Patient is comfortable not in any distress at this time, vital signs stable. Elevated blood sugar noted Chest good air entry bilaterally regular heart sounds nontender abdomen. Pedal edema positive Patient has multiple hyperpigmented skin lesions in the lower extremities noted Labs: WBC 18.1 hemoglobin 11.6 hematocrit 32.4 Platelet is 332 Chemistry sodium 126 blood glucose 407 alkaline phosphatase 589 urine toxicology positive for opiates. Chest x-ray nonspecific, right upper lung nodule like lesion noted Assessment/recommendation: 42-year-old male with multiple medical history, Crohn's disease, rheumatoid arthritis, cholangitis granulomatous Recently admitted with pneumonia. Now admitted to the hospital with uncontrolled diabetes, near syncopal attack, cause is unclear, sepsis, cannot be ruled out. Elevated WBC most likely related to steroid intake. We will get a CAT scan. Lung nodule, repeat CAT scan of the chest IV fluid. Glucose monitoring. Discussed with the patient. Neurological evaluation may be needed. Seizures cannot be ruled out. We will follow the patient Present on Admission - Present on Admission Any Indicators Present on Admission: No History of DVT/PE: No History of Uncontrolled Diabetes: No Urinary Catheter: No Decubitus Ulcer Present: No Past Patient History - Infectious Disease Hx of Infectious Diseases: None - Tetanus Immunizations Tetanus Immunization: Unknown - Past Medical History & Family History Past Medical History?: Yes - Past Social History Smoking Status: Heavy Smoker > 10 Cigarettes Daily - CARDIAC Hx Hypertension: Yes - PULMONARY Hx Bronchitis: Yes (PULMONARY LESION ) Hx Chronic Obstructive Pulmonary Disease (COPD): No Hx Pneumonia: Yes (NOVEMBER 2015) - NEUROLOGICAL Hx Neurological Disorder: No - HEENT Hx HEENT Problems: Yes Hx Cataracts: Yes (RIGHT EYE) - RENAL Hx Chronic Kidney Disease: No - ENDOCRINE/METABOLIC Hx Endocrine Disorders: Yes Hx Diabetes Mellitus Type 1: Yes - HEMATOLOGICAL/ONCOLOGICAL Hx Anemia: Yes Hx Human Immunodeficiency Virus (HIV): No - INTEGUMENTARY Hx Dermatological Problems: Yes Hx Cellulitis: Yes - MUSCULOSKELETAL/RHEUMATOLOGICAL Hx Falls: No - GASTROINTESTINAL Hx Crohn's Disease: Yes Hx Gastritis: Yes - GENITOURINARY/GYNECOLOGICAL Hx Genitourinary Disorders: No - PSYCHIATRIC Hx Substance Use: Yes (MJ) - SURGICAL HISTORY Hx Cholecystectomy: Yes - ANESTHESIA Hx Anesthesia: Yes Hx Anesthesia Reactions: No Hx Malignant Hyperthermia: No Meds Allergies/Adverse Reactions: Allergies Allergy/AdvReac Type Severity Reaction Status Date / Time No Known Allergies Allergy Verified 02/18/18 00:14 Results - Vital Signs Recent Vital Signs: Last Vital Signs Temp 98 F 02/18/18 12:33 Pulse 83 02/18/18 12:33 Resp 20 02/18/18 12:33 BP 152/77 H 02/18/18 12:33 Pulse Ox 100 02/18/18 12:33 - Labs Result Diagrams: 02/18/18 00:44 02/18/18 00:44 Labs: Laboratory Results - last 24 hr 02/18/18 02/18/18 02/18/18 00:14 00:44 00:44 WBC 18.1 H D RBC 4.01 L Hgb 11.6 L Hct 32.4 L MCV 80.9 D MCH 29.0 MCHC 35.9 RDW 12.7 Plt Count 332 MPV 9.3 Neut % (Auto) 70.0 Lymph % (Auto) 22.7 Harrison % (Auto) 5.3 Eos % (Auto) 0.9 Baso % (Auto) 1.1 Neut # (Auto) 12.6 H Lymph # (Auto) 4.1 Harrison # (Auto) 1.0 H Eos # (Auto) 0.2 Baso # (Auto) 0.2 Puncture Site pCO2 pO2 HCO3 ABG pH ABG Total CO2 ABG O2 Saturation ABG Base Excess ABG Hemoglobin ABG Carboxyhemoglobin POC ABG HHb (Measured) ABG Methemoglobin Robert Test VBG pH VBG pCO2 VBG HCO3 VBG Total CO2 VBG O2 Sat (Calc) VBG Base Excess VBG Potassium A-a O2 Difference Respiratory Index Hgb O2 Saturation Glucose Lactate Liter Flow FiO2 Crit Value Called To Crit Value Called By Crit Value Read Back Blood Gas Notified Time Sodium 126 L Potassium 3.1 L Chloride 92 L Carbon Dioxide 23 Anion Gap 14 BUN 45 H Creatinine 2.7 H Est GFR ( Amer) 31 Est GFR (Non-Af Amer) 26 POC Glucose (mg/dL) 407 H* Random Glucose 383 H Lactic Acid Calcium 8.4 L Total Bilirubin 0.1 L AST 65 H ALT 62 Alkaline Phosphatase 589 H Total Protein 6.3 Albumin 3.0 L Globulin 3.3 Albumin/Globulin Ratio 0.9 L Venous Blood Potassium Urine Color Urine Clarity Urine pH Ur Specific [place] Urine Protein Urine Glucose (UA) Urine Ketones Urine Blood Urine Nitrate Urine Bilirubin Urine Urobilinogen Ur Leukocyte Esterase Urine WBC (Auto) Ur Squamous Epith Cells Urine Opiates Screen Urine Methadone Screen Ur Barbiturates Screen Ur Phencyclidine Scrn Ur Amphetamines Screen U Benzodiazepines Scrn U Oth Cocaine Metabols U Cannabinoids Screen Alcohol, Quantitative < 10 B-Hydroxybutyrate 0.13 02/18/18 02/18/18 02/18/18 00:57 00:57 01:59 WBC RBC Hgb Hct MCV MCH MCHC RDW Plt Count MPV Neut % (Auto) Lymph % (Auto) Harrison % (Auto) Eos % (Auto) Baso % (Auto) Neut # (Auto) Lymph # (Auto) Harrison # (Auto) Eos # (Auto) Baso # (Auto) Puncture Site R rad pCO2 41 pO2 43 96 HCO3 25.2 ABG pH 7.40 ABG Total CO2 26.7 ABG O2 Saturation 97.8 ABG Base Excess 0.5 ABG Hemoglobin 10.5 L ABG Carboxyhemoglobin 4.4 H POC ABG HHb (Measured) 2.1 ABG Methemoglobin 0.4 Robert Test Pos VBG pH 7.38 VBG pCO2 38 L VBG HCO3 22.6 VBG Total CO2 23.7 VBG O2 Sat (Calc) 83.4 H VBG Base Excess -2.3 L VBG Potassium 2.9 L A-a O2 Difference 2.0 Respiratory Index 0 Hgb O2 Saturation 93.1 L Glucose 409 H* D Lactate 2.8 H Liter Flow 0 FiO2 21.0 Crit Value Called To Aurora mandel window shade cutter Crit Value Called By Kimmy sol rt Crit Value Read Back Y Blood Gas Notified Time 15 Sodium 131.0 L Potassium Chloride 95.0 L Carbon Dioxide Anion Gap BUN Creatinine Est GFR ( Amer) Est GFR (Non-Af Amer) POC Glucose (mg/dL) 265 H Random Glucose Lactic Acid Calcium Total Bilirubin AST ALT Alkaline Phosphatase Total Protein Albumin Globulin Albumin/Globulin Ratio Venous Blood Potassium 2.9 L Urine Color Urine Clarity Urine pH Ur Specific [place] Urine Protein Urine Glucose (UA) Urine Ketones Urine Blood Urine Nitrate Urine Bilirubin Urine Urobilinogen Ur Leukocyte Esterase Urine WBC (Auto) Ur Squamous Epith Cells Urine Opiates Screen Urine Methadone Screen Ur Barbiturates Screen Ur Phencyclidine Scrn Ur Amphetamines Screen U Benzodiazepines Scrn U Oth Cocaine Metabols U Cannabinoids Screen Alcohol, Quantitative B-Hydroxybutyrate 02/18/18 02/18/18 02/18/18 04:35 06:11 06:48 WBC RBC Hgb Hct MCV MCH MCHC RDW Plt Count MPV Neut % (Auto) Lymph % (Auto) [place] % (Auto) Eos % (Auto) Baso % (Auto) Neut # (Auto) Lymph # (Auto) [place] # (Auto) Eos # (Auto) Baso # (Auto) Puncture Site pCO2 pO2 HCO3 ABG pH ABG Total CO2 ABG O2 Saturation ABG Base Excess ABG Hemoglobin ABG Carboxyhemoglobin POC ABG HHb (Measured) ABG Methemoglobin Robert Test VBG pH VBG pCO2 VBG HCO3 VBG Total CO2 VBG O2 Sat (Calc) VBG Base Excess VBG Potassium A-a O2 Difference Respiratory Index Hgb O2 Saturation Glucose Lactate Liter Flow FiO2 Crit Value Called To Crit Value Called By Crit Value Read Back Blood Gas Notified Time Sodium Potassium Chloride Carbon Dioxide Anion Gap BUN Creatinine Est GFR ( Amer) Est GFR (Non-Af Amer) POC Glucose (mg/dL) 272 H Random Glucose Lactic Acid 1.2 Calcium Total Bilirubin AST ALT Alkaline Phosphatase Total Protein Albumin Globulin Albumin/Globulin Ratio Venous Blood Potassium Urine Color Straw Urine Clarity Clear Urine pH 6.0 Ur Specific [place] 1.005 Urine Protein 2+ H Urine Glucose (UA) 3+ H Urine Ketones Negative Urine Blood 1+ H Urine Nitrate Negative Urine Bilirubin Negative Urine Urobilinogen Normal Ur Leukocyte Esterase Neg Urine WBC (Auto) 1 Ur Squamous Epith Cells < 1 Urine Opiates Screen Urine Methadone Screen Ur Barbiturates Screen Ur Phencyclidine Scrn Ur Amphetamines Screen U Benzodiazepines Scrn U Oth Cocaine Metabols U Cannabinoids Screen Alcohol, Quantitative B-Hydroxybutyrate 02/18/18 02/18/18 02/18/18 06:48 12:24 12:26 WBC RBC Hgb Hct MCV MCH MCHC RDW Plt Count MPV Neut % (Auto) Lymph % (Auto) [place] % (Auto) Eos % (Auto) Baso % (Auto) Neut # (Auto) Lymph # (Auto) [place] # (Auto) Eos # (Auto) Baso # (Auto) Puncture Site pCO2 pO2 HCO3 ABG pH ABG Total CO2 ABG O2 Saturation ABG Base Excess ABG Hemoglobin ABG Carboxyhemoglobin POC ABG HHb (Measured) ABG Methemoglobin Robert Test VBG pH VBG pCO2 VBG HCO3 VBG Total CO2 VBG O2 Sat (Calc) VBG Base Excess VBG Potassium A-a O2 Difference Respiratory Index Hgb O2 Saturation Glucose Lactate Liter Flow FiO2 Crit Value Called To Crit Value Called By Crit Value Read Back Blood Gas Notified Time Sodium Potassium Chloride Carbon Dioxide Anion Gap BUN Creatinine Est GFR ( Amer) Est GFR (Non-Af Amer) POC Glucose (mg/dL) 423 H* 439 H* Random Glucose Lactic Acid Calcium Total Bilirubin AST ALT Alkaline Phosphatase Total Protein Albumin Globulin Albumin/Globulin Ratio Venous Blood Potassium Urine Color Urine Clarity Urine pH Ur Specific [place] Urine Protein Urine Glucose (UA) Urine Ketones Urine Blood Urine Nitrate Urine Bilirubin Urine Urobilinogen Ur Leukocyte Esterase Urine WBC (Auto) Ur Squamous Epith Cells Urine Opiates Screen Positive H Urine Methadone Screen Negative Ur Barbiturates Screen Negative Ur Phencyclidine Scrn Negative Ur Amphetamines Screen Negative U Benzodiazepines Scrn Negative U Oth Cocaine Metabols Negative U Cannabinoids Screen Negative Alcohol, Quantitative B-Hydroxybutyrate
--- NOTE | 2018-02-18 13:52 | CT ---
PROCEDURE: CT HEAD WITHOUT CONTRAST. HISTORY: passed out COMPARISON: Comparison is made with 03/14/2017 TECHNIQUE: Axial computed tomography images were obtained through the head/brain without intravenous contrast. Radiation dose: Total exam DLP = 938.66 mGy-cm. This CT exam was performed using one or more of the following dose reduction techniques: Automated exposure control, adjustment of the mA and/or kV according to patient size, and/or use of iterative reconstruction technique. FINDINGS: HEMORRHAGE: No intracranial hemorrhage. BRAIN: No mass effect or edema. No atrophy or chronic microvascular ischemic changes. VENTRICLES: Unremarkable. No hydrocephalus. CALVARIUM: Unremarkable. PARANASAL SINUSES: Unremarkable as visualized. No significant inflammatory changes. MASTOID AIR CELLS: Unremarkable as visualized. No inflammatory changes. OTHER FINDINGS: None. IMPRESSION: No evidence of acute intracranial hemorrhage mass effect or midline shift.
[2018-02-18] MEDS: Insulin Detemir 100 units/ml Vial (Levemir) SC SCH ×2 (13:57→21:47)
[2018-02-18 15:40] VITALS: O2SAT 99
[2018-02-18] MEDS ORDERED: (Novolin R) Insulin Human Regular 100 units/ml vial SC SCH (16:30)
--- NOTE | 2018-02-18 18:32 | RAD ---
HISTORY: adm COMPARISON: Comparison is made with 08/23/2017 FINDINGS: LUNGS: No active pulmonary disease. PLEURA: No significant pleural effusion identified, no pneumothorax apparent. CARDIOVASCULAR: Normal. OSSEOUS STRUCTURES: No significant abnormalities. VISUALIZED UPPER ABDOMEN: Normal. OTHER FINDINGS: None. IMPRESSION: No active disease.
--- NOTE | 2018-02-18 18:32 | CT ---
PROCEDURE: CT Chest without contrast HISTORY: rt lung mass COMPARISON: Comparison is made to the previous study dated 03/16/2017 TECHNIQUE: Contiguous axial images were obtained through the chest without intravenous contrast enhancement. Sagittal and coronal reconstructions were performed. Radiation dose (DLP): 516.7 mGy-cm. This CT exam was performed using one or more of the following dose reduction techniques: Automated exposure control, adjustment of the mA and/or kV according to patient size, and/or use of iterative reconstruction technique. FINDINGS: LUNGS: Foci of haziness and ground-glass opacity small in size noted bilaterally. Findings nonspecific. The previously noted multiple opacities in the lungs in the previous study are not seen in the current study. No evidence of suspicious mass in the lungs. MEDIASTINUM: Unremarkable thoracic aorta. No aneurysm. Normal sized heart. Main pulmonary artery unremarkable. No vascular congestion. No lymphadenopathy. PLEURA: No pleural fluid. No pneumothorax. BONES: No fracture. No destructive lesion. UPPER ABDOMEN: Grossly unremarkable. OTHER FINDINGS: None. IMPRESSION: No evidence of suspicious mass in the lungs. Small haziness and ground-glass opacity seen in both lungs could be due to infectious process. No evidence of lymphadenopathy or acute pathology in the mediastinum.
[2018-02-19] MEDS: Sodium Chloride 0.9% 1,000 ML IV SCH (00:20)
[2018-02-19] MEDS: (Novolin R) Insulin Human Regular 100 units/ml vial SC SCH ×4 (07:58→12:22)
[2018-02-19 09:04] LABS: BASO # 0.1 K/uL (0.0-0.2); BASO % 0.6 % (0.0-2.0); EOS # 0.1 K/uL (0.0-0.7); EOS % 0.7 % (0.0-4.0); HEMOGLOBIN 12.1 g/dL (12.0-18.0); LYMPH # 1.8 K/uL (1.0-4.3); LYMPH % 18.6 % (20.0-40.0); MEAN CELL VOLUME 82.7 fL (80.0-94.0); MEAN CORPUSCULAR HEMOGLOBIN 28.8 pg (27.0-31.0); MEAN CORPUSCULAR HGB CONC 34.8 g/dL (33.0-37.0); MEAN PLATELET VOLUME 9.2 fL (7.2-11.7); MONO # 0.6 K/uL (0.0-0.8); MONO % 5.7 % (0.0-10.0); NEUT # 7.4 K/uL (1.8-7.0); NEUT % 74.4 % (50.0-75.0); RBC 4.2 Mil/uL (4.40-5.90); RED CELL DISTRIBUTION WIDTH 13.2 % (11.5-14.5); WHITE BLOOD COUNT 9.9 K/uL (4.8-10.8)
[2018-02-19 09:27] LABS: ALBUMIN 2.9 g/dL (3.5-5.0); CALCIUM 8.1 mg/dl (8.6-10.4)
[2018-02-19 09:37] VITALS: BP 168/79; PULSE 78; TEMP 98
[2018-02-19] MEDS: Insulin Detemir 100 units/ml Vial (Levemir) SC SCH (09:37)
[2018-02-19 09:46] LABS: PROLACTIN 8.2 ng/mL (3.7-17.9)
--- NOTE | 2018-02-19 14:27 | CP.PCM.DIS ---
Provider - Provider Date of Admission: 02/18/18 02:16 Attending physician: Alessandra Banks MD Time Spent in preparation of Discharge (in minutes): 45 Hospital Course - Lab Results Lab Results: Most Recent Lab Values WBC 9.9 K/uL (4.8-10.8) 02/19/18 08:51 RBC 4.20 Mil/uL (4.40-5.90) L 02/19/18 08:51 Hgb 12.1 g/dL (12.0-18.0) 02/19/18 08:51 Hct 34.7 % (35.0-51.0) L 02/19/18 08:51 MCV 82.7 fL (80.0-94.0) 02/19/18 08:51 MCH 28.8 pg (27.0-31.0) 02/19/18 08:51 MCHC 34.8 g/dL (33.0-37.0) 02/19/18 08:51 RDW 13.2 % (11.5-14.5) 02/19/18 08:51 Plt Count 226 K/uL (130-400) D 02/19/18 08:51 MPV 9.2 fL (7.2-11.7) 02/19/18 08:51 Neut % (Auto) 74.4 % (50.0-75.0) 02/19/18 08:51 Lymph % (Auto) 18.6 % (20.0-40.0) L 02/19/18 08:51 [place] % (Auto) 5.7 % (0.0-10.0) 02/19/18 08:51 Eos % (Auto) 0.7 % (0.0-4.0) 02/19/18 08:51 Baso % (Auto) 0.6 % (0.0-2.0) 02/19/18 08:51 Neut # (Auto) 7.4 K/uL (1.8-7.0) H 02/19/18 08:51 Lymph # (Auto) 1.8 K/uL (1.0-4.3) 02/19/18 08:51 [place] # (Auto) 0.6 K/uL (0.0-0.8) 02/19/18 08:51 Eos # (Auto) 0.1 K/uL (0.0-0.7) 02/19/18 08:51 Baso # (Auto) 0.1 K/uL (0.0-0.2) 02/19/18 08:51 Puncture Site R rad 02/18/18 00:57 pCO2 41 mm/Hg (35-45) 02/18/18 00:57 pO2 43 mm/Hg (30-55) 02/18/18 00:57 HCO3 25.2 mmol/L (21-28) 02/18/18 00:57 ABG pH 7.40 (7.35-7.45) 02/18/18 00:57 ABG Total CO2 26.7 mmol/L (22-28) 02/18/18 00:57 ABG O2 Saturation 97.8 % (95-98) 02/18/18 00:57 ABG Base Excess 0.5 mmol/L (-2.0-3.0) 02/18/18 00:57 ABG Hemoglobin 10.5 g/dL (11.7-17.4) L 02/18/18 00:57 ABG Carboxyhemoglobin 4.4 % (0.5-1.5) H 02/18/18 00:57 POC ABG HHb (Measured) 2.1 % (0.0-5.0) 02/18/18 00:57 ABG Methemoglobin 0.4 % (0.0-3.0) 02/18/18 00:57 Robert Test Pos 02/18/18 00:57 VBG pH 7.38 (7.32-7.43) 02/18/18 00:57 VBG pCO2 38 mmHg (40-60) L 02/18/18 00:57 VBG HCO3 22.6 mmol/L 02/18/18 00:57 VBG Total CO2 23.7 mmol/L (22-28) 02/18/18 00:57 VBG O2 Sat (Calc) 83.4 % (40-65) H 02/18/18 00:57 VBG Base Excess -2.3 mmol/L (0.0-2.0) L 02/18/18 00:57 VBG Potassium 2.9 mmol/L (3.6-5.2) L 02/18/18 00:57 A-a O2 Difference 2.0 mm/Hg 02/18/18 00:57 Respiratory Index 0 02/18/18 00:57 Hgb O2 Saturation 93.1 % (95.0-98.0) L 02/18/18 00:57 Sodium 131.0 mmol/l (132-148) L 02/18/18 00:57 Chloride 95.0 mmol/L (98-107) L 02/18/18 00:57 Glucose 409 mg/dl (75-110) H* D 02/18/18 00:57 Lactate 2.8 mmol/L (0.7-2.1) H 02/18/18 00:57 Liter Flow 0 02/18/18 00:57 FiO2 21.0 % 02/18/18 00:57 Crit Value Called To Aurora perez rn 02/18/18 00:57 Crit Value Called By Kimmy topete 02/18/18 00:57 Crit Value Read Back Y 02/18/18 00:57 Blood Gas Notified Time 15 02/18/18 00:57 Sodium 138 mmol/L (132-148) 02/19/18 08:51 Potassium 3.3 mmol/L (3.6-5.2) L 02/19/18 08:51 Chloride 109 mmol/L (98-107) H 02/19/18 08:51 Carbon Dioxide 22 mmol/L (22-30) 02/19/18 08:51 Anion Gap 12 (10-20) 02/19/18 08:51 BUN 26 mg/dL (9-20) H 02/19/18 08:51 Creatinine 1.7 mg/dL (0.8-1.5) H 02/19/18 08:51 Est GFR ( Amer) 53 02/19/18 08:51 Est GFR (Non-Af Amer) 44 02/19/18 08:51 POC Glucose (mg/dL) 431 mg/dL (65-110) H* 02/19/18 12:06 Random Glucose 174 mg/dL (75-110) H 02/19/18 08:51 Lactic Acid 1.2 mmol/L (0.7-2.1) 02/18/18 04:35 Calcium 8.1 mg/dl (8.6-10.4) L 02/19/18 08:51 Total Bilirubin 0.5 mg/dL (0.2-1.3) 02/19/18 08:51 AST 112 U/L (17-59) H D 02/19/18 08:51 ALT 80 U/L (21-72) H D 02/19/18 08:51 Alkaline Phosphatase 451 U/L (38-126) H D 02/19/18 08:51 Total Protein 5.9 g/dL (6.3-8.3) L 02/19/18 08:51 Albumin 2.9 g/dL (3.5-5.0) L 02/19/18 08:51 Globulin 3.0 gm/dL (2.2-3.9) 02/19/18 08:51 Albumin/Globulin Ratio 1.0 (1.0-2.1) 02/19/18 08:51 Prolactin 8.2 ng/mL (3.7-17.9) 02/19/18 08:51 Venous Blood Potassium 2.9 mmol/L (3.6-5.2) L 02/18/18 00:57 Urine Color Straw (YELLOW) 02/18/18 06:48 Urine Clarity Clear (Clear) 02/18/18 06:48 Urine pH 6.0 (5.0-8.0) 02/18/18 06:48 Ur Specific [place] 1.005 (1.003-1.030) 02/18/18 06:48 Urine Protein 2+ mg/dL (NEGATIVE) H 02/18/18 06:48 Urine Glucose (UA) 3+ mg/dL (Normal) H 02/18/18 06:48 Urine Ketones Negative mg/dL (NEGATIVE) 02/18/18 06:48 Urine Blood 1+ (NEGATIVE) H 02/18/18 06:48 Urine Nitrate Negative (NEGATIVE) 02/18/18 06:48 Urine Bilirubin Negative (NEGATIVE) 02/18/18 06:48 Urine Urobilinogen Normal mg/dL (0.2-1.0) 02/18/18 06:48 Ur Leukocyte Esterase Neg Sarbjit/uL (Negative) 02/18/18 06:48 Urine WBC (Auto) 1 /hpf (0-5) 02/18/18 06:48 Ur Squamous Epith Cells < 1 /hpf (0-5) 06/09/18 06:48 Urine Opiates Screen Positive (NEGATIVE) H 02/18/18 06:48 Urine Methadone Screen Negative (NEGATIVE) 02/18/18 06:48 Ur Barbiturates Screen Negative (NEGATIVE) 02/18/18 06:48 Ur Phencyclidine Scrn Negative (NEGATIVE) 02/18/18 06:48 Ur Amphetamines Screen Negative (NEGATIVE) 02/18/18 06:48 U Benzodiazepines Scrn Negative (NEGATIVE) 02/18/18 06:48 U Oth Cocaine Metabols Negative (NEGATIVE) 02/18/18 06:48 U Cannabinoids Screen Negative (NEGATIVE) 02/18/18 06:48 Alcohol, Quantitative < 10 mg/dl (0-10) 02/18/18 00:44 B-Hydroxybutyrate 0.13 mM (0.02-0.27) 02/18/18 00:44 - Hospital Course Hospital Course: Chief complaints: Patient passed out yesterday History of present illness: Patient is a 47-year-old male with a history of diabetes, hypertension, hypercholesterolemia, Crohn's disease, erythema nodosum, 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 Patient was doing well. He was recently not taking his blood sugar medication, insulin especially for last 1 week. He claims that after taking insulin his legs getting cramping. Yesterday he had a few drinks, and also at the time he was smoking. He felt that the blood sugar was elevated. He took insulin. He was sitting on the chair. Suddenly the family members noticed that he was started shaking, eyes rolling upwards, and become unresponsive for at least 15-20 seconds. At the time he was also having profound vomiting. When he woke up after a few minutes he was not knowing that he was, and he was confused. He was brought into the emergency room by the family members immediately. In the emergency room she was talking to the emergency room doctor, complaining of not feeling well, and also is lethargic at that time. Past medical history: Hypertension, Crohn's disease, diabetes, gastritis, hypertension, history of anemia and recent pneumonia, rheumatoid arthritis. Allergies no known drug allergy Patient smoking on and off. He also using alcohol. Family history noncontributory Review of systems noted on the chart, 10 point evaluation noted On examination. Patient is comfortable not in any distress at this time, vital signs stable. Elevated blood sugar noted Chest good air entry bilaterally regular heart sounds nontender abdomen. Pedal edema positive Patient has multiple hyperpigmented skin lesions in the lower extremities noted Labs: WBC 18.1 hemoglobin 11.6 hematocrit 32.4 Platelet is 332 Chemistry sodium 126 blood glucose 407 alkaline phosphatase 589 urine toxicology positive for opiates. Chest x-ray nonspecific, right upper lung nodule like lesion noted Assessment/recommendation: 42-year-old male with multiple medical history, Crohn's disease, rheumatoid arthritis, cholangitis granulomatous Recently admitted with pneumonia. Now admitted to the hospital with uncontrolled diabetes, near syncopal attack, cause is unclear, sepsis, cannot be ruled out. Elevated WBC most likely related to steroid intake. We will get a CAT scan. Lung nodule, repeat CAT scan of the chest IV fluid. Glucose monitoring. Discussed with the patient. Neurological evaluation may be needed. Seizures cannot be ruled out. We will follow the patient course in the Hospital: Patient received intravenous IV fluid. Patient become more awake and responding. He did not have any post altered mental status event. Alert awake. No neurological symptoms. Repeat CAT scan of the head showing no evidence of any acute pathology. CT scan of the chest done, showing no evidence of any acute infiltrate, or lung lesions noted Patient clinically improving. Stable vitals. Blood sugar is not controlled well. I discussed with the patient about the glucose control. Patient is somewhat non-compliance for insulin. Discussed with him in detail. He will be discharged home today, he will follow up as an outpatient. Medications reviewed Final diagnoses: Altered mental status, secondary to drug overdose. Hypertension diabetes hypercholesteremia. Uncontrolled diabetes. Dehydration. Patient will follow-up as an outpatient. Medications reviewed and reconciled with the patient Discharge Plan - Follow Up Plan Condition: FAIR Disposition: HOME/ ROUTINE Instructions: Insulin Regular, Hyperglycemia, Adult (DC), Pregabalin, Cyanocobalamin, Prednisone, Vitamins (Multiple/Oral) Additional Instructions: follow up with Dr Banks in one week
== END 2018-02-19 15:15 | disposition home or self-care (01) | DRG 638 ==
LOC: C.ER 00:01 → C.9E 02:16 → C.6T 03:32
PROVIDERS: ADMIT Internal Medicine; ATTEND Internal Medicine
DX: E10.65 Type 1 diabetes mellitus with hyperglycemia (principal); E87.1 Hypo-osmolality and hyponatremia; E86.0 Dehydration; R55 Syncope and collapse; K50.90 Crohn's disease, unspecified, without complications; I10 Essential (primary) hypertension; M06.9 Rheumatoid arthritis, unspecified; D72.829 Elevated white blood cell count, unspecified; T38.0X5A Adverse effect of glucocorticoids and synthetic analogues, initial encounter; E78.00 Pure hypercholesterolemia, unspecified; F17.210 Nicotine dependence, cigarettes, uncomplicated; F12.10 Cannabis abuse, uncomplicated; Z87.01 Personal history of pneumonia (recurrent); Z79.4 Long term (current) use of insulin; Z90.49 Acquired absence of other specified parts of digestive tract; Z91.14 Patient's other noncompliance with medication regimen

== ENCOUNTER 2018-03-07 08:30 | Inpatient (IN) | payer OTHER ==
[2018-03-07 08:30] VITALS: BMI 26.9
[2018-03-07] MEDS ORDERED: Sodium Chloride 0.9% 1,000 ML IV ONE ×2 (09:30→10:39)
[2018-03-07] MEDS ORDERED: Sodium Chloride 0.9% 1,000 ML ONE ×2 (09:43→10:58)
--- NOTE | 2018-03-07 09:51 | C.PDOC ---
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 Pt admits, had similar sx in past, " need to have transfusion because of massive bleeding". Otherwise, pt denies fever, chills, dizziness, CP, SOB, dyspnea, diaphoresis, palpitation, vomiting, hematemesis, back pain, UTI sx, denies recent travel or known sick contact. AT the time of evaluation, appears sick. Time Seen by Provider: 03/07/18 09:27 Chief Complaint (Nursing): GI Problem History Per: Patient Past Medical History Reviewed: Historical Data, Nursing Documentation, Vital Signs Vital Signs: Last Vital Signs Temp 97.7 F 03/07/18 15:58 Pulse 87 03/07/18 15:58 Resp 18 03/07/18 15:58 BP 96/59 L 03/07/18 15:58 Pulse Ox 99 03/07/18 15:58 - Medical History PMH: Anemia, Arthritis, Bronchitis, Crohn's Disease, Diabetes, Fractures (LEFT ELBOW-CASTED ONLY), Gastritis, HTN, Pneumonia, Rheumatoid Arthritis Denies: COPD, HIV, Chronic Kidney Disease Surgical History: Cholecystectomy, Endoscopy - [facility] Procedures CLOSED ENDOSCOPIC BIOPSY OF LARGE INTESTINE (03/31/13) DRAINAGE OF AMPULLA OF VATER, ENDO (09/20/15) DRAINAGE OF LEFT UPPER LUNG LOBE, ENDO, DIAGN (03/11/17) DRAINAGE OF RIGHT LOWER LOBE BRONCHUS, ENDO, DIAGN (11/12/15) DRAINAGE OF RIGHT LOWER LUNG LOBE, ENDO, DIAGN (03/11/17) EXCISION OF RIGHT LOWER LUNG LOBE, ENDO, DIAGN (11/12/15) EXCISION OF RIGHT LUNG, PERCUTANEOUS APPROACH, DIAGNOSTIC (03/11/17) EXERCISE TREATMENT OF MUSCULOSK WHOLE USING ASSIST EQUIPMENT (03/29/17) EXTRACTION OF ILIAC BONE MARROW, PERC APPROACH, DIAGN (11/12/15) INSERTION OF INFUSION DEV INTO SUP VENA CAVA, PERC APPROACH (03/11/17) INTRODUCE OF OTH ANTI-INFECT INTO PERIPH VEIN, PERC APPROACH (03/29/17) PACKED CELL TRANSFUSION (03/31/13) Family History: States: Unknown Family Hx - Social History Hx Alcohol Use: Yes (SOCIAL) Hx Substance Use: No - Immunization History Hx Tetanus Toxoid Vaccination: No Hx Influenza Vaccination: No Hx Pneumococcal Vaccination: No Review Of Systems Except As Marked, All Systems Reviewed And Found Negative. Constitutional: Positive for: Malaise. Negative for: Fever, Chills Eyes: Negative for: Vision Change ENT: Negative for: Ear Discharge, Throat Pain Cardiovascular: Negative for: Chest Pain, Palpitations, Orthopnea, Paroxysmal Noc. Dyspnea, Light Headedness Respiratory: Negative for: Cough, Shortness of Breath, Wheezing Gastrointestinal: Positive for: Nausea, Abdominal Pain, Diarrhea, Melena. Negative for: Vomiting, Hematemesis Genitourinary: Negative for: Incontinence Musculoskeletal: Negative for: Neck Pain, Back Pain Skin: Negative for: Rash Neurological: Negative for: Weakness, Numbness, Altered Mental Status, Headache , Dizziness Physical Exam - Physical Exam Appears: Well, Non-toxic, Chronically Ill Skin: Normal Color, Warm, Dry, No Rash Head: Normacephalic Eye(s): bilateral: PERRL Nose: No Flaring, No Discharge Oral Mucosa: Moist Throat: No Erythema, No Drooling Neck: Trachea Midline, Supple Cardiovascular: Rhythm Regular, No Murmur, No JVD Respiratory: No Decreased Breath Sounds, No Accessory Muscle Use, No Stridor, No Wheezing Gastrointestinal/Abdominal: Soft, Tenderness (mild LLQ), No Distention, No Guarding, No Rebound Back: No CVA Tenderness Extremity: Normal ROM, No Pedal Edema, No Deformity, No Swelling Neurological/Psych: Oriented x3, Normal Speech ED Course And Treatment - Laboratory Results Result Diagrams: 03/07/18 17:11 03/07/18 09:55 Lab Interpretation: Abnormal ECG: Interpreted By Me, Viewed By Me ECG Rhythm: Sinus Rhythm Interpretation Of ECG: SR@91/min,LAD, T wave inversion in III, no acute ST-T changes. O2 Sat by Pulse Oximetry: 100 Pulse Ox Interpretation: Normal Progress Note: Pt remained hemodynamicaly stable during the ED evaluation. Blood work review and appears abnormal compare to previous visits on 02/18/18, hyperglycemia, renal failure/dehydartion. UDS (+) opiates. Pt admits, takes tylenol #3 daily for RA. Pt received hydration with NS#2 L. Case discussed with pt's Gi , will e evaluated inpatient, no further imaging recommend at present time. Case discussed with hospitalist , covering for and admission arranged Disposition - Disposition Disposition: HOSPITALIZED Disposition Time: 10:50 Condition: STABLE - Clinical Impression Clinical Impression: Crohn's disease of colon, Gastrointestinal hemorrhage, Hyperglycemia, Uncontrolled diabetes mellitus
[2018-03-07 10:01] LABS: BASO # 0.2 K/uL (0.0-0.2); BASO % 1.4 % (0.0-2.0); EOS # 0.2 K/uL (0.0-0.7); EOS % 1.3 % (0.0-4.0); LYMPH % 22.3 % (20.0-40.0); MEAN CORPUSCULAR HEMOGLOBIN 28.9 pg (27.0-31.0); MEAN CORPUSCULAR HGB CONC 33.9 g/dL (33.0-37.0); MEAN PLATELET VOLUME 9.1 fL (7.2-11.7); MONO # 0.9 K/uL (0.0-0.8); MONO % 6.8 % (0.0-10.0); NEUT # 9.2 K/uL (1.8-7.0); NEUT % 68.2 % (50.0-75.0); NRBC % 0.1 % (0.0-2.0); RBC 3.79 Mil/uL (4.40-5.90); RED CELL DISTRIBUTION WIDTH 13.5 % (11.5-14.5); WHITE BLOOD COUNT 13.5 K/uL (4.8-10.8)
[2018-03-07 10:02] LABS: MEAN CELL VOLUME 85.3 fL (80.0-94.0)
[2018-03-07 10:09] LABS: INR 0.9; PROTHROMBIN TIME 9.7 SECONDS (9.7-12.2)
[2018-03-07 10:25] LABS: URINE BILIRUBIN NEGATIVE (NEGATIVE); URINE BLOOD NEGATIVE (NEGATIVE); URINE CLARITY Hazy (Clear); URINE COLOR Yellow (YELLOW); URINE GLUCOSE (UA) 3+ mg/dL (Normal); URINE LEUKOCYTE ESTERASE NEG Leu/uL (Negative); URINE PROTEIN 3+ mg/dL (NEGATIVE); URINE UROBILINOGEN NORMAL mg/dL (0.2-1.0)
[2018-03-07 10:30] LABS: ALBUMIN 3.3 g/dL (3.5-5.0); CALCIUM 8.3 mg/dl (8.6-10.4)
[2018-03-07 10:45] LABS: BARBITURATES, UR NEGATIVE (NEGATIVE); BENZODIAZEPINES, UR NEGATIVE (NEGATIVE); PHENCYCLIDINE, UR NEGATIVE (NEGATIVE)
[2018-03-07 10:46] LABS: OPIATES, UR POSITIVE (NEGATIVE)
--- NOTE | 2018-03-07 11:24 | C.PDOC ---
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 Patient was diagnosed with Crohn's disease of the colon in 2008, and was initially treated with prednisone and sulfasalazine. Elevated liver enzymes were noted, and he was evaluated for sclerosing cholangitis with MRCP, which was interpreted as normal. The last colonoscopy was in 2012 and showed active ulceration in the sigmoid colon, descending colon, transverse colon, ascending colon and cecum. The rectum was spared. He has been maintained on azathioprine 50 mg since then. He had ERCP on 09/19/15 which showed papillary stenosis, and a small sphincterotomy was performed. He was hospitalized for pancreatitis after the procedure, and recovered uneventfully. A gastric emptying scan 11/19/2015 showed normal gastric emptying. A CT scan 2015 showed mild intrahepatic biliary ductal dilatation, S/P cholecystectomy, prominent CBD, mild wall thickening involving the left colon and rectum. He presented to the ER 03/07/18 with a three day history of bloody bowel movements, one to three times daily. The prednisone dose was recently reduced to 10 mg and 5 mg. He denies having abdominal pain, nausea, vomiting, heartburn , difficulty swallowing, loss of appetite and loss of weight. Time Seen by Provider: 03/07/18 09:27 Chief Complaint (Nursing): GI Problem Past Medical History Vital Signs: Last Vital Signs Temp 99.1 F 03/07/18 09:21 Pulse 98 H 03/07/18 10:57 Resp 10 L 03/07/18 10:57 BP 106/58 L 03/07/18 10:57 Pulse Ox 100 03/07/18 10:57 - Medical History PMH: Anemia, Arthritis, Bronchitis, Crohn's Disease, Diabetes, Fractures (LEFT ELBOW-CASTED ONLY), Gastritis, HTN, Pneumonia, Rheumatoid Arthritis Denies: COPD, HIV, Chronic Kidney Disease Surgical History: Cholecystectomy, Endoscopy - [facility] Procedures CLOSED ENDOSCOPIC BIOPSY OF LARGE INTESTINE (03/31/13) DRAINAGE OF AMPULLA OF VATER, ENDO (09/20/15) DRAINAGE OF LEFT UPPER LUNG LOBE, ENDO, DIAGN (03/11/17) DRAINAGE OF RIGHT LOWER LOBE BRONCHUS, ENDO, DIAGN (11/12/15) DRAINAGE OF RIGHT LOWER LUNG LOBE, ENDO, DIAGN (06/30/17) EXCISION OF RIGHT LOWER LUNG LOBE, ENDO, DIAGN (11/12/15) EXCISION OF RIGHT LUNG, PERCUTANEOUS APPROACH, DIAGNOSTIC (03/11/17) EXERCISE TREATMENT OF MUSCULOSK WHOLE USING ASSIST EQUIPMENT (03/29/17) EXTRACTION OF ILIAC BONE MARROW, PERC APPROACH, DIAGN (11/12/15) INSERTION OF INFUSION DEV INTO SUP VENA CAVA, PERC APPROACH (03/11/17) INTRODUCE OF OTH ANTI-INFECT INTO PERIPH VEIN, PERC APPROACH (03/29/17) PACKED CELL TRANSFUSION (03/31/13) Family History: States: Unknown Family Hx - Social History Hx Alcohol Use: Yes (SOCIAL) Hx Substance Use: No - Immunization History Hx Tetanus Toxoid Vaccination: No Hx Influenza Vaccination: No Hx Pneumococcal Vaccination: No ED Course And Treatment - Laboratory Results Result Diagrams: 03/07/18 09:55 03/07/18 09:55 O2 Sat by Pulse Oximetry: 100 Disposition - Disposition Disposition: HOSPITALIZED Forms: [facility] ([place]) - Clinical Impression Clinical Impression: Crohn's disease of colon, Gastrointestinal hemorrhage
--- NOTE | 2018-03-07 11:27 | CP.PCM.CON ---
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 Patient was diagnosed with Crohn's disease of the colon in 2008, and was initially treated with prednisone and sulfasalazine. Elevated liver enzymes were noted, and he was evaluated for sclerosing cholangitis with MRCP, which was interpreted as normal. The last colonoscopy was in 2012 and showed active ulceration in the sigmoid colon, descending colon, transverse colon, ascending colon and cecum. The rectum was spared. He has been maintained on azathioprine 50 mg since then. He had ERCP on 09/19/15 which showed papillary stenosis, and a small sphincterotomy was performed. He was hospitalized for pancreatitis after the procedure, and recovered uneventfully. A gastric emptying scan 11/19/2015 showed normal gastric emptying. A CT scan 2015 showed mild intrahepatic biliary ductal dilatation, S/P cholecystectomy, prominent CBD, mild wall thickening involving the left colon and rectum. He presented to the ER 03/07/18 with a three day history of bloody bowel movements, one to three times daily. The prednisone dose was recently reduced to 10 mg and 5 mg. He denies having abdominal pain, nausea, vomiting, heartburn , difficulty swallowing, loss of appetite and loss of weight. Review of Systems - Review of Systems All systems: reviewed and no additional remarkable complaints except - Constitutional Constitutional: Fatigue, Weakness. absent: Fever - Cardiovascular Cardiovascular: absent: Chest Pain, Dyspnea on Exertion - Respiratory Respiratory: absent: Cough, Hemoptysis - Gastrointestinal Gastrointestinal: Abdominal Pain, Diarrhea, Hematochezia. absent: Constipation , Nausea, Vomiting - Genitourinary Genitourinary: absent: Dysuria Past Patient History - Infectious Disease Hx of Infectious Diseases: None - Tetanus Immunizations Tetanus Immunization: Unknown - Past Medical History & Family History Past Medical History?: Yes - Past Social History Smoking Status: Heavy Smoker > 10 Cigarettes Daily - CARDIAC Hx Hypertension: Yes - PULMONARY Hx Bronchitis: Yes Hx Chronic Obstructive Pulmonary Disease (COPD): No Hx Pneumonia: Yes - NEUROLOGICAL Hx Neurological Disorder: No - HEENT Hx HEENT Problems: Yes Hx Cataracts: Yes (right eye) - RENAL Hx Chronic Kidney Disease: No - ENDOCRINE/METABOLIC Hx Endocrine Disorders: Yes Hx Diabetes Mellitus Type 1: Yes - HEMATOLOGICAL/ONCOLOGICAL Hx Anemia: Yes Hx Human Immunodeficiency Virus (HIV): No - INTEGUMENTARY Hx Dermatological Problems: Yes Hx Cellulitis: Yes - MUSCULOSKELETAL/RHEUMATOLOGICAL Hx Arthritis: Yes Hx Fractures: Yes (LEFT ELBOW-CASTED ONLY) Hx Rheumatoid Arthritis: Yes - GASTROINTESTINAL Hx Crohn's Disease: Yes Hx Gastritis: Yes - GENITOURINARY/GYNECOLOGICAL Hx Genitourinary Disorders: No - PSYCHIATRIC Hx Substance Use: No - SURGICAL HISTORY Hx Cholecystectomy: Yes - ANESTHESIA Hx Anesthesia: Yes Hx Anesthesia Reactions: No Hx Malignant Hyperthermia: No Meds Allergies/Adverse Reactions: Allergies Allergy/AdvReac Type Severity Reaction Status Date / Time No Known Allergies Allergy Verified 02/18/18 00:14 - Medications Medications: Current Medications Sodium Chloride (Sodium Chloride 0.9%) 1,000 mls @ 1,000 mls/hr IV .Q1H ONE Stop: 03/07/18 11:38 Last Admin: 03/07/18 10:56 Dose: 1,000 mls/hr Physical Exam - Constitutional Appears: No Acute Distress - Head Exam Head Exam: ATRAUMATIC, NORMOCEPHALIC - Eye Exam Eye Exam: EOMI, PERRL - Neck Exam Neck exam: Negative for: Lymphadenopathy, Thyromegaly - Respiratory Exam Respiratory Exam: NORMAL BREATHING PATTERN. absent: Rales, Rhonchi, Wheezes - Cardiovascular Exam Cardiovascular Exam: REGULAR RHYTHM, +S1, +S2. absent: Gallop, Rubs, Systolic Murmur - GI/Abdominal Exam GI & Abdominal Exam: Normal Bowel Sounds, Soft. absent: Mass, Organomegaly, Tenderness - Rectal Exam Rectal Exam: Deferred - Extremities Exam Extremities exam: Negative for: calf tenderness, pedal edema Results - Vital Signs Recent Vital Signs: Last Vital Signs Temp 99.1 F 03/07/18 09:21 Pulse 91 H 03/07/18 11:24 Resp 16 03/07/18 11:24 BP 129/69 03/07/18 11:24 Pulse Ox 100 03/07/18 11:24 - Labs Result Diagrams: 03/08/18 08:22 03/08/18 08:22 Labs: Laboratory Results - last 24 hr 03/07/18 03/07/18 03/07/18 09:55 09:55 09:55 WBC 13.5 H RBC 3.79 L Hgb 11.0 L Hct 32.3 L MCV 85.3 D MCH 28.9 MCHC 33.9 RDW 13.5 Plt Count 313 MPV 9.1 Neut % (Auto) 68.2 Lymph % (Auto) 22.3 [place] % (Auto) 6.8 Eos % (Auto) 1.3 Baso % (Auto) 1.4 Neut # (Auto) 9.2 H Lymph # (Auto) 3.0 [place] # (Auto) 0.9 H Eos # (Auto) 0.2 Baso # (Auto) 0.2 PT 9.7 INR 0.9 APTT 33 Sodium 132 Potassium 4.5 Chloride 101 Carbon Dioxide 21 L Anion Gap 15 BUN 34 H Creatinine 2.4 H Est GFR ( Amer) 35 Est GFR (Non-Af Amer) 29 Random Glucose 434 H* D Calcium 8.3 L Phosphorus 4.1 Magnesium 1.6 Total Bilirubin 0.9 AST 56 ALT 69 Alkaline Phosphatase 805 H D Total Protein 6.7 Albumin 3.3 L Globulin 3.4 Albumin/Globulin Ratio 1.0 Lipase 197 Urine Color Urine Clarity Urine pH Ur Specific [place] Urine Protein Urine Glucose (UA) Urine Ketones Urine Blood Urine Nitrate Urine Bilirubin Urine Urobilinogen Ur Leukocyte Esterase Urine WBC (Auto) Urine RBC (Auto) Urine Opiates Screen Urine Methadone Screen Ur Barbiturates Screen Ur Phencyclidine Scrn Ur Amphetamines Screen U Benzodiazepines Scrn U Oth Cocaine Metabols U Cannabinoids Screen 03/07/18 03/07/18 10:17 10:17 WBC RBC Hgb Hct MCV MCH MCHC RDW Plt Count MPV Neut % (Auto) Lymph % (Auto) [place] % (Auto) Eos % (Auto) Baso % (Auto) Neut # (Auto) Lymph # (Auto) [place] # (Auto) Eos # (Auto) Baso # (Auto) PT INR APTT Sodium Potassium Chloride Carbon Dioxide Anion Gap BUN Creatinine Est GFR ( Amer) Est GFR (Non-Af Amer) Random Glucose Calcium Phosphorus Magnesium Total Bilirubin AST ALT Alkaline Phosphatase Total Protein Albumin Globulin Albumin/Globulin Ratio Lipase Urine Color Yellow Urine Clarity Hazy Urine pH 6.0 Ur Specific [place] 1.014 Urine Protein 3+ H Urine Glucose (UA) 3+ H Urine Ketones Negative Urine Blood Negative Urine Nitrate Negative Urine Bilirubin Negative Urine Urobilinogen Normal Ur Leukocyte Esterase Neg Urine WBC (Auto) 2 Urine RBC (Auto) 3 Urine Opiates Screen Positive H Urine Methadone Screen Negative Ur Barbiturates Screen Negative Ur Phencyclidine Scrn Negative Ur Amphetamines Screen Negative U Benzodiazepines Scrn Negative U Oth Cocaine Metabols Negative U Cannabinoids Screen Negative Assessment & Plan (1) Gastrointestinal hemorrhage Assessment and Plan: Patient has bloody diarrhea, exacerbation of Crohn's colitis vs. infection. Check stool cultures. Colonoscopy . Status: Acute
[2018-03-07 11:29] LABS: VENOUS BLOOD GAS BASE EXCESS -6.1 mmol/L (0.0-2.0); VENOUS BLOOD GAS PCO2 42 mmHg (40-60); VENOUS BLOOD GAS PO2 44 mm/Hg (30-55); VENOUS BLOOD PH 7.29 (7.32-7.43)
--- NOTE | 2018-03-07 12:19 | CP.PCM.HP ---
History of Present Illness - History of Present Illness History of Present Illness: CC: blood in stool HPI: Mr Lucero is a 47 year old male with a PMHx of Crohn's Disease, Chronic Obstructive Liver Disease with Chronic Granulomatous Cholangitis, DM on insulin , HTN, HLD, Anemia, Rheumatoid Arthritis, Lung Nodule, Pneumonia (november 2017), Recurrent UTIs, Left-sided hearing loss who went to the ER this AM due to an episode of blood in his stool. He works at [employer] in [employer] and had an episode of bloody stool this morning at 8am thus walked to the ER. In the ER he had 2 more episodes of bloody stool. He denies fevers, nausea/ vomiting or abdominal pain. This was preceded by 2 episodes of "pinkish" stools 3 days ago, at that time he had mild abdominal pain. The "pinkish" stool and abdominal pain self-resolved 3 days ago. PMHx: DM on insulin (non-compliance w/ insulin), HTN, HLD, Crohn's Disease, Chronic Obstructive Liver Disease with Chronic Granulomatous Cholangitis, Anemia , RN, Lung Nodule, Pneumonia (november 2017), Recurrent UTIs PSHx: The last colonoscopy was in 2012 and showed active ulceration in the sigmoid colon, descending colon, transverse colon, ascending colon and cecum. He had ERCP on 09/19/15 which showed papillary stenosis, and a small sphincterotomy was performed. Cataracts surgery. Allergies: none Home meds: Verified with [facility]: Novolog 70/30 25u sc bid, lantus 30u sc bid, azathioprine 50mg po qd, lyrica 75mg po qd SocialHx: 1 pack per week for past 20 years, social alcohol drinker, denies illicit drug use, lives at home with , works at [employer] in [employer] FamHx: Mom-DM, Father-DM PMD: Dr Banks Code Status: Full Code Advanced Directive: Unknown Emergency Contact: Gustavo Lucero () [phone] Present on Admission - Present on Admission Any Indicators Present on Admission: No Review of Systems - Constitutional Constitutional: Fatigue, Weakness. absent: Chills, Fever - EENT Eyes: absent: Blurred Vision Ears: Decreased Hearing (left ear) - Cardiovascular Cardiovascular: absent: Chest Pain, Dyspnea on Exertion - Respiratory Respiratory: absent: Cough, Hemoptysis, Wheezing - Gastrointestinal Gastrointestinal: Abdominal Pain, Change in Bowel Habits, Hematochezia. absent : Constipation, Diarrhea, Melena, Vomiting - Genitourinary Genitourinary: absent: Dysuria - Musculoskeletal Musculoskeletal: Arthralgias - Integumentary Integumentary: Unusual Bruising. absent: Bleeding Lesions Past Patient History - Infectious Disease Hx of Infectious Diseases: None - Tetanus Immunizations Tetanus Immunization: Unknown - Past Medical History & Family History Past Medical History?: Yes - Past Social History Smoking Status: Heavy Smoker > 10 Cigarettes Daily - CARDIAC Hx Hypertension: Yes - PULMONARY Hx Bronchitis: Yes Hx Chronic Obstructive Pulmonary Disease (COPD): No Hx Pneumonia: Yes - NEUROLOGICAL Hx Neurological Disorder: No - HEENT Hx HEENT Problems: Yes Hx Cataracts: Yes (right eye) - RENAL Hx Chronic Kidney Disease: No - ENDOCRINE/METABOLIC Hx Endocrine Disorders: Yes Hx Diabetes Mellitus Type 1: Yes - HEMATOLOGICAL/ONCOLOGICAL Hx Anemia: Yes Hx Human Immunodeficiency Virus (HIV): No - INTEGUMENTARY Hx Dermatological Problems: Yes Hx Cellulitis: Yes - MUSCULOSKELETAL/RHEUMATOLOGICAL Hx Arthritis: Yes Hx Fractures: Yes (LEFT ELBOW-CASTED ONLY) Hx Rheumatoid Arthritis: Yes - GASTROINTESTINAL Hx Crohn's Disease: Yes Hx Gastritis: Yes - GENITOURINARY/GYNECOLOGICAL Hx Genitourinary Disorders: No - PSYCHIATRIC Hx Substance Use: No - SURGICAL HISTORY Hx Cholecystectomy: Yes - ANESTHESIA Hx Anesthesia: Yes Hx Anesthesia Reactions: No Hx Malignant Hyperthermia: No Meds Allergies/Adverse Reactions: Allergies Allergy/AdvReac Type Severity Reaction Status Date / Time No Known Allergies Allergy Verified 02/18/18 00:14 Physical Exam - Constitutional Appears: Well, No Acute Distress - Head Exam Head Exam: ATRAUMATIC, NORMAL INSPECTION - Eye Exam Eye Exam: EOMI. absent: Conjunctival injection, Periorbital swelling, Scleral icterus Pupil Exam: PERRL - ENT Exam ENT Exam: Mucous Membranes Dry, Normal External Ear Exam, Normal Oropharynx, TM' s Normal Bilaterally - Neck Exam Neck exam: Positive for: Normal Inspection. Negative for: Tenderness, Thyromegaly - Respiratory Exam Respiratory Exam: Clear to Auscultation Bilateral, NORMAL BREATHING PATTERN. absent: Rales, Rhonchi, Wheezes - Cardiovascular Exam Cardiovascular Exam: Tachycardia, REGULAR RHYTHM, +S1, +S2. absent: JVD, Systolic Murmur - GI/Abdominal Exam GI & Abdominal Exam: Normal Bowel Sounds, Soft. absent: Distended, Firm, Guarding, Rebound, Tenderness - Extremities Exam Extremities exam: Positive for: normal capillary refill, normal inspection. Negative for: calf tenderness - Neurological Exam Neurological exam: Alert, CN II-XII Intact, Oriented x3 - Psychiatric Exam Psychiatric exam: Normal Mood - Skin Skin Exam: Dry, Intact, Normal Color, Warm Results - Vital Signs Recent Vital Signs: Last Vital Signs Temp 99.1 F 03/07/18 09:21 Pulse 91 H 03/07/18 11:41 Resp 14 03/07/18 11:41 BP 136/68 03/07/18 11:41 Pulse Ox 100 03/07/18 11:41 - Labs Result Diagrams: 03/07/18 09:55 03/07/18 09:55 Labs: Laboratory Results - last 24 hr 03/07/18 03/07/18 03/07/18 09:55 09:55 09:55 WBC 13.5 H RBC 3.79 L Hgb 11.0 L Hct 32.3 L MCV 85.3 D MCH 28.9 MCHC 33.9 RDW 13.5 Plt Count 313 MPV 9.1 Neut % (Auto) 68.2 Lymph % (Auto) 22.3 [place] % (Auto) 6.8 Eos % (Auto) 1.3 Baso % (Auto) 1.4 Neut # (Auto) 9.2 H Lymph # (Auto) 3.0 [place] # (Auto) 0.9 H Eos # (Auto) 0.2 Baso # (Auto) 0.2 PT 9.7 INR 0.9 APTT 33 pO2 VBG pH VBG pCO2 VBG HCO3 VBG Total CO2 VBG O2 Sat (Calc) VBG Base Excess VBG Potassium Glucose Lactate Crit Value Called To Crit Value Called By Crit Value Read Back Blood Gas Notified Time Sodium 132 Potassium 4.5 Chloride 101 Carbon Dioxide 21 L Anion Gap 15 BUN 34 H Creatinine 2.4 H Est GFR ( Amer) 35 Est GFR (Non-Af Amer) 29 Random Glucose 434 H* D Calcium 8.3 L Phosphorus 4.1 Magnesium 1.6 Total Bilirubin 0.9 AST 56 ALT 69 Alkaline Phosphatase 805 H D Total Protein 6.7 Albumin 3.3 L Globulin 3.4 Albumin/Globulin Ratio 1.0 Lipase 197 Venous Blood Potassium Urine Color Urine Clarity Urine pH Ur Specific [place] Urine Protein Urine Glucose (UA) Urine Ketones Urine Blood Urine Nitrate Urine Bilirubin Urine Urobilinogen Ur Leukocyte Esterase Urine WBC (Auto) Urine RBC (Auto) Urine Opiates Screen Urine Methadone Screen Ur Barbiturates Screen Ur Phencyclidine Scrn Ur Amphetamines Screen U Benzodiazepines Scrn U Oth Cocaine Metabols U Cannabinoids Screen 03/07/18 03/07/18 03/07/18 10:17 10:17 11:20 WBC RBC Hgb Hct MCV MCH MCHC RDW Plt Count MPV Neut % (Auto) Lymph % (Auto) [place] % (Auto) Eos % (Auto) Baso % (Auto) Neut # (Auto) Lymph # (Auto) [place] # (Auto) Eos # (Auto) Baso # (Auto) PT INR APTT pO2 44 VBG pH 7.29 L VBG pCO2 42 VBG HCO3 19.5 VBG Total CO2 21.5 L VBG O2 Sat (Calc) 84.4 H VBG Base Excess -6.1 L VBG Potassium 3.6 Glucose 402 H* Lactate 1.0 Crit Value Called To Crit Value Called By Jorge brunson Crit Value Read Back Y Blood Gas Notified Time 1135 Sodium 135.0 Potassium Chloride 107.0 Carbon Dioxide Anion Gap BUN Creatinine Est GFR ( Amer) Est GFR (Non-Af Amer) Random Glucose Calcium Phosphorus Magnesium Total Bilirubin AST ALT Alkaline Phosphatase Total Protein Albumin Globulin Albumin/Globulin Ratio Lipase Venous Blood Potassium 3.6 Urine Color Yellow Urine Clarity Hazy Urine pH 6.0 Ur Specific [place] 1.014 Urine Protein 3+ H Urine Glucose (UA) 3+ H Urine Ketones Negative Urine Blood Negative Urine Nitrate Negative Urine Bilirubin Negative Urine Urobilinogen Normal Ur Leukocyte Esterase Neg Urine WBC (Auto) 2 Urine RBC (Auto) 3 Urine Opiates Screen Positive H Urine Methadone Screen Negative Ur Barbiturates Screen Negative Ur Phencyclidine Scrn Negative Ur Amphetamines Screen Negative U Benzodiazepines Scrn Negative U Oth Cocaine Metabols Negative U Cannabinoids Screen Negative Assessment & Plan - Assessment and Plan (Free Text) Assessment: 47 year old male with a PMHx of Crohn's Disease, Chronic Obstructive Liver Disease with Chronic Granulomatous Cholangitis, DM on insulin, HTN, HLD, Anemia , Rheumatoid Arthritis, Lung Nodule, Pneumonia (november 2017), Recurrent UTIs, Left-sided hearing loss, presents with bloody stools: GI BLEED Likely 2/2 to Crohns's exacerbation Consult GI, Dr Rosenthal (Patient follows-up with Dr Rosenthal outpatient) * F/U Dr Rosenthal regarding plan Keep NPO for now Cont home med Azothioprine 50mg PO QD Leukocytosis w/ No Shift 2/2 to stress? 2/2 to Crohn's exacerbation? monitor for now ANEMIA Likely 2/2 to Crohn's bleed and hx of RA Hgb/Hct 12.4/34.7 now 11/32.3 Monitor Hgb/Hct Q8H x3 SLIGHT ACIDOSIS LR @ 80ml/hr x1 L ELEVATED BLOOD GLUCOSE Likely 2/2 to uncontrolled DM RISS moderate Q6H F/U HgbA1c, random urine microalbumin/Cr, TSH/Free T4, Lipid Panel ELEVATED ALK PHOS 2/2 to crohn's exacerbation LOW ALBUMIN W/ PROTEINEMIA 2/2 to hx of crohn's and uncontrolled dm2 RHEMATOID ARTHRITIS Cont home med Lyrica 75mg PO BID PROPHYLAXIS No anticoagulation 2/2 to GI bleed SCD contraindicated 2/2 to erythema nodosum on LE b/l NPO for now until GI decides plan
[2018-03-07] MEDS: (Novolin R) Insulin Human Regular 100 units/ml vial SC SCH ×2 (15:15→21:17)
[2018-03-07] MEDS ORDERED: Lactated Ringer's 1,000 ML IV SCH (15:15)
[2018-03-07 17:19] LABS: MEAN CELL VOLUME 85.6 fL (80.0-94.0); MEAN CORPUSCULAR HEMOGLOBIN 28.3 pg (27.0-31.0); MEAN PLATELET VOLUME 9.4 fL (7.2-11.7); RBC 3.01 Mil/uL (4.40-5.90); RED CELL DISTRIBUTION WIDTH 13.7 % (11.5-14.5); WHITE BLOOD COUNT 13.8 K/uL (4.8-10.8)
[2018-03-07 17:26] LABS: HEMOGLOBIN 8.5 g/dL (12.0-18.0)
[2018-03-07] MEDS ORDERED: Iohexol 240 (50 ml) PO ONE (19:00)
[2018-03-08] MEDS: (Novolin R) Insulin Human Regular 100 units/ml vial SC SCH ×5 (02:30→22:36)
[2018-03-08] MEDS ORDERED: Iohexol 240 (50 ml) PO ONE (07:45)
[2018-03-08 08:44] LABS: HEMOGLOBIN 9.7 g/dL (12.0-18.0); MEAN CELL VOLUME 85.1 fL (80.0-94.0); MEAN CORPUSCULAR HEMOGLOBIN 29.3 pg (27.0-31.0); MEAN CORPUSCULAR HGB CONC 34.4 g/dL (33.0-37.0); MEAN PLATELET VOLUME 8.9 fL (7.2-11.7); RBC 3.32 Mil/uL (4.40-5.90); RED CELL DISTRIBUTION WIDTH 13.6 % (11.5-14.5)
[2018-03-08 09:03] LABS: ALB/GLOB RATIO 0.9 (1.0-2.1); ALBUMIN 2.5 g/dL (3.5-5.0); CALCIUM 7.8 mg/dl (8.6-10.4)
--- NOTE | 2018-03-08 10:18 | CP.PCM.PN ---
Subjective - Date & Time of Evaluation Date of Evaluation: 03/08/18 Time of Evaluation: 07:00 - Subjective Subjective: PGY2- Dr. Quintero's service Patient seen and examined at bedside and in no acute distress. Patient says his stools have become more formed. He had two bowel movements overnight that were formed with dark blood and no bright red blood. Patient has some epigastric tenderness and nausea. Patient denies vomiting, shortness of breath, or chest pain. Objective - Vital Signs/Intake and Output Vital Signs (last 24 hours): Temp Pulse Resp BP Pulse Ox 98.7 F 71 20 137/73 98 03/08/18 07:00 03/08/18 07:00 03/08/18 07:00 03/08/18 07:00 03/08/18 07:00 Intake and Output: 03/08/18 03/08/18 06:59 18:59 Intake Total 288 Balance 288 - Medications Medications: Current Medications Azathioprine (Imuran) 50 mg PO DAILY [facility] Last Admin: 03/08/18 10:02 Dose: 50 mg Insulin Human Regular (Novolin R) 0 unit SC ACHS [facility] PRN Reason: Protocol Last Admin: 03/08/18 08:35 Dose: 2 unit Pregabalin (Lyrica) 75 mg PO BID [facility] Last Admin: 03/08/18 10:02 Dose: 75 mg - Labs Labs: 03/08/18 08:22 03/08/18 08:22 PT 9.7 SECONDS (9.7-12.2) 03/07/18 09:55 INR 0.9 03/07/18 09:55 APTT 33 SECONDS (21-34) 03/07/18 09:55 - Additional Findings Additional findings: - Constitutional Appears: Well, No Acute Distress - Head Exam Head Exam: ATRAUMATIC, NORMAL INSPECTION - Eye Exam Eye Exam: EOMI. absent: Conjunctival injection, Periorbital swelling, Scleral icterus Pupil Exam: PERRL - ENT Exam ENT Exam: Mucous Membranes Dry, Normal External Ear Exam, Normal Oropharynx, TM' s Normal Bilaterally - Neck Exam Neck exam: Positive for: Normal Inspection. Negative for: Tenderness, Thyromegaly - Respiratory Exam Respiratory Exam: Clear to Auscultation Bilateral, NORMAL BREATHING PATTERN. absent: Rales, Rhonchi, Wheezes - Cardiovascular Exam Cardiovascular Exam: REGULAR RHYTHM, REGULAR RATE, +S1, +S2. absent: JVD, Systolic Murmur - GI/Abdominal Exam GI & Abdominal Exam: Normal Bowel Sounds, Soft. absent: Distended, Firm, Guarding, Rebound, Tenderness - Extremities Exam Extremities exam: Positive for: normal capillary refill, normal inspection. Negative for: calf tenderness - Neurological Exam Neurological exam: Alert, CN II-XII Intact, Oriented x3 - Psychiatric Exam Psychiatric exam: Normal Mood - Skin Skin Exam: Dry, Intact, Normal Color, Warm Assessment and Plan - Assessment and Plan (Free Text) Assessment: GI BLEED Likely 2/2 to Crohns's exacerbation Consult GI, Dr Rosenthal (Patient follows-up with Dr Rosenthal outpatient) * F/U Dr Rosenthal regarding plan CLD then npo for colonoscopy tomorrow 03/09 Cont home med Azothioprine 50mg PO QD CT scan abd and pelvis with po contrast only: findings are most compatible with acute nonspecific infectious/inflammatory hicks colitis and proctitis. No bowel dilatation or obstruction. Leukocytosis w/ No Shift 2/2 to stress? 2/2 to Crohn's exacerbation? monitor for now ANEMIA Likely 2/2 to Crohn's bleed and hx of RA Hgb dropped to 8.5, transfused 1 u prbc on 03/07, transfuse 1 u prbc on 03/08 SLIGHT ACIDOSIS LR @ 120ml/hr x1 L ELEVATED BLOOD GLUCOSE Likely 2/2 to uncontrolled DM RISS moderate Q6H HgbA1c: 12.1 random urine microalbumin/Cr TSH/Free T4 WNL Lipid Panel: Triglycerides 390, Cholesterol 236, LDL 70, HDL 67 ELEVATED ALK PHOS 2/2 to crohn's exacerbation decreased from 805 to 572 LOW ALBUMIN W/ PROTEINEMIA 2/2 to hx of crohn's and uncontrolled dm2 RHEMATOID ARTHRITIS Cont home med Lyrica 75mg PO BID PROPHYLAXIS No anticoagulation 2/2 to GI bleed SCD contraindicated 2/2 to erythema nodosum on LE b/l LR 120cc/hr
--- NOTE | 2018-03-08 13:34 | CT ---
PROCEDURE: CT Abdomen and Pelvis with contrast HISTORY: bloody stool COMPARISON: 11/22/2017 TECHNIQUE: CT scan of the abdomen and pelvis was performed without administration of intravenous contrast. Oral contrast was administered. Coronal and sagittal reformatted images were obtained. Contrast dose: Radiation dose: Total exam DLP = 593.27 mGy-cm. This CT exam was performed using one or more of the following dose reduction techniques: Automated exposure control, adjustment of the mA and/or kV according to patient size, and/or use of iterative reconstruction technique. FINDINGS: LOWER THORAX: The visualized lungs are clear. LIVER: Normal in size. No gross lesion or ductal dilatation. GALLBLADDER AND BILE DUCTS: Surgically absent. PANCREAS: Normal in size. No gross lesion or ductal dilatation. SPLEEN: Normal in size. ADRENALS: No discrete nodule. KIDNEYS AND URETERS: There is a horseshoe kidney. No hydronephrosis. VASCULATURE: No aortic aneurysm. BOWEL: The small bowel loops are normal in caliber. There is apparent diffuse moderate circumferential mural thickening in the colon and rectum. No bowel dilatation or obstruction. APPENDIX: Normal appendix. PERITONEUM: No free fluid. No free air. LYMPH NODES: No enlarged lymph nodes. BLADDER: Unremarkable. REPRODUCTIVE: Unremarkable. BONES: No acute fracture. Within normal limits for the patient's age. OTHER FINDINGS: There is a tiny fat containing umbilical hernia. IMPRESSION: Findings are most compatible with acute nonspecific infectious//inflammatory hicks colitis and proctitis. No bowel dilatation or obstruction.
[2018-03-08] MEDS ORDERED: Lactated Ringer's 1,000 ML IV SCH (14:00)
[2018-03-08] MEDS ORDERED: DiphenhydrAMINE 50 mg/ml Inj IVP STA (14:14)
[2018-03-08] MEDS ORDERED: DiphenhydrAMINE 50 mg/ml Inj ONE (14:18)
--- NOTE | 2018-03-08 14:36 | CP.PCM.PN ---
Subjective - Date & Time of Evaluation Date of Evaluation: 03/08/18 Time of Evaluation: 02:15 - Subjective Subjective: Patient having allergic reaction to blood transfusion. Patient became itchy and developed hives. Patient given Methylprenisolone 125mg ivp stat and Benadryl 50mg ivp stat, Pepcid 20mg stat VS: T: 98.2 P: 84 BP: 177/97 saturation: 100% RA PE: Throat: clear, no erythema, edema Heart: Regular rate and rhythm, +S1, +S2 Lungs: CTABL, no wheezing, rales, rhonchi Skin: hives on shoulders, underarms, antecubital fossa, and chest Objective - Vital Signs/Intake and Output Vital Signs (last 24 hours): Temp Pulse Resp BP Pulse Ox 97.5 F L 81 18 129/73 98 03/08/18 13:29 03/08/18 13:29 03/08/18 13:29 03/08/18 13:29 03/08/18 07:00 Intake and Output: 03/08/18 03/08/18 06:59 18:59 Intake Total 288 0 Balance 288 0 - Medications Medications: Current Medications Azathioprine (Imuran) 50 mg PO DAILY [facility] Last Admin: 03/08/18 10:02 Dose: 50 mg Lactated Ringer's (Lactated Ringer's) 1,000 mls @ 100 mls/hr IV .Q10H [facility] Last Admin: 03/08/18 14:24 Dose: 100 mls/hr Insulin Human Regular (Novolin R) 0 unit SC ACHS [facility] PRN Reason: Protocol Last Admin: 03/08/18 12:17 Dose: 3 unit Pregabalin (Lyrica) 75 mg PO BID [facility] Last Admin: 03/08/18 10:02 Dose: 75 mg - Labs Labs: 03/08/18 08:22 03/08/18 08:22 PT 9.7 SECONDS (9.7-12.2) 03/07/18 09:55 INR 0.9 03/07/18 09:55 APTT 33 SECONDS (21-34) 03/07/18 09:55
[2018-03-08] MEDS ORDERED: Peg-Electrolyte Oral Soln 4L (Golytely) PO ONE (19:00)
--- NOTE | 2018-03-08 22:26 | CARD ---
APPROVED REPORT EKG Measurement Heart [id number] <Conclusion> Normal sinus rhythm Minimal voltage criteria for LVH, may be normal variant Nonspecific T wave abnormality Abnormal ECG
--- NOTE | 2018-03-08 22:26 | CARD ---
APPROVED REPORT EKG Measurement Heart [id number] HI [id number] <Conclusion> Normal sinus rhythm Minimal voltage criteria for LVH, may be normal variant Borderline ECG
[2018-03-09] MEDS: Lactated Ringer's 1,000 ML IV SCH ×2 (03:47)
[2018-03-09] MEDS ORDERED: (Novolin R) Insulin Human Regular 100 units/ml vial SC SCH ×2 (07:34→16:33)
[2018-03-09 08:15] LABS: BASO # 0.1 K/uL (0.0-0.2); BASO % 0.5 % (0.0-2.0); HEMOGLOBIN 10.4 g/dL (12.0-18.0); LYMPH # 1.2 K/uL (1.0-4.3); LYMPH % 9.7 % (20.0-40.0); MEAN CELL VOLUME 84.6 fL (80.0-94.0); MEAN CORPUSCULAR HEMOGLOBIN 28.4 pg (27.0-31.0); MEAN CORPUSCULAR HGB CONC 33.6 g/dL (33.0-37.0); MEAN PLATELET VOLUME 9.1 fL (7.2-11.7); MONO # 0.5 K/uL (0.0-0.8); MONO % 4.1 % (0.0-10.0); NEUT # 10.8 K/uL (1.8-7.0); NEUT % 85.7 % (50.0-75.0); NRBC % 0.1 % (0.0-2.0); PLATELET COUNT 248 K/uL (130-400); RBC 3.66 Mil/uL (4.40-5.90); WHITE BLOOD COUNT 12.6 K/uL (4.8-10.8)
[2018-03-09 08:25] LABS: ALB/GLOB RATIO 0.9 (1.0-2.1); ALBUMIN 2.9 g/dL (3.5-5.0); CALCIUM 8.1 mg/dl (8.6-10.4)
[2018-03-09] MEDS: (Novolin R) Insulin Human Regular 100 units/ml vial SC SCH ×5 (08:30→22:07)
--- NOTE | 2018-03-09 08:41 | CP.PCM.PN ---
<Mackenzie Figueredo - Last Filed: 03/09/18 16:50> Subjective - Date & Time of Evaluation Date of Evaluation: 03/09/18 Time of Evaluation: 07:00 - Subjective Subjective: PGY2- Progress note for Dr. Quintero Patient seen and examined at bedside and in no acute distress. Patient's hives have completely resolved since yesterday. Patient is having many bowel movement after Golytely. Patient has not seen any blood in the stool. Patient denies any chest pain, shortness of breath, or abdominal pain. Objective - Vital Signs/Intake and Output Vital Signs (last 24 hours): Temp Pulse Resp BP Pulse Ox 98.1 F 82 20 179/76 H 100 03/09/18 07:50 03/09/18 07:50 03/09/18 07:50 03/09/18 07:50 03/09/18 07:50 - Medications Medications: Current Medications Acetaminophen (Tylenol 325mg Tab) 650 mg PO Q6 PRN PRN Reason: Pain, moderate (4-7) Azathioprine (Imuran) 50 mg PO DAILY [facility] Last Admin: 03/08/18 10:02 Dose: 50 mg Insulin Human Regular (Novolin R) 0 unit SC ACHS [facility] PRN Reason: Protocol Pregabalin (Lyrica) 75 mg PO BID [facility] Last Admin: 03/08/18 19:54 Dose: 75 mg - Labs Labs: 03/09/18 08:01 03/09/18 08:01 PT 9.7 SECONDS (9.7-12.2) 03/07/18 09:55 INR 0.9 03/07/18 09:55 APTT 33 SECONDS (21-34) 03/07/18 09:55 - Additional Findings Additional findings: - Constitutional Appears: Well, No Acute Distress - Head Exam Head Exam: ATRAUMATIC, NORMAL INSPECTION - Eye Exam Eye Exam: EOMI. absent: Conjunctival injection, Periorbital swelling, Scleral icterus Pupil Exam: PERRL - ENT Exam ENT Exam: Mucous Membranes Dry, Normal External Ear Exam, Normal Oropharynx, TM' s Normal Bilaterally - Neck Exam Neck exam: Positive for: Normal Inspection. Negative for: Tenderness, Thyromegaly - Respiratory Exam Respiratory Exam: Clear to Auscultation Bilateral, NORMAL BREATHING PATTERN. absent: Rales, Rhonchi, Wheezes - Cardiovascular Exam Cardiovascular Exam: REGULAR RHYTHM, REGULAR RATE, +S1, +S2. absent: JVD, Systolic Murmur - GI/Abdominal Exam GI & Abdominal Exam: Normal Bowel Sounds, Soft. absent: Distended, Firm, Guarding, Rebound, Tenderness - Extremities Exam Extremities exam: Positive for: normal capillary refill, normal inspection. Negative for: calf tenderness - Neurological Exam Neurological exam: Alert, CN II-XII Intact, Oriented x3 - Psychiatric Exam Psychiatric exam: Normal Mood - Skin Skin Exam: Dry, Intact, Normal Color, Warm Assessment and Plan - Assessment and Plan (Free Text) Assessment: GI BLEED Likely 2/2 to Crohns's exacerbation NPO diet - colonoscopy today (03/09) Consult GI, Dr Rosenthal (Patient follows-up with Dr Rosenthal outpatient) Cont home med Azothioprine 50mg PO QD CT scan abd and pelvis with po contrast only: findings are most compatible with acute nonspecific infectious/inflammatory hicks colitis and proctitis. No bowel dilatation or obstruction. Leukocytosis w/ No Shift 2/2 to stress? 2/2 to Crohn's exacerbation? monitor for now ANEMIA Likely 2/2 to Crohn's bleed and hx of RA Hgb dropped to 8.5, transfused 1 u prbc on 03/07, transfuse 1 u prbc on 03/08 SLIGHT ACIDOSIS LR @ 120ml/hr x1 L, stopped on 03/09 due to hypertension ELEVATED BLOOD GLUCOSE Likely 2/2 to uncontrolled DM RISS moderate Q6H accuchecks HgbA1c: 12.1 Crestor 5mg po HS TSH/Free T4 WNL Lipid Panel: Triglycerides 390, Cholesterol 236, LDL 70, HDL 67 Hypertension Amlodipine 5mg po daily (started on 03/09) SUSANA BUN/Cr trending down 23/1.8 Microalb/Creat ratio 2328 Nephrology consulted, Dr. James, help appreciated Renal u/s ELEVATED ALK PHOS 2/2 to crohn's exacerbation decreased from 805 to 572 LOW ALBUMIN W/ PROTEINEMIA 2/2 to hx of crohn's and uncontrolled dm2 RHEMATOID ARTHRITIS Cont home med Lyrica 75mg PO BID PROPHYLAXIS No anticoagulation 2/2 to GI bleed SCD contraindicated 2/2 to erythema nodosum on LE b/l LR 120cc/hr stopped on 03/09 <Jed Quintero - Last Filed: 03/09/18 22:36> Objective - Vital Signs/Intake and Output Vital Signs (last 24 hours): Temp Pulse Resp BP Pulse Ox 98 F 79 20 153/79 H 100 03/09/18 16:15 03/09/18 18:00 03/09/18 16:15 03/09/18 16:15 03/09/18 16:15 - Medications Medications: Current Medications Acetaminophen (Tylenol 325mg Tab) 650 mg PO Q6 PRN PRN Reason: Pain, moderate (4-7) Amlodipine Besylate (Norvasc) 5 mg PO DAILY [facility] Last Admin: 03/09/18 10:36 Dose: 5 mg Azathioprine (Imuran) 50 mg PO DAILY [facility] Last Admin: 03/09/18 10:36 Dose: 50 mg Insulin Human Regular (Novolin R) 0 unit SC ACHS [facility] PRN Reason: Protocol Last Admin: 03/09/18 22:07 Dose: 3 units Lisinopril (Zestril) 10 mg PO DAILY [facility] Last Admin: 03/09/18 10:36 Dose: 10 mg Pregabalin (Lyrica) 75 mg PO BID [facility] Last Admin: 03/09/18 17:35 Dose: 75 mg Rosuvastatin Calcium (Crestor) 5 mg PO HS [facility] Last Admin: 03/09/18 21:13 Dose: 5 mg - Labs Labs: 03/09/18 08:01 03/09/18 08:01 PT 9.7 SECONDS (9.7-12.2) 03/07/18 09:55 INR 0.9 03/07/18 09:55 APTT 33 SECONDS (21-34) 03/07/18 09:55 Attending/Attestation - Attestation I have personally seen and examined this patient.: Yes I have fully participated in the care of the patient.: Yes I have reviewed all pertinent clinical information, including history, physical exam and plan: Yes Notes (Text): 03/09/18 22:30 Patient was seen and examined at 9 AM Exam, assessment and plan were gone over with the resident For Colonoscopy today with Dr. Rosenthal Will add statin tongith for history of DM 1 NO ACEI or ARB considering the renal insufficiency Add long acting insulin and premeal insulin based upon Accuchecks from the time after he is allowed to eat after Colonoscopy to evening 03/10/18. Extensive conversation with patient about properly and consistently using insulin in order to keep his diabetes under control. F/U CKD Stage 3 Renal Failure workup by Dr. Garcia Patient will need to follow up with [facility] as an outpatient. He has not seen one in over 3 years and I explained to him that he could not keep using Tylenol #3 being provided to him by his PMD Dr. Mansi Banks. He will need to obtain referral for [facility] through Dr. Banks's office. Patient should be transferred back to Dr. Banks's service on Tuesday03/13/18 if he is not discharged by then. Jed Quintero D.O.
[2018-03-09 08:43] LABS: BANDS 5 % (0-2); EOSINOPHIL 1 % (0-4); LYMPHOCYTE 6 % (20-40); MONOCYTE 3 % (0-10); NEUTROPHIL 84 % (50-75); PLATELET ESTIMATE NORMAL (NORMAL); REACTIVE LYMPHOCYTES 1 % (0-0); TOTAL CELLS COUNTED 100
--- NOTE | 2018-03-09 09:48 | CP.PCM.CON ---
History of Present Illness - History of Present Illness History of Present Illness: HPI: Mr Lucero is a 47 year old male with a PMHx of Crohn's Disease, Chronic Obstructive Liver Disease with Chronic Granulomatous Cholangitis, DM type 2 on insulin, HTN, HLD, Anemia, Rheumatoid Arthritis, Lung Nodule, Pneumonia (november 2017), Recurrent UTIs, Left-sided hearing loss who went to the ER this AM due to an episode of blood in his stool. He works at [employer] in [employer] and had an episode of bloody stool and walked to the ER. In the ER he had 2 more episodes of bloody stool. He denies fevers, nausea/vomiting or abdominal pain. This was preceded by 2 episodes of "pinkish" stools 3 days ago, at that time he had mild abdominal pain. The "pinkish" stool and abdominal pain self-resolved 3 days ago. Has c/o foamy UO PMHx: DM on insulin (non-compliance w/ insulin), HTN, HLD, Crohn's Disease, Chronic Obstructive Liver Disease with Chronic Granulomatous Cholangitis, Anemia , RN, Lung Nodule, Pneumonia (november 2017), Recurrent UTIs; CKD; proteinuria PSHx: The last colonoscopy was in 2012 and showed active ulceration in the sigmoid colon, descending colon, transverse colon, ascending colon and cecum. He had ERCP on 09/19/15 which showed papillary stenosis, and a small sphincterotomy was performed. Cataracts surgery. Allergies: none Home meds: Verified with [facility]: Novolog 70/30 25u sc bid, lantus 30u sc bid, azathioprine 50mg po qd, lyrica 75mg po qd SocialHx: 1 pack per week for past 20 years, social alcohol drinker, denies illicit drug use, lives at home with , works at [employer] in [employer] FamHx: Mom-DM, Father-DM Review of Systems - Constitutional Constitutional: Lethargy, Weakness - EENT Eyes: absent: As Per HPI, Blind Spots, Blurred Vision, Change in Vision, Decreased Night Vision, Diplopia, Discharge, Dry Eye, Exophthalmos, Floaters, Irritation, Itchy Eyes, Loss of Peripheral Vision, Pain, Photophobia, Requires Corrective Lenses, Sees Flashes, Spots in Vision, Tunnel Vision, Other Visual Disturbances, Loss of Vision, Other Ears: absent: As Per HPI, Decreased Hearing, Ear Discharge, Ear Pain, Tinnitus, Abnormal Hearing, Disequilibrium, Dizziness, Other Nose/Mouth/Throat: absent: As Per HPI, Epistaxis, Nasal Congestion, Nasal Discharge, Nasal Obstruction, Nasal Trauma, Nose Pain, Post Nasal Drip, Sinus Pain, Sinus Pressure, Bleeding Gums, Change in Voice, Dental Pain, Dry Mouth, Dysphagia, Halitosis, Hoarsness, Lip Swelling, Mouth Lesions, Mouth Pain, Odynophagia, Sore Throat, Throat Swelling, Tongue Swelling, Facial Pain, Neck Pain, Neck Mass, Other - Cardiovascular Cardiovascular: Edema, Lightheadedness - Respiratory Respiratory: Cough, Dyspnea on Exertion - Gastrointestinal Gastrointestinal: As Per HPI - Genitourinary Genitourinary: Urinary Frequency - Musculoskeletal Musculoskeletal: Muscle Cramps, Muscle Weakness, Myalgias - Neurological Neurological: Weakness - Hematologic/Lymphatic Hematologic: Easy Bleeding Past Patient History - Infectious Disease Hx of Infectious Diseases: None - Tetanus Immunizations Tetanus Immunization: Unknown - Past Medical History & Family History Past Medical History?: Yes Past Family History: Reviewed and not pertinent - Past Social History Smoking Status: Heavy Smoker > 10 Cigarettes Daily Chewing Tobacco Use: No Cigar Use: No Alcohol: Occasional Drugs: Denies - CARDIAC Hx Hypertension: Yes - PULMONARY Hx Bronchitis: Yes Hx Chronic Obstructive Pulmonary Disease (COPD): No Hx Pneumonia: Yes - NEUROLOGICAL Hx Neurological Disorder: No - HEENT Hx HEENT Problems: Yes Hx Cataracts: Yes (right eye) - RENAL Hx Chronic Kidney Disease: No - ENDOCRINE/METABOLIC Hx Endocrine Disorders: Yes Hx Diabetes Mellitus Type 1: Yes - HEMATOLOGICAL/ONCOLOGICAL Hx Anemia: Yes Hx Human Immunodeficiency Virus (HIV): No - INTEGUMENTARY Hx Dermatological Problems: Yes Hx Cellulitis: Yes - MUSCULOSKELETAL/RHEUMATOLOGICAL Hx Arthritis: Yes Hx Fractures: Yes (LEFT ELBOW-CASTED ONLY) Hx Rheumatoid Arthritis: Yes - GASTROINTESTINAL Hx Crohn's Disease: Yes Hx Gastritis: Yes - GENITOURINARY/GYNECOLOGICAL Hx Genitourinary Disorders: No - PSYCHIATRIC Hx Substance Use: No - SURGICAL HISTORY Hx Cholecystectomy: Yes - ANESTHESIA Hx Anesthesia: Yes Hx Anesthesia Reactions: No Hx Malignant Hyperthermia: No Meds Allergies/Adverse Reactions: Allergies Allergy/AdvReac Type Severity Reaction Status Date / Time No Known Allergies Allergy Verified 02/18/18 00:14 - Medications Medications: Current Medications Acetaminophen (Tylenol 325mg Tab) 650 mg PO Q6 PRN PRN Reason: Pain, moderate (4-7) Amlodipine Besylate (Norvasc) 5 mg PO DAILY [facility] Azathioprine (Imuran) 50 mg PO DAILY [facility] Last Admin: 03/08/18 10:02 Dose: 50 mg Insulin Human Regular (Novolin R) 0 unit SC ACHS [facility] PRN Reason: Protocol Pregabalin (Lyrica) 75 mg PO BID [facility] Last Admin: 03/08/18 19:54 Dose: 75 mg Physical Exam - Constitutional Appears: No Acute Distress, Chronically Ill - Head Exam Head Exam: ATRAUMATIC, NORMAL INSPECTION - Eye Exam Eye Exam: EOMI, Normal appearance, PERRL - Neck Exam Neck exam: Positive for: Normal Inspection. Negative for: Tenderness - Respiratory Exam Respiratory Exam: Clear to Auscultation Bilateral, NORMAL BREATHING PATTERN - Cardiovascular Exam Cardiovascular Exam: REGULAR RHYTHM, +S1 - GI/Abdominal Exam GI & Abdominal Exam: Soft. absent: Tenderness - Extremities Exam Extremities exam: Positive for: normal inspection. Negative for: tenderness - Neurological Exam Neurological exam: Alert, CN II-XII Intact, Oriented x3 - Skin Skin Exam: Dry, Warm Results - Vital Signs Recent Vital Signs: Last Vital Signs Temp 98.1 F 03/09/18 07:50 Pulse 82 03/09/18 07:50 Resp 20 03/09/18 07:50 BP 179/76 H 03/09/18 07:50 Pulse Ox 100 03/09/18 07:50 - Labs Result Diagrams: 03/09/18 08:01 03/09/18 08:01 Labs: Laboratory Results - last 24 hr 03/07/18 03/07/18 03/08/18 07:28 20:13 11:13 WBC RBC Hgb Hct MCV MCH MCHC RDW Plt Count MPV Neut % (Auto) Lymph % (Auto) [place] % (Auto) Eos % (Auto) Baso % (Auto) Neut # (Auto) Lymph # (Auto) [place] # (Auto) Eos # (Auto) Baso # (Auto) Neutrophils % (Manual) Band Neutrophils % Lymphocytes % (Manual) Reactive Lymphs % Monocytes % (Manual) Eosinophils % (Manual) Platelet Estimate RBC Morphology Sodium Potassium Chloride Carbon Dioxide Anion Gap BUN Creatinine Est GFR ( Amer) Est GFR (Non-Af Amer) POC Glucose (mg/dL) 243 H Random Glucose Calcium Total Bilirubin AST ALT Alkaline Phosphatase C-Reactive Protein Total Protein Albumin Globulin Albumin/Globulin Ratio Ur Random Creatinine 76 Urine Total Volume 176.9 Microalb/Creat Ratio 2328 H Blood Type O POSITIVE Antibody Screen Negative Tx React Basic Work-up Clerical Work Check Pre-Trans Blood Type Pre-Trans Vis Hemolysis Pre-Tx Ab Screen (Gel) Post-Trans Blood Type Post-Tx Visible Hemolys Post-Tx Ab Screen (Gel) Post-Trans JENNY Poly Pathologist Comment [facility] 03/08/18 03/08/18 03/08/18 14:32 14:32 16:03 WBC RBC Hgb Hct MCV MCH MCHC RDW Plt Count MPV Neut % (Auto) Lymph % (Auto) [place] % (Auto) Eos % (Auto) Baso % (Auto) Neut # (Auto) Lymph # (Auto) [place] # (Auto) Eos # (Auto) Baso # (Auto) Neutrophils % (Manual) Band Neutrophils % Lymphocytes % (Manual) Reactive Lymphs % Monocytes % (Manual) Eosinophils % (Manual) Platelet Estimate RBC Morphology Sodium Potassium Chloride Carbon Dioxide Anion Gap BUN Creatinine Est GFR ( Amer) Est GFR (Non-Af Amer) POC Glucose (mg/dL) 174 H Random Glucose Calcium Total Bilirubin 0.3 AST ALT Alkaline Phosphatase C-Reactive Protein Total Protein Albumin Globulin Albumin/Globulin Ratio Ur Random Creatinine Urine Total Volume Microalb/Creat Ratio Blood Type Antibody Screen Tx React Basic Work-up Compatible Clerical Work Check No discrepancy Pre-Trans Blood Type O POSITIVE Pre-Trans Vis Hemolysis No hemolysis Pre-Tx Ab Screen (Gel) Negative Post-Trans Blood Type O POSITIVE Post-Tx Visible Hemolys No hemolysis Post-Tx Ab Screen (Gel) Negative Post-Trans JENNY Poly Negative Pathologist Comment [facility] 03/08/18 03/08/18 03/09/18 19:49 21:38 06:48 WBC RBC Hgb Hct MCV MCH MCHC RDW Plt Count MPV Neut % (Auto) Lymph % (Auto) [place] % (Auto) Eos % (Auto) Baso % (Auto) Neut # (Auto) Lymph # (Auto) [place] # (Auto) Eos # (Auto) Baso # (Auto) Neutrophils % (Manual) Band Neutrophils % Lymphocytes % (Manual) Reactive Lymphs % Monocytes % (Manual) Eosinophils % (Manual) Platelet Estimate RBC Morphology Sodium Potassium Chloride Carbon Dioxide Anion Gap BUN Creatinine Est GFR ( Amer) Est GFR (Non-Af Amer) POC Glucose (mg/dL) 406 H* 350 H Random Glucose Calcium Total Bilirubin 0.4 AST ALT Alkaline Phosphatase C-Reactive Protein Total Protein Albumin Globulin Albumin/Globulin Ratio Ur Random Creatinine Urine Total Volume Microalb/Creat Ratio Blood Type Antibody Screen Tx React Basic Work-up Clerical Work Check Pre-Trans Blood Type Pre-Trans Vis Hemolysis Pre-Tx Ab Screen (Gel) Post-Trans Blood Type Post-Tx Visible Hemolys Post-Tx Ab Screen (Gel) Post-Trans JENNY Poly Pathologist Comment [facility] 03/09/18 03/09/18 08:01 08:01 WBC 12.6 H RBC 3.66 L Hgb 10.4 L Hct 31.0 L MCV 84.6 MCH 28.4 MCHC 33.6 RDW 14.0 Plt Count 248 MPV 9.1 Neut % (Auto) 85.7 H Lymph % (Auto) 9.7 L [place] % (Auto) 4.1 Eos % (Auto) 0.0 Baso % (Auto) 0.5 Neut # (Auto) 10.8 H Lymph # (Auto) 1.2 [place] # (Auto) 0.5 Eos # (Auto) 0.0 Baso # (Auto) 0.1 Neutrophils % (Manual) 84 H Band Neutrophils % 5 H Lymphocytes % (Manual) 6 L Reactive Lymphs % 1 H Monocytes % (Manual) 3 Eosinophils % (Manual) 1 Platelet Estimate Normal RBC Morphology Normal Sodium 139 Potassium 4.3 Chloride 106 Carbon Dioxide 19 L Anion Gap 18 BUN 23 H Creatinine 1.8 H Est GFR ( Amer) 49 Est GFR (Non-Af Amer) 41 POC Glucose (mg/dL) Random Glucose 379 H Calcium 8.1 L Total Bilirubin 0.3 AST 30 ALT 55 Alkaline Phosphatase 581 H C-Reactive Protein 40.70 H Total Protein 5.9 L Albumin 2.9 L Globulin 3.0 Albumin/Globulin Ratio 0.9 L Ur Random Creatinine Urine Total Volume Microalb/Creat Ratio Blood Type Antibody Screen Tx React Basic Work-up Clerical Work Check Pre-Trans Blood Type Pre-Trans Vis Hemolysis Pre-Tx Ab Screen (Gel) Post-Trans Blood Type Post-Tx Visible Hemolys Post-Tx Ab Screen (Gel) Post-Trans JENNY Poly Pathologist Comment [facility] Assessment & Plan (1) GI bleed Status: Acute (2) Proteinuria Status: Acute (3) Proteinuria due to type 2 diabetes mellitus Status: Acute (4) Crohn disease Status: Acute (5) Type 2 diabetes mellitus with diabetic nephropathy Status: Acute (6) Sclerosing cholangitis Status: Suspected (7) Chronic kidney disease, stage III (moderate) Status: Acute - Assessment and Plan (Free Text) Plan: quantify protein excretion evaluate for paraproteinuria renal US Add RERE I/ control HTN
[2018-03-09] MEDS ORDERED: Lactated Ringer's 500 ML IV ONE (12:49)
[2018-03-09] MEDS ORDERED: (Novolin R) Insulin Human Regular 100 units/ml vial IV ONE (13:13)
[2018-03-09] MEDS ORDERED: Propofol 10 mg/ml Inj (20 ML) ONE (14:14)
[2018-03-09 16:15] VITALS: RESP 20
[2018-03-10 07:30] LABS: BASO % 0.5 % (0.0-2.0); EOS # 0.1 K/uL (0.0-0.7); EOS % 1.1 % (0.0-4.0); HEMOGLOBIN 11.1 g/dL (12.0-18.0); LYMPH # 1.9 K/uL (1.0-4.3); LYMPH % 21.8 % (20.0-40.0); MEAN CELL VOLUME 83.9 fL (80.0-94.0); MEAN CORPUSCULAR HEMOGLOBIN 29.2 pg (27.0-31.0); MEAN CORPUSCULAR HGB CONC 34.8 g/dL (33.0-37.0); MEAN PLATELET VOLUME 8.6 fL (7.2-11.7); MONO # 0.7 K/uL (0.0-0.8); MONO % 7.4 % (0.0-10.0); NEUT # 6.1 K/uL (1.8-7.0); NEUT % 69.2 % (50.0-75.0); NRBC % 0.1 % (0.0-2.0); RBC 3.8 Mil/uL (4.40-5.90); RED CELL DISTRIBUTION WIDTH 13.6 % (11.5-14.5); WHITE BLOOD COUNT 8.8 K/uL (4.8-10.8)
[2018-03-10 07:44] LABS: ALB/GLOB RATIO 0.9 (1.0-2.1); ALBUMIN 2.9 g/dL (3.5-5.0); CALCIUM 8.4 mg/dl (8.6-10.4)
--- NOTE | 2018-03-10 07:50 | CP.PCM.PN ---
Subjective - Date & Time of Evaluation Date of Evaluation: 03/10/18 Time of Evaluation: 07:48 - Subjective Subjective: Patient denies having nausea, vomiting, abdominal hicks. He has not had a bowel movement since the colonoscopy, and he has not noted any bleeding. Objective - Vital Signs/Intake and Output Vital Signs (last 24 hours): Temp Pulse Resp BP Pulse Ox 97.9 F 72 20 134/72 99 03/10/18 00:00 03/10/18 04:25 03/10/18 00:00 03/10/18 00:00 03/10/18 00:00 - Medications Medications: Current Medications Acetaminophen (Tylenol 325mg Tab) 650 mg PO Q6 PRN PRN Reason: Pain, moderate (4-7) Amlodipine Besylate (Norvasc) 5 mg PO DAILY [facility] Last Admin: 03/09/18 10:36 Dose: 5 mg Azathioprine (Imuran) 50 mg PO DAILY [facility] Last Admin: 03/09/18 10:36 Dose: 50 mg Insulin Human Regular (Novolin R) 0 unit SC ACHS [facility] PRN Reason: Protocol Last Admin: 03/09/18 22:07 Dose: 3 units Lisinopril (Zestril) 10 mg PO DAILY [facility] Last Admin: 03/09/18 10:36 Dose: 10 mg Pregabalin (Lyrica) 75 mg PO BID [facility] Last Admin: 03/09/18 17:35 Dose: 75 mg Rosuvastatin Calcium (Crestor) 5 mg PO HS [facility] Last Admin: 03/09/18 21:13 Dose: 5 mg - Labs Labs: 03/10/18 07:16 03/10/18 07:16 PT 9.7 SECONDS (9.7-12.2) 03/07/18 09:55 INR 0.9 03/07/18 09:55 APTT 33 SECONDS (21-34) 03/07/18 09:55 - Constitutional Appears: No Acute Distress - Head Exam Head Exam: ATRAUMATIC, NORMOCEPHALIC - Eye Exam Eye Exam: EOMI, PERRL - Neck Exam Neck Exam: absent: Lymphadenopathy, Thyromegaly - Respiratory Exam Respiratory Exam: NORMAL BREATHING PATTERN. absent: Rales, Rhonchi, Wheezes - Cardiovascular Exam Cardiovascular Exam: REGULAR RHYTHM, +S1, +S2. absent: Gallop, Rubs, Murmur - GI/Abdominal Exam GI & Abdominal Exam: Soft, Normal Bowel Sounds. absent: Tenderness, Mass, Organomegaly - Rectal Exam Rectal Exam: Deferred - Extremities Exam Extremities Exam: absent: Calf Tenderness, Pedal Edema Assessment and Plan (1) Gastrointestinal hemorrhage Assessment & Plan: Bleeding was evidently due to Crohn's colitis. Recommend increasing azathioprine to 75 mg; consider Remicade. Status: Acute
[2018-03-10] MEDS: (Novolin R) Insulin Human Regular 100 units/ml vial SC SCH ×2 (08:30→12:30)
--- NOTE | 2018-03-10 08:39 | US ---
PROCEDURE: Ultrasound of the Kidneys HISTORY: brandy COMPARISON: None available. TECHNIQUE: Sonogram of the kidneys. FINDINGS: RIGHT KIDNEY: Measures: 10.9 cm. Normal size. Horseshoe kidney. No mass. No hydronephrosis. No calculus. LEFT KIDNEY: Measures: 10.9 cm. Mildly echogenic. Horseshoe kidney. No mass. No calculus or hydronephrosis. OTHER FINDINGS: None. IMPRESSION: Horseshoe kidney noted. Mild diffusely increased renal cortical echogenicity consistent with diffuse medical renal disease. Preliminary interpretation of this examination was reported by [facility] at 7:52 p.m. on 03/09/2018. There is concurrence of this report with the preliminary interpretation.
--- NOTE | 2018-03-10 13:54 | CP.PCM.PN ---
Subjective - Date & Time of Evaluation Date of Evaluation: 03/10/18 Time of Evaluation: 13:52 - Subjective Subjective: BP better controlled urine protein excretion not done yet tolerating lisinipril; K normal Objective - Vital Signs/Intake and Output Vital Signs (last 24 hours): Temp Pulse Resp BP Pulse Ox 97.5 F L 74 20 146/74 100 03/10/18 07:22 03/10/18 07:45 03/10/18 07:22 03/10/18 07:22 03/10/18 07:22 - Medications Medications: Current Medications Acetaminophen (Tylenol 325mg Tab) 650 mg PO Q6 PRN PRN Reason: Pain, moderate (4-7) Amlodipine Besylate (Norvasc) 5 mg PO DAILY [facility] Last Admin: 03/10/18 10:24 Dose: 5 mg Azathioprine (Imuran) 75 mg PO DAILY [facility] Last Admin: 03/10/18 11:00 Dose: 75 mg Insulin Human Regular (Novolin R) 0 unit SC ACHS [facility] PRN Reason: Protocol Last Admin: 03/10/18 12:30 Dose: 6 units Lisinopril (Zestril) 10 mg PO DAILY [facility] Last Admin: 03/10/18 10:23 Dose: 10 mg Pregabalin (Lyrica) 75 mg PO BID [facility] Last Admin: 03/10/18 10:24 Dose: 75 mg Rosuvastatin Calcium (Crestor) 5 mg PO HS [facility] Last Admin: 03/09/18 21:13 Dose: 5 mg - Labs Labs: 03/10/18 07:16 03/10/18 07:16 PT 9.7 SECONDS (9.7-12.2) 03/07/18 09:55 INR 0.9 03/07/18 09:55 APTT 33 SECONDS (21-34) 03/07/18 09:55 - Constitutional Appears: No Acute Distress, Chronically Ill - Head Exam Head Exam: ATRAUMATIC, NORMAL INSPECTION - Eye Exam Eye Exam: EOMI, Normal appearance - Neck Exam Neck Exam: Normal Inspection. absent: Tenderness - Respiratory Exam Respiratory Exam: Clear to Ausculation Bilateral, NORMAL BREATHING PATTERN - Cardiovascular Exam Cardiovascular Exam: REGULAR RHYTHM, +S1 - GI/Abdominal Exam GI & Abdominal Exam: Soft. absent: Tenderness - Extremities Exam Extremities Exam: Normal Inspection. absent: Tenderness - Neurological Exam Neurological Exam: Awake, CN II-XII Intact - Skin Skin Exam: Dry, Warm Assessment and Plan (1) GI bleed Status: Acute (2) Proteinuria Status: Acute (3) Proteinuria due to type 2 diabetes mellitus Status: Acute (4) Crohn disease Status: Acute (5) Type 2 diabetes mellitus with diabetic nephropathy Status: Acute (6) Sclerosing cholangitis Status: Suspected (7) Chronic kidney disease, stage III (moderate) Status: Acute - Assessment and Plan (Free Text) Plan: continue RERE I can check protein excretion rate as oupt considering discharge
[2018-03-10 16:12] VITALS: BP 132/73; PULSE 67; TEMP 97.7; O2SAT 99
--- NOTE | 2018-03-10 16:25 | CP.PCM.HP ---
History of Present Illness - History of Present Illness History of Present Illness: Patient had lower GI bleed. Patient has known hx of Crohn's. GI was consulted. Home Azothioprine 50 mg PO QD was continued through hospitalization. Hemoglobin was monitored. CT of abdomen and pelvis with contrast was ordered and determined patient had acute nonspecific inflammation/ infection hicks colitis and proctitis. GI did a colonoscopy on 03/09 and determined bleed was due to Crohn's exacerbation. GI recommended increasing home Azathiprine to 75 mg. Patient will follow up with GI outpatient. Patient had SUSANA on CKD. BUN/Cr on admission date was 34/2.4. BUN/Cr was followed trending down to 24/1.7. Nephrology was consulted. Patient will follow up with Nephrology outpatient. 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 Microalb/Creat ratio 2328. Nephrology started patient on lisinopril and tolerated it well. K was noted to be within normal values. Patient was anemic. Hemoglobin was 12.4 on arrival to ED, dropping to 11.0 at time of admission. Hgb was monitored Q8H x3, dropped 8.5 when patient was given 1.5 units of PRBCs. Second unit had to be stopped short because patient had an allergic reaction with hives. Patient had allergic reaction on 03/08 while receiving blood transfusion. Patient developed hives on shoulders, underarms, antecubital fossa, and chest that were itchy. Patient was given Methylprenisilone 125 ivp stat, Benadryl 50 ivp stat, and Pepcid 20 mg stat. Throat was clear, no erythema or edema. Airway was patent. Heart RRR +S1 and +S2. Lungs were CTABL eith no wheezing, rales, or rhonchi. Patients Hgb was 11.1 upon discharge. Patient has poorly controlled DM2. Blood glucose was monitored. HgbA1c 12.1 was appreciated. TSH/Free T4 WNL. Lipid Panel: Triglycerides 390, Cholesterol 236, LDL 70, HDL 67. Microalb/Creat ratio 2328. Patient was placed on Crestor 4mg PO HS. Patient had elevated BP as elevated as 177/97 on 03/08. Patient was started on Amlodipine 5mg PO daily on 03/09 and was better controlled. Nephrology also placed patient on ACEI to address pressure issues and renal protection. BP upon discharge was 146/74. This is a summary of the patient's hospital course, please see chart for full details. Past Patient History - Infectious Disease Hx of Infectious Diseases: None - Tetanus Immunizations Tetanus Immunization: Unknown - Past Medical History & Family History Past Medical History?: Yes Past Family History: Reviewed and not pertinent - Past Social History Smoking Status: Heavy Smoker > 10 Cigarettes Daily Chewing Tobacco Use: No Cigar Use: No Alcohol: Occasional Drugs: Denies - CARDIAC Hx Hypertension: Yes - PULMONARY Hx Bronchitis: Yes Hx Chronic Obstructive Pulmonary Disease (COPD): No Hx Pneumonia: Yes - NEUROLOGICAL Hx Neurological Disorder: No - HEENT Hx HEENT Problems: Yes Hx Cataracts: Yes (right eye) - RENAL Hx Chronic Kidney Disease: No - ENDOCRINE/METABOLIC Hx Endocrine Disorders: Yes Hx Diabetes Mellitus Type 1: Yes - HEMATOLOGICAL/ONCOLOGICAL Hx Anemia: Yes Hx Human Immunodeficiency Virus (HIV): No - INTEGUMENTARY Hx Dermatological Problems: Yes Hx Cellulitis: Yes - MUSCULOSKELETAL/RHEUMATOLOGICAL Hx Arthritis: Yes Hx Fractures: Yes (LEFT ELBOW-CASTED ONLY) Hx Rheumatoid Arthritis: Yes - GASTROINTESTINAL Hx Crohn's Disease: Yes Hx Gastritis: Yes - GENITOURINARY/GYNECOLOGICAL Hx Genitourinary Disorders: No - PSYCHIATRIC Hx Substance Use: No - SURGICAL HISTORY Hx Cholecystectomy: Yes - ANESTHESIA Hx Anesthesia: Yes Hx Anesthesia Reactions: No Hx Malignant Hyperthermia: No Meds Home Medications: Home Medication List Medication Instructions Recorded Confirmed Type Lisinopril [Zestril] 10 mg PO DAILY #30 tab 03/10/18 Rx Rosuvastatin Calcium [Crestor] 5 mg PO HS #30 tab 03/10/18 Rx amLODIPine [Norvasc] 5 mg PO DAILY #30 tab 03/10/18 Rx azaTHIOprine [Imuran] 75 mg PO DAILY #30 tab 03/10/18 Rx Allergies/Adverse Reactions: Allergies Allergy/AdvReac Type Severity Reaction Status Date / Time No Known Allergies Allergy Verified 02/18/18 00:14 Results - Vital Signs Recent Vital Signs: Last Vital Signs Temp 97.7 F 03/10/18 16:08 Pulse 67 03/10/18 16:08 Resp 20 03/10/18 16:08 BP 132/73 03/10/18 16:08 Pulse Ox 99 03/10/18 16:08 - Labs Result Diagrams: 03/10/18 07:16 03/10/18 07:16 Labs: Laboratory Results - last 24 hr 03/08/18 03/08/18 03/09/18 10:44 10:44 16:46 WBC RBC Hgb Hct MCV MCH MCHC RDW Plt Count MPV Neut % (Auto) Lymph % (Auto) [place] % (Auto) Eos % (Auto) Baso % (Auto) Neut # (Auto) Lymph # (Auto) [place] # (Auto) Eos # (Auto) Baso # (Auto) Sodium Potassium Chloride Carbon Dioxide Anion Gap BUN Creatinine Est GFR ( Amer) Est GFR (Non-Af Amer) POC Glucose (mg/dL) 247 H Random Glucose Calcium Total Bilirubin AST ALT Alkaline Phosphatase Total Protein Albumin Globulin Albumin/Globulin Ratio Stool Leukocytes, Qual Negative C. difficile Ag & Toxin Negative 03/09/18 03/10/18 03/10/18 21:52 02:22 06:57 WBC RBC Hgb Hct MCV MCH MCHC RDW Plt Count MPV Neut % (Auto) Lymph % (Auto) [place] % (Auto) Eos % (Auto) Baso % (Auto) Neut # (Auto) Lymph # (Auto) [place] # (Auto) Eos # (Auto) Baso # (Auto) Sodium Potassium Chloride Carbon Dioxide Anion Gap BUN Creatinine Est GFR ( Amer) Est GFR (Non-Af Amer) POC Glucose (mg/dL) 387 H 338 H 315 H Random Glucose Calcium Total Bilirubin AST ALT Alkaline Phosphatase Total Protein Albumin Globulin Albumin/Globulin Ratio Stool Leukocytes, Qual C. difficile Ag & Toxin 03/10/18 03/10/18 03/10/18 07:16 07:16 11:13 WBC 8.8 RBC 3.80 L Hgb 11.1 L Hct 31.9 L MCV 83.9 MCH 29.2 MCHC 34.8 RDW 13.6 Plt Count 269 MPV 8.6 Neut % (Auto) 69.2 Lymph % (Auto) 21.8 [place] % (Auto) 7.4 Eos % (Auto) 1.1 Baso % (Auto) 0.5 Neut # (Auto) 6.1 Lymph # (Auto) 1.9 [place] # (Auto) 0.7 Eos # (Auto) 0.1 Baso # (Auto) 0.0 Sodium 137 Potassium 3.7 Chloride 104 Carbon Dioxide 26 Anion Gap 11 BUN 24 H Creatinine 1.7 H Est GFR ( Amer) 53 Est GFR (Non-Af Amer) 44 POC Glucose (mg/dL) 330 H Random Glucose 321 H Calcium 8.4 L Total Bilirubin 0.6 AST 31 ALT 50 Alkaline Phosphatase 551 H Total Protein 6.0 L Albumin 2.9 L Globulin 3.1 Albumin/Globulin Ratio 0.9 L Stool Leukocytes, Qual C. difficile Ag & Toxin
--- NOTE | 2018-03-10 16:28 | CP.PCM.DIS ---
Provider - Provider Date of Admission: 03/07/18 10:40 Attending physician: Jed Quintero MD Primary care physician: Dr. Banks Consults: Dr. Rosenthal (GI) Dr. Garcia (nephro) Time Spent in preparation of Discharge (in minutes): 45 Diagnosis - Discharge Diagnosis (1) GI bleed Status: Resolved (2) Crohn disease Status: Chronic (3) Chronic kidney disease, stage III (moderate) Status: Chronic (4) Uncontrolled diabetes mellitus Status: Chronic (5) Acute renal insufficiency Status: Acute Hospital Course - Lab Results Lab Results: Micro Results 03/07/18 11:58 Stool Stool Culture - Final NO SALMONELLA, SHIGELLA OR CAMPYLOBACTER ISOLATED. Most Recent Lab Values WBC 8.8 K/uL (4.8-10.8) 03/10/18 07:16 RBC 3.80 Mil/uL (4.40-5.90) L 03/10/18 07:16 Hgb 11.1 g/dL (12.0-18.0) L 03/10/18 07:16 Hct 31.9 % (35.0-51.0) L 03/10/18 07:16 MCV 83.9 fL (80.0-94.0) 03/10/18 07:16 MCH 29.2 pg (27.0-31.0) 03/10/18 07:16 MCHC 34.8 g/dL (33.0-37.0) 03/10/18 07:16 RDW 13.6 % (11.5-14.5) 03/10/18 07:16 Plt Count 269 K/uL (130-400) 03/10/18 07:16 MPV 8.6 fL (7.2-11.7) 03/10/18 07:16 Neut % (Auto) 69.2 % (50.0-75.0) 03/10/18 07:16 Lymph % (Auto) 21.8 % (20.0-40.0) 03/10/18 07:16 [place] % (Auto) 7.4 % (0.0-10.0) 03/10/18 07:16 Eos % (Auto) 1.1 % (0.0-4.0) 03/10/18 07:16 Baso % (Auto) 0.5 % (0.0-2.0) 03/10/18 07:16 Neut # (Auto) 6.1 K/uL (1.8-7.0) 03/10/18 07:16 Lymph # (Auto) 1.9 K/uL (1.0-4.3) 03/10/18 07:16 [place] # (Auto) 0.7 K/uL (0.0-0.8) 03/10/18 07:16 Eos # (Auto) 0.1 K/uL (0.0-0.7) 03/10/18 07:16 Baso # (Auto) 0.0 K/uL (0.0-0.2) 03/10/18 07:16 Neutrophils % (Manual) 84 % (50-75) H 03/09/18 08:01 Band Neutrophils % 5 % (0-2) H 03/09/18 08:01 Lymphocytes % (Manual) 6 % (20-40) L 03/09/18 08:01 Reactive Lymphs % 1 % (0-0) H 03/09/18 08:01 Monocytes % (Manual) 3 % (0-10) 03/09/18 08:01 Eosinophils % (Manual) 1 % (0-4) 03/09/18 08:01 Platelet Estimate Normal (NORMAL) 03/09/18 08:01 RBC Morphology Normal 03/09/18 08:01 PT 9.7 SECONDS (9.7-12.2) 03/07/18 09:55 INR 0.9 03/07/18 09:55 APTT 33 SECONDS (21-34) 03/07/18 09:55 pO2 44 mm/Hg (30-55) 03/07/18 11:20 VBG pH 7.29 (7.32-7.43) L 03/07/18 11:20 VBG pCO2 42 mmHg (40-60) 03/07/18 11:20 VBG HCO3 19.5 mmol/L 03/07/18 11:20 VBG Total CO2 21.5 mmol/L (22-28) L 03/07/18 11:20 VBG O2 Sat (Calc) 84.4 % (40-65) H 03/07/18 11:20 VBG Base Excess -6.1 mmol/L (0.0-2.0) L 03/07/18 11:20 VBG Potassium 3.6 mmol/L (3.6-5.2) 03/07/18 11:20 Sodium 135.0 mmol/l (132-148) 03/07/18 11:20 Chloride 107.0 mmol/L (98-107) 03/07/18 11:20 Glucose 402 mg/dl (75-110) H* 03/07/18 11:20 Lactate 1.0 mmol/L (0.7-2.1) 03/07/18 11:20 Crit Value Called To 03/07/18 11:20 Crit Value Called By Jorge brunson 03/07/18 11:20 Crit Value Read Back Y 03/07/18 11:20 Blood Gas Notified Time 1135 03/07/18 11:20 Sodium 137 mmol/L (132-148) 03/10/18 07:16 Potassium 3.7 mmol/L (3.6-5.2) 03/10/18 07:16 Chloride 104 mmol/L (98-107) 03/10/18 07:16 Carbon Dioxide 26 mmol/L (22-30) 03/10/18 07:16 Anion Gap 11 (10-20) 03/10/18 07:16 BUN 24 mg/dL (9-20) H 03/10/18 07:16 Creatinine 1.7 mg/dL (0.8-1.5) H 03/10/18 07:16 Est GFR ( Amer) 53 03/10/18 07:16 Est GFR (Non-Af Amer) 44 03/10/18 07:16 POC Glucose (mg/dL) 330 mg/dL (65-110) H 03/10/18 11:13 Random Glucose 321 mg/dL (75-110) H 03/10/18 07:16 Hemoglobin A1c 12.1 % (4.2-6.5) H 03/08/18 08:22 Calcium 8.4 mg/dl (8.6-10.4) L 03/10/18 07:16 Phosphorus 4.1 mg/dL (2.5-4.5) 03/07/18 09:55 Magnesium 1.6 mg/dL (1.6-2.3) 03/07/18 09:55 Total Bilirubin 0.6 mg/dL (0.2-1.3) 03/10/18 07:16 AST 31 U/L (17-59) 03/10/18 07:16 ALT 50 U/L (21-72) 03/10/18 07:16 Alkaline Phosphatase 551 U/L (38-126) H 03/10/18 07:16 Troponin I 0.0440 ng/mL (0.00-0.120) 03/07/18 17:11 C-Reactive Protein 40.70 mg/L (0.0-9.9) H 03/09/18 08:01 Total Protein 6.0 g/dL (6.3-8.3) L 03/10/18 07:16 Albumin 2.9 g/dL (3.5-5.0) L 03/10/18 07:16 Globulin 3.1 gm/dL (2.2-3.9) 03/10/18 07:16 Albumin/Globulin Ratio 0.9 (1.0-2.1) L 03/10/18 07:16 Triglycerides 390 mg/dL (0-149) H 03/08/18 08:22 Cholesterol 236 mg/dL (0-199) H 03/08/18 08:22 LDL Cholesterol Direct 70 mg/dL (0-129) 03/08/18 08:22 HDL Cholesterol 67 mg/dL (30-70) 03/08/18 08:22 Lipase 197 U/L (23-300) 03/07/18 09:55 Free T4 1.26 ng/dL (0.78-2.19) 03/08/18 08:22 TSH 3rd Generation 1.61 mIU/L (0.46-4.68) 03/08/18 08:22 Venous Blood Potassium 3.6 mmol/L (3.6-5.2) 03/07/18 11:20 Urine Color Yellow (YELLOW) 03/07/18 10:17 Urine Clarity Hazy (Clear) 03/07/18 10:17 Urine pH 6.0 (5.0-8.0) 03/07/18 10:17 Ur Specific [place] 1.014 (1.003-1.030) 03/07/18 10:17 Urine Protein 3+ mg/dL (NEGATIVE) H 03/07/18 10:17 Urine Glucose (UA) 3+ mg/dL (Normal) H 03/07/18 10:17 Urine Ketones Negative mg/dL (NEGATIVE) 03/07/18 10:17 Urine Blood Negative (NEGATIVE) 03/07/18 10:17 Urine Nitrate Negative (NEGATIVE) 03/07/18 10:17 Urine Bilirubin Negative (NEGATIVE) 03/07/18 10:17 Urine Urobilinogen Normal mg/dL (0.2-1.0) 03/07/18 10:17 Ur Leukocyte Esterase Neg Sarbjit/uL (Negative) 03/07/18 10:17 Urine WBC (Auto) 2 /hpf (0-5) 03/07/18 10:17 Urine RBC (Auto) 3 /hpf (0-3) 03/07/18 10:17 Ur Random Creatinine Cancelled 03/08/18 04:27 Urine Total Volume 176.9 mg/dL 03/07/18 07:28 Microalb/Creat Ratio 2328 (<30) H 03/07/18 07:28 Stool Leukocytes, Qual Negative (NEGATIVE) 03/08/18 10:44 Urine Opiates Screen Positive (NEGATIVE) H 03/07/18 10:17 Urine Methadone Screen Negative (NEGATIVE) 03/07/18 10:17 Ur Barbiturates Screen Negative (NEGATIVE) 03/07/18 10:17 Ur Phencyclidine Scrn Negative (NEGATIVE) 03/07/18 10:17 Ur Amphetamines Screen Negative (NEGATIVE) 03/07/18 10:17 U Benzodiazepines Scrn Negative (NEGATIVE) 03/07/18 10:17 U Oth Cocaine Metabols Negative (NEGATIVE) 03/07/18 10:17 U Cannabinoids Screen Negative (NEGATIVE) 03/07/18 10:17 C. difficile Ag & Toxin Negative (NEGATIVE) 03/08/18 10:44 Blood Type O POSITIVE 03/07/18 20:13 Antibody Screen Negative 03/07/18 20:13 Tx React Basic Work-up Compatible (COMPATIBLE) 03/08/18 14:32 Clerical Work Check No discrepancy 03/08/18 14:32 Pre-Trans Blood Type O POSITIVE 03/08/18 14:32 Pre-Trans Vis Hemolysis No hemolysis 03/08/18 14:32 Pre-Tx Ab Screen (Gel) Negative 03/08/18 14:32 Post-Trans Blood Type O POSITIVE 06/27/18 14:32 Post-Tx Visible Hemolys No hemolysis 03/08/18 14:32 Post-Tx Ab Screen (Gel) Negative 03/08/18 14:32 Post-Trans JENNY Poly Negative (NEGATIVE) 03/08/18 14:32 Pathologist Comment LUDIN 03/08/18 14:32 - Hospital Course Hospital Course: Patient had lower GI bleed. Patient has known hx of Crohn's. GI was consulted. Home Azothioprine 50 mg PO QD was continued through hospitalization. Hemoglobin was monitored. CT of abdomen and pelvis with contrast was ordered and determined patient had acute nonspecific inflammation/ infection hicks colitis and proctitis. GI did a colonoscopy on 03/09 and determined bleed was due to Crohn's exacerbation. GI recommended increasing home Azathiprine to 75 mg. Patient will follow up with GI outpatient. Patient had SUSANA on CKD. BUN/Cr on admission date was 34/2.4. BUN/Cr was followed trending down to 24/1.7. Nephrology was consulted. Patient will follow up with Nephrology outpatient. 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 Microalb/Creat ratio 2328. Nephrology started patient on lisinopril and tolerated it well. K was noted to be within normal values. Patient was anemic. Hemoglobin was 12.4 on arrival to ED, dropping to 11.0 at time of admission. Hgb was monitored Q8H x3, dropped 8.5 when patient was given 1.5 units of PRBCs. Second unit had to be stopped short because patient had an allergic reaction with hives. Patient had allergic reaction on 03/08 while receiving blood transfusion. Patient developed hives on shoulders, underarms, antecubital fossa, and chest that were itchy. Patient was given Methylprenisilone 125 ivp stat, Benadryl 50 ivp stat, and Pepcid 20 mg stat. Throat was clear, no erythema or edema. Airway was patent. Heart RRR +S1 and +S2. Lungs were CTABL eith no wheezing, rales, or rhonchi. Patients Hgb was 11.1 upon discharge. Patient has poorly controlled DM2. Blood glucose was monitored. HgbA1c 12.1 was appreciated. TSH/Free T4 WNL. Lipid Panel: Triglycerides 390, Cholesterol 236, LDL 70, HDL 67. Microalb/Creat ratio 2328. Patient was placed on Crestor 4mg PO HS. Patient had elevated BP as elevated as 177/97 on 03/08. Patient was started on Amlodipine 5mg PO daily on 03/09 and was better controlled. Nephrology also placed patient on ACEI to address pressure issues and renal protection. BP upon discharge was 146/74. This is a summary of the patient's hospital course, please see chart for full details. Discharge Exam - Additional Findings Additional findings: - Constitutional Appears: Well, No Acute Distress - Head Exam Head Exam: ATRAUMATIC, NORMAL INSPECTION - Eye Exam Eye Exam: EOMI. absent: Conjunctival injection, Periorbital swelling, Scleral icterus Pupil Exam: PERRL - ENT Exam ENT Exam: Mucous Membranes Dry, Normal External Ear Exam, Normal Oropharynx, TM' s Normal Bilaterally - Neck Exam Neck exam: Positive for: Normal Inspection. Negative for: Tenderness, Thyromegaly - Respiratory Exam Respiratory Exam: Clear to Auscultation Bilateral, NORMAL BREATHING PATTERN. absent: Rales, Rhonchi, Wheezes - Cardiovascular Exam Cardiovascular Exam: REGULAR RHYTHM, REGULAR RATE, +S1, +S2. absent: JVD, Systolic Murmur - GI/Abdominal Exam GI & Abdominal Exam: Normal Bowel Sounds, Soft. absent: Distended, Firm, Guarding, Rebound, Tenderness - Extremities Exam Extremities exam: Positive for: normal capillary refill, normal inspection. Negative for: calf tenderness - Neurological Exam Neurological exam: Alert, CN II-XII Intact, Oriented x3 - Psychiatric Exam Psychiatric exam: Normal Mood - Skin Skin Exam: Dry, Intact, Normal Color, Warm Discharge Plan - Discharge Medications Prescriptions: amLODIPine [Norvasc] 5 mg PO DAILY #30 tab azaTHIOprine [Imuran] 75 mg PO DAILY #30 tab Lisinopril [Zestril] 10 mg PO DAILY #30 tab Rosuvastatin Calcium [Crestor] 5 mg PO HS #30 tab - Follow Up Plan Condition: STABLE Disposition: HOME/ ROUTINE Instructions: Diabetes Type 2 (DC), Crohn's Disease (DC), Pregabalin, Amlodipine, Azathioprine, Lisinopril, Rosuvastatin, Diabetic Meal Planning , Gastrointestinal Bleeding (GEN) Additional Instructions: Patient stable for discharge as per Dr. Mejia. Patient to follow up with Dr. Rosenthal in 7-10 days. Patient to follow up with Dr. Garcia in 7-10 days/ Patient to follow up with Dr. Banks in 7-10 days. Patient to increase his Imuran to 75mg daily (new script given) Patient to take Lisinopril 10 mg daily Patient to take Crestor 5mg daily Patient to take Amlodipine 5mg daily Patient to check his blood sugar 4 times daily (before each meal and before bedtime) and keep a log of his sugars. If symptoms return please return to Emergency Department. Patient explained instructions who understands and agrees. Referrals: Brayan Garcia MD [Staff Provider] - Alessandra Banks MD [Staff Provider] - Keshav Rosenthal MD [Staff Provider] -
[2018-03-11 07:00] LABS: CREATININE, 24 HOUR URINE 1.53 g/24 h (0.63-2.50)
[2018-03-13 12:36] LABS: ALBUMIN (PEP) 2.6 g/dL (3.8-4.8); ALPHA-1-GLOBULIN (PEP) 0.3 g/dL (0.2-0.3)
== END 2018-03-10 16:00 | disposition home or self-care (01) | DRG 386 ==
LOC: C.ER 08:30 → C.9E 10:40 → C.5S 12:21
PROVIDERS: ADMIT Family Medicine; ATTEND Family Medicine
PROC: 0DBL8ZX Excision of Transverse Colon, Via Natural or Artificial Opening Endoscopic, Diagnostic (ICD-10-PCS; 2018-03-09)
PROC: 0DBN8ZX Excision of Sigmoid Colon, Via Natural or Artificial Opening Endoscopic, Diagnostic (ICD-10-PCS; 2018-03-09)
PROC: 0DBM8ZX Excision of Descending Colon, Via Natural or Artificial Opening Endoscopic, Diagnostic (ICD-10-PCS; 2018-03-09)
PROC: 0DBK8ZX Excision of Ascending Colon, Via Natural or Artificial Opening Endoscopic, Diagnostic (ICD-10-PCS; principal; 2018-03-09 14:32)
DX: K50.10 Crohn's disease of large intestine without complications (principal); A09 Infectious gastroenteritis and colitis, unspecified; N17.9 Acute kidney failure, unspecified; K83.0 Cholangitis; E78.5 Hyperlipidemia, unspecified; I12.9 Hypertensive chronic kidney disease with stage 1 through stage 4 chronic kidney disease, or unspecified chronic kidney disease; N18.3 Chronic kidney disease, stage 3 (moderate); E11.22 Type 2 diabetes mellitus with diabetic chronic kidney disease; E11.65 Type 2 diabetes mellitus with hyperglycemia; Z79.4 Long term (current) use of insulin; K76.9 Liver disease, unspecified; L52 Erythema nodosum; D64.9 Anemia, unspecified; M06.9 Rheumatoid arthritis, unspecified; F17.210 Nicotine dependence, cigarettes, uncomplicated; Z91.14 Patient's other noncompliance with medication regimen

== ENCOUNTER 2018-04-18 09:23 | Inpatient (IN) | payer BC, OTHER ==
[2018-04-18 09:23] VITALS: BMI 26.9
--- NOTE | 2018-04-18 10:11 | C.PDOC ---
History Of Present Illness 48 year old male patient with hx of crohn's disease presents to the ER with c/o pain on the bottom of his left foot for 1 week. Patient states it got worse 2 days ago. Patient states "I get these all over but this is first time on the bottom of my foot". Patient is unable to bear weight on his left foot. 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 Patient denies trauma, discharge and fever. Patient's last oral intake is breakfast this morning. PAIN BOTTOM L FOOT X 1 WK, WORSE X 3 DAYS. HO CROHN'S, PS "I GET THESE ALL OVER BUT THIS IS FIRST TIME ON BOTTOM OF MY FOOT". NO TRAUMA. NOW UNABLE TO WT BEAR. DENIES DC, FEVER. COMPLIANT W CROHN'S MEDS. 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 ATE BREAKFAST THIS MORNING. EXAM MILD DIST NONTOXIC SKIN MULT CHRONIC LESIONS B/L LEGS C/W ERYTHEMA NODODUM; +FLUCTUANT, TEND L PLANTAR MID FOOT LESION LOCAL ERYTHEMA, INTACT EXT L FOOT ATRAUM REMAINDER NEG Time Seen by Provider: 04/18/18 09:48 Chief Complaint (Nursing): Lower Extremity Problem/Injury History Per: Patient History/Exam Limitations: no limitations Onset/Duration Of Symptoms: Days (x1 week) Past Medical History Reviewed: Historical Data, Nursing Documentation, Vital Signs Vital Signs: Last Vital Signs Temp 98.5 F 04/18/18 09:27 Pulse 109 H 04/18/18 09:27 Resp 18 04/18/18 09:27 BP 151/78 H 04/18/18 09:27 Pulse Ox 99 04/18/18 12:35 - Medical History PMH: Anemia, Arthritis, Bronchitis, Crohn's Disease, Diabetes, Fractures (LEFT ELBOW-CASTED ONLY), Gastritis, HTN, Pneumonia, Rheumatoid Arthritis Surgical History: Cholecystectomy, Endoscopy - [facility] Procedures CLOSED ENDOSCOPIC BIOPSY OF LARGE INTESTINE (03/31/13) DRAINAGE OF AMPULLA OF VATER, ENDO (09/20/15) DRAINAGE OF LEFT UPPER LUNG LOBE, ENDO, DIAGN (03/11/17) DRAINAGE OF RIGHT LOWER LOBE BRONCHUS, ENDO, DIAGN (11/12/15) DRAINAGE OF RIGHT LOWER LUNG LOBE, ENDO, DIAGN (03/11/17) EXCISION OF ASCENDING COLON, ENDO, DIAGN (03/07/18) EXCISION OF DESCENDING COLON, ENDO, DIAGN (03/07/18) EXCISION OF RIGHT LOWER LUNG LOBE, ENDO, DIAGN (11/12/15) EXCISION OF RIGHT LUNG, PERCUTANEOUS APPROACH, DIAGNOSTIC (03/11/17) EXCISION OF SIGMOID COLON, ENDO, DIAGN (03/07/18) EXCISION OF TRANSVERSE COLON, ENDO, DIAGN (03/07/18) EXERCISE TREATMENT OF MUSCULOSK WHOLE USING ASSIST EQUIPMENT (03/29/17) EXTRACTION OF ILIAC BONE MARROW, PERC APPROACH, DIAGN (11/12/15) INSERTION OF INFUSION DEV INTO SUP VENA CAVA, PERC APPROACH (03/11/17) INTRODUCE OF OTH ANTI-INFECT INTO PERIPH VEIN, PERC APPROACH (03/29/17) PACKED CELL TRANSFUSION (03/31/13) Family History: States: Unknown Family Hx - Social History Hx Alcohol Use: Yes (SOCIAL) Hx Substance Use: No - Immunization History Hx Tetanus Toxoid Vaccination: No Hx Influenza Vaccination: No Hx Pneumococcal Vaccination: No Review Of Systems Except As Marked, All Systems Reviewed And Found Negative. Constitutional: Negative for: Fever Musculoskeletal: Positive for: Foot Pain (left bottom foot; no discharge; no trauma) Physical Exam - Physical Exam Appears: Non-toxic, In Acute Distress (mild) Skin: Other (multiple chronic lesions) Head: Atraumatic, Normacephalic Eye(s): bilateral: Normal Inspection Ear(s): Bilateral: Normal Nose: Normal Oral Mucosa: Moist Throat: Normal Neck: Normal ROM, Supple Chest: Symmetrical, No Deformity Cardiovascular: Rhythm Regular Respiratory: Normal Breath Sounds Gastrointestinal/Abdominal: Soft, No Tenderness Back: No CVA Tenderness Extremity: Tenderness (left plantar mid foot lesion), Other (B/L legs C/W erythema nododum; + Fluctuant; + local erythema; neuro intact ) Extremity: Left: Atraumatic, Painful To Bear Weight Pulses: Left Dorsalis Pedis: Normal, Right Dorsalis Pedis: Normal Neurological/Psych: Oriented x3, Normal Speech, Normal Motor, Normal Sensation, Normal Reflexes Gait: Steady ED Course And Treatment - Laboratory Results Result Diagrams: 04/18/18 10:25 04/18/18 10:25 ECG: Interpreted By Me ECG Rhythm: Sinus Rhythm ECG Interpretation: Normal Rate From EC O2 Sat by Pulse Oximetry: 99 (RA) Pulse Ox Interpretation: Normal - Radiology CXR: Read By Radiologist - Other Rad CXR X-Ray: Read By Radiologist Interpretation: Accession No. : [id number]. Patient Name / ID : JUDITH MCLEAN / [id number]. Exam Date : 04/18/2018 10:16:35 ( Approved ). Study Comment : Sex / Age : M / 48Y. Creator : Judith Dumont V. Dictator : Judith Dumont V. Boat Dock Operator : Ethnology Professor : Judith Dumont V. Approver2 : Report Date : 04/18/2018 11:22:11. My Comment : . Date of service: 04/18/2018. PROCEDURE: CHEST RADIOGRAPH, 1 VIEW. HISTORY: MED CLEAR. COMPARISON: 02/18/2018. FINDINGS: LUNGS: No consolidation. PLEURA: No pneumothorax or pleural fluid seen. CARDIOVASCULAR: Normal. OSSEOUS STRUCTURES: No significant abnormalities. VISUALIZED UPPER ABDOMEN: Normal. OTHER FINDINGS: None. IMPRESSION: No active disease. Left Foot X-Ray: Read By Radiologist Interpretation: Accession No. : [id number]. Patient Name / ID : JUDITH MCLEAN / [id number]. Exam Date : 04/18/2018 10:33:56 ( Approved ). Study Comment : Sex / Age : M / 48Y. Creator : Judith Dumont V. Dictator : Judith Dumont V. Boat Dock Operator : Ethnology Professor : Judith Dumont V. Approver2 : Report Date : 04/18/2018 11:28:08. My Comment : . Date of service: 04/18/2018. PROCEDURE: Left Foot Radiographs. HISTORY: FOOT PAIN, LESION MID FOOT. COMPARISON: 11/06/2012. FINDINGS: BONES: No interval fracture or dislocation appreciated. JOINTS: The deformity of the 3rd digit involving the 3rd proximal and distal interphalangeal joints of this digit are similar appearance with the 2013 study. Chronic subluxations marked arthrosis and/or prior trauma -remote are inferred. Cystic arthro pathic changes of several joint is specially the 1st metatarsal-phalangeal joint and 1st interphalangeal joint are noted. SOFT TISSUES: Vascular calcifications present. OTHER FINDINGS: Hammertoe like orientations. The hallux valgus orientation is less accentuated on the current study. IMPRESSION: Multifocal arthrosis as above. Other findings -as above. No interval pathology appreciated. Progress Note: Impression: pain on bottom of left foot. Plans: -- EKG. -- blood work. -- CXR. -- oxyCODONE. -- XR left foot. Reassess: Patient is resting comfortably. Tolerating PO. Progress - Re-Evaluation Re-evaluation Note: 04/18/18 10:07 D/W DR CHAVARRIA, WILL CONSULT ADMIT MEDICINE D/W DR BANKS WILL ADMIT - Data Reviewed Data Reviewed: Lab, Diagnostic imaging, EKG, Old records Disposition Counseled Patient/Family Regarding: Studies Performed, Diagnosis - Disposition Disposition: HOSPITALIZED Disposition Time: 10:11 Condition: SERIOUS - POA Present On Arrival: Poor Glycemic Control - Clinical Impression Clinical Impression: Crohn disease, Foot lesion, Erythema nodosum, Foot pain, Difficulty waking - Scribe Statement The provider has reviewed the documentation as recorded by the Scribe Calvillo Do Provider Attestation: All medical record entries made by the Scribe were at my direction and personally dictated by me. I have reviewed the chart and agree that the record accurately reflects my personal performance of the history, physical exam, medical decision making, and the department course for this patient. I have also personally directed, reviewed, and agree with the discharge instructions and disposition. Decision To Admit - Pt Status Changed To: Hospital Disposition Of: Observation - . Bed Request Type: Regular Admitting Physician: Alessandra Banks Patient Diagnosis: Crohn disease, Foot lesion, Erythema nodosum, Foot pain, Difficulty waking
[2018-04-18] MEDS ORDERED: Oxycodone/Acetaminophen 5/325 mg Tab PO STA ×2 (10:15→14:32)
[2018-04-18 10:27] LABS: BASO # 0.1 K/uL (0.0-0.2); BASO % 0.9 % (0.0-2.0); EOS # 0.3 K/uL (0.0-0.7); EOS % 3.1 % (0.0-4.0); HEMOGLOBIN 10.9 g/dL (12.0-18.0); LYMPH # 1.3 K/uL (1.0-4.3); LYMPH % 12.2 % (20.0-40.0); MEAN CELL VOLUME 83.7 fL (80.0-94.0); MEAN CORPUSCULAR HEMOGLOBIN 28.7 pg (27.0-31.0); MEAN CORPUSCULAR HGB CONC 34.3 g/dL (33.0-37.0); MEAN PLATELET VOLUME 8.8 fL (7.2-11.7); MONO # 0.7 K/uL (0.0-0.8); MONO % 6.4 % (0.0-10.0); NEUT # 8.2 K/uL (1.8-7.0); NEUT % 77.4 % (50.0-75.0); RBC 3.81 Mil/uL (4.40-5.90); RED CELL DISTRIBUTION WIDTH 13.8 % (11.5-14.5); WHITE BLOOD COUNT 10.6 K/uL (4.8-10.8)
[2018-04-18] MEDS ORDERED: Oxycodone/Acetaminophen 5/325 mg Tab ONE ×3 (10:28→14:38)
[2018-04-18 10:40] LABS: CALCIUM 8.9 mg/dl (8.6-10.4)
--- NOTE | 2018-04-18 11:23 | RAD ---
Date of service: 04/18/2018 PROCEDURE: CHEST RADIOGRAPH, 1 VIEW HISTORY: MED CLEAR COMPARISON: 02/18/2018 FINDINGS: LUNGS: No consolidation PLEURA: No pneumothorax or pleural fluid seen. CARDIOVASCULAR: Normal. OSSEOUS STRUCTURES: No significant abnormalities. VISUALIZED UPPER ABDOMEN: Normal. OTHER FINDINGS: None. IMPRESSION: No active disease.
--- NOTE | 2018-04-18 11:29 | RAD ---
Date of service: 04/18/2018 PROCEDURE: Left Foot Radiographs. HISTORY: FOOT PAIN, LESION MID FOOT COMPARISON: 11/06/2012 FINDINGS: BONES: No interval fracture or dislocation appreciated. JOINTS: The deformity of the 3rd digit involving the 3rd proximal and distal interphalangeal joints of this digit are similar appearance with the 2013 study. Chronic subluxations marked arthrosis and/or prior trauma -remote are inferred. Cystic arthro pathic changes of several joint is specially the 1st metatarsal-phalangeal joint and 1st interphalangeal joint are noted. SOFT TISSUES: Vascular calcifications present OTHER FINDINGS: Hammertoe like orientations. The hallux valgus orientation is less accentuated on the current study. IMPRESSION: Multifocal arthrosis as above. Other findings -as above. No interval pathology appreciated.
--- NOTE | 2018-04-18 16:37 | CP.PCM.CON ---
History of Present Illness - History of Present Illness History of Present Illness: General surgery consult for Dr. Barragan consulted for left foot abscess 48 yr old Male pt presents to ED with complaints of left foot pain. Pt states he has had a pocket of pus at the sole of his left foot since 04/10 which has gotten progressively bigger. On 04/14 the pus collection became very tender and painful to walk on and he was seen by Dr. Barragan in clinic today. Pt has been using a cane to ambulate due to pain. Pt describes the pain as burning and non radiating. Pain is worse with walking and better with rest. Tylenol with codeine has provided temporary alleviation of symptoms. Pt denies any fever, chest pain, SOB, nausea, vomiting, or diarrhea at this time. PMH: Crohns, Ulcerative collitis, arthritis, diabetes PSH: anal fistulotomy, cholecystectomy, eye surgery Social: smokes > 10 cigarrettes/day, drinks socially, denies illicit substance use Medications: Azathioprine, Norvasc, Lyrica, Lisinopril NKA Review of Systems - Review of Systems All systems: reviewed and no additional remarkable complaints except Review of Systems: as per HPI Past Patient History - Infectious Disease Hx of Infectious Diseases: None - Tetanus Immunizations Tetanus Immunization: Unknown - Past Medical History & Family History Past Medical History?: Yes - Past Social History Smoking Status: Heavy Smoker > 10 Cigarettes Daily - CARDIAC Hx Hypertension: Yes - PULMONARY Hx Bronchitis: Yes Hx Pneumonia: Yes - NEUROLOGICAL Hx Neurological Disorder: No - HEENT Hx HEENT Problems: Yes Hx Cataracts: Yes (right eye) - RENAL Hx Chronic Kidney Disease: No - ENDOCRINE/METABOLIC Hx Endocrine Disorders: Yes Other/Comment: diabetes on novolog/ lantus - HEMATOLOGICAL/ONCOLOGICAL Hx Anemia: Yes - INTEGUMENTARY Hx Dermatological Problems: Yes Hx Cellulitis: Yes - MUSCULOSKELETAL/RHEUMATOLOGICAL Hx Arthritis: Yes Hx Fractures: Yes (LEFT ELBOW-CASTED ONLY) Hx Rheumatoid Arthritis: Yes - GASTROINTESTINAL Hx Crohn's Disease: Yes Hx Gastritis: Yes - GENITOURINARY/GYNECOLOGICAL Hx Genitourinary Disorders: No - PSYCHIATRIC Hx Substance Use: No - SURGICAL HISTORY Hx Cholecystectomy: Yes - ANESTHESIA Hx Anesthesia: Yes Hx Anesthesia Reactions: No Hx Malignant Hyperthermia: No Meds Allergies/Adverse Reactions: Allergies Allergy/AdvReac Type Severity Reaction Status Date / Time No Known Allergies Allergy Verified 04/18/18 09:26 Physical Exam - Constitutional Appears: Well, Non-toxic, No Acute Distress - Head Exam Head Exam: ATRAUMATIC, NORMOCEPHALIC - ENT Exam ENT Exam: Mucous Membranes Moist - Respiratory Exam Respiratory Exam: NORMAL BREATHING PATTERN - Cardiovascular Exam Cardiovascular Exam: +S1, +S2 - GI/Abdominal Exam GI & Abdominal Exam: Soft. absent: Tenderness - Extremities Exam Extremities exam: Positive for: pedal edema, tenderness. Negative for: calf tenderness Additional comments: chronic erythema nodosum on LE bilaterally - tenderness to palpation. Left foot and ankle appear edematous in comparison to the right Flutuant, mildly erythematous, contained pustule on sole of left foot- tender to palpation + palpable dorsalis pedis and posterior tibialis pulses bilaterally - Neurological Exam Neurological exam: Alert, Oriented x3 Additional comments: ambulating with cane d/t pain - Psychiatric Exam Psychiatric exam: Normal Affect, Normal Mood - Skin Skin Exam: Dry, Intact, Warm Additional comments: chronic erythema nodosum on LE bilaterally Results - Vital Signs Recent Vital Signs: Last Vital Signs Temp 148 F H 04/18/18 16:32 Pulse 81 04/18/18 16:32 Resp 20 04/18/18 16:32 BP 148/80 04/18/18 16:32 Pulse Ox 98 04/18/18 16:32 - Labs Result Diagrams: 04/18/18 10:25 04/18/18 10:25 Labs: Laboratory Results - last 24 hr 04/18/18 04/18/18 10:25 10:25 WBC 10.6 RBC 3.81 L Hgb 10.9 L Hct 31.9 L MCV 83.7 MCH 28.7 MCHC 34.3 RDW 13.8 Plt Count 217 MPV 8.8 Neut % (Auto) 77.4 H Lymph % (Auto) 12.2 L Fisher % (Auto) 6.4 Eos % (Auto) 3.1 Baso % (Auto) 0.9 Neut # (Auto) 8.2 H Lymph # (Auto) 1.3 Fisher # (Auto) 0.7 Eos # (Auto) 0.3 Baso # (Auto) 0.1 Sodium 138 Potassium 4.3 Chloride 105 Carbon Dioxide 21 L Anion Gap 16 BUN 30 H Creatinine 2.3 H Est GFR ( Amer) 37 Est GFR (Non-Af Amer) 31 Random Glucose 261 H Calcium 8.9 Assessment & Plan - Assessment and Plan (Free Text) Assessment: 48 yr old male with chronic erythema nodosum and a 1 cm abscess on the sole of the left foot Plan: - plan for I&D of abscess tommorow - pt NPO after midnight - will order all preop labs - patient consented, discussed risks and benefits, answered all questions, patient elected to proceed with procedure - discussed plan with Dr. Teetee Jones PGY 1 - Date & Time Date: 04/18/18 Time: 12:30
[2018-04-18] MEDS ORDERED: Acetaminophen-Codeine 300/30 mg Tab PO PRN (18:20)
[2018-04-18] MEDS ORDERED: Sodium Chloride 0.9% 1,000 ML IV SCH (18:30)
--- NOTE | 2018-04-18 18:32 | CP.PCM.HP ---
History of Present Illness - History of Present Illness History of Present Illness: Chief complaints: Left foot swelling and pain. 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 Pain in the sole of the left foot and worsed for 3 days and unable to walk and went to see But since 1 week if his symptoms got worse. He went to see his surgeon, who recommended go to the hospital for possible intravenous antibiotic and incision and drainage. Past medical history: Hypertension, Crohn's disease, diabetes, gastritis, hypertension, history of anemia and recent pneumonia, rheumatoid arthritis. Allergies no known drug allergy Patient smoking on and off. He also using alcohol. Family history noncontributory Patient complaining of ongoing pain in the lower back. Complaining of no headache. No chills or fever noted. Blood sugar elevated. Patient also has a chronic renal failure. Multiple skin scars in the legs noted On examination. Patient is comfortable not in any distress at this time, vital signs stable. Elevated blood sugar noted Chest good air entry bilaterally regular heart sounds nontender abdomen. Pedal edema positive left sole tender pus collection small noted Patient has multiple hyperpigmented skin lesions in the lower extremities noted 04/18/18 10:25 04/18/18 10:25 Assessment/recommendation: 42-year-old male with multiple medical history, Crohn's disease, rheumatoid arthritis, cholangitis granulomatous Diabetes, renal insufficiency, uncontrolled diabetes noted. Patient also has erythema nodosum. Now admitted with the left foot abscess and for I and D Possible infection. Patient is planning to have surgical intervention possibly with the surgical consultation. Will start the patient on vancomycin and Zosyn. We will continue on azathioprine, prednisone. DVT and GI prophylaxis and will follow the patient Present on Admission - Present on Admission Any Indicators Present on Admission: No History of DVT/PE: No History of Uncontrolled Diabetes: No Urinary Catheter: No Decubitus Ulcer Present: No History Surgical Site Infection Following: Orthopedic Procedures Past Patient History - Infectious Disease Hx of Infectious Diseases: None - Tetanus Immunizations Tetanus Immunization: Unknown - Past Medical History & Family History Past Medical History?: Yes - Past Social History Smoking Status: Heavy Smoker > 10 Cigarettes Daily - CARDIAC Hx Hypertension: Yes - PULMONARY Hx Bronchitis: Yes Hx Pneumonia: Yes - NEUROLOGICAL Hx Neurological Disorder: No - HEENT Hx HEENT Problems: Yes Hx Cataracts: Yes (right eye) - RENAL Hx Chronic Kidney Disease: No - ENDOCRINE/METABOLIC Hx Endocrine Disorders: Yes Other/Comment: diabetes on novolog/ lantus - HEMATOLOGICAL/ONCOLOGICAL Hx Anemia: Yes - INTEGUMENTARY Hx Dermatological Problems: Yes Hx Cellulitis: Yes - MUSCULOSKELETAL/RHEUMATOLOGICAL Hx Arthritis: Yes Hx Fractures: Yes (LEFT ELBOW-CASTED ONLY) Hx Rheumatoid Arthritis: Yes - GASTROINTESTINAL Hx Crohn's Disease: Yes Hx Gastritis: Yes - GENITOURINARY/GYNECOLOGICAL Hx Genitourinary Disorders: No - PSYCHIATRIC Hx Substance Use: No - SURGICAL HISTORY Hx Cholecystectomy: Yes - ANESTHESIA Hx Anesthesia: Yes Hx Anesthesia Reactions: No Hx Malignant Hyperthermia: No Meds Allergies/Adverse Reactions: Allergies Allergy/AdvReac Type Severity Reaction Status Date / Time No Known Allergies Allergy Verified 04/18/18 09:26 Results - Vital Signs Recent Vital Signs: Last Vital Signs Temp 148 F H 04/18/18 16:32 Pulse 81 04/18/18 16:32 Resp 20 04/18/18 16:32 BP 148/80 04/18/18 16:32 Pulse Ox 98 04/18/18 16:32 - Labs Result Diagrams: 04/19/18 05:56 04/19/18 05:56 Labs: Laboratory Results - last 24 hr 04/18/18 04/18/18 04/18/18 10:25 10:25 17:02 WBC 10.6 RBC 3.81 L Hgb 10.9 L Hct 31.9 L MCV 83.7 MCH 28.7 MCHC 34.3 RDW 13.8 Plt Count 217 MPV 8.8 Neut % (Auto) 77.4 H Lymph % (Auto) 12.2 L Cotton % (Auto) 6.4 Eos % (Auto) 3.1 Baso % (Auto) 0.9 Neut # (Auto) 8.2 H Lymph # (Auto) 1.3 Cotton # (Auto) 0.7 Eos # (Auto) 0.3 Baso # (Auto) 0.1 Sodium 138 Potassium 4.3 Chloride 105 Carbon Dioxide 21 L Anion Gap 16 BUN 30 H Creatinine 2.3 H Est GFR ( Amer) 37 Est GFR (Non-Af Amer) 31 POC Glucose (mg/dL) 202 H Random Glucose 261 H Calcium 8.9
[2018-04-18] MEDS: Piperacill/Tazo 2.25gm in Dex 2.25 GM/50 ML BAG IVPB SCH (19:25)
[2018-04-18] MEDS: Sodium Chloride 0.9% 1,000 ML IV SCH (19:26)
[2018-04-18] MEDS: Vancomycin 1 gm/NS 200 ml 1 GM/200 ML BAG IVPB SCH (20:05)
[2018-04-18] MEDS: (Lantus) Insulin Glargine, Recombinant SC SCH (21:28)
[2018-04-18] MEDS: (Novolin R) Insulin Human Regular 100 units/ml vial SC SCH (21:28)
[2018-04-19] MEDS: Piperacill/Tazo 2.25gm in Dex 2.25 GM/50 ML BAG IVPB SCH ×4 (00:27→17:40)
[2018-04-19] MEDS: Sodium Chloride 0.9% 1,000 ML IV SCH ×2 (04:26→14:12)
[2018-04-19 06:00] LABS: MEAN CORPUSCULAR HEMOGLOBIN 28.8 pg (27.0-31.0); MEAN CORPUSCULAR HGB CONC 34.7 g/dL (33.0-37.0); MEAN PLATELET VOLUME 8.9 fL (7.2-11.7); RBC 3.46 Mil/uL (4.40-5.90); RED CELL DISTRIBUTION WIDTH 13.9 % (11.5-14.5); WHITE BLOOD COUNT 6.8 K/uL (4.8-10.8)
[2018-04-19 06:07] LABS: PROTHROMBIN TIME 10.6 SECONDS (9.7-12.2)
[2018-04-19 06:42] LABS: CALCIUM 8.7 mg/dl (8.6-10.4)
[2018-04-19] MEDS ORDERED: Lactated Ringer's 1,000 ML IV ONE ×2 (07:45)
[2018-04-19] MEDS ORDERED: Propofol 10 mg/ml Inj (20 ML) ONE ×2 (07:47→08:19)
[2018-04-19] MEDS ORDERED: Midazolam 2 MG/2 ML VIAL ONE (07:47)
[2018-04-19] MEDS: (Novolin R) Insulin Human Regular 100 units/ml vial SC SCH ×4 (08:08→21:28)
--- NOTE | 2018-04-19 08:33 | PCM.SURG1 ---
Surgeon's Initial Post Op Note - Surgeon's Notes Surgeon: annabella Branch Operations Coordinator: 0 Type of Anesthesia: General LMA Anesthesia Administered By: armani Pre-Operative Diagnosis: abscesses of foot and calf Operative Findings: pus drained from all 3 abscesses Post-Operative Diagnosis: same Operation Performed: incision and drainage of 3 abscesses Specimen/Specimens Removed: tissue from one and 3 cultures Estimated Blood Loss: EBL {In ML}: 30 Blood Products Given: N/A Drains Used: No Drains Date of Surgery/Procedure: 04/19/18 Time of Surgery/Procedure: 08:33
[2018-04-19] MEDS ORDERED: Oxycodone/Acetaminophen 5/325 mg Tab PO PRN (08:36)
[2018-04-19] MEDS ORDERED: Labetalol 25mg/5ml Syringe IVP PRN (08:38)
[2018-04-19] MEDS: HYDROmorphone 0.5 mg/0.5 ml ISec IVP PRN ×3 (08:44→09:04)
[2018-04-19] MEDS: (Novolog Mix 70/30) Insulin Aspart/Insulin Aspar 100 units/ml SC SCH ×2 (10:43→17:38)
[2018-04-19 11:17] VITALS: RESP 20
[2018-04-19] MEDS: Oxycodone/Acetaminophen 5/325 mg Tab PO PRN ×3 (11:22→20:04)
--- NOTE | 2018-04-19 15:33 | CARD ---
APPROVED REPORT Date of service: 04/18/2018 EKG Measurement Heart [id number] <Conclusion> Normal sinus rhythm Consider old septal infarct Abnormal ECG
[2018-04-19] MEDS: Vancomycin 1 gm/NS 200 ml 1 GM/200 ML BAG IVPB SCH (19:03)
--- NOTE | 2018-04-19 20:31 | OP ---
Copied To: Milan Kingsley Jr., MD Attending MD: Milan Kingsley Jr., MD PROCEDURE DATE: 04/19/2018 PREOPERATIVE DIAGNOSES: Abscess of foot and abscess of calf x2. PROCEDURE CARRIED OUT: Incision and drainage. INDICATIONS: Patient is a middle age man with history of Crohn's disease who presents with the painful abscess on the bottom of the foot, not on the ball of the foot, but in the mid foot, and in addition, he has two other painful abscess on the calf; one over the anterior compartment and one posteriorly. OPERATIVE FINDINGS: All three were lanced. Cultures were taken. A small amount of tissue was obtained from one and submitted for examination. Blood loss for the procedure was approximately 30 mL. Operation carried out incision and drainage of 3 abscess one on foot, two on calf. Milan Kingsley Jr., MD cc: Alessandra Banks MD
[2018-04-19] MEDS: (Lantus) Insulin Glargine, Recombinant SC SCH (21:38)
[2018-04-20] MEDS: Piperacill/Tazo 2.25gm in Dex 2.25 GM/50 ML BAG IVPB SCH ×4 (00:15→17:53)
--- NOTE | 2018-04-20 07:35 | CP.PCM.PN ---
Subjective - Date & Time of Evaluation Date of Evaluation: 04/20/18 Time of Evaluation: 07:32 - Subjective Subjective: General Surgery Progress Note for Dr. Kingsley Patient seen and examined today at bedside in no acute distress. Nurse reports no overnight events. Patient states pain is controlled. Dressings intact. Denies CP, SOB, n/v, c/d, f/c. Objective - Vital Signs/Intake and Output Vital Signs (last 24 hours): Temp Pulse Resp BP Pulse Ox 98.2 F 80 20 135/76 97 04/19/18 23:49 04/19/18 23:49 04/19/18 23:49 04/19/18 23:49 04/20/18 00:00 Intake and Output: 04/20/18 04/20/18 06:59 18:59 Intake Total 2200 Output Total 2000 Balance 200 - Medications Medications: Current Medications Amlodipine Besylate (Norvasc) 5 mg PO DAILY [facility] Last Admin: 04/19/18 10:43 Dose: 5 mg Azathioprine (Imuran) 50 mg PO DAILY [facility] Last Admin: 04/19/18 10:44 Dose: 50 mg Docusate Sodium (Colace) 100 mg PO BID [facility] Heparin Sodium (Porcine) (Heparin) 5,000 units SC Q8 [facility] Last Admin: 04/20/18 05:30 Dose: 5,000 units Piperacillin Sod/Tazobactam Sod (Zosyn 2.25 Gm Iv Premix) 2.25 gm in 50 mls @ 100 mls/hr IVPB Q6H [facility] PRN Reason: Protocol Last Admin: 04/20/18 05:30 Dose: 100 mls/hr Vancomycin/Sodium Chloride (Vancomycin 1 Gm/Ns 200 Ml) 1 gm in 200 mls @ 133 mls/hr IVPB Q24H [facility] PRN Reason: Protocol Stop: 04/23/18 19:01 Last Admin: 04/19/18 19:03 Dose: 133 mls/hr Insulin Aspart (Novolog Mix 70/30 (70/30 Units/Ml)) 15 units SC BID [facility] Last Admin: 04/19/18 17:38 Dose: 15 unit Insulin Glargine (Lantus) 20 unit SC HS [facility] Last Admin: 04/19/18 21:38 Dose: 20 units Insulin Human Regular (Novolin R) 0 unit SC ACHS [facility] PRN Reason: Protocol Last Admin: 04/19/18 21:28 Dose: Not Given Lisinopril (Zestril) 10 mg PO DAILY [facility] Last Admin: 04/19/18 10:43 Dose: 10 mg Morphine Sulfate (Morphine) 2 mg IVP Q4 PRN PRN Reason: Pain, moderate (4-7) Last Admin: 04/20/18 04:30 Dose: 2 mg Pneumococcal Polyvalent Vaccine (Pneumovax 23 Vaccine) 0.5 ml IM .ONCE ONE Stop: 04/20/18 10:11 Prednisone (Prednisone Tab) 10 mg PO DAILY [facility] Pregabalin (Lyrica) 75 mg PO BID [facility] Last Admin: 04/19/18 17:38 Dose: 75 mg Rosuvastatin Calcium (Crestor) 5 mg PO HS [facility] Last Admin: 04/19/18 21:40 Dose: 5 mg - Labs Labs: 04/19/18 05:56 04/19/18 05:56 PT 10.6 SECONDS (9.7-12.2) 04/19/18 05:56 INR 1.0 04/19/18 05:56 APTT 38 SECONDS (21-34) H 04/19/18 05:56 - Constitutional Appears: Non-toxic, No Acute Distress - Head Exam Head Exam: ATRAUMATIC, NORMOCEPHALIC - Eye Exam Eye Exam: EOMI, Normal appearance - ENT Exam ENT Exam: Mucous Membranes Moist, Normal Exam - Respiratory Exam Respiratory Exam: NORMAL BREATHING PATTERN. absent: Rales, Rhonchi - Cardiovascular Exam Cardiovascular Exam: REGULAR RHYTHM, +S1, +S2. absent: Murmur - GI/Abdominal Exam GI & Abdominal Exam: Soft, Normal Bowel Sounds. absent: Guarding, Tenderness - Extremities Exam Extremities Exam: Full ROM, Normal Capillary Refill Additional comments: chronic erythema nodosum on LE bilaterally peripheral pulses palpable (DP, PT) bilaterally incision site c/d/i, redressed - Neurological Exam Neurological Exam: Alert, Awake, Oriented x3 - Psychiatric Exam Psychiatric exam: Normal Affect, Normal Mood - Skin Skin Exam: Dry, Intact, Normal Color, Warm Assessment and Plan - Assessment and Plan (Free Text) Assessment: 48M with chronic erythema nodosum s/p I&D of left foot abscess POD1 Plan: - incision c/d/i, redressed - analgesics prn - continue IV abx - medical management per primary - further recs per Dr. Teetee Wills PGY1
[2018-04-20] MEDS: (Novolin R) Insulin Human Regular 100 units/ml vial SC SCH ×4 (08:17→22:10)
[2018-04-20] MEDS: (Novolog Mix 70/30) Insulin Aspart/Insulin Aspar 100 units/ml SC SCH ×2 (09:59→17:07)
[2018-04-20] MEDS ORDERED: Pneumococcal 23-Valent Vaccine IM ONE (10:10)
[2018-04-20] MEDS: Vancomycin 1 gm/NS 200 ml 1 GM/200 ML BAG IVPB SCH (18:36)
--- NOTE | 2018-04-20 18:50 | CP.PCM.PN ---
Subjective - Date & Time of Evaluation Date of Evaluation: 04/20/18 Time of Evaluation: 18:50 - Subjective Subjective: He is complaining of increasing pain in the left foot, left leg. He was using walker for walking today, the participating physical exercise. Patient will need crutches for walking Clinical examination unchanged. Pain with ankle movement on the left side noted I will wait for the culture of the incision and drainage. Monitor the culture. If it is negative patient does not need antibiotic. An antibiotic regimen as per the culture. Objective - Vital Signs/Intake and Output Vital Signs (last 24 hours): Temp Pulse Resp BP Pulse Ox 98.4 F 80 20 114/60 97 04/20/18 17:02 04/20/18 17:02 04/20/18 17:02 04/20/18 17:02 04/20/18 17:02 Intake and Output: 04/20/18 04/20/18 06:59 18:59 Intake Total 2700 580 Output Total 2000 Balance 700 580 - Medications Medications: Current Medications Amlodipine Besylate (Norvasc) 5 mg PO DAILY [facility] Last Admin: 04/20/18 10:00 Dose: 5 mg Azathioprine (Imuran) 50 mg PO DAILY [facility] Last Admin: 04/20/18 09:59 Dose: 50 mg Docusate Sodium (Colace) 100 mg PO BID [facility] Last Admin: 04/20/18 17:08 Dose: 100 mg Heparin Sodium (Porcine) (Heparin) 5,000 units SC Q8 [facility] Last Admin: 04/20/18 13:56 Dose: 5,000 units Piperacillin Sod/Tazobactam Sod (Zosyn 2.25 Gm Iv Premix) 2.25 gm in 50 mls @ 100 mls/hr IVPB Q6H [facility] PRN Reason: Protocol Last Admin: 04/20/18 17:53 Dose: 100 mls/hr Vancomycin/Sodium Chloride (Vancomycin 1 Gm/Ns 200 Ml) 1 gm in 200 mls @ 133 mls/hr IVPB Q24H [facility] PRN Reason: Protocol Stop: 04/23/18 19:01 Last Admin: 04/20/18 18:36 Dose: 133 mls/hr Insulin Aspart (Novolog Mix 70/30 (70/30 Units/Ml)) 15 units SC BID [facility] Last Admin: 04/20/18 17:07 Dose: 15 unit Insulin Glargine (Lantus) 20 unit SC HS [facility] Last Admin: 04/19/18 21:38 Dose: 20 units Insulin Human Regular (Novolin R) 0 unit SC [facility] PRN Reason: Protocol Last Admin: 04/20/18 17:08 Dose: 2 unit Lisinopril (Zestril) 10 mg PO DAILY [facility] Last Admin: 04/20/18 10:00 Dose: 10 mg Morphine Sulfate (Morphine) 2 mg IVP Q4 PRN PRN Reason: Pain, moderate (4-7) Last Admin: 04/20/18 16:30 Dose: 2 mg Prednisone (Prednisone Tab) 10 mg PO DAILY [facility] Last Admin: 04/20/18 10:00 Dose: 10 mg Pregabalin (Lyrica) 75 mg PO BID [facility] Last Admin: 04/20/18 17:08 Dose: 75 mg Rosuvastatin Calcium (Crestor) 5 mg PO [facility] Last Admin: 04/19/18 21:40 Dose: 5 mg - Labs Labs: 04/19/18 05:56 04/19/18 05:56 PT 10.6 SECONDS (9.7-12.2) 04/19/18 05:56 INR 1.0 04/19/18 05:56 APTT 38 SECONDS (21-34) H 04/19/18 05:56
[2018-04-20] MEDS: (Lantus) Insulin Glargine, Recombinant SC SCH (21:44)
[2018-04-21] MEDS: Piperacill/Tazo 2.25gm in Dex 2.25 GM/50 ML BAG IVPB SCH ×4 (00:30→17:55)
[2018-04-21] MEDS: (Novolin R) Insulin Human Regular 100 units/ml vial SC SCH ×4 (07:26→21:36)
--- NOTE | 2018-04-21 08:30 | CP.PCM.PN ---
Subjective - Date & Time of Evaluation Date of Evaluation: 04/21/18 Time of Evaluation: 06:45 - Subjective Subjective: General Surgery progress note for Dr. Moscoso Patient seen and examined this am at bedside. No acute events overnight per nursing. Patient continues to c/o pain in his left foot but states that it is improving with medication. Packing was removed and wound redressed today. Patient denies f/c/n/v. Objective - Vital Signs/Intake and Output Vital Signs (last 24 hours): Temp Pulse Resp BP Pulse Ox 97.6 F 75 20 142/76 100 04/21/18 08:00 04/21/18 08:00 04/21/18 08:00 04/21/18 08:00 04/21/18 08:00 Intake and Output: 04/21/18 04/21/18 06:59 18:59 Intake Total 1830 Output Total 1000 Balance 830 - Medications Medications: Current Medications Amlodipine Besylate (Norvasc) 5 mg PO DAILY [facility] Last Admin: 04/20/18 10:00 Dose: 5 mg Azathioprine (Imuran) 50 mg PO DAILY [facility] Last Admin: 04/20/18 09:59 Dose: 50 mg Docusate Sodium (Colace) 100 mg PO BID [facility] Last Admin: 04/20/18 17:08 Dose: 100 mg Heparin Sodium (Porcine) (Heparin) 5,000 units SC Q8 [facility] Last Admin: 04/21/18 05:28 Dose: 5,000 units Piperacillin Sod/Tazobactam Sod (Zosyn 2.25 Gm Iv Premix) 2.25 gm in 50 mls @ 100 mls/hr IVPB Q6H [facility] PRN Reason: Protocol Last Admin: 04/21/18 05:25 Dose: 100 mls/hr Vancomycin/Sodium Chloride (Vancomycin 1 Gm/Ns 200 Ml) 1 gm in 200 mls @ 133 mls/hr IVPB Q24H [facility] PRN Reason: Protocol Stop: 04/23/18 19:01 Last Admin: 04/20/18 18:36 Dose: 133 mls/hr Insulin Aspart (Novolog Mix 70/30 (70/30 Units/Ml)) 15 units SC BID [facility] Last Admin: 04/20/18 17:07 Dose: 15 unit Insulin Glargine (Lantus) 20 unit SC HS [facility] Last Admin: 04/20/18 21:44 Dose: 20 units Insulin Human Regular (Novolin R) 0 unit SC ACHS [facility] PRN Reason: Protocol Last Admin: 04/21/18 07:26 Dose: Not Given Lisinopril (Zestril) 10 mg PO DAILY [facility] Last Admin: 04/20/18 10:00 Dose: 10 mg Morphine Sulfate (Morphine) 3 mg IVP Q4 PRN PRN Reason: Pain, moderate (4-7) Last Admin: 04/21/18 04:55 Dose: 3 mg Prednisone (Prednisone Tab) 10 mg PO DAILY [facility] Last Admin: 04/20/18 10:00 Dose: 10 mg Pregabalin (Lyrica) 75 mg PO BID [facility] Last Admin: 04/20/18 17:08 Dose: 75 mg Rosuvastatin Calcium (Crestor) 5 mg PO HS [facility] Last Admin: 04/20/18 21:44 Dose: 5 mg - Labs Labs: 04/19/18 05:56 04/19/18 05:56 PT 10.6 SECONDS (9.7-12.2) 04/19/18 05:56 INR 1.0 04/19/18 05:56 APTT 38 SECONDS (21-34) H 04/19/18 05:56 - Constitutional Appears: Well, Non-toxic, No Acute Distress - Head Exam Head Exam: ATRAUMATIC, NORMOCEPHALIC - ENT Exam ENT Exam: Mucous Membranes Moist - Respiratory Exam Respiratory Exam: NORMAL BREATHING PATTERN - Cardiovascular Exam Cardiovascular Exam: +S1, +S2 - GI/Abdominal Exam GI & Abdominal Exam: Soft. absent: Tenderness - Extremities Exam Extremities Exam: Tenderness. absent: Pedal Edema Additional comments: incisions appear clean and dry with no purulent drainage, packing was removed from incisions 4x4 and kerlex dressing placed over incisions today - Neurological Exam Neurological Exam: Alert, Awake, Oriented x3 - Psychiatric Exam Psychiatric exam: Normal Affect, Normal Mood - Skin Skin Exam: Dry, Normal Color, Warm Additional comments: incisions appear clean and dry with no purulent drainage, packing was removed from incisions 4x4 and kerlex dressing placed over incisions today Assessment and Plan - Assessment and Plan (Free Text) Assessment: 48 yr old male s/p I&D of left foot abscesses x 2, POD 2 Plan: - continue dressing changes - encourage ambulation and working with PT - continue abx per primary - d/w Dr. Moscoso, all further recs per him Juanita Jones, PGY 1
[2018-04-21] MEDS: Morphine 4 MG/ML VIAL IVP PRN ×4 (08:56→21:56)
[2018-04-21] MEDS: (Novolog Mix 70/30) Insulin Aspart/Insulin Aspar 100 units/ml SC SCH ×2 (09:14→17:12)
--- NOTE | 2018-04-21 10:36 | CP.PCM.PN ---
Subjective - Date & Time of Evaluation Date of Evaluation: 04/19/18 Time of Evaluation: 10:34 - Subjective Subjective: Patient underwent incision and drainage of the left foot ulcer. Also abscess. And also patient underwent incision and drainage of the left leg ulcer. Patient is afebrile. Is having increasing pain. Denies any chest pain or shortness of breath Clinical examination is unchanged. Patient has a dressed wound on the left leg Assessment and recommendation. This 48-year-old male with the active Crohn's disease. Ulcerative colitis. Recently had a GI bleed. On immunosuppressive treatment. Seen by clean energy policy analyst. Now having possible erythema nodosum with the pyogenic granulomas. Culture pending. On antibiotic. Status post incision and drainage will follow the patient Objective - Vital Signs/Intake and Output Vital Signs (last 24 hours): Temp Pulse Resp BP Pulse Ox 97.6 F 75 20 142/76 100 04/21/18 08:00 04/21/18 08:00 04/21/18 08:00 04/21/18 08:00 04/21/18 08:00 Intake and Output: 04/21/18 04/21/18 06:59 18:59 Intake Total 1830 Output Total 1000 Balance 830 - Medications Medications: Current Medications Amlodipine Besylate (Norvasc) 5 mg PO DAILY [facility] Last Admin: 04/21/18 09:15 Dose: 5 mg Azathioprine (Imuran) 50 mg PO DAILY [facility] Last Admin: 04/21/18 09:15 Dose: 50 mg Docusate Sodium (Colace) 100 mg PO BID [facility] Last Admin: 04/21/18 09:15 Dose: 100 mg Heparin Sodium (Porcine) (Heparin) 5,000 units SC Q8 [facility] Last Admin: 04/21/18 05:28 Dose: 5,000 units Piperacillin Sod/Tazobactam Sod (Zosyn 2.25 Gm Iv Premix) 2.25 gm in 50 mls @ 100 mls/hr IVPB Q6H [facility] PRN Reason: Protocol Last Admin: 04/21/18 05:25 Dose: 100 mls/hr Vancomycin/Sodium Chloride (Vancomycin 1 Gm/Ns 200 Ml) 1 gm in 200 mls @ 133 mls/hr IVPB Q24H [facility] PRN Reason: Protocol Stop: 04/23/18 19:01 Last Admin: 04/20/18 18:36 Dose: 133 mls/hr Insulin Aspart (Novolog Mix 70/30 (70/30 Units/Ml)) 15 units SC BID [facility] Last Admin: 04/21/18 09:14 Dose: 15 unit Insulin Glargine (Lantus) 20 unit SC [facility] Last Admin: 04/20/18 21:44 Dose: 20 units Insulin Human Regular (Novolin R) 0 unit SC [facility] PRN Reason: Protocol Last Admin: 04/21/18 07:26 Dose: Not Given Lisinopril (Zestril) 10 mg PO DAILY [facility] Last Admin: 04/21/18 09:15 Dose: 10 mg Morphine Sulfate (Morphine) 3 mg IVP Q4 PRN PRN Reason: Pain, moderate (4-7) Last Admin: 04/21/18 08:56 Dose: 3 mg Prednisone (Prednisone Tab) 10 mg PO DAILY [facility] Last Admin: 04/21/18 09:15 Dose: 10 mg Pregabalin (Lyrica) 75 mg PO BID [facility] Last Admin: 04/21/18 09:15 Dose: 75 mg Rosuvastatin Calcium (Crestor) 5 mg PO [facility] Last Admin: 04/20/18 21:44 Dose: 5 mg - Labs Labs: 04/19/18 05:56 04/19/18 05:56 PT 10.6 SECONDS (9.7-12.2) 04/19/18 05:56 INR 1.0 04/19/18 05:56 APTT 38 SECONDS (21-34) H 04/19/18 05:56
--- NOTE | 2018-04-21 10:37 | CP.PCM.PN ---
Subjective - Date & Time of Evaluation Date of Evaluation: 04/21/18 Time of Evaluation: 10:37 - Subjective Subjective: Patient today able to ambulate. Is complaining of pain over the left foot, left leg. He denies any nausea vomiting. Eating well. Blood sugar elevated. So far the culture and identification of the sample of surgical specimen negative for any bacteria. In my opinion patient may have sterile pus, involving the superficial skin and soft tissue secondary to erythema nodosum and Crohn's disease. I will wait 1 more day, repeat blood test tomorrow. Continue the physical therapy. We will follow the patient Objective - Vital Signs/Intake and Output Vital Signs (last 24 hours): Temp Pulse Resp BP Pulse Ox 97.6 F 75 20 142/76 100 04/21/18 08:00 04/21/18 08:00 04/21/18 08:00 04/21/18 08:00 04/21/18 08:00 Intake and Output: 04/21/18 04/21/18 06:59 18:59 Intake Total 1830 Output Total 1000 Balance 830 - Medications Medications: Current Medications Amlodipine Besylate (Norvasc) 5 mg PO DAILY [facility] Last Admin: 04/21/18 09:15 Dose: 5 mg Azathioprine (Imuran) 50 mg PO DAILY [facility] Last Admin: 04/21/18 09:15 Dose: 50 mg Docusate Sodium (Colace) 100 mg PO BID [facility] Last Admin: 04/21/18 09:15 Dose: 100 mg Heparin Sodium (Porcine) (Heparin) 5,000 units SC Q8 [facility] Last Admin: 04/21/18 05:28 Dose: 5,000 units Piperacillin Sod/Tazobactam Sod (Zosyn 2.25 Gm Iv Premix) 2.25 gm in 50 mls @ 100 mls/hr IVPB Q6H [facility] PRN Reason: Protocol Last Admin: 04/21/18 05:25 Dose: 100 mls/hr Vancomycin/Sodium Chloride (Vancomycin 1 Gm/Ns 200 Ml) 1 gm in 200 mls @ 133 mls/hr IVPB Q24H [facility] PRN Reason: Protocol Stop: 04/23/18 19:01 Last Admin: 04/20/18 18:36 Dose: 133 mls/hr Insulin Aspart (Novolog Mix 70/30 (70/30 Units/Ml)) 15 units SC BID [facility] Last Admin: 04/21/18 09:14 Dose: 15 unit Insulin Glargine (Lantus) 20 unit SC HS [facility] Last Admin: 04/20/18 21:44 Dose: 20 units Insulin Human Regular (Novolin R) 0 unit SC ACHS [facility] PRN Reason: Protocol Last Admin: 04/21/18 07:26 Dose: Not Given Lisinopril (Zestril) 10 mg PO DAILY [facility] Last Admin: 04/21/18 09:15 Dose: 10 mg Morphine Sulfate (Morphine) 3 mg IVP Q4 PRN PRN Reason: Pain, moderate (4-7) Last Admin: 04/21/18 08:56 Dose: 3 mg Prednisone (Prednisone Tab) 10 mg PO DAILY [facility] Last Admin: 04/21/18 09:15 Dose: 10 mg Pregabalin (Lyrica) 75 mg PO BID [facility] Last Admin: 04/21/18 09:15 Dose: 75 mg Rosuvastatin Calcium (Crestor) 5 mg PO [facility] Last Admin: 04/20/18 21:44 Dose: 5 mg - Labs Labs: 04/19/18 05:56 04/19/18 05:56 PT 10.6 SECONDS (9.7-12.2) 04/19/18 05:56 INR 1.0 04/19/18 05:56 APTT 38 SECONDS (21-34) H 04/19/18 05:56
[2018-04-21 17:11] VITALS: O2SAT 98
[2018-04-21] MEDS: (Lantus) Insulin Glargine, Recombinant SC SCH (21:32)
[2018-04-22] MEDS: Piperacill/Tazo 2.25gm in Dex 2.25 GM/50 ML BAG IVPB SCH ×3 (00:45→12:30)
[2018-04-22 01:13] VITALS: BP 146/77; PULSE 77; TEMP 98.3
[2018-04-22] MEDS: Morphine 4 MG/ML VIAL IVP PRN ×3 (06:05→13:47)
[2018-04-22] MEDS: (Novolin R) Insulin Human Regular 100 units/ml vial SC SCH ×2 (07:30→11:30)
[2018-04-22 07:42] LABS: BASO # 0.1 K/uL (0.0-0.2); BASO % 0.8 % (0.0-2.0); EOS # 0.3 K/uL (0.0-0.7); EOS % 3.1 % (0.0-4.0); HEMOGLOBIN 9.9 g/dL (12.0-18.0); LYMPH % 23.8 % (20.0-40.0); MEAN CELL VOLUME 83.2 fL (80.0-94.0); MEAN CORPUSCULAR HEMOGLOBIN 28.5 pg (27.0-31.0); MEAN CORPUSCULAR HGB CONC 34.2 g/dL (33.0-37.0); MEAN PLATELET VOLUME 8.9 fL (7.2-11.7); MONO # 0.7 K/uL (0.0-0.8); MONO % 7.7 % (0.0-10.0); NEUT # 5.5 K/uL (1.8-7.0); NEUT % 64.6 % (50.0-75.0); RBC 3.46 Mil/uL (4.40-5.90); RED CELL DISTRIBUTION WIDTH 13.8 % (11.5-14.5); WHITE BLOOD COUNT 8.4 K/uL (4.8-10.8)
[2018-04-22 08:14] LABS: ALB/GLOB RATIO 0.9 (1.0-2.1); ALBUMIN 3.1 g/dL (3.5-5.0); CALCIUM 8.8 mg/dl (8.6-10.4)
--- NOTE | 2018-04-22 09:16 | CP.PCM.PN ---
Subjective - Date & Time of Evaluation Date of Evaluation: 04/22/18 Time of Evaluation: 09:14 - Subjective Subjective: Surgery: Dr. Kingsley Pt seen and examined. No acute events overnight. Pain improved. Objective - Vital Signs/Intake and Output Vital Signs (last 24 hours): Temp Pulse Resp BP Pulse Ox 98.3 F 77 20 146/77 98 04/22/18 01:12 04/22/18 01:12 04/22/18 01:12 04/22/18 01:12 04/22/18 01:12 Intake and Output: 04/22/18 04/22/18 06:59 18:59 Intake Total 415 Output Total 1000 Balance -585 - Medications Medications: Current Medications Amlodipine Besylate (Norvasc) 5 mg PO DAILY [facility] Last Admin: 04/22/18 09:08 Dose: 5 mg Azathioprine (Imuran) 50 mg PO DAILY [facility] Last Admin: 04/21/18 09:15 Dose: 50 mg Docusate Sodium (Colace) 100 mg PO BID [facility] Last Admin: 04/22/18 09:08 Dose: 100 mg Heparin Sodium (Porcine) (Heparin) 5,000 units SC Q8 [facility] Last Admin: 04/22/18 05:40 Dose: 5,000 units Piperacillin Sod/Tazobactam Sod (Zosyn 2.25 Gm Iv Premix) 2.25 gm in 50 mls @ 100 mls/hr IVPB Q6H [facility] PRN Reason: Protocol Last Admin: 04/22/18 05:40 Dose: 100 mls/hr Insulin Aspart (Novolog Mix 70/30 (70/30 Units/Ml)) 15 units SC BID [facility] Last Admin: 04/21/18 17:12 Dose: 15 unit Insulin Glargine (Lantus) 20 unit SC HS [facility] Last Admin: 04/21/18 21:32 Dose: 20 units Insulin Human Regular (Novolin R) 0 unit SC ACHS [facility] PRN Reason: Protocol Last Admin: 04/22/18 07:30 Dose: Not Given Lisinopril (Zestril) 10 mg PO DAILY [facility] Last Admin: 04/22/18 09:08 Dose: 10 mg Morphine Sulfate (Morphine) 3 mg IVP Q4 PRN PRN Reason: Pain, moderate (4-7) Last Admin: 08/11/18 06:05 Dose: 3 mg Prednisone (Prednisone Tab) 10 mg PO DAILY [facility] Last Admin: 04/22/18 09:08 Dose: 10 mg Pregabalin (Lyrica) 75 mg PO BID [facility] Last Admin: 04/21/18 17:10 Dose: 75 mg Rosuvastatin Calcium (Crestor) 5 mg PO HS [facility] Last Admin: 04/21/18 21:31 Dose: 5 mg - Labs Labs: 04/22/18 07:24 04/22/18 07:24 PT 10.6 SECONDS (9.7-12.2) 04/19/18 05:56 INR 1.0 04/19/18 05:56 APTT 38 SECONDS (21-34) H 04/19/18 05:56 - Constitutional Appears: Non-toxic, No Acute Distress - Head Exam Head Exam: ATRAUMATIC, NORMOCEPHALIC - Eye Exam Eye Exam: EOMI - ENT Exam ENT Exam: Mucous Membranes Moist - Neck Exam Neck Exam: Full ROM - Respiratory Exam Respiratory Exam: NORMAL BREATHING PATTERN. absent: Accessory Muscle Use, Respiratory Distress - GI/Abdominal Exam GI & Abdominal Exam: Soft. absent: Tenderness - Extremities Exam Additional comments: L park and plantar aspect of L foot, s/p I&D, no erythema/drainage, mildly tender - Neurological Exam Neurological Exam: Alert, Awake, Oriented x3 Assessment and Plan - Assessment and Plan (Free Text) Assessment: 48 yr old male s/p I&D of left foot abscesses x 2, POD#3 -local wound care, change dressings prn -no additional surgical intervention at this time -abx per primary -pt can f/u outpt upon D/C -will d/w attending Zemaitis PGY4
[2018-04-22] MEDS: (Novolog Mix 70/30) Insulin Aspart/Insulin Aspar 100 units/ml SC SCH (09:41)
[2018-04-22] MEDS ORDERED: Potassium Chloride 20 mEq ER Tab PO ONE (15:15)
--- NOTE | 2018-04-22 15:49 | CP.PCM.PN ---
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, denies any chest pain, sob, abdominal pain, N/V/D , mild pain to the left LE I&D site a febrile s/p I&D of left foot abscesses , POD#3 , dressing dry and intact Objective - Vital Signs/Intake and Output Vital Signs (last 24 hours): Temp Pulse Resp BP Pulse Ox 98.3 F 77 20 146/77 98 04/22/18 01:12 04/22/18 01:12 04/22/18 01:12 04/22/18 01:12 04/22/18 01:12 Intake and Output: 04/22/18 04/22/18 06:59 18:59 Intake Total 415 Output Total 1000 Balance -585 - Medications Medications: Current Medications Amlodipine Besylate (Norvasc) 5 mg PO DAILY [facility] Last Admin: 04/22/18 09:08 Dose: 5 mg Azathioprine (Imuran) 50 mg PO DAILY [facility] Last Admin: 04/22/18 09:40 Dose: 50 mg Docusate Sodium (Colace) 100 mg PO BID [facility] Last Admin: 04/22/18 09:08 Dose: 100 mg Heparin Sodium (Porcine) (Heparin) 5,000 units SC Q8 [facility] Last Admin: 04/22/18 13:14 Dose: 5,000 units Piperacillin Sod/Tazobactam Sod (Zosyn 2.25 Gm Iv Premix) 2.25 gm in 50 mls @ 100 mls/hr IVPB Q6H [facility] PRN Reason: Protocol Last Admin: 04/22/18 12:30 Dose: 100 mls/hr Insulin Aspart (Novolog Mix 70/30 (70/30 Units/Ml)) 15 units SC BID [facility] Last Admin: 04/22/18 09:41 Dose: 1 unit Insulin Glargine (Lantus) 20 unit SC HS [facility] Last Admin: 04/21/18 21:32 Dose: 20 units Insulin Human Regular (Novolin R) 0 unit SC ACHS [facility] PRN Reason: Protocol Last Admin: 04/22/18 11:30 Dose: 1 unit Lisinopril (Zestril) 10 mg PO DAILY [facility] Last Admin: 04/22/18 09:08 Dose: 10 mg Morphine Sulfate (Morphine) 3 mg IVP Q4 PRN PRN Reason: Pain, moderate (4-7) Last Admin: 04/22/18 13:47 Dose: 3 mg Prednisone (Prednisone Tab) 10 mg PO DAILY [facility] Last Admin: 04/22/18 09:08 Dose: 10 mg Pregabalin (Lyrica) 75 mg PO BID [facility] Last Admin: 04/22/18 09:40 Dose: 75 mg Rosuvastatin Calcium (Crestor) 5 mg PO HS [facility] Last Admin: 04/21/18 21:31 Dose: 5 mg - Labs Labs: 04/22/18 07:24 04/22/18 07:24 PT 10.6 SECONDS (9.7-12.2) 04/19/18 05:56 INR 1.0 04/19/18 05:56 APTT 38 SECONDS (21-34) H 04/19/18 05:56 Assessment and Plan - Assessment and Plan (Free Text) Assessment: A/P 48 year old male patient with hx of crohn's disease, DM , presents to the ER with c/o pain on the bottom of his left foot for 1 week and admitted with Foot lesion, Erythema nodosum, Foot pain, Difficulty waking s/p I&D of left foot abscesses x 2, POD#3 labds reviewed- mild hypokalemia - k replaced wound culture- Bacillus specious D/W Dr. Barragan , cleared for discharge home today from surgical standpoint and f/u with Dr. Barragan office next week Dw Dr. Banks office, cleared for discharge home today and continue augmentin for 7 more days discharge plan discussed with patient who understands an d agrees with plan
== END 2018-04-22 16:28 | disposition home or self-care (01) | DRG 623 ==
LOC: C.ER 09:23 → C.9E 10:13 → C.3T 14:38 → OBSVTOIN 04-20 16:56
PROVIDERS: ADMIT Internal Medicine; ATTEND Internal Medicine
PROC: 0JBP0ZZ Excision of Left Lower Leg Subcutaneous Tissue and Fascia, Open Approach (ICD-10-PCS; 2018-04-19)
PROC: 0J9P0ZZ Drainage of Left Lower Leg Subcutaneous Tissue and Fascia, Open Approach (ICD-10-PCS; 2018-04-19)
PROC: 0J9R00Z Drainage of Left Foot Subcutaneous Tissue and Fascia with Drainage Device, Open Approach (ICD-10-PCS; principal; 2018-04-19 07:45)
DX: E11.621 Type 2 diabetes mellitus with foot ulcer (principal); L02.612 Cutaneous abscess of left foot; K50.90 Crohn's disease, unspecified, without complications; L97.529 Non-pressure chronic ulcer of other part of left foot with unspecified severity; E11.22 Type 2 diabetes mellitus with diabetic chronic kidney disease; E11.65 Type 2 diabetes mellitus with hyperglycemia; E78.00 Pure hypercholesterolemia, unspecified; E87.6 Hypokalemia; F17.210 Nicotine dependence, cigarettes, uncomplicated; I12.9 Hypertensive chronic kidney disease with stage 1 through stage 4 chronic kidney disease, or unspecified chronic kidney disease; L52 Erythema nodosum; M06.9 Rheumatoid arthritis, unspecified; N18.9 Chronic kidney disease, unspecified; Z79.4 Long term (current) use of insulin; Z87.01 Personal history of pneumonia (recurrent)

== ENCOUNTER 2018-11-20 08:17 | Outpatient (CLI) | payer OTHER | END 2018-11-20 08:18 | disposition home or self-care (01) | LOC: C.LAB 08:17 | DX: E11.65 Type 2 diabetes mellitus with hyperglycemia (principal); E11.9 Type 2 diabetes mellitus without complications; I10 Essential (primary) hypertension; L98.9 Disorder of the skin and subcutaneous tissue, unspecified; Z68.28 Body mass index [BMI] 28.0-28.9, adult ==